=== PATIENT | male | born 1945 | race Caucasian/White ===

== ENCOUNTER → 2018-06-22 09:33 | Outpatient (CLI) | payer MEDICARE, SELFPAY ==
[2018-02-15 13:26] VITALS: BMI 30.1
[2018-06-22 10:54] LABS: AST(SGOT) 26 U/L (15-37); Alanine Aminotransfer ALT/SGPT 30 U/L (16-61); Albumin, Serum 3.8 g/dL (3.2-5.0); Alkaline Phosphatase 55 U/L (45-117); Cholesterol 184 mg/dL (200); High Density Lipoprotein 46 mg/dL; Protein, Total 7.8 g/dL (6.4-8.2); Triglycerides 106 mg/dL; Very Low Density Lipoprotein 21 mg/dL (5-40)
== END ==
PROVIDERS: Family Provider Internal Medicine; PCP Internal Medicine; Referring Provider Physician Assistant Medical; Visit Provider Physician Assistant Medical
DX: I25.10 Atherosclerotic heart disease of native coronary artery without angina pectoris (principal); E78.5 Hyperlipidemia, unspecified; Z79.899 Other long term (current) drug therapy
CPT/HCPCS: 36415; 80061; 80076

== ENCOUNTER → 2018-09-30 15:48 | Outpatient (CLI) | payer MEDICARE, SELFPAY ==
[2018-02-15 13:26] VITALS: BMI 30.1
== END ==
PROVIDERS: Family Provider Internal Medicine; PCP Internal Medicine; Referring Provider Dermatology; Visit Provider Dermatology
DX: L30.4 Erythema intertrigo (principal); R20.8 Other disturbances of skin sensation
CPT/HCPCS: 87070; 87077; 87186; 87205

== ENCOUNTER → 2018-12-29 08:19 | Outpatient (CLI) | payer MEDICARE, SELFPAY ==
[2018-11-25 13:54] VITALS: BMI 29.7
[2018-12-29 10:00] LABS: AST(SGOT) 26 U/L (15-37); Alanine Aminotransfer ALT/SGPT 28 U/L (16-61); Albumin, Serum 3.8 g/dL (3.2-5.0); Alkaline Phosphatase 56 U/L (45-117); Bilirubin, Direct 0.18 mg/dL (0.00-0.30); Cholesterol 144 mg/dL (200); Globulin 3.8 g/dL (2.2-4.2); High Density Lipoprotein 47 mg/dL; Protein, Total 7.6 g/dL (6.4-8.2); Triglycerides 66 mg/dL; Very Low Density Lipoprotein 13 mg/dL (5-40)
== END ==
PROVIDERS: Family Provider Internal Medicine; PCP Internal Medicine; Referring Provider Physician Assistant Medical; Visit Provider Physician Assistant Medical
DX: E78.5 Hyperlipidemia, unspecified (principal)
CPT/HCPCS: 36415; 80061; 80076

== ENCOUNTER → 2019-06-23 08:44 | Outpatient (CLI) | payer MEDICARE, SELFPAY ==
[2018-11-25 13:54] VITALS: BMI 29.7
[2019-06-23 10:54] LABS: AST(SGOT) 28 U/L (15-37); Alanine Aminotransfer ALT/SGPT 32 U/L (16-61); Albumin, Serum 3.5 g/dL (3.2-5.0); Alkaline Phosphatase 51 U/L (45-117); Cholesterol 150 mg/dL (200); Globulin 4.1 g/dL (2.2-4.2); High Density Lipoprotein 47 mg/dL; Protein, Total 7.6 g/dL (6.4-8.2); Triglycerides 77 mg/dL; Very Low Density Lipoprotein 15 mg/dL (5-40)
== END ==
PROVIDERS: PCP Internal Medicine; Referring Provider Physician Assistant Medical; Visit Provider Physician Assistant Medical
DX: E78.00 Pure hypercholesterolemia, unspecified (principal)
CPT/HCPCS: 36415; 80061; 80076

== ENCOUNTER 2020-02-05 21:18 | Inpatient (IN) | payer MEDICARE, SELFPAY ==
[2019-08-29 11:35] VITALS: BMI 29.8
[2020-02-05 21:19] VITALS: BP 151/78; PULSE 56; RESP 16; TEMP 36.6; O2SAT 98; BMI 29.2
--- NOTE | 2020-02-05 21:53 | CT_ITS ---
STUDY: CT ABDOMEN AND PELVIS WITHOUT CONTRAST REASON FOR EXAM: Male, 74 years old. BACK AND ABDOMEN PAIN. Hx of pacemaker, heart stent and prior appendectomy RADIATION DOSAGE (If Supplied By Facility): CTDIvol = ( 10.55 ) mGy, DLP = ( 553.50 ) mGycm TECHNIQUE: Transaxial images were obtained from the dome of the diaphragm to the symphysis pubis without oral contrast, and without intravenous contrast. Sagittal and coronal images were reconstructed. Individualized dose optimization techniques were used for this CT. COMPARISON: None. FINDINGS: The visualized lung bases are unremarkable. The visualized portions of the heart are within normal limits. Normal liver. There is a solitary gallstone. Normal spleen. Normal pancreas. Normal bilateral adrenal glands. Absent right kidney. Normal left kidney with compensatory hypertrophy. Probable 3 cm cyst of the left lower pole. Recommend confirmation with ultrasound. Evaluation of the GI tract is limited by absence of oral contrast. Cannot exclude stomach wall thickening. No dilated loops of bowel or evidence for obstruction. Cannot exclude segmental thickening of the holder of the small or large bowel. Cannot exclude enteritis or colitis. Moderate diffuse fecal retention. Status post appendectomy. There is diffuse atherosclerotic calcification of the abdominal aorta, without a demonstrated aneurysm. Normal inferior vena cava. Normal retroperitoneum. Normal urinary bladder. There is enlargement of the prostate gland. Bilateral small fat-containing inguinal hernias, larger on the left. There are diffuse degenerative changes of the visualized lumbar spine. CT/Abdomen/Pelvis without Cont IMPRESSION: Right kidney is absent. There is compensatory hypertrophy of the left kidney. Probable lower pole cyst, ultrasound recommended. Cholelithiasis. Electronically Signed: Faizan Palomo MD at 23:54 EDT , Service support ,
--- NOTE | 2020-02-05 21:55 | ED.DCSUM_ITS ---
History of Present Illness Chief Complaint: Back Informant: Patient Onset: Hours - several Context: Sudden Onset - when reaching across table while playing cards Timing: Continuous Quality: pain and spasm Location: lower thoracic spine Current Severity: Moderate Maximum Severity: Moderate Worsened by: Movement, bending Relieved by: Remaining still Associated Symptoms: Nausea/dry heaving, diffuse abdominal pain Narrative: Patient states he had sudden onset of discomfort in his back, followed by dry heaving. After vomiting, he started having diffuse abdominal pain. There is been no migration or radiation otherwise. He denies any radiation down his legs, no bowel or bladder dysfunction, no urinary problems that are new. No anticoagulants, takes baby aspirin daily, had a four-way bypass remotely. - Past Medical History (1) Atherosclerotic heart disease of [place] coronary artery without angina pectoris Status: Chronic Comment: CABG 2006: CARPIO to LAD, SVG to Diag of anterior descending, SVG to lateral Cx, SVG to RCA. Stent to Cx 2006 (2) Carotid arterial disease Status: Chronic Comment: RCEA (3) Pure hypercholesterolemia Status: Chronic Past Medical History - Allergies and Home Meds Allergies/Adverse Reactions: Allergies codeine Allergy (Verified 02/05/20 21:19) Unknown diphenhydramine HCl [From Benadryl] Allergy (Verified 02/05/20 21:19) Unknown lansoprazole [From Prevacid] Allergy (Verified 02/05/20 21:19) Unknown Penicillins Allergy (Verified 02/05/20 21:19) Unknown Sulfa (Sulfonamide Antibiotics) Allergy (Verified 02/05/20 21:19) Unknown ezetimibe [From Zetia] Adverse Reaction (Unknown, Verified 02/05/20 21:19) Unknown Primary Care Physician: Christina Sandy DO [Primary Care Provider] - Surgical History: appendectomy - at age 11, coronary bypass surgery Lives: Spouse/ Significant Other Smoking Status: Never smoker Alcohol: None Review of Systems General: Denies: Chills, Fever, Sweats Eyes: Denies: Visual changes - bilaterally, Diplopia ENT: Denies: Rhinorrhea, Sore throat Cardiovascular: Denies: Chest pain, Palpitations Respiratory: Denies: Dyspnea, Cough, Dyspnea on exertion Gastrointestinal: Reports: Abdominal pain, Nausea, Vomiting. Denies: Diarrhea, Melena, Hematochezia Genitourinary: Denies: Dysuria, Hematuria Musculoskeletal: Reports: Back pain. Denies: Myalgias, Neck pain, Swelling, Extremity Pain Skin: Denies: Rash, Wounds Neurological: Denies: Headache, Weakness, Numbness Physical Exam Vital Signs/Narrative: Vital Signs Temp Pulse Resp BP Pulse Ox 02/05/20 21:19 97.9 F 56 L 16 151/78 H 98 Inital Vital Signs reviewed: Yes General: Well nourished, Well developed, Obese, No Acute Distress Head: Normocephalic, Atraumatic Eyes: Perrl, EOMI ENT: Moist mucous membranes, No rhinorrhea Neck: Supple, Nontender Cardiovascular: Regular rate, Regular rhythm, No murmurs, - - Equal 2+/4 dorsalis pedis pulses bilaterally Respiratory: No distress, CTA bilaterally, Chest nontender Abdomen: Soft, Nondistended, Normal bowel sounds, Tender - Diffusely, nonfocal, Riley's sign - in medial RUQ/epigast, - - Abdominal obesity limits exam stefan ewhat. Negative for: Guarding, Rebound tenderness, Pulsatile mass Back: Normal Inspection, - - Bilateral paraspinal lower thoracic tenderness. No rash.. Negative for: CVA tenderness, Spinal tenderness Extremities: Nontender, No edema. Negative for: Calf Tenderness Skin: Normal color, No rash, No Trauma Neurological: Alert, Oriented x3, Cranial nerves II-XII grossly intact, Normal Strength, Normal Sensation Psychological: Normal affect, Normal Mood Diagnostic/Tx/Re-eval Clinical Impression(s) from Imaging Studies Abdomen/Pelvis CT 02/05/20 21:53 IMPRESSION: Right kidney is absent. There is compensatory hypertrophy of the left kidney. Probable lower pole cyst, ultrasound recommended. Cholelithiasis. Electronically Signed: Faizan Palomo MD at 23:54 EDT , Service support , Laboratory Tests 02/05/20 02/05/20 Range/Units 23:05 23:05 WBC 14.6 H (4.4-11.0) K/mm3 RBC 4.55 L (4.6-6.2) M/mm3 Hgb 14.1 (13.0-16.5) g/dL Hct 42.9 (40-54) % MCV 94.3 H (80-94) fL MCH 31.0 (27.0-32.0) pg MCHC 32.9 (32-36) g/dL RDW Std Deviation 42.8 (35.1-43.9) fl RDW Coeff of Abner 12.1 (11.6-14.6) % Plt Count 272 (150-450) K/mm3 MPV 9.4 (6.2-12.0) fl Immature Gran % (Auto) 1.300 H (0.0-0.9) % Neut % (Auto) 83.0 H (47-70) % Lymph % (Auto) 6.6 L (19-41) % [place] % (Auto) 8.4 (0-10) % Eos % (Auto) 0.3 (0-5) % Baso % (Auto) 0.4 (0-1) % Absolute Neuts (auto) 12.1 H (2.0-7.7) X10^3/uL Absolute Lymphs (auto) 0.96 (0.83-4.51) X10^3/uL Nucleated RBC % 0 (0-5) % Sodium 139 (136-145) mmol/L Potassium 3.7 (3.5-5.1) mmol/L Chloride 107 (98-107) mmol/L Carbon Dioxide 27.0 (21.0-32.0) mmol/L Anion Gap 5 (5-15) BUN 14 (7-18) mg/dL Creatinine 0.92 (0.70-1.30) mg/dL Estim Creat Clear Calc 68.31 ml/min Est GFR (MDRD) Af Amer 102 (>60) mL/min Est GFR (MDRD) Non-Af 85 (>60) mL/min BUN/Creatinine Ratio 15.2 (10-20) RATIO Glucose 150 H (74-106) mg/dL Calcium 8.8 (8.5-10.1) mg/dL Total Bilirubin 0.50 (0.20-1.00) mg/dL AST 22 (15-37) U/L ALT 32 (16-61) U/L Alkaline Phosphatase 53 (45-117) U/L Total Protein 7.4 (6.4-8.2) g/dL Albumin 3.6 (3.2-5.0) g/dL Globulin 3.8 (2.2-4.2) g/dL Albumin/Globulin Ratio 0.9 (0.9-2.4) RATIO Lipase 96 (73-393) U/L - Rhythm Strip Rhythm Strip: Sinus Rhythm Rate: 60 Ectopy: None - EKG Initial EKG Interpretation: Paced - atrial, RBBB, LAFB - Medical Decision Making Patient feels better after morphine but still having pain. I reexamined him. He is now focally tender in the right upper quadrant and epigastrium with a positive Riley's. My suspicion is that he has early acute cholecystitis, related to the solitary gallstone. I looked at the images, it is lodged in the neck of his gallbladder. He is stable, in mild pain and tolerating it. I discussed with the surgeon on for no doc Dr. Huizar, she will not be able to perform surgery for 2 days on this patient but would be willing to admit him. I discussed with Dr. Guadarrama who was gracious enough to admit this patient, order antibiotics, and will plan on taking him to the OR tomorrow afternoon. Screening EKG obtained. ED Disposition - Plan for ED Patient: Disposition: Acute Care Hospital [facility] Diagnosis: Acute calculous cholecystitis Referrals: Christina Sandy DO [Primary Care Provider] -
[2020-02-05] MEDS: Morphine 4 MG/ML Syringe IV (22:13)
[2020-02-05] MEDS: 0.9% Normal Saline 1,000 ML 1000 ML IV (22:13)
[2020-02-05] MEDS: Ondansetron 4 MG/2 ML Vial IV (22:14)
[2020-02-05 23:11] VITALS: BP 150/73; PULSE 60; RESP 16
[2020-02-05 23:30] LABS: Absolute Lymphocyte Count 0.96 X10^3/uL (0.83-4.51); Absolute Neutrophil Count 12.1 X10^3/uL (2.0-7.7); Basophil# 0.06 X10^3/uL; Basophil% 0.4 % (0-1); Eosinophil# 0.05 X10^3/uL; Eosinophils% 0.3 % (0-5); Hematocrit 42.9 % (40-54); Hemoglobin 14.1 g/dL (13.0-16.5); Lymphocyte # 0.96 X10^3/ul (4.0); Lymphocyte % 6.6 % (19-41); Mean Corp Hgb Conc 32.9 g/dL (32-36); Mean Corpuscular Volume 94.3 fL (80-94); Mean Platelet Vol. 9.4 fl (6.2-12.0); Monocyte# 1.23 X10^3/uL; Monocyte% 8.4 % (0-10); NRBC Flagged by Analyzer 0 % (0-5); Neutrophil # 12.12 X10^3/uL (2.7-7.7); Platelet Count 272 K/mm3 (150-450); RBC Distribution Width CV 12.1 % (11.6-14.6); RBC Distribution Width SD 42.8 fl (35.1-43.9); Red Blood Count 4.55 M/mm3 (4.6-6.2); White Blood Count 14.6 K/mm3 (4.4-11.0)
[2020-02-05 23:33] LABS: ALB/GLOB Ratio 0.9 RATIO (0.9-2.4); AST(SGOT) 22 U/L (15-37); Alanine Aminotransfer ALT/SGPT 32 U/L (16-61); Albumin, Serum 3.6 g/dL (3.2-5.0); Alkaline Phosphatase 53 U/L (45-117); Anion Gap 5 (5-15); BUN 14 mg/dL (7-18); BUN/Creat Ratio 15.2 RATIO (10-20); Calcium,Total 8.8 mg/dL (8.5-10.1); Chloride 107 mmol/L (98-107); Creatinine, Serum 0.92 mg/dL (0.70-1.30); EST Glomerular Filtration Rate 85 mL/min (>60); Est Glom Filt Rate - Afr Amer 102 mL/min (>60); Estimated Creatinine Clearance 68.31 ml/min; Globulin 3.8 g/dL (2.2-4.2); Glucose 150 mg/dL (74-106); Lipase 96 U/L (73-393); Potassium 3.7 mmol/L (3.5-5.1); Protein, Total 7.4 g/dL (6.4-8.2); Sodium Level 139 mmol/L (136-145)
[2020-02-05] MEDS: Ketorolac 15 MG/ML Vial IV (23:37)
[2020-02-05 23:54] LABS: Bacteria 0 SEEN /hpf (None Seen); Mucous, Urine 0 SEEN /hpf (<or=2+); Squamous Epithelial Cells - UA 0 SEEN /hpf (0-5); White Blood Cells 0 SEEN /hpf (0-5)
[2020-02-05 23:55] LABS: Color, Urine Yellow (Yellow); Glucose, Dipstick Normal (Normal); Ketone-Dipstick Negative (Negative); Leukocyte Esterase-Dipstick Negative /ul (Negative); Nitrite-Dipstick Negative (Negative); Occult Blood-Urine 10 /ul (Negative); Protein-Dipstick 15 mg/dl (Negative); Urine Bilirubin Dipstick Negative (Negative); Urine Clarity Clear (Clear); Urine Urobilinogen Normal (Normal)
[2020-02-06] VITALS (16 sets, daily range): BP systolic 107–142; BP diastolic 47–92; PULSE 58–65; RESP 16–20; TEMP 36.1–37.7; O2SAT 92–99; BMI 29.0
[2020-02-06 00:01] LABS: Red Blood Cells-Urine 0-5 SEEN /hpf (0-5)
--- NOTE | 2020-02-06 00:26 | EKG12_ITS ---
Test Reason : DYSRHYTHMIA Blood Pressure : / mmHG Vent. Rate : 060 BPM Atrial Rate : 060 BPM P-R Int : 240 ms QRS Dur : 138 ms QT Int : 474 ms P-R-T Axes : -11 -37 035 degrees QTc Int : 474 ms Atrial-paced rhythm with prolonged AV conduction Left axis deviation Right bundle branch block Minimal voltage criteria for LVH, may be normal variant Abnormal ECG Confirmed by RUBA KAUFMAN, JULISA ([id number]), scientific editor TERE RDZ ([id number]) on 02/07/2020 12:55:39 PM Referred By: Steve Abraham Confirmed By:JULISA YEH MD
--- NOTE | 2020-02-06 00:31 | US_ITS ---
STUDY: ABDOMINAL ULTRASOUND - RIGHT UPPER QUADRANT REASON FOR VISIT: Male, 74 [address] RU[address] PA[address] scan showed cholelithiasis. TECHNIQUE: Ultrasound evaluation of the right upper quadrant was performed with real-time and static roman-scale imaging. TECHNICAL QUALITY: Limited. Examination limited by bowel gas. COMPARISON: CT scan from yesterday. FINDINGS: Liver: The liver measures 18.1 cm. There is normal echogenicity of the liver. The bile ducts are within normal limits. There is hepatic color flow. The direction of portal flow is hepatopetal. There is no demonstrated mass lesion. Gallbladder: There is a markedly distended gallbladder. The gallbladder wall measures 2 mm. There is a negative sonographic Riley''s sign. There is no pericholecystic fluid. There is a solitary echogenic gallstone within the gallbladder neck. Common Bile Duct (C.B.D.): The common bile duct measures 6.2 mm. Pancreas: Normal size of the head, body and tail of the pancreas. There is normal echogenicity of the pancreas. There is no demonstrated pancreatic mass or cyst. Right Kidney: Absent US/Abdomen Limited IMPRESSION: Again seen is the cholelithiasis reported on yesterday''s CT scan. Solitary gallstone at the gallbladder neck. No tenderness. Electronically Signed: Faizan Palomo MD at 13:53 EDT , Service support ,
[2020-02-06] MEDS: 0.9% Saline Lock 10 ML Syringe IV ×2 (01:51→10:00)
[2020-02-06] MEDS: 0.9% Normal Saline 1,000 ML 100 ML IV ×2 (01:52→18:01)
[2020-02-06] MEDS: metroNIDAZOLE 500 MG/100 ML BAG 100 MG IV ×4 (01:53→21:51)
[2020-02-06] MEDS: Ciprofloxacin 400 MG/200 ML BAG 200 MG IV ×3 (03:25→23:00)
[2020-02-06 06:11] LABS: Absolute Lymphocyte Count 1.48 X10^3/uL (0.83-4.51); Absolute Neutrophil Count 9.7 X10^3/uL (2.0-7.7); Basophil# 0.04 X10^3/uL; Basophil% 0.3 % (0-1); Eosinophil# 0.06 X10^3/uL; Eosinophils% 0.5 % (0-5); Hematocrit 45.1 % (40-54); Hemoglobin 14.3 g/dL (13.0-16.5); Lymphocyte # 1.48 X10^3/ul (4.0); Lymphocyte % 11.3 % (19-41); Mean Corp Hgb Conc 31.7 g/dL (32-36); Mean Corpuscular Hgb 30.4 pg (27.0-32.0); Mean Platelet Vol. 9.8 fl (6.2-12.0); Monocyte# 1.77 X10^3/uL; Monocyte% 13.5 % (0-10); NRBC Flagged by Analyzer 0 % (0-5); Neutrophil % 74.1 % (47-70); POSITIVE DIFFERENTIAL YES; Platelet Count 239 K/mm3 (150-450); RBC Distribution Width CV 12.3 % (11.6-14.6); RBC Distribution Width SD 44.1 fl (35.1-43.9); White Blood Count 13.1 K/mm3 (4.4-11.0)
[2020-02-06 06:15] LABS: Differential Indicated SCAN CRITERIA MET
--- NOTE | 2020-02-06 06:30 | RAD_ITS ---
STUDY: INTRAOPERATIVE CHOLANGIOGRAM. REASON FOR EXAM: Male, 74 years old. Abd pain FLUOROSCOPY TIME (if supplied): ( 30.6 seconds ) minutes/seconds. A cine loop consisting of 212 images was made available for interpretation. TECHNIQUE: An intraoperative cholangiogram was performed by the surgeon. Imaging was submitted. COMPARISON: None. FINDINGS: The common bile duct is not dilated. No intraluminal filling defect is seen. There is free flow of contrast into the duodenum. RAD/Cholangiogram/ O R,Initial IMPRESSION: Unremarkable intraoperative cholangiogram. Electronically Signed: Dar Negrete, at 8:15 EDT , Service support ,
[2020-02-06 06:33] LABS: Differential Comment SCANNED
[2020-02-06 06:44] LABS: ALB/GLOB Ratio 0.9 RATIO (0.9-2.4); AST(SGOT) 22 U/L (15-37); Alanine Aminotransfer ALT/SGPT 30 U/L (16-61); Albumin, Serum 3.3 g/dL (3.2-5.0); Alkaline Phosphatase 47 U/L (45-117); Anion Gap 7 (5-15); BUN 11 mg/dL (7-18); BUN/Creat Ratio 11.7 RATIO (10-20); Calcium,Total 8.4 mg/dL (8.5-10.1); Chloride 103 mmol/L (98-107); Creatinine, Serum 0.94 mg/dL (0.70-1.30); EST Glomerular Filtration Rate 83 mL/min (>60); Est Glom Filt Rate - Afr Amer 100 mL/min (>60); Estimated Creatinine Clearance 66.86 ml/min; Globulin 3.5 g/dL (2.2-4.2); Glucose 127 mg/dL (74-106); Protein, Total 6.8 g/dL (6.4-8.2); Sodium Level 135 mmol/L (136-145); Thyroid Stim Hormone (TSH) 2.41 uIU/mL (0.358-3.74)
--- NOTE | 2020-02-06 08:22 | HP.PCM_ITS ---
Problem List (1) Acute calculous cholecystitis Status: Acute History of Present Illness Date of Admission: 02/06/20 The patient is a 74 year old M presented to the emergency room yesterday with pain that radiated to his back. The patient notes that he was also feeling bloating and indigestion. He is not having any fevers or chills. He has not had any vomiting. Past Medical History Past Medical History (Chronic Problems): Chronic Problems (Last Reviewed 08/29/19 @ 11:37 by Ayde Lagos) Presence of permanent cardiac pacemaker (Chronic ~2005) Pure hypercholesterolemia (Chronic) Presence of stent in coronary artery (Chronic ~01/2007) PTCA/TAXUS stent to mid and prox portion of the CX 01/31 Presence of coronary angioplasty implant and graft (Chronic ~01/2007) PTCA/TAXUS stent to mid and prox portion of the CX 01/31 History of coronary artery bypass surgery (Chronic ~2005) CABG 2006: CARPIO to LAD, SVG to Diag of anterior descending, SVG to lateral Cx, SVG to RCA. Carotid arterial disease (Chronic) RCEA Sick sinus syndrome (Chronic) Atherosclerotic heart disease of [place] coronary artery without angina pectoris (Chronic) CABG 2006: CARPIO to LAD, SVG to Diag of anterior descending, SVG to lateral Cx, SVG to RCA. Stent to Cx 2006 Medical History: Medical History (Last Reviewed 08/29/19 @ 11:37 by Ayde Lagos) Presence of permanent cardiac pacemaker (Chronic) Onset Date: ~2005 Z95.0 Pure hypercholesterolemia (Chronic) E78.00 Presence of stent in coronary artery (Chronic) Onset Date: ~01/2007 Z95.5 PTCA/TAXUS stent to mid and prox portion of the CX 01/31 Carotid arterial disease (Chronic) I77.9 RCEA Sick sinus syndrome (Chronic) I49.5 Atherosclerotic heart disease of [place] coronary artery without angina pectoris (Chronic) I25.10 CABG 2006: CARPIO to LAD, SVG to Diag of anterior descending, SVG to lateral Cx, SVG to RCA. Stent to Cx 2006 Asthma J45.909 GERD (gastroesophageal reflux disease) K21.9 Allergies codeine Allergy (Verified 02/05/20 21:19) Unknown diphenhydramine HCl [From Benadryl] Allergy (Verified 02/06/20 01:20) headache, eye irritation lansoprazole [From Prevacid] Allergy (Verified 02/05/20 21:19) Unknown Penicillins Allergy (Verified 02/06/20 01:20) Rash Sulfa (Sulfonamide Antibiotics) Allergy (Verified 02/06/20 01:20) Rash ezetimibe [From Zetia] Adverse Reaction (Unknown, Verified 02/05/20 21:19) Unknown Home Medications: Ambulatory Orders Medication Instructions Recorded aspirin 81 mg tablet,delayed 81 mg PO QDAY 05/13/17 release levothyroxine 25 mcg tablet 25 mcg PO DAILY 02/15/18 nitroglycerin 0.4 mg sublingual 0.4 mg SUBLINGUAL Q5M PRN #25 tab 11/25/18 tablet Metoprolol Tartrate [Lopressor 50 mg PO BID 02/06/20 (beta raj)] Surgical History: Surgical History (Last Reviewed 08/29/19 @ 11:37 by Ayde Lagos) Presence of coronary angioplasty implant and graft (Chronic) Onset Date: ~01/2007 Z95.5 PTCA/TAXUS stent to mid and prox portion of the CX 01/31 History of coronary artery bypass surgery (Chronic) Onset Date: ~2005 Z95.1 CABG 2006: CARPIO to LAD, SVG to Diag of anterior descending, SVG to lateral Cx, SVG to RCA. Hx of CABG Z95.1 S/P carotid endarterectomy Z98.890 Surgical History: appendectomy - at age 11, coronary bypass surgery Lives: Spouse/ Significant Other Smoking Status: Never smoker Alcohol: None - *Family History Maternal Family History: Family History (Last Reviewed 08/29/19 @ 11:37 by Ayde Lagos) Father CAD (coronary artery disease) Sister Arrhythmia Heart disease Review of Systems Constitutional: Denies: Anorexia, Fever HEENT: Denies: Difficulty Swallowing Respiratory: Denies: Cough, Shortness of Breath Gastrointestinal: Reports: Abdominal Pain. Denies: Constipation, Diarrhea, Nausea, Vomiting Genitourinary: Denies: Frequency Musculoskeletal: Denies: Joint Tenderness Skin: Denies: Jaundice Psychiatric: Denies: Anxiety Hematologic/ Lymphatic: Denies: Anemia VTE Information - Inpt Only VTE Present on Admission: No VTE Mechan Device Prophylaxis: SCD's Patient Problems: Active and Suspected Problems (Last Reviewed 08/29/19 @ 11:37 by Ayde Lagos) Acute calculous cholecystitis (Acute) - Physical Exam Vitals/I&O's: Vital Signs Temp Pulse Resp BP Pulse Ox 97.9 F 60 16 134/64 H 97 02/06/20 01:44 02/06/20 01:44 02/06/20 01:44 02/06/20 01:44 02/06/20 01:44 Oxygen Flow Rate (L/min) 98 Oxygen Delivery Method Room Air Weight: 196 lb 10.437 oz Body Mass Index (BMI) 29.0 Intake and Output for Last 24 Hours 02/04/20 02/05/20 02/06/20 23:59 23:59 23:59 Intake Total 1000 / 1000 498.34 / 498.34 Balance 1000 / 1000 498.34 / 498.34 General: Alert, Oriented x3 Neck: Supple Lungs: Normal air movement Cardiovascular: Regular rate, Regular Rhythm Abdomen: Soft, Non-Distended, Tender - Tender in the upper abdomen Musculoskeletal: No Muscle Wasting Neurological: Cranial nerves II-XII grossly intact Psych/Mental Status: Normal Affect Laboratory Results 02/05/20 23:05: WBC 14.6 H, RBC 4.55 L, Hgb 14.1, Hct 42.9, MCV 94.3 H, MCH 31.0, MCHC 32.9, RDW Std Deviation 42.8, RDW Coeff of Abner 12.1, Plt Count 272, MPV 9.4, Immature Gran % (Auto) 1.300 H, Neut % (Auto) 83.0 H, Lymph % (Auto) 6.6 L, [place] % (Auto) 8.4, Eos % (Auto) 0.3, Baso % (Auto) 0.4, Absolute Neuts (auto) 12.1 H, Absolute Lymphs (auto) 0.96, Nucleated RBC % 0 02/05/20 23:05: Sodium 139, Potassium 3.7, Chloride 107, Carbon Dioxide 27.0, Anion Gap 5, BUN 14, Creatinine 0.92, Estim Creat Clear Calc 68.31, Est GFR (MDRD) Af Amer 102, Est GFR (MDRD) Non-Af 85, BUN/Creatinine Ratio 15.2, Glucose 150 H, Calcium 8.8, Total Bilirubin 0.50, AST 22, ALT 32, Alkaline Phosphatase 53, Total Protein 7.4, Albumin 3.6, Globulin 3.8, Albumin/Globulin Ratio 0.9, Lipase 96 02/05/20 23:50: Urine Color Yellow, Urine Clarity Clear, Urine pH 6.0, Ur Specific [place] 1.020, Urine Protein 15 H, Urine Glucose (UA) Normal, Urine Ketones Negative, Urine Occult Blood 10 H, Urine Nitrite Negative, Urine Bilirubin Negative, Urine Urobilinogen Normal, Ur Leukocyte Esterase Negative, Urine RBC 0-5 SEEN, Urine WBC 0 SEEN, Ur Squamous Epith Cells 0 SEEN, Urine Bacteria 0 SEEN, Urine Mucus 0 SEEN 02/06/20 05:25: WBC 13.1 H, RBC 4.70, Hgb 14.3, Hct 45.1, MCV 96.0 H, MCH 30.4, MCHC 31.7 L, RDW Std Deviation 44.1 H, RDW Coeff of Abner 12.3, Plt Count 239, MPV 9.8, Immature Gran % (Auto) 0.300, Neut % (Auto) 74.1 H, Lymph % (Auto) 11.3 L, [place] % (Auto) 13.5 H, Eos % (Auto) 0.5, Baso % (Auto) 0.3, Absolute Neuts (auto) 9.7 H, Absolute Lymphs (auto) 1.48, Nucleated RBC % 0, Differential Comment SCANNED, Diff Path Review August02/06/20 05:25: Sodium 135 L, Potassium 4.0, Chloride 103, Carbon Dioxide 25.0, Anion Gap 7, BUN 11, Creatinine 0.94, Estim Creat Clear Calc 66.86, Est GFR (MDRD) Af Amer 100, Est GFR (MDRD) Non-Af 83, BUN/Creatinine Ratio 11.7, Glucose 127 H, Calcium 8.4 L, Total Bilirubin 0.80, AST 22, ALT 30, Alkaline Phosphatase 47, Total Protein 6.8, Albumin 3.3, Globulin 3.5, Albumin/Globulin Ratio 0.9, TSH 2.41 Clinical Impression(s) from Imaging Studies Abdomen/Pelvis CT 02/05/20 21:53 IMPRESSION: Right kidney is absent. There is compensatory hypertrophy of the left kidney. Probable lower pole cyst, ultrasound recommended. Cholelithiasis. Electronically Signed: Faizan Palomo MD at 23:54 EDT , Service support , Current Medications Acetaminophen (Tylenol) 650 mg PO Q4H PRN PRN PRN Reason: Pain 1-10 or Fever Calcium Carbonate (Tums) 1,000 mg PO Q4H PRN PRN PRN Reason: INDIGESTION Sodium Chloride () 1,000 mls @ 100 mls/hr IV .Q10H [facility] Last Infusion: 02/06/20 06:41 Dose: 0 mls/hr Documented by: Ciprofloxacin (Cipro) 400 mg in 200 mls @ 200 mls/hr IV Q12 [facility] Last Infusion: 02/06/20 04:45 Dose: Infused Documented by: Metronidazole (Flagyl) 500 mg in 100 mls @ 100 mls/hr IV Q8 [facility] Last Admin: 02/06/20 06:39 Dose: 100 mls/hr Documented by: Sodium Chloride () 250 mls @ 15 mls/hr IV .[id number] PRN PRN Reason: Saline Flush Pantoprazole Sodium 40 mg/ (Sodium Chloride) 110 mls @ 330 mls/hr IV Q24 [facility] Levothyroxine Sodium (Synthroid) 25 mcg PO DAILY@0600 [facility] Metoprolol Tartrate (Lopressor (Beta Raj)) 50 mg PO BID [facility] Morphine Sulfate () 2 - 4 mg IV Q2H PRN PRN PRN Reason: Pain Score 4-10 Ondansetron HCl (Zofran) 4 mg IV Q6H PRN PRN PRN Reason: NAUSEA Sodium Chloride () 10 - 40 ml IV UD PRN PRN Reason: SALINE FLUSH Last Admin: 02/06/20 01:51 Dose: 10 ml Documented by: Assessment/Plan All Active Problems (Last Reviewed 08/29/19 @ 11:37 by Ayde Lagos) Acute calculous cholecystitis (Acute) 74-year-old male with possible acute cholecystitis 1. Patient has elevated white count a CT scan reveals a stone in the gallbladder. I am obtaining an ultrasound this morning to see if the gallbladder wall appears thickened. His white count did slightly improved since yesterday and the patient reports only indigestion this morning. I will start him on a PPI. If the gallbladder appears distended or having a thick wall on the ultrasound I will proceed with laparoscopic cholecystectomy later this morning. 2. I discussed the procedure in detail with the patient. I discussed the risks, benefits, and alternatives of the procedure. I discussed the risks including but not limited to bleeding, infection, injury to surrounding organs such as the liver, bile duct, bowels. I did discuss the possibility of having to convert to an open procedure as well as the possibility that if any injuries occurred this may necessitate further surgery at a tertiary care center. Steve Abraham MD Pager: [facility] [address] [place] [address] Office:
[2020-02-06] MEDS: Calcium Carbonate 500 MG Tablet 1000 MG PO (08:34)
[2020-02-06] MEDS: Metoprolol Tartrate 50 MG Tablet PO ×2 (08:34→21:51)
--- NOTE | 2020-02-06 11:35 | GALL_PTH ---
PATIENT: ISIDRO ROSE LOC: MS3 U#:[id number] AGE/SX: 74/M ROOM: MS308 RE02/06/[address]: Dr. Steve Abraham MD : 1945 BED: 1 DIS: 02/08/2020 SPEC #: [id number] RECD: 02/06/20 13:51 STATUS: DARLEEN SANABRIA #: [id number] JAMES: 02/06/20 11:[address]: Steve Abraham DEPT: SURGICAL PATHOLOGY RECD BY: Ryder Martinez ENTERED: 02/07/20 08:19 SP TYPE: PATIENCE PIZARRO DR: Dr. Christina Sandy DO Tissues: Gallbladder, NOS Procedures: Surgery Specimen Level III HEADER OPERATION: Laparoscopic cholecystectomy with IOC PRE-OP DIAGNOSIS: Acute calculus cholecystitis TISSUE SUBMITTED: Gallbladder MICROSCOPIC DIAGNOSIS Gallbladder, cholecystectomy: Acute and chronic hemorrhagic and ulcerated cholecystitis and cholelithiasis. SJ:jeremy 02/08/20 MICROSCOPIC DESCRIPTION Slides are reviewed. GROSS DESCRIPTION Received is one container labeled with the patient's name and designated gallbladder. The specimen consists of a gallbladder measuring 8 x 3 x 2.5 cm. The external surface is smooth and glistening. Focally, it is granular, hemorrhagic and contains cautery artifact. The lumen of the gallbladder contains yellow-green mucoid bile and one black-dark green ovoid calculus measuring 1.6 cm. The mucosa is bile-stained and without any mass lesions. The gallbladder wall averages 0.2 cm in thickness and is free of mass lesions. Sales Specialist sections of the gallbladder and the cystic duct at margin of resection are submitted in one cassette. / AM:jeremy 02/07/20 TC:2 CPT: 36878
[2020-02-06 12:06] LABS: Pathologist Review Reviewed
[2020-02-06] MEDS: Bupiv/Epi 0.25% 30 ML Vial (12:15)
--- NOTE | 2020-02-06 13:14 | OP.PCM_ITS ---
Problem List (1) Acute calculous cholecystitis Status: Acute Report of Operation Date of Procedure: 02/06/20 Pre-Operative Diagnosis: Acute cholecystitis Post-Operative Diagnosis: Same Surgery/Procedure Performed:: Laparoscopic cholecystectomy with cholangiogram Description of Surgical Findings:: Inflamed gallbladder, normal IOC Specimen's removed: Gallbladder and contents Description of Procedure: After obtaining informed consent patient was brought back to the operating room. General anesthesia was induced. The abdomen was prepped and draped in usual sterile fashion. A small midline incision was made inferior to the umbilicus and deepened to the level of fascia. The fascia was elevated and incised. Next the peritoneum was elevated and incised in the same fashion. Finger sweep was performed and the Hamilton trocar was placed into the abdomen. The balloon was inflated. The abdomen was inflated to 15 mmHg. Next a camera was introduced into the abdomen and the abdomen was inspected. Next under direct visualization three 5-mm ports were placed one subxiphoid and 2 subcostal. Next the gallbladder was elevated and retracted toward the right shoulder. The peritoneum was stripped from the gallbladder. The gallbladder was very inflamed and very high up in the right upper quadrant. The infundibulum was located and retracted laterally. Next the triangle of Calot was dissected and the cystic duct and cystic artery were identified. Cholangiograms were performed. The Tobias clamp was used to clamp across the infundibulum and the catheter needle was inserted into the gallbladder. Under fluoroscopy contrast was instilled into the gallbladder and the common duct, cystic duct as well as proximal hepatic ducts were identified. There was good filling of the duodenum. There were no filling defects noted in the common bile duct. The clamp was removed as well as the needle and the infundibulum was grasped once more. Three hemolock clips were placed across the cystic duct. The cystic duct was then divided leaving 2 clips on the stump. The cystic artery was clipped and divided in the same fashion. The hook cautery was then used to take the gallbladder off of the gallbladder bed. Hemostasis was obtained. Gallbladder fossa was irrigated and no active bleeding or bile leakage was noted. Next the camera was introduced in the subxiphoid port. An Endopouch bag was placed through the umbilical port and the gallbladder was placed into it. The gallbladder was then removed through the umbilical incision. The camera was then reinserted through the umbilical port. The gallbladder fossa was inspected once more and noted to be hemostatic with no leaking bile. The abdomen was suctioned dry. The 5 mm ports were removed under direct visualization. The umbilical port was then removed and the air was removed from the abdomen. Next using an 0 Vicryl suture the umbilical fascia was closed in a [id number] fashion. The umbilical port site was irrigated local anesthetic was administered to all the incisions. All the incisions were closed with interrupted subcuticular 4-0 Monocryl sutures fol lowed by Steri-Strips and dressings. The patient was awoken and taken to PACU in stable condition. - Admit VTE Documentation VTE Mechan Device Prophylaxis: SCD's
[2020-02-06] MEDS: Bisacodyl 10 MG Suppository RECTAL (14:51)
[2020-02-06] MEDS: Morphine 2 MG/ML Syringe IV (21:51)
[2020-02-06] MEDS: Docusate Sodium 100 MG Capsule PO (21:51)
[2020-02-07 01:48] VITALS: BMI 29.0
[2020-02-07 03:30] VITALS: BP 99/54; PULSE 60; RESP 18; TEMP 37.1; O2SAT 92
[2020-02-07] MEDS: Morphine 2 MG/ML Syringe IV (04:17)
[2020-02-07 06:04] VITALS: BMI 29.0
[2020-02-07] MEDS: metroNIDAZOLE 500 MG/100 ML BAG 100 MG IV ×3 (06:09→22:08)
[2020-02-07] MEDS: 0.9% Normal Saline 1,000 ML 100 ML IV (06:09)
[2020-02-07] MEDS: Levothyroxine 25 MCG TABLET PO (06:09)
[2020-02-07 06:19] LABS: Absolute Lymphocyte Count 1.67 X10^3/uL (0.83-4.51); Absolute Neutrophil Count 9.3 X10^3/uL (2.0-7.7); Basophil# 0.04 X10^3/uL; Basophil% 0.3 % (0-1); Eosinophil# 0.05 X10^3/uL; Eosinophils% 0.4 % (0-5); Hematocrit 41.4 % (40-54); Hemoglobin 13.4 g/dL (13.0-16.5); Lymphocyte # 1.67 X10^3/ul (4.0); Lymphocyte % 12.7 % (19-41); Mean Corp Hgb Conc 32.4 g/dL (32-36); Mean Corpuscular Hgb 30.9 pg (27.0-32.0); Mean Corpuscular Volume 95.6 fL (80-94); Mean Platelet Vol. 9.4 fl (6.2-12.0); Monocyte# 2.02 X10^3/uL; Monocyte% 15.4 % (0-10); NRBC Flagged by Analyzer 0 % (0-5); Neutrophil # 9.28 X10^3/uL (2.7-7.7); Neutrophil % 70.8 % (47-70); POSITIVE DIFFERENTIAL YES; Platelet Count 237 K/mm3 (150-450); RBC Distribution Width CV 12.6 % (11.6-14.6); RBC Distribution Width SD 44.9 fl (35.1-43.9); Red Blood Count 4.33 M/mm3 (4.6-6.2); White Blood Count 13.1 K/mm3 (4.4-11.0)
[2020-02-07 06:28] LABS: Differential Indicated SCAN CRITERIA MET
[2020-02-07 06:48] LABS: Anion Gap 5 (5-15); BUN 13 mg/dL (7-18); BUN/Creat Ratio 11.6 RATIO (10-20); Calcium,Total 8.2 mg/dL (8.5-10.1); Chloride 107 mmol/L (98-107); Creatinine, Serum 1.12 mg/dL (0.70-1.30); EST Glomerular Filtration Rate 68 mL/min (>60); Est Glom Filt Rate - Afr Amer 82 mL/min (>60); Estimated Creatinine Clearance 56.11 ml/min; Glucose 132 mg/dL (74-106); Potassium 3.9 mmol/L (3.5-5.1); Sodium Level 136 mmol/L (136-145)
--- NOTE | 2020-02-07 07:24 | PN.SURG_ITS ---
Patient Problems: Active and Suspected Problems (Last Reviewed 08/29/19 @ 11:37 by Ayde Lagos) Acute calculous cholecystitis (Acute) Subjective: No nausea vomiting overnight. No flatus. - Physical Exam Vitals/I&O's: Vital Signs Temp Pulse Resp BP Pulse Ox 98.8 F 60 18 99/54 L 92 02/07/20 03:30 02/07/20 03:30 02/07/20 03:30 02/07/20 03:30 02/07/20 03:30 Oxygen Flow Rate (L/min) 2 Oxygen Delivery Method Room Air Weight: 196 lb 10.437 oz Body Mass Index (BMI) 29.0 Intake and Output for Last 24 Hours 02/05/20 02/06/20 02/07/20 23:59 23:59 23:59 Intake Total 1000 / 1000 2801.67 / 2801.67 601.67 / 601.67 Output Total 800 / 800 600 / 600 Balance 1000 / 1000 67 / 1.67 / 1.67 General: Alert, Oriented x3 Lungs: Clear to auscultation Abdomen: Soft, Non-Distended, Tender - Tender in the right upper quadrant Laboratory Results 02/06/20 05:25: Diff Path Review Reviewed 02/07/20 06:12: WBC 13.1 H, RBC 4.33 L, Hgb 13.4, Hct 41.4, MCV 95.6 H, MCH 30.9, MCHC 32.4, RDW Std Deviation 44.9 H, RDW Coeff of Abner 12.6, Plt Count 237, MPV 9.4, Immature Gran % (Auto) 0.400, Neut % (Auto) 70.8 H, Lymph % (Auto) 12.7 L, [place] % (Auto) 15.4 H, Eos % (Auto) 0.4, Baso % (Auto) 0.3, Absolute Neuts (auto) 9.3 H, Absolute Lymphs (auto) 1.67, Nucleated RBC % 0, Diff Path Review August02/07/20 06:12: Sodium 136, Potassium 3.9, Chloride 107, Carbon Dioxide 24.0, Anion Gap 5, BUN 13, Creatinine 1.12, Estim Creat Clear Calc 56.11, Est GFR (MDRD) Af Amer 82, Est GFR (MDRD) Non-Af 68, BUN/Creatinine Ratio 11.6, Glucose 132 H, Calcium 8.2 L Current Medications Acetaminophen (Tylenol) 650 mg PO Q4H PRN PRN PRN Reason: Pain 1-10 or Fever Calcium Carbonate (Tums) 1,000 mg PO Q4H PRN PRN PRN Reason: INDIGESTION Last Admin: 02/06/20 08:34 Dose: 1,000 mg Documented by: Docusate Sodium (Colace) 100 mg PO BID [facility] Last Admin: 02/06/20 21:51 Dose: 100 mg Documented by: Sodium Chloride () 1,000 mls @ 100 mls/hr IV .Q10H [facility] Last Infusion: 02/07/20 06:10 Dose: 0 mls/hr Documented by: Ciprofloxacin (Cipro) 400 mg in 200 mls @ 200 mls/hr IV Q12 [facility] Last Infusion: 02/07/20 00:03 Dose: Infused Documented by: Metronidazole (Flagyl) 500 mg in 100 mls @ 100 mls/hr IV Q8 [facility] Last Admin: 02/07/20 06:09 Dose: 100 mls/hr Documented by: Sodium Chloride () 250 mls @ 15 mls/hr IV .[id number] PRN PRN Reason: Saline Flush Pantoprazole Sodium 40 mg/ (Sodium Chloride) 110 mls @ 330 mls/hr IV Q24 [facility] Last Infusion: 02/06/20 10:19 Dose: Infused Documented by: Ketorolac Tromethamine (Toradol (Bkc)) 15 mg IV Q8H PRN PRN PRN Reason: Pain Score 4-10 Stop: 02/11/20 13:14 Levothyroxine Sodium (Synthroid) 25 mcg PO DAILY@0600 [facility] Last Admin: 02/07/20 06:09 Dose: 25 mcg Documented by: Metoprolol Tartrate (Lopressor (Beta Raj)) 50 mg PO BID [facility] Last Admin: 02/06/20 21:51 Dose: 50 mg Documented by: Morphine Sulfate () 2 - 4 mg IV Q2H PRN PRN PRN Reason: Pain Score 4-10 Last Admin: 02/07/20 04:17 Dose: 4 mg Documented by: Ondansetron HCl (Zofran) 4 mg IV Q6H PRN PRN PRN Reason: NAUSEA Sodium Chloride () 10 - 40 ml IV UD PRN PRN Reason: SALINE FLUSH Last Admin: 02/06/20 10:00 Dose: 10 ml Documented by: Medical Necessity - Tobacco Use Smoking Status: Never smoker Assessment/Plan All Active Problems (Last Reviewed 08/29/19 @ 11:37 by Ayde Lagos) Acute calculous cholecystitis (Acute) 74-year-old male with acute cholecystitis 1. Patient is still not passing flatus yet. Continue clears until he starts to have bowel function. I will give him some magnesium citrate as well as he was very constipated during surgery. Monitor blood pressure and urine output. Steve Abraham MD Pager: [facility] [address] [place] [address], [address] [place] [address] Office:
[2020-02-07 08:13] VITALS: BP 98/49; PULSE 63; RESP 16; TEMP 37.2; O2SAT 92
[2020-02-07] MEDS: Magnesium Citrate 300 ML 150 ML PO (09:08)
[2020-02-07 09:09] VITALS: PULSE 63
[2020-02-07] MEDS: Metoprolol Tartrate 50 MG Tablet PO ×2 (09:09→21:00)
[2020-02-07] MEDS: Docusate Sodium 100 MG Capsule PO ×2 (09:09→20:59)
[2020-02-07] MEDS: Ciprofloxacin 400 MG/200 ML BAG 200 MG IV ×2 (09:57→20:59)
--- NOTE | 2020-02-07 13:25 | NURSING ---
RN CM Assessment Introduced role of RN CM to patient and patient Madhuri at bedside. Patient is alert, oriented and able to participate in RN CM Assessment. Care providers, pharmacy, and demographics verified. Admit Dx: Acute cholecystitis Re-Admit: No Barriers/Issues: None PCP: Christina Sandy Specialists: Cardio- Dr Robin [facility] Insurance: [facility] PP Rx Benefit: Yes LNOK: Madhuri Bertrand LW/HPOA: None, information provided and made aware if changes his mind and would like to complete on this admission to notify staff. Made aware that he can return as an outpatient and complete with social service dept if chooses, SW rack card provided. Living Arrangements: Lives with in a [place] home, 3 steps to enter through the garage ADL?s: Independent with ambulation and ADLs Transportation: Both patient and drive, will transport upon DC DME: None HHC: None SNF: None Goal: Home and does not think he will have any needs. Denies any issues or concerns with DC planning at this time. Aware RNCM remains available should any emerging needs arise. DC PLAN: Home and no anticipated needs identified at this time. BEKA Sullivan
[2020-02-07 14:03] LABS: Pathologist Review Reviewed
--- NOTE | 2020-02-07 14:23 | CHAPLAIN ---
Type of Pastoral Visit _x__ Initial Visit ___ Follow-up Visit ___ On-call Visit ___ General Patient Visit ___ Spiritual Assessment ___ Family Conference ___ Bereavement ___ Rapid Response ___ Code Blue ___ Other (describe below) Pastoral Care Referral From _x__ Patient ___ Family ___ Nurse ___ Physician ___ Car Repairer Helper ___ Roof Foreman ___ Other (describe below) Sacrament/Intervention _x__ Active listening ___ Anointing ___ Baptist ___ Bereavement ___ Communion ___ Ashley exploration ___ _x__ Life review _x__ Prayer ___ Reconciliation ___ Sacrament of Sick ___ Supportive presence ___ Wedding ___ Other (describe below) Pastoral Comments spouse is also with patient at this time; support offered for both
[2020-02-07 14:51] VITALS: BP 125/61; PULSE 59; RESP 16; TEMP 36.3; O2SAT 94
[2020-02-07 20:50] VITALS: BP 142/69; PULSE 60; RESP 18; TEMP 37.1; O2SAT 94
[2020-02-07] MEDS: Acetaminophen 325 MG Tablet 650 MG PO (20:59)
[2020-02-07] MEDS: 0.9% Saline Lock 10 ML Syringe IV (20:59)
[2020-02-07 21:00] VITALS: BP 142/69; PULSE 60
[2020-02-08 02:50] VITALS: BP 143/79; PULSE 63; RESP 18; TEMP 37; O2SAT 95
[2020-02-08] MEDS: 0.9% Saline Lock 10 ML Syringe IV (05:22)
[2020-02-08] MEDS: Levothyroxine 25 MCG TABLET PO (05:22)
[2020-02-08] MEDS: metroNIDAZOLE 500 MG/100 ML BAG 100 MG IV (05:22)
--- NOTE | 2020-02-08 07:43 | DCINST_ITS ---
Discharge Diet: Light diet - advance as tolerated Discharge Activity: Return to Normal Activity, May Not Drive - for 2-3 days or while taking narcotic pain medicataions., - - Do not drive, work heavy equipment or sign legal documents for 24 hours. May shower in (days): 1 - with the bandage in place. Additional Activity Instructions:: Pain medication may cause nausea. You should typically eat light foods as you take your pain medications. Pain medication may also cause constipation. If this is a problem for you, please discuss with your doctor. Call your doctor if your incision/area has: Continuous Slow Oozing, Sudden Increased Bleeding, Increased Pain/ Swelling, Increased Redness, Foul Smelling Discharge, Fever of 101 or Higher Call your doctor if you observe: Fever of 101 or Higher Suture Line Care: Avoid Pulling/Pushing, Avoid Pinching/Bending Additional Dressing/Incision Instructions:: Leave operative bandaids on for 2 days. When you remove dressing, leave Steri-Strips on until your follow-up appointment, or until the Steri-Strips fall off on their own. Allergies/Adverse Reactions: Allergies codeine Allergy (Verified 02/05/20 21:19) Unknown diphenhydramine HCl [From Benadryl] Allergy (Verified 02/06/20 01:20) headache, eye irritation lansoprazole [From Prevacid] Allergy (Verified 02/05/20 21:19) Unknown Penicillins Allergy (Verified 02/06/20 01:20) Rash Sulfa (Sulfonamide Antibiotics) Allergy (Verified 02/06/20 01:20) Rash ezetimibe [From Zetia] Adverse Reaction (Unknown, Verified 02/05/20 21:19) Unknown Medications to take at Discharge aspirin 81 mg tablet,delayed release 81 mg PO QDAY 05/13/17 levothyroxine 25 mcg tablet 25 mcg PO DAILY 02/15/18 nitroglycerin 0.4 mg sublingual tablet 0.4 mg SUBLINGUAL Q5M PRN #25 tab 11/25/18 Metoprolol Tartrate [Lopressor (beta jose)] 50 mg PO BID 02/06/20 Acetaminophen [Tylenol Tablet] 650 mg PO Q4H PRN PRN tablet 02/08/20 Docusate Sodium [Colace] 100 mg PO BID capsule 02/08/20 Test Results: Test results from this visit will be discussed in further detail at your follow- up appointment, if applicable. Please Follow Up With: Steve Abraham MD When: Please call to schedule 2 week follow up appointment. [phone]
--- NOTE | 2020-02-08 07:45 | PCM.DC.SUM ---
Discharge Date and Diagnosis - Problem List Patient Problems: Active and Suspected Problems (Last Reviewed 08/29/19 @ 11:37 by Ayde Lagos) Acute calculous cholecystitis (Acute) Date of Admission: 02/06/20 Date of Discharge: 02/08/20 - Primary Discharge Diagnosis Acute Problems: Active Problems (Last Reviewed 08/29/19 @ 11:37 by Ayde Lagos) Acute calculous cholecystitis (Acute) - Secondary Discharge Diagnosis Chronic Problems: Chronic Problems (Last Reviewed 08/29/19 @ 11:37 by Ayde Lagos) Presence of permanent cardiac pacemaker (Chronic ~2005) Pure hypercholesterolemia (Chronic) Presence of stent in coronary artery (Chronic ~01/2007) PTCA/TAXUS stent to mid and prox portion of the CX 01/31 Presence of coronary angioplasty implant and graft (Chronic ~01/2007) PTCA/TAXUS stent to mid and prox portion of the CX 01/31 History of coronary artery bypass surgery (Chronic ~2005) CABG 2006: CARPIO to LAD, SVG to Diag of anterior descending, SVG to lateral Cx, SVG to RCA. Carotid arterial disease (Chronic) RCEA Sick sinus syndrome (Chronic) Atherosclerotic heart disease of [place] coronary artery without angina pectoris (Chronic) CABG 2006: CARPIO to LAD, SVG to Diag of anterior descending, SVG to lateral Cx, SVG to RCA. Stent to Cx 2006 Hospital Course and Treatment Imaging Results: Clinical Impression(s) from Imaging Studies Abdomen/Pelvis CT 02/05/20 21:53 IMPRESSION: Right kidney is absent. There is compensatory hypertrophy of the left kidney. Probable lower pole cyst, ultrasound recommended. Cholelithiasis. Electronically Signed: Faizan Palomo MD at 23:54 EDT , Service support , Abdomen Ultrasound 02/06/20 00:31 IMPRESSION: Again seen is the cholelithiasis reported on yesterday''s CT scan. Solitary gallstone at the gallbladder neck. No tenderness. Electronically Signed: Faizan Palomo MD at 13:53 EDT , Service support , Cholangiogram 02/06/20 06:30 IMPRESSION: Unremarkable intraoperative cholangiogram. Electronically Signed: Dar Negrete, at 8:15 EDT , Service support , Operations: cholecystecomy Procedures: None Summary of Care Provided: The patient is a 74 year old M presented to the emergency room with abdominal pain and nausea. Patient was taken the following day for a laparoscopic cholecystectomy and was found to have acute cholecystitis. The following day he was having some belching and not passing any gas and was kept n.p.o. The day after that he was started on a diet and tolerated his diet was discharged home. Patient Problems: Active and Suspected Problems (Last Reviewed 08/29/19 @ 11:37 by Ayde Lagos) Acute calculous cholecystitis (Acute) - Physical Exam Vitals/I&O's: Vital Signs Temp Pulse Resp BP Pulse Ox 98.6 F 63 18 143/79 H 95 02/08/20 02:50 02/08/20 02:50 02/08/20 02:50 02/08/20 02:50 02/08/20 02:50 Oxygen Flow Rate (L/min) 2 Oxygen Delivery Method Room Air Weight: 196 lb 10.437 oz Body Mass Index (BMI) 29.0 Intake and Output for Last 24 Hours 02/06/20 02/07/20 02/08/20 23:59 23:59 23:59 Intake Total 2801.67 / 2801.67 2940.00 / 2940.00 100 / 100 Output Total 800 / 800 1250 / 1800 1600 / 1600 Balance 2000.67 / 2000.67 1690.00 / 1140.00 -1500 / -1500 Laboratory Results 02/07/20 06:12: Diff Path Review Reviewed Current Medications Acetaminophen (Tylenol) 650 mg PO Q4H PRN PRN PRN Reason: Pain 1-10 or Fever Last Admin: 02/07/20 20:59 Dose: 650 mg Documented by: Calcium Carbonate (Tums) 1,000 mg PO Q4H PRN PRN PRN Reason: INDIGESTION Last Admin: 02/06/20 08:34 Dose: 1,000 mg Documented by: Docusate Sodium (Colace) 100 mg PO BID [facility] Last Admin: 02/07/20 20:59 Dose: 100 mg Documented by: Sodium Chloride () 250 mls @ 15 mls/hr IV .[id number] PRN PRN Reason: Saline Flush Ketorolac Tromethamine (Toradol (Bkc)) 15 mg IV Q8H PRN PRN PRN Reason: Pain Score 4-10 Stop: 02/11/20 13:14 Levothyroxine Sodium (Synthroid) 25 mcg PO DAILY@0600 [facility] Last Admin: 02/08/20 05:22 Dose: 25 mcg Documented by: Metoprolol Tartrate (Lopressor (Beta Raj)) 50 mg PO BID [facility] Last Admin: 02/07/20 21:00 Dose: 50 mg Documented by: Ondansetron HCl (Zofran) 4 mg IV Q6H PRN PRN PRN Reason: NAUSEA Sodium Chloride () 10 - 40 ml IV UD PRN PRN Reason: SALINE FLUSH Last Admin: 02/08/20 05:22 Dose: 10 ml Documented by: Discharge Diet: Light diet - advance as tolerated Discharge Activity: Return to Normal Activity, May Not Drive - for 2-3 days or while taking narcotic pain medicataions., - - Do not drive, work heavy equipment or sign legal documents for 24 hours. May shower in (days): 1 - with the bandage in place. Additional Activity Instructions:: Pain medication may cause nausea. You should typically eat light foods as you take your pain medications. Pain medication may also cause constipation. If this is a problem for you, please discuss with your doctor. Call your doctor if your incision/area has: Continuous Slow Oozing, Sudden Increased Bleeding, Increased Pain/ Swelling, Increased Redness, Foul Smelling Discharge, Fever of 101 or Higher Call your doctor if you observe: Fever of 101 or Higher Suture Line Care: Avoid Pulling/Pushing, Avoid Pinching/Bending Additional Dressing/Incision Instructions:: Leave operative bandaids on for 2 days. When you remove dressing, leave Steri-Strips on until your follow-up appointment, or until the Steri-Strips fall off on their own. Home Medications: Medications to take at Discharge aspirin 81 mg tablet,delayed release 81 mg PO QDAY 05/13/17 levothyroxine 25 mcg tablet 25 mcg PO DAILY 02/15/18 nitroglycerin 0.4 mg sublingual tablet 0.4 mg SUBLINGUAL Q5M PRN #25 tab 11/25/18 Metoprolol Tartrate [Lopressor (beta raj)] 50 mg PO BID 02/06/20 Acetaminophen [Tylenol Tablet] 650 mg PO Q4H PRN PRN tab 02/08/20 Docusate Sodium [Colace] 100 mg PO BID cap 02/08/20 Primary Care Physician: Christina Sandy DO [Primary Care Provider] - Please Follow Up With: Steve Abraham MD When: Please call to schedule 2 week follow up appointment. [phone] Medical Necessity - Tobacco Use Smoking Status: Never smoker Meaningful Use Info Meaningful Use Diagnoses (Choose all that apply): None applicable
[2020-02-08 07:59] VITALS: BP 140/60; PULSE 60; RESP 18; TEMP 36.6; O2SAT 98
[2020-02-08 08:03] VITALS: PULSE 60
[2020-02-08] MEDS: Metoprolol Tartrate 50 MG Tablet PO (08:03)
[2020-02-08] MEDS: Docusate Sodium 100 MG Capsule PO (08:03)
== END 2020-02-08 11:31 | disposition home or self-care (01) | DRG 419 ==
LOC: ED 23:36 → MS3 02-06 00:36
PROVIDERS: Admitting Provider Surgery; Emergency Provider Emergency Medicine; PCP Internal Medicine; Referring Provider Surgery; Visit Provider Surgery
PROC: 0FT44ZZ Resection of Gallbladder, Percutaneous Endoscopic Approach (ICD-10-PCS; CPT 47610; principal; 2020-02-06 11:15)
DX: K80.00 Calculus of gallbladder with acute cholecystitis without obstruction (principal); K59.00 Constipation, unspecified; N28.81 Hypertrophy of kidney; I25.10 Atherosclerotic heart disease of native coronary artery without angina pectoris; I49.5 Sick sinus syndrome; I65.29 Occlusion and stenosis of unspecified carotid artery; E78.00 Pure hypercholesterolemia, unspecified; E03.9 Hypothyroidism, unspecified; Z95.5 Presence of coronary angioplasty implant and graft; Z95.1 Presence of aortocoronary bypass graft; Z95.0 Presence of cardiac pacemaker; Z90.5 Acquired absence of kidney; Z79.82 Long term (current) use of aspirin; Z79.890 Hormone replacement therapy; Z79.899 Other long term (current) drug therapy
CPT/HCPCS: 36415; 74176; 74300; 76000; 76705; 80048; 80053; 81001; 83690; 84443; 85025; 88304; 93005; 99251; 99281; J7030; A4216; G0463; J0744; J2405

== ENCOUNTER → 2021-09-09 | Outpatient (CLI) | payer MEDICARE, SELFPAY ==
[2021-09-09 09:31] LABS: AST(SGOT) 25 U/L (15-37); Alanine Aminotransfer ALT/SGPT 31 U/L (16-61); Albumin, Serum 3.8 g/dL (3.2-5.0); Alkaline Phosphatase 50 U/L (45-117); Bilirubin, Direct 0.19 mg/dL (0.00-0.30); Cholesterol 161 mg/dL (200); Globulin 3.9 g/dL (2.2-4.2); High Density Lipoprotein 53 mg/dL; Protein, Total 7.7 g/dL (6.4-8.2); Triglycerides 74 mg/dL; Very Low Density Lipoprotein 15 mg/dL (5-40)
== END | disposition home or self-care (01) ==
LOC: LAB 08:21
PROVIDERS: PCP Internal Medicine; Referring Provider Internal Medicine Cardiovascular Disease; Visit Provider Internal Medicine Cardiovascular Disease
DX: I25.10 Atherosclerotic heart disease of native coronary artery without angina pectoris (principal); E78.00 Pure hypercholesterolemia, unspecified; Z95.1 Presence of aortocoronary bypass graft
CPT/HCPCS: 36415; 80061; 80076

== ENCOUNTER → 2022-10-20 | Outpatient (CLI) | payer MEDICARE, SELFPAY ==
[2022-10-20 10:05] LABS: AST(SGOT) 27 U/L (15-37); Alanine Aminotransfer ALT/SGPT 26 U/L (16-61); Albumin, Serum 3.7 g/dL (3.2-5.0); Alkaline Phosphatase 48 U/L (45-117); Bilirubin, Direct 0.21 mg/dL (0.00-0.30); Cholesterol 144 mg/dL (200); Globulin 3.8 g/dL (2.2-4.2); High Density Lipoprotein 49 mg/dL; Protein, Total 7.5 g/dL (6.4-8.2); Triglycerides 74 mg/dL; Very Low Density Lipoprotein 15 mg/dL (5-40)
== END | disposition home or self-care (01) ==
PROVIDERS: PCP Internal Medicine; Referring Provider Nurse Practitioner Family; Visit Provider Nurse Practitioner Family
DX: E78.00 Pure hypercholesterolemia, unspecified (principal)
CPT/HCPCS: 36415; 80061; 80076

== ENCOUNTER → 2023-07-28 | Outpatient (CLI) | payer MEDICARE, SELFPAY ==
--- NOTE | 2023-07-28 15:47 | RAD_ITS ---
STUDY: X-RAY CHEST REASON FOR EXAM: Male, 78 years old. For PPM generator change TECHNIQUE: Frontal and lateral views of the chest. COMPARISON: None. FINDINGS: The lungs are clear and expanded. There is no demonstrated pleural abnormality. Sternal cerclage wires and vascular clips are present from a prior sternotomy and coronary artery bypass graft procedure (CABG). Pacemaker is seen with leads terminating in the right atrium and right ventricle. Normal mediastinum and zhang. Normal visualized pulmonary arteries. Normal visualized aortic arch and descending thoracic aorta. Normal visualized thoracic spine. Normal visualized ribs, clavicles, and shoulders. There is no demonstrated abnormality of the visualized soft tissue structures of the upper abdomen. RAD/Chest PA and Lateral IMPRESSION: No definite acute or significant abnormality seen. Electronically Signed: Faizan Palomo MD at 17:00 EDT ,
[2023-07-28 16:17] LABS: Bacteria 0 SEEN /hpf (None Seen); Mucous, Urine 0 SEEN /hpf (<or=2+); Squamous Epithelial Cells - UA 0 SEEN /hpf (0-5)
[2023-07-28 16:37] LABS: Hematocrit 44.3 % (40-54); Hemoglobin 14.6 g/dL (13.0-16.5); Mean Corpuscular Hgb 31.3 pg (27.0-32.0); Mean Corpuscular Volume 94.9 fL (80-94); Mean Platelet Vol. 9.4 fl (6.2-12.0); Platelet Count 261 K/mm3 (150-450); RBC Distribution Width CV 12.5 % (11.6-14.6); Red Blood Count 4.67 M/mm3 (4.6-6.2); White Blood Count 8.7 K/mm3 (4.4-11.0)
[2023-07-28 16:38] LABS: Color, Urine Yellow (Yellow); Glucose, Dipstick Normal (Normal); Ketone-Dipstick Negative (Negative); Leukocyte Esterase-Dipstick 25 /ul (Negative); Nitrite-Dipstick Negative (Negative); Occult Blood-Urine Negative /ul (Negative); Protein-Dipstick Negative (Negative); Specific Gravity, Urine 1.015 (1.002-1.030); Urine Bilirubin Dipstick Negative (Negative); Urine Clarity Clear (Clear); Urine Urobilinogen Normal (Normal); Urine pH 6.5 (5.0 - 8.0)
[2023-07-28 16:44] LABS: International Normalized Ratio 1.1; Prothrombin Time (Protime)PT. 14.3 SECONDS (11.7-14.9)
[2023-07-28 16:49] LABS: Red Blood Cells-Urine 0-5 SEEN /hpf (0-5); White Blood Cells 0-5 SEEN /hpf (0-5)
[2023-07-28 16:56] LABS: Anion Gap 6 (5-15); BUN 12 mg/dL (7-18); BUN/Creat Ratio 11.5 RATIO (10-20); Calcium,Total 9.3 mg/dL (8.5-10.1); Chloride 107 mmol/L (98-107); Creatinine, Serum 1.04 mg/dL (0.70-1.30); EST Glomerular Filtration Rate 73 mL/min (>60); Est Glom Filt Rate - Afr Amer 88 mL/min (>60); Glucose 158 mg/dL (74-106); Potassium 4.4 mmol/L (3.5-5.1); Sodium Level 139 mmol/L (136-145)
== END | disposition home or self-care (01) ==
LOC: RAD 15:46
PROVIDERS: PCP Internal Medicine; Referring Provider Internal Medicine Cardiovascular Disease; Visit Provider Internal Medicine Cardiovascular Disease
DX: I49.5 Sick sinus syndrome (principal); I25.10 Atherosclerotic heart disease of native coronary artery without angina pectoris; Z95.0 Presence of cardiac pacemaker
CPT/HCPCS: 36415; 71046; 80048; 81001; 85027; 85610

== ENCOUNTER 2023-08-10 10:55 | Day surgery (SDC) | payer MEDICARE, SELFPAY ==
--- NOTE | 2023-07-30 15:42 | PCM.HP.BLA ---
History and Physical Date of Admission: 08/10/23 This is a 78-year-old white male who presents today for a generator changes. He has a history of underlying CAD status post PCI and CABG superimposed upon underlying sick sinus syndrome and permanent pacemaker placement and hyperlipidemia. He denies chest, arm, jaw, or neck discomfort. He denies palpitations. He denies bilateral lower extremity edema. He denies claudication. He denies shortness of breath with activity, shortness of breath at rest, orthopnea, or PND. He denies chronic cough. He denies significant, sudden weight gain. He states dizziness after taking metoprolol. He denies lightheadedness, near-syncope, or syncope. He denies blood in urine, blood in stool, or epistaxis. He denies fever with chills. He denies myalgia. He states fatigue. His exercise level has remained stable. Intake Vital Signs: See EMR Intake Visit Reasons: Generator Change Precision Agronomist Required: No Accompanied by: None Is patient in pain?: No Allergies codeine Allergy (Verified 04/10/23 13:10) Unknown diphenhydramine HCl [From Benadryl] Allergy (Verified 04/10/23 13:10) headache, eye irritation lansoprazole [From Prevacid] Allergy (Verified 04/10/23 13:10) Unknown Penicillins Allergy (Verified 04/10/23 13:10) Rash Sulfa (Sulfonamide Antibiotics) Allergy (Verified 04/10/23 13:10) Rash ezetimibe [From Zetia] Adverse Reaction (Unknown, Verified 04/10/23 13:10) Unknown Medications See EMR [facility] Medical History (Updated 04/10/23 @ 13:36 by Srikanth Parkinson NP, [employer] SET UP OPERATOR [employer]) Acute calculous cholecystitis Asthma Atherosclerotic heart disease of [place] coronary artery without angina pectoris Carotid arterial disease GERD (gastroesophageal reflux disease) Presence of permanent cardiac pacemaker (~2005) Presence of stent in coronary artery (~01/2007) Pure hypercholesterolemia Sick sinus syndrome Surgical History History of coronary artery bypass surgery (~2005) History of laparoscopic cholecystectomy (~02/06/20) Hx of CABG Presence of coronary angioplasty implant and graft (~01/2007) S/P carotid endarterectomy Family History Father , age 96 CAD (coronary artery disease)Sister Arrhythmia Heart disease Social History Smoking Status: Never smoker alcohol intake: never substance use type: does not use caffeine: No what type of physical activity do you participate in: walking and bicycling frequency: 5-6 times per week duration: 15-30 minutes/day seatbelt use: always do you feel safe at home: Yes ROS Const Const: Positive for fatigue (Feels he tires more quickly due to PM battery being low); Negative for weakness, headache(s), frequent falls, difficulty sleeping or excessive sweating Eyes Eyes: Negative for loss of peripheral vision, transient loss of vision, blurry vision, double vision or tunnel vision ENT ENT: Negative for headache(s), dizziness, Nosebleed/epistaxis or balance problems Cardio Chest Pain: No Palpitations: No Edema: None Muscle aches with walking: None Resp Respiratory: Negative for SOB with activity, SOB at rest, SOB orthopnea\SOB lying down, Cough or paroxysmal nocturnal dyspnea GI GI: Negative nausea, vomiting, heartburn or black,tarry stools : Negative for hematuria Musc Musc: Negative for muscle aches/ myalgia, muscle weakness, joint pain or balance problems Skin Skin: Negative non-healing lesions, rash or unusual bruising Neuro Neuro: Negative for dizziness, lightheadedness, near syncope, syncope, frequent falls, headache(s), weakness, blurry vision, double vision or lack of coordination Mariusz Hematologic/Lymphatic: Negative for easy bleeding or easy bruising Endo Endo: Positive for fatigue (Feels he tires more quickly due to PM battery being low); Negative for excessive sweating or increased thirst/drinking Psych Psych: Negative for anxiety or depression Allergy Allergy/Immunology: Negative for hives and Negative for rash Cardiology Exam Const Appearance: cooperative, healthy appearing, comfortable and no acute distress Nutritional Appearance: well nourished and overweight Orientation: alert, awake and oriented x3 Head Head: normal to inspection Ears: hearing grossly normal bilaterally Nose: external nose normal Face and Sinus: face symmetric Mouth: moist mucous membranes Eyes General: appearance normal, both eyes and all related structures Eyelids: eyelids normal EOM: EOM intact bilaterally Neck Neck: normal visual inspection and no JVD Carotids: normal carotid upstroke Chest Chest inspection: normal inspection of the chest, symmetric chest movement and normal respiratory effort; Negative cough Auscultation: Bilateral: Clear to Auscultation Cardio Rate: regular rate Rhythm: regular rhythm Heart sounds: S1 normal and S2 normal; Negative rub, gallop or murmur GI GI: normal to inspection Neuro General: patient alert, patient awake, patient oriented x3 and CN's II-XI intact bilaterally Skin Skin: no rashes or lesions noted Extremities Pulses: Normal: Right Posterior Tibial Pulse, Left Posterior Tibial Pulse, Right Radial Pulse and Left Radial Pulse Lower Extremity Edema: None: Bilateral Psych Psychological: normal affect Supplemental Info Supplemental Information Echocardiogram in 2013 demonstrates an ejection fraction of 55%. Left atrium mildly enlarged. Trivial mitral, tricuspid and pulmonic insufficiency. RVSP 23 mmHg. Stress test at that time demonstrated an area of previous myocardial injury/infarct involving portions of the basal inferoseptal, basal inferior and basal inferolateral segments with an element of srinivasa-infarct related ischemia involving portions of the basal inferolateral segments extending towards the mid inferolateral segments although an element of soft tissue attenuation could not be excluded. He declined a heart cath at that time. Assessment and Plan Assessment and Plan (1) Atherosclerotic heart disease of [place] coronary artery without angina pectoris: Status: Chronic Qualifiers: [place] vs. transplanted heart: [place] heart Qualified Code(s): I25.10 - Atherosclerotic heart disease of [place] coronary artery without angina pectoris Comment: CABG 2006: CARPIO to LAD, SVG to Diag of anterior descending, SVG to lateral Cx, SVG to RCA; Stent to Cx 2006; Plan: On account of age of bypass, last evaluation in 2012, and MVT noted on device checks, it was recommended to undergo stress test at last office visit. He declined on the basis that he is active and feeling well. This was again reviewed with him in conjunction to ongoing fatigue. He again declines stress test. He will continue lifestyle modifications. He will continue current medical therapy with aspirin and metoprolol. We will continue to monitor. (2) Sick sinus syndrome: Status: Chronic Plan: He is status post permanent pacemaker. (3) Presence of permanent cardiac pacemaker: Status: Chronic Plan: Device report from 07/28/2023 showed no mode switch episodes and 1 NSVT episode on 06/19/2023. Stored electrogram shows M MVT (AVD) at 157 bpm for duration unknown. Ventricular paced 7%. Atrial paced 95.5%. Battery has reached THEE on 07/16/2023. He will proceed with generator change. (4) Pure hypercholesterolemia: Status: Chronic Plan: He was reminded of the importance of cholesterol control in relation to cardiovascular disease. He has been intolerant to pravastatin and Zetia therapy previously. He was encouraged continue with lifestyle modification.
--- NOTE | 2023-08-04 14:28 | PCM.HP.BLA ---
History and Physical Date of Admission: 08/10/23 ISIDRO ROSE, is an 78 year old male with a history of coronary artery disease with bypass surgery. He had a drug-eluting stent placed to his circumflex in 2006. In 2005 he had an CARPIO to his LAD, SVG to the diagonal of the anterior descending, SVG to the circumflex and RCA. He also has a history of sick sinus syndrome requiring a pacemaker placement in 2005. He also has a history of hyperlipidemia. His device has reached [facility] and he is here today to have his generator changed. PFSH Medical History Acute calculous cholecystitis Asthma Atherosclerotic heart disease of [place] coronary artery without angina pectoris Carotid arterial disease GERD (gastroesophageal reflux disease) Presence of permanent cardiac pacemaker (~2005) Presence of stent in coronary artery (~01/2007) Pure hypercholesterolemia Sick sinus syndrome Surgical History History of coronary artery bypass surgery (~2005) History of laparoscopic cholecystectomy (~02/06/20) Hx of CABG Presence of coronary angioplasty implant and graft (~01/2007) S/P carotid endarterectomy Family History Father , age 96 CAD (coronary artery disease) Sister Arrhythmia Heart disease Social History Smoking Status: Never smoker alcohol intake: never substance use type: does not use caffeine: No what type of physical activity do you participate in: walking and bicycling frequency: 5-6 times per week duration: 15-30 minutes/day seatbelt use: always do you feel safe at home: Yes ROS Const Const: Positive for fatigue (Feels he tires more quickly due to PM battery being low); Negative for weakness, headache(s), frequent falls, difficulty sleeping or excessive sweating Eyes Eyes: Negative for loss of peripheral vision, transient loss of vision, blurry vision, double vision or tunnel vision ENT ENT: Negative for headache(s), dizziness, Nosebleed/epistaxis or balance problems Cardio Chest Pain: No Palpitations: No Edema: None Muscle aches with walking: None Resp Respiratory: Negative for SOB with activity, SOB at rest, SOB orthopnea\SOB lying down, Cough or paroxysmal nocturnal dyspnea GI GI: Negative nausea, vomiting, heartburn or black,tarry stools : Negative for hematuria Musc Musc: Negative for muscle aches/ myalgia, muscle weakness, joint pain or balance problems Skin Skin: Negative non-healing lesions, rash or unusual bruising Neuro Neuro: Negative for dizziness, lightheadedness, near syncope, syncope, frequent falls, headache(s), weakness, blurry vision, double vision or lack of coordination Mariusz Hematologic/Lymphatic: Negative for easy bleeding or easy bruising Endo Endo: Positive for fatigue (Feels he tires more quickly due to PM battery being low); Negative for excessive sweating or increased thirst/drinking Psych Psych: Negative for anxiety or depression Allergy Allergy/Immunology: Negative for hives and Negative for rash Cardiology Exam Const Appearance: cooperative, healthy appearing, comfortable and no acute distress Nutritional Appearance: well nourished and overweight Orientation: alert, awake and oriented x3 Head Head: normal to inspection Ears: hearing grossly normal bilaterally Nose: external nose normal Face and Sinus: face symmetric Mouth: moist mucous membranes Eyes General: appearance normal, both eyes and all related structures Eyelids: eyelids normal EOM: EOM intact bilaterally Neck Neck: normal visual inspection and no JVD Carotids: normal carotid upstroke Chest Chest inspection: normal inspection of the chest, symmetric chest movement and normal respiratory effort; Negative cough Auscultation: Bilateral: Clear to Auscultation Cardio Rate: regular rate Rhythm: regular rhythm Heart sounds: S1 normal and S2 normal; Negative rub, gallop or murmur GI GI: normal to inspection Neuro General: patient alert, patient awake, patient oriented x3 and CN's II-XI intact bilaterally Skin Skin: no rashes or lesions noted Extremities Pulses: Normal: Right Posterior Tibial Pulse, Left Posterior Tibial Pulse, Right Radial Pulse and Left Radial Pulse Lower Extremity Edema: None: Bilateral Psych Psychological: normal affect Assessment & Plan Assessment/Plan (1) Presence of permanent cardiac pacemaker: (2) Presence of stent in coronary artery: (3) History of coronary artery bypass surgery: (4) Sick sinus syndrome: PLAN: Plan Patient is here today to have his generator changed. He will continue with her routine follow-ups in the office.
[2023-08-07 07:57] VITALS: BMI 28.8
--- NOTE | 2023-08-10 14:12 | CL.IE_ITS ---
Patient: ISIDRO ROSE Study Date: 08/10/2023 Performing: Eddie Babin MD : [id number] Age: 78 Gender: male PROCEDURES PERFORMED [id number])BATTERY REMOVAL+REPLACEMENT PACER-DUAL LEAD INDICATIONS Sinoatrial node dysfunction/Sick sinus syndrome PROCEDURE DETAILS The patient was brought to the Catheterization Lab in the postabsorptive nonsedated state. Informed consent was obtained prior to the procedure. Local anesthetic was given subcutaneously to the left upper chest area with Lidocaine 2%. Incision was made to the left upper chest. PPM generator was removed. PPM atrial lead (existing) was checked and tested. PPM ventricular lead (existing) was checked and tested. PPM generator was attached to the lead(s) and inserted into the pocket. Device pocket was irrigated with antibiotic. PPM generator was then interrogated by the systems programmer. Subcutaneous closure was completed with 3-0 Vicryl. Skin closure was completed with 4-0 Vicryl. The patient tolerated the procedure well. 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 Clindamycin 900 mg IV 08/10/2023 13:25:52 Signed By Eddie Babin MD On 08/10/2023 14:11:56 Eddie Babin MD
== END 2023-08-10 15:23 | disposition home or self-care (01) ==
PROVIDERS: PCP Internal Medicine; Referring Provider Internal Medicine Cardiovascular Disease; Visit Provider Internal Medicine Cardiovascular Disease
DX: Z95.0 Presence of cardiac pacemaker (principal); I49.5 Sick sinus syndrome; E78.00 Pure hypercholesterolemia, unspecified; I25.10 Atherosclerotic heart disease of native coronary artery without angina pectoris; E66.3 Overweight; Z79.899 Other long term (current) drug therapy; Z79.82 Long term (current) use of aspirin; Z95.1 Presence of aortocoronary bypass graft; Z95.5 Presence of coronary angioplasty implant and graft
CPT/HCPCS: 33228; 99152; 99153; J7040; J7050

== ENCOUNTER 2023-09-18 18:51 | Inpatient (IN) | payer MEDICARE, SELFPAY ==
[2023-09-18] VITALS (10 sets, daily range): BP systolic 118–138; BP diastolic 43–79; PULSE 60–64; RESP 18–24; TEMP 36.1–36.6; O2SAT 95–100; BMI 30.2; BMI 28.5
--- NOTE | 2023-09-18 20:06 | EKG12_ITS ---
Test Reason : GI Blood Pressure : / mmHG Vent. Rate : 060 BPM Atrial Rate : 060 BPM P-R Int : 200 ms QRS Dur : 120 ms QT Int : 462 ms P-R-T Axes : 010 -38 075 degrees QTc Int : 462 ms Atrial-paced rhythm Left axis deviation Right bundle branch block Left ventricular hypertrophy with repolarization abnormality ( R in aVL , Romhilt-Wren ) Abnormal ECG Confirmed by Garrett Pascal ([id number]), technical writer and editor TODD FERRARI ([id number]) on 09/21/2023 8:05:40 AM Referred By: Confirmed By:Garrett Pascal
--- NOTE | 2023-09-18 20:31 | CT_ITS ---
INDICATION: Lower GI bleed, drop in hemoglobin, shock EXAMINATION: CTA abdomen and pelvis - TECHNIQUE: Routine abdominal CT angiogram protocol was performed with IV contrast. MIP images provided. A radiation dose optimization technique was used for this scan. IV Contrast dosage and agent: Radiation dose DLP mGy / cm. COMPARISON: None. FINDINGS: Lung bases: Normal. Liver: Normal. No bile ductal dilatation. Gallbladder: Normal. Spleen: Normal. Adrenal gland: Normal. Kidneys: Absent right kidney. Compensatory hypertrophy of the left kidney. 3.8 cm lower pole cyst. No stones. No hydronephrosis. Pancreas:Normal. Bowel gas pattern: Evaluation of the GI tract is limited by absence of oral contrast. Cannot exclude stomach wall thickening. No dilated loops of bowel or evidence for obstruction. Cannot exclude segmental thickening of the holder of the small or large bowel. Cannot exclude enteritis or colitis. Moderate diffuse fecal retention. Thickening of the wall of the rectum needs further evaluation. Appendix: Not definitely seen, no inflammatory changes. Free air: None. Free fluid: None. Pelvis: Pelvic organs: Moderate prostate enlargement. Distention of the bladder. Bone survey: No aggressive bony lesions. No acute fractures. Degenerative changes Adenopathy: No significant pathologic adenopathy detected. Other: None. Vascular: Normal vascular anatomy, no evidence of extravasation of contrast to suggest active bleeding. No significant narrowing or plaque of the upper aortic branches and left renal artery. Prominent calcified plaque and narrowing of the iliac arteries. CT/CTA Abd/Pelvis W/WO Contrast IMPRESSION: No evidence for active GI bleed. Probable rectal wall thickening. This needs further evaluation including rectal exam and proctosigmoidoscopy. 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 Electronically Signed: Faizan Palomo MD at 21:48 EDT ,
--- NOTE | 2023-09-18 21:00 | ED.VIS.GI ---
HPI HPI - GI History of Present Illness Chief Complaint: GI Bleed Detail of Chief Complaint: Blood per rectum Informant: patient, spouse/S.O. and family Abdominal Pain/Flank Pain Onset: Days (Onset September 13) Context: Sudden Onset Timing: Intermittent Quality: Cramping Location: RLQ and LLQ Current Severity: Gone Maximum Severity: Moderate Worsened by: - (Is associated with diarrhea); Not Worsened By Food or Movement Relieved by: Nothing; Not Relieved By Antacids, Food or Remaining Still Nausea/Vomiting/Emesis GI Symptom: Positive for Nausea; Negative for Vomiting Diarrhea/Melena/Hematochezia GI Symptom: Positive for Diarrhea and Hematochezia Onset: Days (Thursday, September 13) Stool Quality: Positive for Loose, Watery, Mucous and BRB per rectum Severity: Moderate Associated Symptoms Associated Symptoms: Negative for Dysuria, Frequency, Hematuria or Urgency Narrative Narrative: Patient had recent surgery at the [facility] for scalp carcinoma. Because patient had symptoms of bloody diarrhea and blood per rectum with abdominal pain and orthostatic symptoms blood work was obtained prior to his arrival.There is greater than 3 g drop in hemoglobin from July 27. Lactate is elevated 2.2. Electrolyte panel was unremarkable with normal BUN and creatinine. Patient [place] chest pain, he does report fatigue, tiredness and dyspnea with activity. According to daughter he is not to sleep flat because of the extensive excision of his scalp. Prior similar symptoms: No Recent Illness/Hospitalization: Yes [facility] Medical History (Updated 09/19/23 @ 05:[address] Ifeanyi Rivera, DO) Acute calculous cholecystitis Presence of permanent cardiac pacemaker (~2005) Pure hypercholesterolemia GERD (gastroesophageal reflux disease) Asthma Presence of stent in coronary artery (~01/2007) Carotid arterial disease Sick sinus syndrome Atherosclerotic heart disease of [place] coronary artery without angina pectoris Home Medications ?Medication ?Instructions ?Recorded ?Last Taken ?Type aspirin 81 mg tablet,delayed 81 mg PO QDAY heart health 05/13/17 09/18/23 History release (Adult Low Dose Aspirin) levothyroxine 25 mcg tablet 25 mcg PO DAILY thyroid 02/15/18 02/05/20 07:00 History nitroglycerin 0.4 mg sublingual 0.4 mg sublingual Q5M PRN Chest 01/14/22 Unknown Rx tablet Pain #25 tabs metoprolol tartrate 50 mg tablet 50 mg PO BID bp #180 tabs 05/23/23 04/15/24 Rx Allergy/AdvReac Type Severity Reaction Status Date / Time codeine Allergy Unknown Verified 09/18/23 18:54 diphenhydramine HCl (From Allergy headache, Verified 09/18/23 18:54 Benadryl) eye irritation Penicillins Allergy Rash Verified 09/18/23 18:54 Sulfa (Sulfonamide Allergy Rash Verified 09/18/23 18:54 Antibiotics) ezetimibe (From Zetia) AdvReac Unknown Unknown Verified 09/18/23 18:54 Family History Father , age 96 CAD (coronary artery disease) Sister Arrhythmia Heart disease Surgical History History of laparoscopic cholecystectomy (~02/06/20) Presence of coronary angioplasty implant and graft (~01/2007) History of coronary artery bypass surgery (~2005) S/P carotid endarterectomy Hx of CABG Social History Smoking Status: Never smoker alcohol intake: never substance use type: does not use caffeine: No what type of physical activity do you participate in: walking and bicycling frequency: 5-6 times per week duration: 15-30 minutes/day seatbelt use: always do you feel safe at home: Yes ROS ROS ED Constitutional Constitutional ED: Denies chills, fever(s) or subjective ENT ENT ED: Denies ear pain, rhinorrhea or sore throat Cardiovascular Cardiovascular: Denies chest pain, orthopnea, palpitations or paroxysmal nocturnal dyspnea Respiratory/Chest Respiratory/Chest: Reports cough, dyspnea and dyspnea on exertion; Denies orthopnea or paroxysmal nocturnal dyspnea Gastrointestinal Gastrointestinal: Reports diarrhea, melena and nausea; Denies abdominal pain or vomiting Genitourinary Genitourinary ED: Denies dysuria, hematuria or urinary frequency Musculoskeletal Musculoskeletal: Denies arthralgias, back pain or neck pain Integumentary Reports other Details: Scalp excision of cancer. Neurologic Neurologic: Reports weakness; Denies headache(s) or paresthesias Hematologic/Lymphatic Hematologic/Lymphatic: Denies easy bleeding or easy bruising EXAM Physical Exam Const Vital Signs: 09/18/23 18:51 09/18/23 20:18 09/18/23 20:20 Temperature 98 F Temperature Source Temporal Pulse Rate 64 63 Respiratory Rate 18 19 H Blood Pressure 132/69 H 127/43 H Blood Pressure Mean 90 69 Pulse Ox 100 98 99 Oxygen Delivery Method Room Air 09/18/23 20:30 09/18/23 20:45 09/18/23 21:00 Temperature Temperature Source Pulse Rate 60 62 60 Respiratory Rate 22 H 21 H 21 H Blood Pressure Blood Pressure Mean Pulse Ox 97 99 Oxygen Delivery Method 09/18/23 21:15 09/18/23 21:31 09/18/23 22:35 Temperature 96.9 F L Temperature Source Pulse Rate 60 63 60 Respiratory Rate 24 H 18 19 H Blood Pressure 118/79 Blood Pressure Mean 92 Pulse Ox 99 95 Oxygen Delivery Method 09/18/23 23:00 Temperature Temperature Source Pulse Rate 60 Respiratory Rate 21 H Blood Pressure 138/57 H Blood Pressure Mean 84 Pulse Ox 97 Oxygen Delivery Method Room Air Positive well nourished and well developed General Appearance ED: well developed, NAD and pallor HEENT Reports TM's clear and moist mucous membranes HEENT Narrative: Dressing was not removed. Negative for normocephalic Tympanic Membrane ED: Yes TM's clear Eyes PERRL and EOMs intact bilaterally General Eye ED: Yes pale conjunctiva; Negative for scleral icterus Neck no lymphadenopathy, supple and no JVD Resp normal respiratory effort and clear to auscultation bilaterally Cardio regular rate, regular rhythm, S1 normal heart sound, S2 normal heart sound and no murmurs GI non-tender and no masses; Negative for non-distended GI Narrative: No fissures, fistulas or hemorrhoids noted on rectal exam. Patient has mucousy bloody material noted on rectal exam. He may have a thrombosed hemorrhoid at 7:00 that was palpable and tender. Inspection: abdominal distention Auscultation: hyperactive bowel sounds Palpation: Negative for soft, tender, hepatomegaly or splenomegaly Back/Spine no CVA tenderness Extremity full ROM General Extremety ED: Negative for tenderness Neuro CN's II-XII intact bilaterally and moves all extremities Sensorium / Orientation: alert Psych mental status grossly normal and thought process normal Skin Skin Narrative: Scalp wound due to excision of skin cancer. This was performed by Dr. Atul Valentine. General Skin Exam: pallor Rashes: no rashes MDM MDM MDM Narrative Medical decision making narrative: Patient with Blood per rectum and bloody diarrhea. Differential would include ischemic colitis, lower GI bleed due to diverticulosis, small bowel bleed due to AV malformation. Since he is not hemodynamic unstable doubt upper GI bleed. Plan CTA. Dr. Anthony was made aware and agrees with plan for CTA. Since he had blood work several hours prior to presentation and gives orthostatic symptoms repeat H&H was performed to see if there is additional drop. He was given a fluid bolus since his lactate was elevated. Lab Data Attestation: I reviewed the patient's lab results. Lab results narrative: H&H has improved from earlier today. Patient was typed and screened. Labs: Laboratory Results - last 24 hr 09/18/23 21:05 WBC 11.0 RBC 3.86 L Hgb 11.9 L Hct 36.6 L MCV 94.8 H MCH 30.8 MCHC 32.5 RDW Std Deviation 43.3 RDW Coeff of Abner 12.5 Plt Count 365 MPV 9.5 PT 15.3 H INR 1.2 APTT 30.3 Blood Type O POSITIVE Antibody Screen NEGATIVE Radiography Diagnostic Testing: Clinical Impression(s) from Imaging Studies Abdomen/Pelvis CTA 09/18/23 20:31 IMPRESSION: No evidence for active GI bleed. Probable rectal wall thickening. This needs further evaluation including rectal exam and proctosigmoidoscopy. 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 Electronically Signed: Faizan Palomo MD at 21:48 EDT , EKG Initial EKG: Interpretation: Paced (Rate is 60. This is an atrial paced rhythm. DC interval is 200 ms. Cures duration 120 ms. There is evidence of a right bundle branch block and LVH with repolarization changes. QT intervals 462 ms. [place] to left.) Management Discussion w/another healthcare provider: Hospitalist (Hospitalist Dr. Ifeanyi Low was paged for admission.) and Fire Control Technician (CTA was interpreted by radiologist and calls in place to Dr. Barker to make him aware of these results.) Treatment and Re-Evaluation :: In light of the abnormal wall thickening and now history of bloody diarrhea will discuss with Dr. Barker administration of antibiotics. Comments:: As of Dr. Parikh does not call back. Will start patient on ciprofloxacin and metronidazole. Critical Care Time Critical Care Time: Yes Critical care time (excluding procedures): 30-74 minutes (34), Including time spent: (History, physical, documentation, review of prior records interpretation of laboratory results), Discussing w/Patient &/or Family/Customer Support Engineer (Patient, family and .), Discussing w/Consultants (Hospitalist and GI) and Arranging Admission or Transfer Discharge Plan Dx/Rx/DC Orders Clinical Impression: Bloody diarrhea, Atherosclerotic heart disease of zuni coronary artery without angina pectoris, Pure hypercholesterolemia, Presence of permanent cardiac pacemaker, Anemia due to acute blood loss, Acute urinary retention, Acidosis, lactic Disposition Disposition: Acute Care Hospital [facility] Discharge Date/Time: 09/18/23 23:28
[2023-09-18 21:15] LABS: Hematocrit 36.6 % (40-54); Hemoglobin 11.9 g/dL (13.0-16.5); Mean Corp Hgb Conc 32.5 g/dL (32-36); Mean Corpuscular Hgb 30.8 pg (27.0-32.0); Mean Corpuscular Volume 94.8 fL (80-94); Mean Platelet Vol. 9.5 fl (6.2-12.0); Platelet Count 365 K/mm3 (150-450); RBC Distribution Width CV 12.5 % (11.6-14.6); RBC Distribution Width SD 43.3 fl (35.1-43.9); Red Blood Count 3.86 M/mm3 (4.6-6.2)
[2023-09-18 21:26] LABS: International Normalized Ratio 1.2; Prothrombin Time (Protime)PT. 15.3 SECONDS (11.7-14.9)
[2023-09-18 21:27] LABS: Partial Thromboplast Time 30.3 Seconds (24.1-36.2)
[2023-09-18] MEDS: 0.9% Normal Saline (500mL Bag) 500 ML 1000 ML IV (22:12)
[2023-09-18] MEDS: metroNIDAZOLE 500 MG/100 ML BAG 100 MG IV (22:37)
--- NOTE | 2023-09-18 22:42 | PCM.HP.STD ---
[facility] - General General Date of Admission: 09/18/23 Date of Service: 09/18/23 Chief Complaint: Lower GI bleed with Dark Stools. 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 Mr. Whiteside reports his symptoms began approximately 4 days prior to admission on September 14, 2023 with a sudden onset of bloody diarrhea. He also admits to abdominal pain that was intermittent, cramping, moderate, focused in the lower abdomen and nonradiating with diarrhea seeming to make the pain worse but nothing seeming to make it better. He also admits to associated nausea but he denies vomiting, fever, chills, constipation, chest pain or shortness of breath. In the ER he was diagnosed with a lower GI bleed with dark stools complicated by CT evidence of probable rectal wall thickening consistent with suspected proctitis and possible malignancy compounded by acute blood loss anemia with hemoglobin dropping to 11.3 g/dL today (with baseline hemoglobin of 14.6 g/dL last month) and mild lactic acidosis of 2.2 mmol/L present on admission compounded by adverse drug reaction to aspirin and he was then admitted to the PCU for ongoing care for stay that is expected to extend beyond 2 midnights. [facility] Medical History (Updated 09/19/23 @ 05:[address] Ifeanyi Rivera, ) Acute calculous cholecystitis Presence of permanent cardiac pacemaker (~2005) Pure hypercholesterolemia GERD (gastroesophageal reflux disease) Asthma Presence of stent in coronary artery (~01/2007) Carotid arterial disease Sick sinus syndrome Atherosclerotic heart disease of [place] coronary artery without angina pectoris Home Medications ?Medication ?Instructions ?Recorded ?Last Taken ?Type aspirin 81 mg tablet,delayed 81 mg PO QDAY [facility] 05/13/17 09/18/23 History release (Adult Low Dose Aspirin) levothyroxine 25 mcg tablet 25 mcg PO DAILY thyroid 02/15/18 02/05/20 07:00 History nitroglycerin 0.4 mg sublingual 0.4 mg sublingual Q5M PRN Chest 01/14/22 Unknown Rx tablet Pain #25 tabs metoprolol tartrate 50 mg tablet 50 mg PO BID bp #180 tabs 09/16/22 08/10/23 Rx Allergy/AdvReac Type Severity Reaction Status Date / Time codeine Allergy Unknown Verified 09/18/23 18:54 diphenhydramine HCl (From Allergy headache, Verified 09/18/23 18:54 Benadryl) eye irritation Penicillins Allergy Rash Verified 09/18/23 18:54 Sulfa (Sulfonamide Allergy Rash Verified 09/18/23 18:54 Antibiotics) ezetimibe (From Zetia) AdvReac Unknown Unknown Verified 09/18/23 18:54 Family History Father , age 96 CAD (coronary artery disease) Sister Arrhythmia Heart disease Surgical History History of laparoscopic cholecystectomy (~02/06/20) Presence of coronary angioplasty implant and graft (~01/2007) History of coronary artery bypass surgery (~2005) S/P carotid endarterectomy Hx of CABG Social History Smoking Status: Never smoker alcohol intake: never substance use type: does not use caffeine: No what type of physical activity do you participate in: walking and bicycling frequency: 5-6 times per week duration: 15-30 minutes/day seatbelt use: always do you feel safe at home: Yes ROS ROS Narrative Review of systems: General: Patient denies fever or chills. HENT: Denies headache, denies stuffy nose, denies sore throat EYES: Denies changes in vision or discharge from eyes. Resp: Patient admits to cough and dyspnea on exertion. Cardiac: Denies chest pain, palpitations or heart racing. GI: Patient admits to bloody diarrhea with melena and nausea. But he denies vomiting. : Denies changes in urination Extremity: Denies swelling Musculoskeletal: Feels somewhat generally weak and unwell but denies arthralgias or myalgias. Neuro: Patient denies headache, paresthesias or focal neurologic weakness. Heme: Patient admits to lower GI bleed as per HPI. Skin: Denies rashes Psychiatric: No complaints voiced related to uncontrolled depression or anxiety. Endocrine: No polyuria, polydipsia or polyphagia. The rest of the 14 point ROS was negative except for positives in HPI. Vital Signs Vital Signs Vital Signs: 09/18/23 18:51 09/18/23 20:18 09/18/23 20:20 Temperature 98 F Temperature Source Temporal Pulse Rate 64 63 Respiratory Rate 18 19 H Blood Pressure 132/69 H 127/43 H Blood Pressure Mean 90 69 Pulse Ox 100 98 99 Oxygen Delivery Method Room Air 09/18/23 20:30 09/18/23 20:45 09/18/23 21:00 Temperature Temperature Source Pulse Rate 60 62 60 Respiratory Rate 22 H 21 H 21 H Blood Pressure Blood Pressure Mean Pulse Ox 97 99 Oxygen Delivery Method 09/18/23 21:15 09/18/23 21:31 09/18/23 22:35 Temperature 96.9 F L Temperature Source Pulse Rate 60 63 60 Respiratory Rate 24 H 18 19 H Blood Pressure 118/79 Blood Pressure Mean 92 Pulse Ox 99 95 Oxygen Delivery Method Weight Weight: 198 lb 13.711 oz Body Mass Index (BMI) 30.2 Physical Exam Const alert, oriented x3, no apparent distress, average body habitus and healthy appearing General Appearance: cooperative HEENT normocephalic, head/scalp atraumatic, hearing grossly normal bilaterally and moist oral mucous membranes Eyes PERRL and EOMs intact bilaterally Neck no lymphadenopathy and supple Resp normal respiratory effort, no retractions, no use of accessory muscles and clear to auscultation bilaterally Cardio regular rate and regular rhythm GI normal to inspection, nondistended, normoactive bowel sounds, soft to palpation, non-tender and non-distended Extremity normal to inspection and full ROM Skin Skin Narrative: Patient has no evidence of jaundice or rash. Neuro oriented x3, CN's II-XII intact bilaterally, moves all extremities and no focal motor deficits Sensorium / Orientation: awake, alert, oriented to person, oriented to place and oriented to time Speech: speech normal Psych affect normal Results Medical Records Data Attestation: I reviewed the patient's medical records Lab / Micro Data Attestation: I reviewed the patient's lab results. 09/18/23 21:05 Labs: Laboratory Results - last 24 hr 09/18/23 21:05: WBC 11.0, RBC 3.86 L, Hgb 11.9 L, Hct 36.6 L, MCV 94.8 H, MCH 30.8, MCHC 32.5, RDW Std Deviation 43.3, RDW Coeff of Abner 12.5, Plt Count 365, MPV 9.5, PT 15.3 H, INR 1.2, APTT 30.3, Blood Type O POSITIVE, Antibody Screen NEGATIVE Imaging Radiology Impression Abdomen/Pelvis CTA 09/18/23 20:31 IMPRESSION: No evidence for active GI bleed. Probable rectal wall thickening. This needs further evaluation including rectal exam and proctosigmoidoscopy. 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 Electronically Signed: Faizan Palomo MD at 21:48 EDT , Assessment & Plan Assessment/Plan (1) Lower GI bleed: (2) Anemia due to acute blood loss: (3) Hemorrhagic proctitis: (4) Acidosis, lactic: (5) Adverse drug reaction: QUALIFIERS: Encounter type: initial encounter Qualified Code(s): T50.905A - Adverse effect of unspecified drugs, medicaments and biological substances, initial encounter (6) Fatigue: QUALIFIERS: Fatigue type: chronic, unspecified Qualified Code(s): R53.82 - Chronic fatigue, unspecified (7) Presence of stent in coronary artery: (8) Presence of coronary angioplasty implant and graft: (9) History of coronary artery bypass surgery: (10) Carotid arterial disease: QUALIFIERS: Laterality: right Qualified Code(s): I77.9 - Disorder of arteries and arterioles, unspecified (11) Sick sinus syndrome: PLAN: Plan 1. LGIB with BRBPR and ABLA; with hemoglobin dropping to 11.3 g/dL today (with baseline hemoglobin of 14.6 g/dL last month) complicated by suspected Proctitis on CT scan present on admission - Admit to PCU. Continue IV Cipro and IV Flagyl begun in the ER (with listed allergy to penicillin) and await culture and sensitivity data. Check stool studies and place on enteric precautions. Keep strict n.p.o. and start IV Protonix. Give morphine IV as needed for severe (level 6-10 out of 10) pain. Finally, we will consult gastroenterology to see this patient on rounds in the a.m. for recommendations regarding proctosigmoidoscopy this admission with help appreciated in advance. 2. Adverse drug reaction to ASA likely precipitating #1 - Hold aspirin or any other antiplatelet agents until bleeding is definitively stopped. 3. Mild Lactic Acidosis of 2.2 mmol/L present on admission complicating #1 & #2 - Serialize lactates and continue supportive care. 4. Recent history of skin malignancy removed from scalp; with subsequent skin grafting adding to the pathology of #1 - #3- Stable. Continue wound care as previously prescribed. 5. Essential hypertension - Hold scheduled antihypertensives until bleeding source has been identified and neutralized. Give IV hydralazine as needed for systolic blood pressure greater than 160 mmHg. 6. Hyperlipidemia - Resume statin when patient is able to tolerate oral intake. 7. Hypothyroidism - Continue Synthroid as previous. 8. CAD; status post CABG (~2005) with subsequent stent (~2006) - Noted. 9. History of SSS; s/p PPM (~2005) - Noted. 10. History of Right carotid arterial disease; s/p Right carotid endarterectomy - Noted. 11. Obesity; with BMI of 30.2 this admission - Weight loss recommended. Check TSH. 12. Congenitally absent Right kidney; with compensatory hypertrophy of the Left kidney - Stable on CT this admission. 13. History of asthma - Stable at this time with no evidence of acute flare. Continue as needed nebulizers. 14. History of acalculous cholecystitis; s/p laparoscopic cholecystectomy - Noted. 15. GERD - Resume PPI IV as noted above. 16. Osteoarthritis - Stable. 17. DVT prophylaxis - SCD's only with active bleeding from #1. Total time: Approximately 75 minutes. Charges/Coding Visit Charges Inpatient E&M: 99072 Init Hosp L3
[2023-09-19] VITALS (8 sets, daily range): BP systolic 104–132; BP diastolic 50–59; PULSE 60–64; RESP 16–20; TEMP 35.8–36.7; O2SAT 94–100
[2023-09-19] MEDS: 0.9% Normal Saline (1000mL) 1,000 ML 100 ML IV (00:31)
[2023-09-19] MEDS: Ciprofloxacin 400 MG/200 ML BAG 200 MG IV ×3 (00:40→22:28)
[2023-09-19] MEDS: metroNIDAZOLE 500 MG/100 ML BAG 100 MG IV ×3 (05:15→21:03)
[2023-09-19 05:52] LABS: Absolute Lymphocyte Count 1.64 X10^3/uL (0.83-4.51); Basophil# 0.06 X10^3/uL; Basophil% 0.6 % (0-1); Eosinophil# 0.47 X10^3/uL; Eosinophils% 4.5 % (0-5); Hematocrit 31.8 % (40-54); Hemoglobin 10.5 g/dL (13.0-16.5); Lymphocyte # 1.64 X10^3/ul (0.83-4.51); Lymphocyte % 15.7 % (19-41); Mean Corpuscular Hgb 31.2 pg (27.0-32.0); Mean Corpuscular Volume 94.4 fL (80-94); Mean Platelet Vol. 9.4 fl (6.2-12.0); Monocyte# 1.29 X10^3/uL; Monocyte% 12.3 % (0-10); NRBC Flagged by Analyzer 0 % (0-5); Neutrophil # 6.95 X10^3/uL (2.7-7.7); Neutrophil % 66.4 % (47-70); Platelet Count 317 K/mm3 (150-450); RBC Distribution Width CV 12.7 % (11.6-14.6); RBC Distribution Width SD 43.7 fl (35.1-43.9); Red Blood Count 3.37 M/mm3 (4.6-6.2); White Blood Count 10.5 K/mm3 (4.4-11.0)
[2023-09-19 06:17] LABS: Lactic Acid 1.2 mmol/L (0.4-1.9)
[2023-09-19 06:27] LABS: ALB/GLOB Ratio 0.8 RATIO (0.9-2.4); AST(SGOT) 15 U/L (15-37); Alanine Aminotransfer ALT/SGPT 20 U/L (16-61); Albumin, Serum 2.6 g/dL (3.2-5.0); Alkaline Phosphatase 39 U/L (45-117); Anion Gap 5 (5-15); BUN 9 mg/dL (7-18); BUN/Creat Ratio 12.8 RATIO (10-20); Calcium,Total 8.3 mg/dL (8.5-10.1); Chloride 110 mmol/L (98-107); EST Glomerular Filtration Rate 114 mL/min (>60); Est Glom Filt Rate - Afr Amer 138 mL/min (>60); Estimated Creatinine Clearance 80.65 ml/min; Globulin 3.3 g/dL (2.2-4.2); Glucose 127 mg/dL (74-106); Magnesium 1.8 mg/dL (1.6-2.6); Phosphorus 2.4 mg/dL (2.5-4.9); Potassium 3.7 mmol/L (3.5-5.1); Protein, Total 5.9 g/dL (6.4-8.2); Sodium Level 139 mmol/L (136-145); Thyroid Stim Hormone (TSH) 3.13 uIU/mL (0.358-3.74)
--- NOTE | 2023-09-19 09:21 | CASEMGMT ---
RN CM Assessment: Face to Face with pt for initial transition planning/care coordination assessment. RN CM introduced self and role at [facility], pt voices understanding and consents to assessment. Pt is A&O x4 and answers all questions appropriately at this time. Care providers, pharmacy, and demographics verified/updated. Admitting Dx: LGIB with BRBPR, ABLA and suspected proctitis PCP: Dr. Christina Sandy Specialists: [facility] Preferred Pharmacy: [facility] Insurance: [employer] [facility] Prescription Benefit: yes LNOK: Spouse Madhuri Living Arrangements: Pt lives at home with spouse. Home is [place] with a basement. There are 2 steps to enter the home with a bilateral rail. Pt reports he is independent with ADLs and IADLs. Spouse has been doing the dressing changed on his head. Transportation: Pt drives self and denies concerns with transportation. DME: Shower chair, grab bars in bathroom HHC/SNF: No history of HHC. Pt reports he did go to rehab after his heart surgery, unsure of where. Pt states no concerns with going home at time of dc. Pt states no further concerns/needs. CM to follow. Advised pt to ask CM if any further question/concerns/needs arise, voices understanding. Pt Goal: Home Plan: Awaiting PT evaluations. Likely home vs HHC depending on how pt does with therapy. Sully BARNETT, RN, CCM
[2023-09-19] MEDS: Pantoprazole Sodium 40 MG in 0.9% Normal Saline (100mL MB+) 100 ML 330 MG IV (09:43)
--- NOTE | 2023-09-19 10:35 | CON.PCM.GI_ITS ---
HPI Consult Data Date of Consult: 09/19/23 HPI Narrative Reason for Consultation: GI bleed HPI Narrative: ISIDRO ROSE, is a 78 M with a past medical history of essential hypertension, hyperlipidemia, hypothyroidism, obesity; with BMI of 30.2 this admission, CAD; status post CABG (~2005) with subsequent stent (~2006), history of SSS; s/p PPM (~2005), history of Right carotid arterial disease; s/p Right carotid endarterectomy, congenitally absent Right kidney; with compensatory hypertrophy of the Left kidney, history of asthma, history of acalculous cholecystitis; s/p laparoscopic cholecystectomy, GERD, osteoarthritis and recent excision of an aggressive, 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 Mr. Whiteside reports his symptoms began approximately 4 days prior to admission on September 14, 2023 with a sudden onset of bloody diarrhea. He also admits to abdominal pain that was intermittent, cramping, moderate, focused in the lower abdomen and nonradiating with diarrhea seeming to make the pain worse but nothing seeming to make it better. He also admits to associated nausea but he denies vomiting, fever, chills, constipation, chest pain or shortness of breath. In the ER he was diagnosed with a lower GI bleed with dark stools complicated by CT evidence of probable rectal wall thickening consistent with suspected proctitis and possible malignancy compounded by acute blood loss anemia with hemoglobin dropping to 11.3 g/dL today (with baseline hemoglobin of 14.6 g/dL last month) and mild lactic acidosis of 2.2 mmol/L [facility] Medical History (Updated 09/19/23 @ 05:[address] Ifeanyi Rivera, DO) Acute calculous cholecystitis Presence of permanent cardiac pacemaker (~2005) Pure hypercholesterolemia GERD (gastroesophageal reflux disease) Asthma Presence of stent in coronary artery (~01/2007) Carotid arterial disease Sick sinus syndrome Atherosclerotic heart disease of [place] coronary artery without angina pectoris Home Medications ?Medication ?Instructions ?Recorded ?Last Taken ?Type aspirin 81 mg tablet,delayed 81 mg PO QDAY [facility] 05/13/17 09/18/23 History release (Adult Low Dose Aspirin) levothyroxine 25 mcg tablet 25 mcg PO DAILY thyroid 02/15/18 02/05/20 07:00 History nitroglycerin 0.4 mg sublingual 0.4 mg sublingual Q5M PRN Chest 01/14/22 Unknown Rx tablet Pain #25 tabs metoprolol tartrate 50 mg tablet 50 mg PO BID bp #180 tabs 09/16/22 08/10/23 Rx Allergy/AdvReac Type Severity Reaction Status Date / Time codeine Allergy Unknown Verified 09/18/23 18:54 diphenhydramine HCl (From Allergy headache, Verified 09/18/23 18:54 Benadryl) eye irritation Penicillins Allergy Rash Verified 09/18/23 18:54 Sulfa (Sulfonamide Allergy Rash Verified 09/18/23 18:54 Antibiotics) ezetimibe (From Zetia) AdvReac Unknown Unknown Verified 09/18/23 18:54 Family History Father , age 96 CAD (coronary artery disease) Sister Arrhythmia Heart disease Surgical History History of laparoscopic cholecystectomy (~02/06/20) Presence of coronary angioplasty implant and graft (~01/2007) History of coronary artery bypass surgery (~2005) S/P carotid endarterectomy Hx of CABG Social History Smoking Status: Never smoker alcohol intake: never substance use type: does not use caffeine: No what type of physical activity do you participate in: walking and bicycling frequency: 5-6 times per week duration: 15-30 minutes/day seatbelt use: always do you feel safe at home: Yes ROS ROS Narrative Review of systems: General: Patient denies fever or chills. HENT: Denies headache, denies stuffy nose, denies sore throat EYES: Denies changes in vision or discharge from eyes. Resp: Patient admits to cough and dyspnea on exertion. Cardiac: Denies chest pain, palpitations or heart racing. GI: Patient admits to bloody diarrhea with melena and nausea. But he denies vomiting. : Denies changes in urination Extremity: Denies swelling Musculoskeletal: Feels somewhat generally weak and unwell but denies arthralgias or myalgias. Neuro: Patient denies headache, paresthesias or focal neurologic weakness. Heme: Patient admits to lower GI bleed as per HPI. Skin: Denies rashes Psychiatric: No complaints voiced related to uncontrolled depression or anxiety. Endocrine: No polyuria, polydipsia or polyphagia. The rest of the 14 point ROS was negative except for positives in HPI. Physical Exam Const alert, oriented x3, no apparent distress, average body habitus and healthy appearing General Appearance: cooperative HEENT normocephalic, head/scalp atraumatic, hearing grossly normal bilaterally and moist oral mucous membranes Eyes PERRL and EOMs intact bilaterally Neck no lymphadenopathy and supple Resp normal respiratory effort, no retractions, no use of accessory muscles and clear to auscultation bilaterally Cardio regular rate and regular rhythm GI normal to inspection, nondistended, normoactive bowel sounds, soft to palpation, non-tender and non-distended Extremity normal to inspection and full ROM Skin Skin Narrative: Patient has no evidence of jaundice or rash. Neuro oriented x3, CN's II-XII intact bilaterally, moves all extremities and no focal motor deficits Sensorium / Orientation: awake, alert, oriented to person, oriented to place and oriented to time Speech: speech normal Psych affect normal Lab / Micro Data 09/19/23 05:40 09/19/23 05:40 Labs: Laboratory Results - last 24 hr 09/18/23 21:05: WBC 11.0, RBC 3.86 L, Hgb 11.9 L, Hct 36.6 L, MCV 94.8 H, MCH 30.8, MCHC 32.5, RDW Std Deviation 43.3, RDW Coeff of Abner 12.5, Plt Count 365, MPV 9.5, PT 15.3 H, INR 1.2, APTT 30.3, Blood Type O POSITIVE, Antibody Screen NEGATIVE 09/19/23 05:40: WBC 10.5, RBC 3.37 L, Hgb 10.5 L, Hct 31.8 L, MCV 94.4 H, MCH 31.2, MCHC 33.0, RDW Std Deviation 43.7, RDW Coeff of Abner 12.7, Plt Count 317, MPV 9.4, Immature Gran % (Auto) 0.500, Neut % (Auto) 66.4, Lymph % (Auto) 15.7 L , [place] % (Auto) 12.3 H, Eos % (Auto) 4.5, Baso % (Auto) 0.6, Absolute Neuts (auto) 7.0, Absolute Lymphs (auto) 1.64, Nucleated RBC % 0, Sodium 139, Potassium 3.7, Chloride 110 H, Carbon Dioxide 24.0, Anion Gap 5, BUN 9, Creatinine 0.70, Estim Creat Clear Calc 80.65, Est GFR (MDRD) Af Amer 138, Est GFR (MDRD) Non-Af 114, BUN/Creatinine Ratio 12.8, Glucose 127 H, Lactic Acid 1.2, Calcium 8.3 L, Phosphorus 2.4 L, Magnesium 1.8, Total Bilirubin 0.50, AST 15, ALT 20, Alkaline Phosphatase 39 L, Total Protein 5.9 L, Albumin 2.6 L, Globulin 3.3, Albumin/Globulin Ratio 0.8 L, TSH 3.13 Imaging Radiology Impression Abdomen/Pelvis CTA 09/18/23 20:31 IMPRESSION: No evidence for active GI bleed. Probable rectal wall thickening. This needs further evaluation including rectal exam and proctosigmoidoscopy. 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 Electronically Signed: Faizan Palomo MD at 21:48 EDT , Assessment & Plan Assessment/Plan (1) Lower GI bleed: (2) Anemia due to acute blood loss: (3) Hemorrhagic proctitis: (4) Acidosis, lactic: (5) Adverse drug reaction: QUALIFIERS: Encounter type: initial encounter Qualified Code(s): T50.905A - Adverse effect of unspecified drugs, medicaments and biological substances, initial encounter (6) Fatigue: QUALIFIERS: Fatigue type: chronic, unspecified Qualified Code(s): R53.82 - Chronic fatigue, unspecified (7) Presence of stent in coronary artery: (8) Presence of coronary angioplasty implant and graft: (9) History of coronary artery bypass surgery: (10) Carotid arterial disease: QUALIFIERS: Laterality: right Qualified Code(s): I77.9 - Disorder of arteries and arterioles, unspecified (11) Sick sinus syndrome: PLAN: Plan 78-year-old gentleman with past medical history of coronary artery disease status post CABG on aspirin, tachybradycardia syndrome status post permanent pacemaker with recent diagnosis of malignancy of the skin status post Mohs procedure with antibiotics who presents with LGIB with BRBPR and ABLA; with hemoglobin dropping to 10.3 g/dL today (with baseline hemoglobin of 14.6 g/dL last month) complicated by suspected Proctitis on CT scan. The differential diagnosis does include ischemic colitis, infectious colitis, less likely malignancy. Would recommend stool WBCs, stool lactoferrin, stool culture, stool for C. difficile. Patient should get a colonoscopy. It is not an emergency at this time. I expressed this to the family that he can eat at this time. They okay with him staying through the weekend and undergoing colonoscopy at the beginning week. Charges/Coding Multi Select Codes Visit Charges Visit Charges: 08676 Subs Hosp L3
--- NOTE | 2023-09-19 11:42 | PN.HOSP_ITS ---
Reason for Visit Reason for Visit: Diagnoses Acute posthemorrhagic anemia (09/18/23) Acidosis, unspecified (09/18/23) Sick sinus syndrome (09/18/23) Disorder of arteries and arterioles, unspecified (09/18/23) Other specified diseases of anus and rectum (09/18/23) Gastrointestinal hemorrhage, unspecified (09/18/23) Chronic fatigue, unspecified (09/18/23) Adverse effect of unspecified drugs, medicaments and biological substances, initial encounter (09/18/23) Presence of aortocoronary bypass graft (09/18/23) Presence of coronary angioplasty implant and graft (09/18/23) Subjective Subjective Patient was seen and examined today, he was admitted yesterday for lower GI bleed, he stated this started approximately 4 days ago, he stated he had diarrhea for the last 6 days. Patient's hemoglobin on admission was 11.3, hemoglobin today is 10.5. I talked briefly with gastroenterology about his care. Objective Data Objective Data Vital Signs: Vital Signs Temp Pulse Resp BP Pulse Ox O2 Del Method 97.8 F 60 18 125/59 H 95 Room Air 09/19/23 10:37 09/19/23 10:37 09/19/23 10:37 09/19/23 10:37 09/19/23 10:37 09/19/23 10:37 Oxygen Delivery Method Room Air Weight: 87.5 kg Body Mass Index (BMI) 28.5 Intake & Output: Intake and Output for Last 24 Hours 09/17/23 09/18/23 09/19/23 23:59 23:59 23:59 Intake Total 2009 Output Total 1200 / 1200 Balance 810 / 810 Lab / Micro Data 09/19/23 05:40 09/19/23 05:40 Labs: Laboratory Results - last 24 hr 09/18/23 21:05: WBC 11.0, RBC 3.86 L, Hgb 11.9 L, Hct 36.6 L, MCV 94.8 H, MCH 30.8, MCHC 32.5, RDW Std Deviation 43.3, RDW Coeff of Abner 12.5, Plt Count 365, MPV 9.5, PT 15.3 H, INR 1.2, APTT 30.3, Blood Type O POSITIVE, Antibody Screen NEGATIVE 09/19/23 05:40: WBC 10.5, RBC 3.37 L, Hgb 10.5 L, Hct 31.8 L, MCV 94.4 H, MCH 31.2, MCHC 33.0, RDW Std Deviation 43.7, RDW Coeff of Abner 12.7, Plt Count 317, MPV 9.4, Immature Gran % (Auto) 0.500, Neut % (Auto) 66.4, Lymph % (Auto) 15.7 L , [place] % (Auto) 12.3 H, Eos % (Auto) 4.5, Baso % (Auto) 0.6, Absolute Neuts (auto) 7.0, Absolute Lymphs (auto) 1.64, Nucleated RBC % 0, Sodium 139, Potassium 3.7, Chloride 110 H, Carbon Dioxide 24.0, Anion Gap 5, BUN 9, Creatinine 0.70, Estim Creat Clear Calc 80.65, Est GFR (MDRD) Af Amer 138, Est GFR (MDRD) Non-Af 114, BUN/Creatinine Ratio 12.8, Glucose 127 H, Lactic Acid 1.2, Calcium 8.3 L, Phosphorus 2.4 L, Magnesium 1.8, Total Bilirubin 0.50, AST 15, ALT 20, Alkaline Phosphatase 39 L, Total Protein 5.9 L, Albumin 2.6 L, Globulin 3.3, Albumin/Globulin Ratio 0.8 L, TSH 3.13 Radiography Diagnostic Testing: Radiology Impression Abdomen/Pelvis CTA 09/18/23 20:31 IMPRESSION: No evidence for active GI bleed. Probable rectal wall thickening. This needs further evaluation including rectal exam and proctosigmoidoscopy. 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 Electronically Signed: Faizan Palomo MD at 21:48 EDT , Physical Exam Const alert, oriented x3 and no apparent distress General Appearance: cooperative, well kempt and well developed Orientation / Consciousness: awake, oriented to person, oriented to place and oriented to time HEENT normocephalic and moist oral mucous membranes Eyes PERRL, EOMs intact bilaterally and conjunctivae normal Neck supple, no JVD, thyroid normal and no carotid bruits General: trachea midline Resp normal respiratory effort, no retractions, no use of accessory muscles and clear to auscultation bilaterally Auscultation: Negative for rales, rhonchi or wheezes Cardio regular rate, regular rhythm, S1 normal heart sound, S2 normal heart sound, no murmurs, no rub and no gallops GI normal to inspection, nondistended, normoactive bowel sounds, soft to palpation, non-tender and non-distended Extremity no clubbing, cyanosis or edema Skin no rashes or lesions noted General Skin Exam: no breakdown Neuro oriented x3, CN's II-XII intact bilaterally, no focal motor deficits and no sensory deficits noted Sensorium / Orientation: awake and alert Speech: speech normal Psych affect normal Assessment & Plan Assessment/Plan (1) Bright red blood per rectum: PLAN: Plan 1. Bright red rectal bleeding-etiology unclear, patient's stool studies are pending at this time, gastroenterology saw the patient and the plan is for the patient undergo endoscopy on Thursday. #2 acute mild blood loss anemia secondary to acute lower GI bleed-CBC will be rechecked tomorrow #3 coronary artery disease-stable at this time, complicates care, management, recovery, and prognosis #4 hypothyroidism-patient is on Synthroid Total clinical time spent by myself addressing the patient's medical issues, reviewing all of his data, and collaborating with patient's care team: 35 minutes Charges/Coding Visit Charges Inpatient E&M: 88102 Subs Hosp L2
[2023-09-19] MEDS: Tamsulosin HCl 0.4 MG Capsule 0.8 MG PO (11:45)
[2023-09-19] MEDS: 0.9% Saline Lock 10 ML Syringe IV (14:16)
[2023-09-19] MEDS: Metoprolol Tartrate 50 MG Tablet PO (21:06)
[2023-09-20] VITALS (7 sets, daily range): BP systolic 112–139; BP diastolic 53–73; PULSE 59–63; RESP 16–18; TEMP 36.2–36.9; O2SAT 96–98; BMI 28.5
[2023-09-20] MEDS: Levothyroxine 25 MCG TABLET PO (05:19)
[2023-09-20] MEDS: metroNIDAZOLE 500 MG/100 ML BAG 100 MG IV ×3 (05:19→21:37)
[2023-09-20 08:09] LABS: Absolute Lymphocyte Count 1.64 X10^3/uL (0.83-4.51); Absolute Neutrophil Count 8.1 X10^3/uL (2.0-7.7); Basophil# 0.09 X10^3/uL; Basophil% 0.8 % (0-1); Eosinophil# 0.43 X10^3/uL; Eosinophils% 3.7 % (0-5); Hematocrit 35.8 % (40-54); Hemoglobin 11.4 g/dL (13.0-16.5); Lymphocyte # 1.64 X10^3/ul (0.83-4.51); Lymphocyte % 14.1 % (19-41); Mean Corp Hgb Conc 31.8 g/dL (32-36); Mean Corpuscular Hgb 30.2 pg (27.0-32.0); Mean Platelet Vol. 9.4 fl (6.2-12.0); Monocyte# 1.31 X10^3/uL; Monocyte% 11.3 % (0-10); NRBC Flagged by Analyzer 0 % (0-5); Neutrophil # 8.12 X10^3/uL (2.7-7.7); Neutrophil % 69.8 % (47-70); Platelet Count 335 K/mm3 (150-450); RBC Distribution Width CV 12.7 % (11.6-14.6); Red Blood Count 3.77 M/mm3 (4.6-6.2); White Blood Count 11.6 K/mm3 (4.4-11.0)
[2023-09-20] MEDS: Metoprolol Tartrate 50 MG Tablet PO ×2 (09:09→21:37)
[2023-09-20] MEDS: Pantoprazole Sodium 40 MG in 0.9% Normal Saline (100mL MB+) 100 ML 330 MG IV (09:10)
[2023-09-20] MEDS: 0.9% Saline Lock 10 ML Syringe IV ×2 (09:11→21:37)
[2023-09-20] MEDS: Ciprofloxacin 400 MG/200 ML BAG 200 MG IV ×2 (09:11→23:29)
--- NOTE | 2023-09-20 10:27 | PN.HOSP_ITS ---
Reason for Visit Reason for Visit: Diagnoses Acute posthemorrhagic anemia (09/18/23) Acidosis, unspecified (09/18/23) Sick sinus syndrome (09/18/23) Disorder of arteries and arterioles, unspecified (09/18/23) Hemorrhage of anus and rectum (09/18/23) Other specified diseases of anus and rectum (09/18/23) Gastrointestinal hemorrhage, unspecified (09/18/23) Chronic fatigue, unspecified (09/18/23) Adverse effect of unspecified drugs, medicaments and biological substances, initial encounter (09/18/23) Presence of aortocoronary bypass graft (09/18/23) Presence of coronary angioplasty implant and graft (09/18/23) Subjective Subjective Patient was seen and examined today, his hemoglobin has remained stable, he has not seen any blood in his stool. Patient's enteric stool panel was negative, his C. difficile test was negative, lactoferrin test was positive for white cells. Ova and parasites are pending at the time of this dictation. Objective Data Objective Data Vital Signs: Vital Signs Temp Pulse Resp BP Pulse Ox O2 Del Method 98 F 63 18 139/73 H 98 Room Air 09/20/23 09:08 09/20/23 09:09 09/20/23 09:08 09/20/23 09:08 09/20/23 09:08 09/20/23 09:08 Oxygen Delivery Method Room Air Weight: 87.7 kg Body Mass Index (BMI) 28.5 Intake & Output: Intake and Output for Last 24 Hours 09/18/23 09/19/23 09/20/23 23:59 23:59 23:59 Intake Total 3310 / 3310 427.5 / 427.5 Output Total 4250 / 4250 800 / 800 Balance -940 / -940 -372.5 / -372.5 Lab / Micro Data 09/20/23 08:00 09/19/23 05:40 Labs: Laboratory Results - last 24 hr 09/20/23 08:00: WBC 11.6 H, RBC 3.77 L, Hgb 11.4 L, Hct 35.8 L, MCV 95.0 H, MCH 30.2, MCHC 31.8 L, RDW Std Deviation 44.0 H, RDW Coeff of Abner 12.7, Plt Count 335, MPV 9.4, Immature Gran % (Auto) 0.300, Neut % (Auto) 69.8, Lymph % (Auto) 14.1 L, [place] % (Auto) 11.3 H, Eos % (Auto) 3.7, Baso % (Auto) 0.8, Absolute Neuts (auto) 8.1 H, Absolute Lymphs (auto) 1.64, Nucleated RBC % 0 Micro: Microbiology 09/19/23 14:30 Stool Enteric Bacteriology - Final 09/19/23 12:00 Stool Stool Lactoferrin - Final 09/19/23 12:00 Stool Clostridioides difficile (PCR) - Final Physical Exam Narrative alert, oriented x3 and no apparent distress General Appearance: cooperative, well kempt and well developed Orientation / Consciousness: awake, oriented to person, oriented to place and oriented to time HEENT normocephalic and moist oral mucous membranes Eyes PERRL, EOMs intact bilaterally and conjunctivae normal Neck supple, no JVD, thyroid normal and no carotid bruits General: trachea midline Resp normal respiratory effort, no retractions, no use of accessory muscles and clear to auscultation bilaterally Auscultation: Negative for rales, rhonchi or wheezes Cardio regular rate, regular rhythm, S1 normal heart sound, S2 normal heart sound, no murmurs, no rub and no gallops GI normal to inspection, nondistended, normoactive bowel sounds, soft to palpation, non-tender and non-distended Extremity no clubbing, cyanosis or edema Skin Patient is wearing a covering over his scalp where he had recent surgery for squamous cell cancer. Neuro oriented x3, CN's II-XII intact bilaterally, no focal motor deficits and no sensory deficits noted Sensorium / Orientation: awake and alert Speech: speech normal Psych affect normal Assessment & Plan Assessment/Plan (1) Bright red blood per rectum: PLAN: Plan 1. Bright red rectal bleeding-etiology unclear, patient's hemoglobin appears to be stable at this time, patient will undergo a colonoscopy this Thursday.. #2 acute mild blood loss anemia secondary to acute lower GI bleed-CBC will be rechecked as needed, hemoglobin at this time is stable #3 coronary artery disease-stable at this time, complicates care, management, recovery, and prognosis #4 hypothyroidism-patient is on Synthroid Total clinical time spent by myself addressing the patient's medical issues, reviewing all of his data, and collaborating with patient's care team: 35 minutes Charges/Coding Visit Charges Inpatient E&M: 25731 Subs Hosp L2
--- NOTE | 2023-09-20 13:01 | PN.GI_ITS ---
Subjective Subjective Patient has remained stable and is having improved abdominal pain. He is tolerating a diet. Objective Data Objective Data Vital Signs: Vital Signs Temp Pulse Resp BP Pulse Ox O2 Del Method 98 F 63 18 139/73 H 98 Room Air 09/20/23 09:08 09/20/23 09:09 09/20/23 09:08 09/20/23 09:08 09/20/23 09:08 09/20/23 09:08 Oxygen Delivery Method Room Air Weight: 193 lb 5.526 oz Body Mass Index (BMI) 28.5 Intake & Output: Intake and Output for Last 24 Hours 09/18/23 09/19/23 09/20/23 23:59 23:59 23:59 Intake Total 3310 / 3310 1270.0 / 1270.0 Output Total 4250 / 4250 1750 / 1750 Balance -940 / -940 -480.0 / -480.0 Lab / Micro Data 09/20/23 08:00 09/19/23 05:40 Labs: Laboratory Results - last 24 hr 09/20/23 08:00: WBC 11.6 H, RBC 3.77 L, Hgb 11.4 L, Hct 35.8 L, MCV 95.0 H, MCH 30.2, MCHC 31.8 L, RDW Std Deviation 44.0 H, RDW Coeff of Abner 12.7, Plt Count 335, MPV 9.4, Immature Gran % (Auto) 0.300, Neut % (Auto) 69.8, Lymph % (Auto) 14.1 L, [place] % (Auto) 11.3 H, Eos % (Auto) 3.7, Baso % (Auto) 0.8, Absolute Neuts (auto) 8.1 H, Absolute Lymphs (auto) 1.64, Nucleated RBC % 0 Micro: Microbiology 09/19/23 14:30 Stool Enteric Bacteriology - Final 09/19/23 12:00 Stool Stool Lactoferrin - Final 09/19/23 12:00 Stool Clostridioides difficile (PCR) - Final Physical Exam Narrative alert, oriented x3 and no apparent distress General Appearance: cooperative, well kempt and well developed Orientation / Consciousness: awake, oriented to person, oriented to place and oriented to time HEENT normocephalic and moist oral mucous membranes Eyes PERRL, EOMs intact bilaterally and conjunctivae normal Neck supple, no JVD, thyroid normal and no carotid bruits General: trachea midline Resp normal respiratory effort, no retractions, no use of accessory muscles and clear to auscultation bilaterally Auscultation: Negative for rales, rhonchi or wheezes Cardio regular rate, regular rhythm, S1 normal heart sound, S2 normal heart sound, no murmurs, no rub and no gallops GI normal to inspection, nondistended, normoactive bowel sounds, soft to palpation, non-tender and non-distended Extremity no clubbing, cyanosis or edema Skin Patient is wearing a covering over his scalp where he had recent surgery for squamous cell cancer. Neuro oriented x3, CN's II-XII intact bilaterally, no focal motor deficits and no sensory deficits noted Sensorium / Orientation: awake and alert Speech: speech normal Psych affect normal Assessment & Plan Assessment/Plan (1) Lower GI bleed: (2) Anemia due to acute blood loss: (3) Hemorrhagic proctitis: (4) Acidosis, lactic: (5) Adverse drug reaction: QUALIFIERS: Encounter type: initial encounter Qualified Code(s): T50.905A - Adverse effect of unspecified drugs, medicaments and biological substances, initial encounter (6) Fatigue: QUALIFIERS: Fatigue type: chronic, unspecified Qualified Code(s): R53.82 - Chronic fatigue, unspecified (7) Presence of stent in coronary artery: (8) Presence of coronary angioplasty implant and graft: (9) History of coronary artery bypass surgery: (10) Carotid arterial disease: QUALIFIERS: Laterality: right Qualified Code(s): I77.9 - Disorder of arteries and arterioles, unspecified (11) Sick sinus syndrome: PLAN: Plan 78-year-old gentleman with past medical history of coronary artery disease status post CABG on aspirin, tachybradycardia syndrome status post permanent pacemaker with recent diagnosis of malignancy of the skin status post Mohs procedure with antibiotics who presents with LGIB with BRBPR and ABLA; with hemoglobin dropping to 10.3 g/dL today (with baseline hemoglobin of 14.6 g/dL last month) complicated by suspected Proctitis on CT scan. The differential diagnosis does include ischemic colitis, infectious colitis, less likely malignancy. Would recommend stool WBCs, stool lactoferrin, stool culture, stool for C. difficile. Patient should get a colonoscopy. It is not an emergency at this time. I expressed this to the family that he can eat at this time. They okay with him staying through the weekend and undergoing colonoscopy at the beginning week. -09/20/2023 patient is doing well. Hemoglobin seems to be stable at 11.3. Plan is still to have colonoscopy on Thursday. Liquid diet tomorrow and prep to begin tomorrow afternoon. Charges/Coding Visit Charges Inpatient E&M: 68773 Subs Hosp L3
[2023-09-20] MEDS: Tamsulosin HCl 0.4 MG Capsule 0.8 MG PO (17:36)
[2023-09-21] VITALS (8 sets, daily range): BP systolic 98–117; BP diastolic 55–63; PULSE 60–63; RESP 16–20; TEMP 36–36.8; O2SAT 94–98; BMI 28.5
[2023-09-21] MEDS: metroNIDAZOLE 500 MG/100 ML BAG 100 MG IV ×3 (06:41→19:59)
[2023-09-21] MEDS: Levothyroxine 25 MCG TABLET PO (06:41)
[2023-09-21] MEDS: Pantoprazole Sodium 40 MG in 0.9% Normal Saline (100mL MB+) 100 ML 330 MG IV (09:51)
[2023-09-21] MEDS: Metoprolol Tartrate 50 MG Tablet PO ×2 (10:01→22:12)
[2023-09-21] MEDS: Ciprofloxacin 400 MG/200 ML BAG 200 MG IV ×2 (10:38→22:06)
--- NOTE | 2023-09-21 11:04 | PCM.PN.HOSP ---
Reason for Visit Reason for Visit: Diagnoses Acute posthemorrhagic anemia (09/18/23) Acidosis, unspecified (09/18/23) Sick sinus syndrome (09/18/23) Disorder of arteries and arterioles, unspecified (09/18/23) Hemorrhage of anus and rectum (09/18/23) Other specified diseases of anus and rectum (09/18/23) Gastrointestinal hemorrhage, unspecified (09/18/23) Chronic fatigue, unspecified (09/18/23) Adverse effect of unspecified drugs, medicaments and biological substances, initial encounter (09/18/23) Presence of aortocoronary bypass graft (09/18/23) Presence of coronary angioplasty implant and graft (09/18/23) Subjective Subjective Patient was seen and examined today, he will undergo a colonoscopy tomorrow Objective Data Objective Data Vital Signs: Vital Signs Temp Pulse Resp BP Pulse Ox O2 Del Method 96.8 F L 63 18 111/55 L 98 Room Air 09/21/23 10:00 09/21/23 10:01 09/21/23 10:00 09/21/23 10:00 09/21/23 10:00 09/21/23 10:00 Oxygen Delivery Method Room Air Weight: 87.7 kg Body Mass Index (BMI) 28.5 Intake & Output: Intake and Output for Last 24 Hours 09/19/23 09/20/23 09/21/23 23:59 23:59 23:59 Intake Total 3310 / 3310 2095.0 / 2095.0 920 / 920 Output Total 4250 / 4250 2975 / 2975 1025 / 1025 Balance -940 / -940 -880.0 / -880.0 -105 / -105 Lab / Micro Data 09/20/23 08:00 09/19/23 05:40 Micro: Microbiology 09/19/23 14:30 Stool Enteric Bacteriology - Final 09/19/23 12:00 Stool Stool Lactoferrin - Final 09/19/23 12:00 Stool Clostridioides difficile (PCR) - Final Physical Exam Narrative alert, oriented x3 and no apparent distress General Appearance: cooperative, well kempt and well developed Orientation / Consciousness: awake, oriented to person, oriented to place and oriented to time HEENT normocephalic and moist oral mucous membranes Eyes PERRL, EOMs intact bilaterally and conjunctivae normal Neck supple, no JVD, thyroid normal and no carotid bruits General: trachea midline Resp normal respiratory effort, no retractions, no use of accessory muscles and clear to auscultation bilaterally Auscultation: Negative for rales, rhonchi or wheezes Cardio regular rate, regular rhythm, S1 normal heart sound, S2 normal heart sound, no murmurs, no rub and no gallops GI normal to inspection, nondistended, normoactive bowel sounds, soft to palpation, non-tender and non-distended Extremity no clubbing, cyanosis or edema Skin Patient is wearing a covering over his scalp where he had recent surgery for squamous cell cancer. Neuro oriented x3, CN's II-XII intact bilaterally, no focal motor deficits and no sensory deficits noted Sensorium / Orientation: awake and alert Speech: speech normal Psych affect normal Assessment & Plan Assessment/Plan (1) Bright red blood per rectum: PLAN: Plan 1. Bright red rectal bleeding-etiology unclear, patient's hemoglobin appears to be stable at this time, patient will undergo a colonoscopy tomorrow. #2 acute mild blood loss anemia secondary to acute lower GI bleed-CBC will be rechecked as needed, hemoglobin at this time is stable #3 coronary artery disease-stable at this time, complicates care, management, recovery, and prognosis #4 hypothyroidism-patient is on Synthroid Total clinical time spent by myself addressing the patient's medical issues, reviewing all of his data, and collaborating with patient's care team: 35 minutes Charges/Coding Visit Charges Inpatient E&M: 88064 Subs Hosp L2
[2023-09-21] MEDS: Bisacodyl 5 MG Tablet 20 MG PO (14:54)
[2023-09-21] MEDS: Tamsulosin HCl 0.4 MG Capsule 0.8 MG PO (16:30)
[2023-09-21] MEDS: Polyethylene Glycol 3350 BOWEL PREP 1 BOTTLE PO (16:32)
[2023-09-22] VITALS (13 sets, daily range): BP systolic 106–131; BP diastolic 54–68; PULSE 59–65; RESP 16–18; TEMP 36.5–36.9; O2SAT 95–98; BMI 29.7
[2023-09-22 04:47] LABS: Absolute Lymphocyte Count 1.49 X10^3/uL (0.83-4.51); Absolute Neutrophil Count 9.6 X10^3/uL (2.0-7.7); Basophil# 0.05 X10^3/uL; Basophil% 0.4 % (0-1); Eosinophil# 0.22 X10^3/uL; Eosinophils% 1.7 % (0-5); Hematocrit 32.5 % (40-54); Hemoglobin 10.6 g/dL (13.0-16.5); Lymphocyte # 1.49 X10^3/ul (0.83-4.51); Lymphocyte % 11.3 % (19-41); Mean Corp Hgb Conc 32.6 g/dL (32-36); Mean Corpuscular Hgb 30.4 pg (27.0-32.0); Mean Corpuscular Volume 93.1 fL (80-94); Mean Platelet Vol. 9.6 fl (6.2-12.0); Monocyte# 1.82 X10^3/uL; Monocyte% 13.8 % (0-10); NRBC Flagged by Analyzer 0 % (0-5); Neutrophil # 9.55 X10^3/uL (2.7-7.7); POSITIVE DIFFERENTIAL YES; Platelet Count 342 K/mm3 (150-450); RBC Distribution Width CV 12.7 % (11.6-14.6); RBC Distribution Width SD 43.2 fl (35.1-43.9); Red Blood Count 3.49 M/mm3 (4.6-6.2); White Blood Count 13.2 K/mm3 (4.4-11.0)
[2023-09-22 05:10] LABS: Anion Gap 8 (5-15); BUN 7 mg/dL (7-18); BUN/Creat Ratio 8.8 RATIO (10-20); Calcium,Total 8.4 mg/dL (8.5-10.1); Chloride 109 mmol/L (98-107); EST Glomerular Filtration Rate 100 mL/min (>60); Est Glom Filt Rate - Afr Amer 120 mL/min (>60); Estimated Creatinine Clearance 82.19 ml/min; Glucose 141 mg/dL (74-106); Potassium 3.4 mmol/L (3.5-5.1); Sodium Level 141 mmol/L (136-145)
[2023-09-22 05:34] LABS: Differential Indicated SCAN CRITERIA MET
--- NOTE | 2023-09-22 05:55 | EKG12_ITS ---
Test Reason : AM EKG Blood Pressure : / mmHG Vent. Rate : 060 BPM Atrial Rate : 060 BPM P-R Int : 206 ms QRS Dur : 124 ms QT Int : 508 ms P-R-T Axes : 000 -36 057 degrees QTc Int : 508 ms Atrial-paced rhythm Left axis deviation Non-specific intra-ventricular conduction delay Minimal voltage criteria for LVH, may be normal variant ( R in aVL ) Abnormal ECG When compared with ECG of 18-SEP-2023 20:30, Non-specific intra-ventricular conduction delay has replaced Right bundle branch block Confirmed by MANUEL KAUFMAN, PRICILLA ([id number]), scientific editor RADHA COOPER ([id number]) on 09/24/2023 6:59:05 AM Referred By: TIM Confirmed By:RADHA JACKSON MD
[2023-09-22] MEDS: metroNIDAZOLE 500 MG/100 ML BAG 100 MG IV ×2 (06:11→13:37)
[2023-09-22] MEDS: Pantoprazole Sodium 40 MG in 0.9% Normal Saline (100mL MB+) 100 ML 330 MG IV (10:30)
[2023-09-22] MEDS: 0.9% Saline Lock 10 ML Syringe IV (10:46)
[2023-09-22] MEDS: Metoprolol Tartrate 50 MG Tablet PO ×2 (10:48→21:47)
[2023-09-22] MEDS: Ciprofloxacin 400 MG/200 ML BAG 200 MG IV (10:50)
[2023-09-22] MEDS: 0.9% Normal Saline (1000mL) 1,000 ML 15 ML IV (15:27)
--- NOTE | 2023-09-22 15:43 | PN.HOSP_ITS ---
Reason for Visit Reason for Visit: Diagnoses Acute posthemorrhagic anemia (09/18/23) Acidosis, unspecified (09/18/23) Sick sinus syndrome (09/18/23) Disorder of arteries and arterioles, unspecified (09/18/23) Hemorrhage of anus and rectum (09/18/23) Other specified diseases of anus and rectum (09/18/23) Gastrointestinal hemorrhage, unspecified (09/18/23) Chronic fatigue, unspecified (09/18/23) Adverse effect of unspecified drugs, medicaments and biological substances, initial encounter (09/18/23) Presence of aortocoronary bypass graft (09/18/23) Presence of coronary angioplasty implant and graft (09/18/23) Subjective Subjective Patient was seen and examined today, his hemoglobin this morning was 10.6, at the time of this dictation, patient is undergoing a colonoscopy by gastroenterology. Objective Data Objective Data Vital Signs: Vital Signs Temp Pulse Resp BP Pulse Ox O2 Del Method 97.8 F 61 16 120/62 98 Room Air 09/22/23 12:30 09/22/23 12:30 09/22/23 12:30 09/22/23 12:30 09/22/23 13:20 09/22/23 12:30 Oxygen Delivery Method Room Air Weight: 91.2 kg Body Mass Index (BMI) 29.7 Intake & Output: Intake and Output for Last 24 Hours 09/20/23 09/21/23 09/22/23 23:59 23:59 23:59 Intake Total 2095.0 / 2095.0 1880 / 1880 510 / 510 Output Total 2975 / 2975 1825 / 1825 650 / 650 Balance -880.0 / -880.0 55 / 55 -140 / -140 Lab / Micro Data 09/22/23 04:23 09/22/23 04:23 Labs: Laboratory Results - last 24 hr 09/22/23 04:23: WBC 13.2 H, RBC 3.49 L, Hgb 10.6 L, Hct 32.5 L, MCV 93.1, MCH 30.4, MCHC 32.6, RDW Std Deviation 43.2, RDW Coeff of Abner 12.7, Plt Count 342, MPV 9.6, Immature Gran % (Auto) 0.800, Neut % (Auto) 72.0 H, Lymph % (Auto) 11.3 L, Edgar % (Auto) 13.8 H, Eos % (Auto) 1.7, Baso % (Auto) 0.4, Absolute Neuts (auto) 9.6 H, Absolute Lymphs (auto) 1.49, Nucleated RBC % 0, Diff Path Review August foll, Sodium 141, Potassium 3.4 L, Chloride 109 H, Carbon Dioxide 24.0, Anion Gap 8, BUN 7, Creatinine 0.80, Estim Creat Clear Calc 82.19, Est GFR (MDRD) Af Amer 120, Est GFR (MDRD) Non-Af 100, BUN/Creatinine Ratio 8.8 L, G lucose 141 H, Calcium 8.4 L Micro: Microbiology 09/19/23 14:30 Stool Enteric Bacteriology - Final 09/19/23 12:00 Stool Stool Lactoferrin - Final 09/19/23 12:00 Stool Clostridioides difficile (PCR) - Final Physical Exam Narrative alert, oriented x3 and no apparent distress General Appearance: cooperative, well kempt and well developed Orientation / Consciousness: awake, oriented to person, oriented to place and oriented to time HEENT normocephalic and moist oral mucous membranes Eyes PERRL, EOMs intact bilaterally and conjunctivae normal Neck supple, no JVD, thyroid normal and no carotid bruits General: trachea midline Resp normal respiratory effort, no retractions, no use of accessory muscles and clear to auscultation bilaterally Auscultation: Negative for rales, rhonchi or wheezes Cardio regular rate, regular rhythm, S1 normal heart sound, S2 normal heart sound, no murmurs, no rub and no gallops GI normal to inspection, nondistended, normoactive bowel sounds, soft to palpation, non-tender and non-distended Extremity no clubbing, cyanosis or edema Skin Patient is wearing a covering over his scalp where he had recent surgery for squamous cell cancer. Neuro oriented x3, CN's II-XII intact bilaterally, no focal motor deficits and no sensory deficits noted Sensorium / Orientation: awake and alert Speech: speech normal Psych affect normal Assessment & Plan Assessment/Plan (1) Bright red blood per rectum: PLAN: Plan 1. Bright red rectal bleeding-etiology unclear, patient's hemoglobin appears to be stable at this time, patient is undergoing a colonoscopy at this time #2 acute mild blood loss anemia secondary to acute lower GI bleed-CBC appears to be stable #3 coronary artery disease-stable at this time, complicates care, management, recovery, and prognosis #4 hypothyroidism-patient is on Synthroid Total clinical time spent by myself addressing the patient's medical issues, reviewing all of his data, and collaborating with patient's care team: 25 minutes Charges/Coding Visit Charges Inpatient E&M: 61003 Subs Hosp L1
--- NOTE | 2023-09-22 16:00 | COLBX_PTH ---
PATIENT: ISIDRO ROSE LOC: [facility] U#:[id number] AGE/SX: 78/M ROOM: [facility] RE09/18/[address]: Dr. Quincy Warner DO : 1945 BED: 1 DIS: 09/23/2023 SPEC #: [id number] RECD: 09/22/23 18:35 STATUS: DARLEEN REDomenica #: [id number] JAMES: 09/22/23 16:[address]: Alexandru Barker DEPT: SURGICAL PATHOLOGY RECD BY: Ama Gonzalez ENTERED: 09/23/23 09:25 SP TYPE: COLON BX OTHR DR: DO Dr. Christina Quinn, DO Dr. Quincy Warner DO Tissues: Rectum, NOS Procedures: Surgery Specimen Level IV Comments: @ Ordering doctor for SUIV edited from to @ by MINDI at 09/23/23 1314 @ Submitting doctor edited from to @ by MINDI at 09/23/23 1314 HEADER OPERATION: Colonoscopy, biopsy PRE-OP DIAGNOSIS: Lower GI bleed, anemia due to acute blood loss TISSUE SUBMITTED: Rectal ulcer MICROSCOPIC DIAGNOSIS Rectal ulcer, biopsy: Mild architecture change. No evidence of inflammation. / 09/24/2023 MICROSCOPIC DESCRIPTION Slides are reviewed. GROSS DESCRIPTION Received in fixative is one container labeled with the patient's name and designated rectal ulcer. The specimen consists of one irregular fragment of light chaney soft tissue that measures 0.3 x 0.3 x 0.1 cm. The specimen is totally submitted in one cassette. AM/ 09/23/2023 TC:5 [facility]:[id number]
--- NOTE | 2023-09-22 16:20 | CHAPLAIN ---
Type of Pastoral Visit _x__ Initial Visit ___ Follow-up Visit ___ On-call Visit ___ General Patient Visit ___ Spiritual Assessment ___ Family Conference ___ Bereavement ___ Rapid Response ___ Code Blue ___ Other (describe below) Pastoral Care Referral From _x__ Patient ___ Family ___ Nurse ___ Physician ___ Centrifugal Spinner ___ Route Returner ___ Other (describe below) Sacrament/Intervention _x__ Active listening ___ Anointing ___ Druze ___ Bereavement ___ Communion ___ Ashley exploration ___ ___ Life review _x__ Prayer ___ Reconciliation ___ Sacrament of Sick _x__ Supportive presence ___ Wedding ___ Other (describe below) Pastoral Comments patient and daughter are in the room; pt states that he is waiting and has been for awhile for a scope and test; pt understands that others have to be treated as well and that he is fine; however, pt does hope for answers and some ability to eat soon; pt is offered support and listening ear; pt welcomes prayer
--- NOTE | 2023-09-22 16:44 | OP.COLON_ITS ---
Patient Name: García Bertrand Procedure Date: 09/22/2023 4:19 PM Date of : 1945 Age: 78 Procedure: Colonoscopy Indications: Hematochezia Providers: Alexandru Barker DO Medicines: Monitored Anesthesia Care Patient Profile: This is an 78 year old male. Refer to note in patient chart for documentation of history and physical. Last Colonoscopy: date unknown. Unable to locate last colonoscopy report. Complications: No immediate complications. Procedure: Pre-Anesthesia Assessment: - Prior to the procedure, a History and Physical was performed, and patient medications and allergies were reviewed. The risks and benefits of the procedure and the sedation options and risks were discussed with the patient. All questions were answered and informed consent was obtained. Patient identification and proposed procedure were verified by the physician. Mental Status Examination: normal. Prophylactic Antibiotics: The patient does not require prophylactic antibiotics. Prior Anticoagulants: The patient has taken no anticoagulant or antiplatelet agents. ASA Grade Assessment: III - A patient with severe systemic disease. After reviewing the risks and benefits, the patient was deemed in satisfactory condition to undergo the procedure. The anesthesia plan was to use monitored anesthesia care (MAC). Immediately prior to administration of medications, the patient was re-assessed for adequacy to receive sedatives. The heart rate, respiratory rate, oxygen saturations, blood pressure, adequacy of pulmonary ventilation, and response to care were monitored throughout the procedure. The physical status of the patient was re-assessed after the procedure. After I obtained informed consent, the scope was passed under direct vision. Throughout the procedure, the patient's blood pressure, pulse, and oxygen saturations were monitored continuously. The Colonoscope was introduced through the anus and advanced to the cecum, identified by appendiceal orifice and ileocecal valve. The colonoscopy was performed without difficulty. The patient tolerated the procedure well. The quality of the bowel preparation was adequate. The ileocecal valve, appendiceal orifice, and rectum were photographed. Scope In: 4:29:15 PM Scope Withdrawal Time 0 hours 9 minutes 0 seconds Scope Out: 4:40:45 PM Total Procedure Duration Time 0 hours 11 minutes 30 seconds Findings: The perianal and digital rectal examinations were normal. Discontinuous areas of nonbleeding ulcerated mucosa with no stigmata of recent bleeding were present in the rectum. Biopsies were taken with a cold forceps for histology. Verification of patient identification for the specimen was done. Estimated blood loss was minimal. A few small-mouthed diverticula were found in the recto-sigmoid colon and sigmoid colon. The exam was otherwise without abnormality on direct and retroflexion views. Impression: - Mucosal ulceration. Biopsied. - Diverticulosis in the recto-sigmoid colon and in the sigmoid colon. - The examination was otherwise normal on direct and retroflexion views. Recommendation: - Discharge patient to home. - Resume previous diet. - Continue present medications. - Await pathology results. -Mesalamine 2.4 daily x 8 weeks - No repeat colonoscopy due to age. Procedure Code(s): --- Professional --- 94273, Colonoscopy, flexible; with biopsy, single or multiple CPT copyright 2021 [employer]. All rights reserved. The codes documented in this report are preliminary and upon marketing communications leader review may be revised to meet current compliance requirements. Alexandru Barker DO 09/22/2023 4:44:14 PM This report has been signed electronically. Number of Addenda: 0 Note Initiated On: 09/22/2023 4:19 PM
--- NOTE | 2023-09-22 16:44 | OP.CCLET_ITS ---
09/22/2023 Christina Sandy [address] [place] [address] Re : Colonoscopy procedure for García Bertrand Dear Dr. Sandy This procedure was performed on Friday, September 22, 2023. My impressions and recommendations are as follows: Impressions : - Mucosal ulceration. Biopsied. - Diverticulosis in the recto-sigmoid colon and in the sigmoid colon. - The examination was otherwise normal on direct and retroflexion views. Recommendations : - Discharge patient to home. - Resume previous diet. - Continue present medications. - Await pathology results. -Mesalamine 2.4 daily x 8 weeks - No repeat colonoscopy due to age. My findings are described in the full procedure note, which is enclosed. If I can be of further assistance, please feel free to contact me at . Sincerely, Alexandru Barker, 09/22/2023 4:44:14 PM This report has been signed electronically.
[2023-09-22] MEDS: Tamsulosin HCl 0.4 MG Capsule 0.8 MG PO (17:48)
[2023-09-22] MEDS: MESALAMINE 400 MG CAPSULE.DR 800 MG PO (21:47)
[2023-09-23 03:24] VITALS: BP 118/54; PULSE 60; RESP 18; TEMP 36.4; TEMP 36.5; O2SAT 97
[2023-09-23 05:59] VITALS: BMI 29.6
[2023-09-23 06:50] LABS: Absolute Lymphocyte Count 0.64 X10^3/uL (0.83-4.51); Absolute Neutrophil Count 8.4 X10^3/uL (2.0-7.7); Basophil# 0.02 X10^3/uL; Basophil% 0.2 % (0-1); Hematocrit 32.1 % (40-54); Hemoglobin 10.3 g/dL (13.0-16.5); Lymphocyte # 0.64 X10^3/ul (0.83-4.51); Lymphocyte % 6.4 % (19-41); Mean Corp Hgb Conc 32.1 g/dL (32-36); Mean Corpuscular Hgb 30.2 pg (27.0-32.0); Mean Corpuscular Volume 94.1 fL (80-94); Mean Platelet Vol. 9.8 fl (6.2-12.0); Monocyte# 0.84 X10^3/uL; Monocyte% 8.5 % (0-10); NRBC Flagged by Analyzer 0 % (0-5); Neutrophil # 8.36 X10^3/uL (2.7-7.7); Neutrophil % 84.2 % (47-70); Platelet Count 348 K/mm3 (150-450); RBC Distribution Width CV 12.6 % (11.6-14.6); RBC Distribution Width SD 43.2 fl (35.1-43.9); Red Blood Count 3.41 M/mm3 (4.6-6.2); White Blood Count 9.9 K/mm3 (4.4-11.0)
[2023-09-23 08:16] LABS: Anion Gap 7 (5-15); BUN 11 mg/dL (7-18); BUN/Creat Ratio 12.5 RATIO (10-20); Calcium,Total 8.6 mg/dL (8.5-10.1); Chloride 108 mmol/L (98-107); Creatinine, Serum 0.88 mg/dL (0.70-1.30); EST Glomerular Filtration Rate 89 mL/min (>60); Est Glom Filt Rate - Afr Amer 107 mL/min (>60); Estimated Creatinine Clearance 74.64 ml/min; Glucose 178 mg/dL (74-106); Potassium 3.9 mmol/L (3.5-5.1); Sodium Level 137 mmol/L (136-145)
[2023-09-23 08:47] VITALS: BP 131/65; PULSE 74; RESP 16; TEMP 36.5; O2SAT 97
--- NOTE | 2023-09-23 09:13 | DCINST_ITS ---
Discharge Instructions Diet Discharge Diet: No restrictions Activity Discharge Activity: Return to Normal Activity Weight Bearing Status: Full weight bearing Follow Up Care Test Results: Test results from this visit will be discussed in further detail at your follow- up appointment, if applicable. Discharge Plan Admission Admit Date/Time: 09/18/23 23:03 Primary Reason for Your Visit: bight red rectal bleeding Attending Provider: Quincy Warner Primary Care Provider: Christina Sandy Consulting Providers: Ifeanyi Rivera Discharge Orders/Prescriptions Prescriptions: New mesalamine 400 mg Capsule (With Del Rel Tablets) 800 mg PO TID Qty: 180 0RF tamsulosin 0.4 mg Capsule 0.8 mg PO DAILY@1730 Qty: 60 0RF Continued aspirin [Adult Low Dose Aspirin] 81 mg tablet,delayed release (DR/EC) 81 mg PO QDAY levothyroxine 25 mcg tablet 25 mcg PO DAILY nitroglycerin 0.4 mg tablet, sublingual 0.4 mg SUBLINGUAL Q5M PRN (Reason: Chest Pain) Qty: 25 3RF metoprolol tartrate 50 mg tablet 50 mg PO BID Qty: 180 4RF Referrals / Follow Up: Christina Sandy DO [Primary Care Provider] - Within 1 Month FriendAlexandru DO [Med Staff - Active Staff] - See Referral Note (in 2-3 weeks, call for appointment, let them know you were seen in the hospital) Disposition Disposition (needs filled in before D/C Order can be placed): Home, Self Care
--- NOTE | 2023-09-23 09:19 | DS.PCM_ITS ---
Providers Date of Admission: 09/18/23 Date of Discharge: 09/23/23 Primary Care Physician: Dr. Christina Sandy, DO Consultations 09/18/23 23:34 Consult: Gastroenterology Routine Consulting Provider: Jason Gastroenterology Reason for Consult: LGIB with BRBPR, ABLA and suspected Proctitis on CT. EMERGENT Consult: No MD Notified: Yes Date Notified: 09/19/23 Time Notified: 05:54 Method of Notification: Text Reason For Visit: LGIB WITH BRBPR,ABLA AND SUSPECTED PROCTITIS ON CT Diagnosis Discharge Diagnosis (1) Bright red blood per rectum: Status: Acute Code(s): K62.5 - Hemorrhage of anus and rectum Plan 1. Bright red rectal bleeding-etiology unclear, patient's hemoglobin appears to be stable at this time, patient is undergoing a colonoscopy at this time #2 acute mild blood loss anemia secondary to acute lower GI bleed-CBC appears to be stable #3 coronary artery disease-stable at this time, complicates care, management, recovery, and prognosis #4 hypothyroidism-patient is on Synthroid #5 bladder outlet obstruction-probably from BPH Total clinical time spent by myself addressing the patient's medical issues, reviewing all of his data, and collaborating with patient's care team: 25 minutes Medications at Discharge Home Medications aspirin 81 mg tablet,delayed release (Adult Low Dose Aspirin) [facility]17 levothyroxine 25 mcg tablet 25 mcg PO DAILY thyroid 02/15/18 nitroglycerin 0.4 mg sublingual tablet 0.4 mg sublingual Q5M PRN Chest Pain #25 tabs 01/14/22 metoprolol tartrate 50 mg tablet 50 mg PO BID bp #180 tabs 09/16/22 mesalamine 400 mg capsule (with delayed release tablets inside) 800 mg (2 x 400 mg) PO TID #180 ea 09/23/23 tamsulosin 0.4 mg capsule 0.8 mg (2 x 0.4 mg) PO DAILY@1730 #60 caps 09/23/23 Hospital Course Operations None Procedures Colonoscopy Summary of Care Provided Minutes Spent on Discharge: 31 Hospital Course: This 78-year-old white male was seen in the emergency room at [facility] with complaints of red rectal bleeding, patient's hemoglobin was noted to be 11.3, CTA of the abdomen and pelvis was obtained which showed no evidence for active GI bleed, there was probable rectal wall thickening noted. Patient was admitted to PCU for red rectal bleeding and possible colitis, he was started on IV antibiotics and seen in consultation by gastroenterology. Serial labs were obtained and the patient's hemoglobin did not drop appreciably and so no blood transfusion was needed. Patient spent several days in the hospital due to the holiday weekend and inability to obtain a colonoscopy on a weekend or holiday. On 09/22/2023, patient underwent colonoscopy which showed an ulceration in the rectal area, this was biopsied. Patient was placed on mesalamine, hemoglobin the following morning did not show an appreciable drop in the patient's blood count. On 09/23/2023, patient was seen and examined: On examination he appeared in good health and spirits. Vital signs as documented. Skin warm and dry and without overt rashes. Neck without JVD, neck was supple, trachea midline, thyroid was normal. Lungs clear bilaterally, normal air movement was noted. Heart exam notable for regular rhythm, normal sounds and absence of murmurs, rubs or gallops. Abdomen unremarkable and without evidence of organomegaly, masses, or abdominal aortic enlargement. Bowel sounds are present, abdomen is not distended. Extremities nonedematous, no cyanosis was noted, no clubbing was noted. Neuro: Cranial nerves II through XII are grossly intact, no focal motor deficits were noted, sensation to light touch and pinprick intact, motor exam 5/5 throughout. Psych: Patient is alert and oriented x3, he does not appear anxious or depressed, he does not appear agitated. Patient was felt to be stable for discharge on 09/23/2023 in stable condition. Weight / BMI Weight Weight: 91 kg Body Mass Index (BMI) 29.6 ABG / Lab / Microbiology Data 09/23/23 05:50 09/23/23 05:50 Laboratory: Laboratory Results - last 24 hr 09/23/23 05:50: WBC 9.9, RBC 3.41 L, Hgb 10.3 L, Hct 32.1 L, MCV 94.1 H, MCH 30.2, MCHC 32.1, RDW Std Deviation 43.2, RDW Coeff of Abner 12.6, Plt Count 348, MPV 9.8, Immature Gran % (Auto) 0.700, Neut % (Auto) 84.2 H, Lymph % (Auto) 6.4 L, [place] % (Auto) 8.5, Eos % (Auto) 0.0, Baso % (Auto) 0.2, Absolute Neuts (auto) 8.4 H, Absolute Lymphs (auto) 0.64 L, Nucleated RBC % 0, Sodium 137, Potassium 3.9, Chloride 108 H, Carbon Dioxide 22.0, Anion Gap 7, BUN 11, Creatinine 0.88, Estim Creat Clear Calc 74.64, Est GFR (MDRD) Af Amer 107, Est GFR (MDRD) Non-Af 89, BUN/Creatinine Ratio 12.5, Glucose 178 H, Calcium 8.6 Microbiology: Microbiology 09/19/23 14:30 Stool Enteric Bacteriology - Final 09/19/23 12:00 Stool Stool Lactoferrin - Final 09/19/23 12:00 Stool Clostridioides difficile (PCR) - Final D/C Instructions Discharge Diet: No restrictions Weight Bearing Status: Full weight bearing Meaningful Use Info Meaningful Use Meaningful Use Diagnoses (Choose all that apply): None applicable Ischemic Stroke Statin Dosing Therapy Reference: STATIN DOSE THERAPY REFERENCE: * Patients > 75 years receive moderate or high dose statin therapy. * Patients 75 years or YOUNGER should receive HIGH intensity statin dose unless contraindicated. You will be required to document reason for non-treatment if statin daily dose does not meet guidelines. HIGH DOSE STATIN THERAPY DAILY Atorvastatin > than or = to 40 mg Rosuvastatin > than or = to 20 mg Amlodipine + Atorvastatin > than or = to 2.5/40 mg Ezetimibe + Simvastatin 10/80 mg Simvastatin 80mg Discharge Plan Admission Admit Date/Time: 09/18/23 23:03 Primary Reason for Your Visit: bight red rectal bleeding Attending Provider: Quincy Warner Primary Care Provider: Christina Sandy Consulting Providers: Ifeanyi Rivera Discharge Orders/Prescriptions Prescriptions: New mesalamine 400 mg Capsule (With Del Rel Tablets) 800 mg PO TID Qty: 180 0RF tamsulosin 0.4 mg Capsule 0.8 mg PO DAILY@1730 Qty: 60 0RF Continued aspirin [Adult Low Dose Aspirin] 81 mg tablet,delayed release (DR/EC) 81 mg PO QDAY levothyroxine 25 mcg tablet 25 mcg PO DAILY nitroglycerin 0.4 mg tablet, sublingual 0.4 mg SUBLINGUAL Q5M PRN (Reason: Chest Pain) Qty: 25 3RF metoprolol tartrate 50 mg tablet 50 mg PO BID Qty: 180 4RF Referrals / Follow Up: Christina Sandy DO [Primary Care Provider] - Within 1 Month Friend,DO Alexandru [Med Staff - Active Staff] - See Referral Note (in 2-3 weeks, call for appointment, let them know you were seen in the hospital) Disposition Disposition (needs filled in before D/C Order can be placed): Home, Self Care Charges/Coding Visit Charges Inpatient E&M: 47488 Disch Hosp >30min
[2023-09-23 09:29] VITALS: BP 131/65; PULSE 74
[2023-09-23] MEDS: Metoprolol Tartrate 50 MG Tablet PO (09:29)
[2023-09-23] MEDS: Pantoprazole Sodium 40 MG in 0.9% Normal Saline (100mL MB+) 100 ML 330 MG IV (09:29)
[2023-09-23] MEDS: 0.9% Saline Lock 10 ML Syringe IV (09:35)
--- NOTE | 2023-09-23 10:08 | PHA.DC_ITS ---
Pharmacy [facility] has performed discharge medication reconciliation and counseling for this patient. 1. MESALAMINE 800MG PO TID 2. TAMSULOSIN 0.8MG PO DAILY The patient's discharge medication list was reviewed for discrepancies and discrepancies were resolved. The patient was counseled on the following discharge medications and changes in medications for homegoing were reviewed. The Reason for Use, instructions for use, and potential side effects were reviewed for all new medications. The patient's questions regarding all of their medications were answered. The patient was able to verbally demonstrate an understanding of their discharge medications. Medications at Discharge Home Medications aspirin 81 mg tablet,delayed release [facility]ult [facility] levothyroxine 25 mcg tablet 25 mcg PO DAILY thyroid 02/15/18 nitroglycerin 0.4 mg sublingual tablet 0.4 mg sublingual Q5M PRN Chest Pain #25 tabs 01/14/22 metoprolol tartrate 50 mg tablet 50 mg PO BID bp #180 tabs 09/16/22 mesalamine 400 mg capsule (with delayed release tablets inside) 800 mg (2 x 400 mg) PO TID #180 ea 09/23/23 tamsulosin 0.4 mg capsule 0.8 mg (2 x 0.4 mg) PO DAILY@1730 #60 caps 09/23/23
--- NOTE | 2023-09-23 10:35 | CASEMGMT ---
Discharge Planning A list of HH providers including quality and resource use data and consistent with the patient's preferred geographic region, medical needs, and insurance network was created in [employer].? This list was provided to the RN TITA. Nisa Strong, Discharge Planning Asst.
[2023-09-23] MEDS: Tamsulosin HCl 0.4 MG Capsule 0.8 MG PO (12:19)
--- NOTE | 2023-09-23 12:25 | CASEMGMT ---
Patient has order for discharge. HANNAH RIVERS reviewed progress with therapy, contact guard 125ft, recommending HHC vs Outpatient. HANNAH RIVERS in to discuss discharge needs with patient. Patient and declining HHC or Outpatient therapy, patient feels he doesn't need additional therapy. asked about exercises at home, therapy notified to provide handouts. HANNAH RIVERS did provide patient with HHC list and advised patient and to follow up with PCP should they reconsider. Patient and had no further questions or concerns.
[2023-09-23 14:03] LABS: Pathologist Review Reviewed
[2023-09-23 14:37] VITALS: BP 111/51; PULSE 60; RESP 16; TEMP 36.4; O2SAT 99
[2023-09-23] MEDS: MESALAMINE 400 MG CAPSULE.DR 800 MG PO (14:42)
--- NOTE | 2023-09-28 09:49 | CASEMGMT ---
HANNAH RIVERS: Notification received on this date from [employer] stating pt's prescription for Mesalamine DR 400mg capsules requires a prior authorization. This HANNAH RIVERS called [employer] and provided Jacky with additional clinical information to support the authorization of this prescription. Results of this request will be faxed within 24 hours. Will monitor for results of review. Elzbieta Wong RN ACM
--- NOTE | 2023-09-28 11:45 | CASEMGMT ---
HANNAH CM Follow-up: Fax requesting additional information received from [facility]. Provider documentation including GI c/s, colonoscopy report and DC summary faxed to [facility] in support of mesalamine authorization. Elzbieta Wong RN ACM
--- NOTE | 2023-09-28 16:32 | CASEMGMT ---
HANNAH RIVERS Follow-up: Notification received from [facility] that mesalamine was not approved d/t this being considered an off label use. Noted the prescribing provider Dr. Warner is off service this week. Call placed to Dr. Barker's office who saw pt on c/s during pt's stay and VM left on confidential line requesting additional information to support an appeal of this decision or additional direction for pt. This RN CM also phoned pt, confirmed he had not picked up this medication from the pharmacy, and updated pt on the status of the authorization. Pt states he has been feeling well since discharge although noted that with the heat today, he was feeling a little weaker. Pt denies any bleeding, states he is eating without difficulty, and states his daughter takes care of all of his appointments so he is unsure if he has them scheduled or not. Pt denied any additional questions or concerns. Will follow-up healthcare receptionist to Dr. Barker's office. Elzbieta Wong RN [facility]
--- NOTE | 2023-09-29 09:10 | CASEMGMT ---
HANNAH CM: Return call received from Dr. Barker's office with additional dx code. Noted a similar code (Ulcer of anus and rectum) was provided to [facility]. Dr. Barker to be contacted by office staff to determine any additional code that may be appropriate to substantiate this medication or alternative tx options. Elzbieta Wong RN ACM
--- NOTE | 2023-09-29 11:51 | CASEMGMT ---
Addendum entered and electronically signed by Kayce Darden RN 09/30/23 09:01: Return call received from Dr. Barker's office confirming the prescription dosage and quantity. They will contact [facility] with provide the clarification. HANNAH Fan Addendum entered and electronically signed by Kayce Darden RN 09/29/23 18:15: [id number] Call placed to [facility] for determination of co-pay amount. Pharmacy staff states clarification is needed on number of tablets and frequency. Call placed to Dr. Barker's office and VM received. Message left requesting they contact [facility] pharmacy to clarify prescription . 1809 Call placed to [facility] and per pharmacy staff, a call with clarifying information has not been provided by Dr. Barker's office. Will follow--up with Dr. Barker's office in AM during their business hours. Call placed to pt and VM received. Message left stating we are continuing to work on his request and will follow up in the AM. HANNAH Fan Original Note: HANNAH RIVERS: Message received from Dr. Barker's office stating that pt does not have a confirmed dx of ulcerative colitis and so Dr. Barker will prescribe an alternative medication for pt to take. This HANNAH RIVERS returned the call and received VM and left message that pt has [facility] listed as his preferred pharmacy. Call placed to the pt and updated him on the plan for a new medication. Pt asks about the cost of this medication. Will contact [facility] to determine pt's co-pay and will inform pt when known. HANNAH Fan
--- NOTE | 2023-09-30 17:51 | CASEMGMT ---
RN TITA Follow-up: This RN CM contacted [facility] and obtained pt's co-pay for the sulfasalazine is $29.27 and folic acid $5.36. Call placed to pt and voicemail received. Monzon of medications left on the VM and return number to call if any additional questions. Elzbieta Wong RN ACM
== END 2023-09-23 16:14 | disposition home or self-care (01) | DRG 393 ==
LOC: ED 22:40 → PCU 22:54
PROVIDERS: Anesthesiology; Internal Medicine Gastroenterology; Admitting Provider Internal Medicine; Emergency Provider Emergency Medicine; PCP Internal Medicine; Visit Provider Internal Medicine
PROC: 0DJD8ZZ Inspection of Lower Intestinal Tract, Via Natural or Artificial Opening Endoscopic (ICD-10-PCS; CPT 45378; principal; 2023-09-22 15:55)
DX: K62.6 Ulcer of anus and rectum (principal); K57.31 Diverticulosis of large intestine without perforation or abscess with bleeding; Q60.0 Renal agenesis, unilateral; D62 Acute posthemorrhagic anemia; I49.5 Sick sinus syndrome; E03.9 Hypothyroidism, unspecified; I10 Essential (primary) hypertension; K21.9 Gastro-esophageal reflux disease without esophagitis; I25.10 Atherosclerotic heart disease of native coronary artery without angina pectoris; E78.00 Pure hypercholesterolemia, unspecified; E66.9 Obesity, unspecified; Z68.30 Body mass index [BMI] 30.0-30.9, adult; Z79.2 Long term (current) use of antibiotics; Z90.49 Acquired absence of other specified parts of digestive tract; Z95.0 Presence of cardiac pacemaker; Z95.1 Presence of aortocoronary bypass graft; Z95.5 Presence of coronary angioplasty implant and graft; N32.0 Bladder-neck obstruction; Z79.82 Long term (current) use of aspirin; Z79.899 Other long term (current) drug therapy
CPT/HCPCS: 36415; 51702; 74174; 80048; 80053; 83605; 83630; 83735; 84100; 84443; 85025; 85027; 85610; 85730; 86850; 86900; 86901; 87177; 87209; 87493; 87506; 88305; 93005; 94668; 97110; 97116; 97162; 97166; 97530; 97535; 97803; 99252; 99285; J7030; J7040; J7050; Q9967; A4216; G0463; J0744; J2405

== ENCOUNTER → 2023-09-18 | Outpatient (CLI) | payer MEDICARE, SELFPAY ==
[2023-09-18 13:56] LABS: Lactic Acid 2.2 mmol/L (0.4-1.9)
[2023-09-18 16:31] LABS: Reflex Lactate? Y
[2023-09-18 16:55] LABS: Absolute Lymphocyte Count 2.17 X10^3/uL (0.83-4.51); Absolute Neutrophil Count 6.4 X10^3/uL (2.0-7.7); Basophil% 0.9 % (0-1); Eosinophils% 6.3 % (0-5); Hemoglobin 11.3 g/dL (13.0-16.5); Lymphocyte # 2.17 X10^3/ul (0.83-4.51); Lymphocyte % 19.5 % (19-41); Mean Corp Hgb Conc 32.3 g/dL (32-36); Mean Corpuscular Hgb 30.4 pg (27.0-32.0); Mean Corpuscular Volume 94.1 fL (80-94); Mean Platelet Vol. 9.4 fl (6.2-12.0); Monocyte# 1.69 X10^3/uL; Monocyte% 15.2 % (0-10); NRBC Flagged by Analyzer 0 % (0-5); Neutrophil # 6.43 X10^3/uL (2.7-7.7); Neutrophil % 57.7 % (47-70); POSITIVE DIFFERENTIAL YES; Platelet Count 361 K/mm3 (150-450); RBC Distribution Width CV 12.6 % (11.6-14.6); RBC Distribution Width SD 43.8 fl (35.1-43.9); Red Blood Count 3.72 M/mm3 (4.6-6.2); White Blood Count 11.1 K/mm3 (4.4-11.0)
[2023-09-18 17:07] LABS: Differential Indicated SCAN CRITERIA MET
[2023-09-18 17:25] LABS: ALB/GLOB Ratio 0.8 RATIO (0.9-2.4); AST(SGOT) 19 U/L (15-37); Alanine Aminotransfer ALT/SGPT 25 U/L (16-61); Alkaline Phosphatase 47 U/L (45-117); Anion Gap 6 (5-15); BUN 15 mg/dL (7-18); BUN/Creat Ratio 17.8 RATIO (10-20); Calcium,Total 9.1 mg/dL (8.5-10.1); Chloride 105 mmol/L (98-107); Creatinine, Serum 0.84 mg/dL (0.70-1.30); EST Glomerular Filtration Rate 93 mL/min (>60); Est Glom Filt Rate - Afr Amer 113 mL/min (>60); Globulin 3.8 g/dL (2.2-4.2); Glucose 100 mg/dL (74-106); Potassium 3.8 mmol/L (3.5-5.1); Protein, Total 6.8 g/dL (6.4-8.2); Sodium Level 138 mmol/L (136-145)
[2023-09-18 18:16] LABS: Differential Comment SCANNED
[2023-09-22 14:38] LABS: Pathologist Review Reviewed
== END | disposition home or self-care (01) ==
PROVIDERS: PCP Internal Medicine; Referring Provider Nurse Practitioner Family; Visit Provider Nurse Practitioner Family
DX: K62.5 Hemorrhage of anus and rectum (principal)
CPT/HCPCS: 36415; 80053; 83605; 85025

== ENCOUNTER 2023-10-20 23:36 | Inpatient (IN) | payer MEDICARE, SELFPAY ==
[2023-10-20 23:36] VITALS: BP 99/51; PULSE 54; RESP 18; TEMP 37.3; O2SAT 94
[2023-10-20 23:39] VITALS: BMI 29.4
[2023-10-21] VITALS (18 sets, daily range): BP systolic 89–128; BP diastolic 45–74; PULSE 60–95; RESP 12–24; TEMP 36.4–38.9; O2SAT 92–99; BMI 28.6
--- NOTE | 2023-10-21 00:05 | EKG12_ITS ---
Test Reason : DYSRHYTHMIA Blood Pressure : / mmHG Vent. Rate : 064 BPM Atrial Rate : 064 BPM P-R Int : 200 ms QRS Dur : 114 ms QT Int : 418 ms P-R-T Axes : 000 -42 092 degrees QTc Int : 431 ms Normal sinus rhythm with PAC's Left axis deviation Incomplete right bundle branch block Minimal voltage criteria for LVH, may be normal variant ( R in aVL ) ST & T wave abnormality, consider lateral ischemia Abnormal ECG Confirmed by Garrett Pascal ([id number]), editor newspaper RADHA COOPER ([id number]) on 10/22/2023 11:15:42 AM Referred By: Confirmed By:Garrett Pascal
--- NOTE | 2023-10-21 00:05 | RAD_ITS ---
INDICATION: fever EXAMINATION/TECHNIQUE: X-RAY - XR Chest 1 View COMPARISON: July 28, 2023. FINDINGS: LINES/DEVICES: 2-lead left chest cardiac pacer. LUNGS: No consolidation, edema or effusion. No pneumothorax. MEDIASTINUM AND CARDIOVASCULAR STRUCTURES: Borderline cardiomegaly. BONES AND SOFT TISSUES: Sternotomy wires are midline and intact.. RAD/Chest 1 View (Portable) IMPRESSION: No radiographic evidence of acute cardiopulmonary disease. Electronically Signed: Philipp Wade MD at 2:12 EDT ,
--- NOTE | 2023-10-21 00:06 | EDS_ITS ---
HPI History of Present Illness Chief Complaint: Weakness Informant: patient and family Onset/Context/Timing Onset: Days Context: Gradual Onset Narrative Narrative: Patient presents with a 2-day history of increasing weakness. He has had some dizziness and nausea as well. Family states he has been coughing and used his rescue inhaler couple times. They did not note a fever at home. 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 He is scheduled to start radiation next week. [facility] Medical History (Updated 10/21/23 @ 02:[address] Amanda Prajapati MD) Adverse drug reaction Hemorrhagic proctitis Bright red blood per rectum Lower GI bleed Acidosis, lactic Acute urinary retention Acute calculous cholecystitis Presence of permanent cardiac pacemaker (~2005) Pure hypercholesterolemia GERD (gastroesophageal reflux disease) Asthma Presence of stent in coronary artery (~01/2007) Carotid arterial disease Sick sinus syndrome Atherosclerotic heart disease of [place] coronary artery without angina pectoris Home Medications ?Medication ?Instructions ?Recorded ?Last Taken ?Type aspirin 81 mg tablet,delayed 81 mg PO QDAY [facility] 05/13/17 09/18/23 History release (Adult Low Dose Aspirin) levothyroxine 25 mcg tablet 25 mcg PO DAILY thyroid 02/15/18 02/05/20 07:00 History nitroglycerin 0.4 mg sublingual 0.4 mg sublingual Q5M PRN Chest 01/14/22 Unknown Rx tablet Pain #25 tabs tamsulosin 0.4 mg capsule 0.8 mg (2 x 0.4 mg) PO DAILY@1730 09/23/23 Unknown Rx #60 caps folic acid 1 mg tablet 1 mg PO DAILY #56 tabs 09/29/23 Unknown Rx sulfasalazine 500 mg 0.5 g PO BID #112 tabs 09/29/23 Unknown Rx tablet,delayed release albuterol sulfate 90 mcg/actuation 1 - 2 puff inhalation wheezing 10/21/23 Unknown History aerosol inhaler metoprolol tartrate 50 mg tablet 25 mg PO BID for blood pressure 10/21/23 Unknown History ondansetron HCl 4 mg tablet 4 mg PO Q8H PRN PRN nausea and 10/21/23 Unknown History vomiting Allergy/AdvReac Type Severity Reaction Status Date / Time codeine Allergy Unknown Verified 10/20/23 23:36 diphenhydramine HCl (From Allergy headache, Verified 10/20/23 23:36 Benadryl) eye irritation Penicillins Allergy Rash Verified 10/20/23 23:36 Sulfa (Sulfonamide Allergy Rash Verified 10/20/23 23:36 Antibiotics) ezetimibe (From Zetia) AdvReac Unknown Unknown Verified 10/20/23 23:36 Family History Father , age 96 CAD (coronary artery disease) Sister Arrhythmia Heart disease Surgical History History of laparoscopic cholecystectomy (~02/06/20) Presence of coronary angioplasty implant and graft (~01/2007) History of coronary artery bypass surgery (~2005) S/P carotid endarterectomy Hx of CABG Social History Smoking Status: Never smoker alcohol intake: never substance use type: does not use caffeine: No what type of physical activity do you participate in: walking and bicycling frequency: 5-6 times per week duration: 15-30 minutes/day seatbelt use: always do you feel safe at home: Yes ROS ROS ED Constitutional Constitutional ED: Denies chills or fever(s) Eyes Eyes: Denies change in vision ENT ENT ED: Denies rhinorrhea or sore throat Cardiovascular Cardiovascular: Denies chest pain or palpitations Respiratory/Chest Respiratory/Chest: Reports cough; Denies dyspnea Gastrointestinal Gastrointestinal: Denies abdominal pain, diarrhea, nausea or vomiting Genitourinary Genitourinary ED: Denies dysuria Musculoskeletal Musculoskeletal: Denies back pain or extremity pain Integumentary Reports other Details: Surgical wound on scalp ; Denies Abrasions or rash Neurologic Neurologic: Reports weakness; Denies headache(s) Psychiatric Psychiatric: Denies anxiety or depression Allergic/Immunologic Allergic/Immunologic ED: Denies lip swelling or urticaria EXAM Physical Exam Const Vital Signs: 10/20/23 23:36 10/21/23 00:04 10/21/23 00:05 Temperature 99.1 F 102.1 F H Temperature Source Oral Oral Pulse Rate 54 L Respiratory Rate 18 Respiratory Effort Respiratory Pattern Blood Pressure 99/51 L Blood Pressure Mean 67 Pulse Ox 94 Oxygen Delivery Method Room Air 10/21/23 01:15 10/21/23 02:00 Temperature 99.4 F H Temperature Source Oral Pulse Rate 60 Respiratory Rate 14 Respiratory Effort Normal Respiratory Pattern Normal Blood Pressure 89/47 L Blood Pressure Mean 61 Pulse Ox 94 Oxygen Delivery Method Room Air Positive well nourished and well developed General Appearance ED: well developed HEENT Reports moist mucous membranes Eyes EOMs intact bilaterally Chest Wall inspection of chest normal and palpation of chest normal Resp normal respiratory effort and clear to auscultation bilaterally Resp Narrative: Diminished breath sounds bilateral bases. Cardio regular rate and regular rhythm GI non-tender Auscultation: hypoactive bowel sounds Palpation: soft Extremity normal to inspection Neuro Neuro Narrative: Patient alert with no focal deficit. Skin Skin Narrative: Patient has a recent surgical wound to his scalp. No evidence of cellulitis or infection. MDM MDM MDM Narrative Medical decision making narrative: Patient placed on quality assurance monitor chassis. IV line initiated. Patient given Tylenol for a fever of 102.1. IV fluids initiated. Labwork obtained to evaluate for leukocytosis, anemia, and electrolyte derangement. Chest x-ray obtained to evaluate for acute lung pathology, cardiac size, or mediastinal abnormality. EKG obtained to evaluate for cardiac arrhythmia/ischemia. Swab for COVID, influenza, and RSV will be obtained. Urinalysis obtained to evaluate for infection/hematuria. Cultures for blood and urine are sent. History & Record Review Discussion w/independent historian: Patient Additional record(s) reviewed:: Prior inpatient record, Prior ED visit and Prior labs Lab Data Attestation: I reviewed the patient's lab results. Labs: Laboratory Results - last 24 hr 10/21/23 10/21/23 00:30 02:21 WBC 8.1 RBC 3.83 L Hgb 11.6 L Hct 35.7 L MCV 93.2 MCH 30.3 MCHC 32.5 RDW Std Deviation 45.9 H RDW Coeff of Abner 13.4 Plt Count 277 MPV 9.9 Immature Gran % (Auto) 1.100 H Neut % (Auto) 73.2 H Lymph % (Auto) 8.4 L Meade % (Auto) 14.7 H Eos % (Auto) 0.6 Baso % (Auto) 2.0 H Absolute Neuts (auto) 5.9 Absolute Lymphs (auto) 0.68 L Nucleated RBC % 0 Differential Comment SCANNED PT 17.6 H INR 1.5 APTT 36.1 Sodium 133 L Potassium 4.3 Chloride 103 Carbon Dioxide 24.0 Anion Gap 6 BUN 17 Creatinine 1.57 H Est GFR (MDRD) Af Amer 55 L Est GFR (MDRD) Non-Af 45 L BUN/Creatinine Ratio 10.8 Glucose 137 H Lactic Acid 1.4 Calcium 8.8 Total Bilirubin 0.60 AST 21 ALT 18 Alkaline Phosphatase 43 L Total Protein 7.4 Albumin 3.2 Globulin 4.2 Albumin/Globulin Ratio 0.8 L Urine Color Yellow Urine Clarity Clear Urine pH 5.0 Ur Specific Ione 1.025 Urine Protein 15 H Urine Glucose (UA) Normal Urine Ketones Negative Urine Occult Blood 10 H Urine Nitrite Negative Urine Bilirubin Negative Urine Urobilinogen Normal Ur Leukocyte Esterase 25 H Urine RBC 5-10 SEEN Urine WBC 10-25 SEEN Ur Squamous Epith Cells 5-10 SEEN Urine Bacteria RARE Hyaline Casts 5-10 SEEN Urine Mucus 1+ Radiography Chest X-Ray - ED: 1 View, Read by ED Physician, Chronic Changes and No Infiltrates Diagnostic Testing: Clinical Impression(s) from Imaging Studies Chest X-Ray 10/21/23 00:05 IMPRESSION: No radiographic evidence of acute cardiopulmonary disease. Electronically Signed: Philipp Wade MD at 2:12 EDT Reading Location ID and State: [facility] / [place] Tel , Service support , EKG Initial EKG: Attestation: I personally reviewed and interpreted this EKG as follows: Interpretation: - (Atrial paced rhythm at 64 bpm. Incomplete right bundle branch block. No acute ischemia.) Treatment and Re-Evaluation :: CBC was normal white count 8.1 with 73% neutrophils. Hemoglobin is 11.6. INR is 1.5. Chemistry studies significant for a sodium of 133 with a BUN of 17 and a creatinine 1.57. Creatinine was 0.88 one month ago. LFTs are unremarkable. Lactic acid is normal at 1.4. Urinalysis was obtained from straight cath. Rare bacteria are noted with 5-10 epithelial cells, 10-25 white cells, and 5-10 RBCs. No nitrites noted. Swab for COVID, influenza, and RSV is negative. Blood and urine cultures were sent and are pending at this time. Patient will be covered with broad-spectrum antibiotics of cefepime and vancomycin. He does have an allergy noted to penicillins with reaction being a rash. Given his weakness and fever I will discuss case with hospitalist regarding admission. His blood pressure is currently 91/47 and he is receiving an IV fluid bolus. Discharge Plan Dx/Rx/DC Orders Clinical Impression: Fever, Generalized weakness Disposition Disposition: Acute Care Hospital [facility]
[2023-10-21 00:55] LABS: Absolute Lymphocyte Count 0.68 X10^3/uL (0.83-4.51); Absolute Neutrophil Count 5.9 X10^3/uL (2.0-7.7); Basophil# 0.16 X10^3/uL; Eosinophil# 0.05 X10^3/uL; Eosinophils% 0.6 % (0-5); Hematocrit 35.7 % (40-54); Hemoglobin 11.6 g/dL (13.0-16.5); Lymphocyte # 0.68 X10^3/ul (0.83-4.51); Lymphocyte % 8.4 % (19-41); Mean Corp Hgb Conc 32.5 g/dL (32-36); Mean Corpuscular Hgb 30.3 pg (27.0-32.0); Mean Corpuscular Volume 93.2 fL (80-94); Mean Platelet Vol. 9.9 fl (6.2-12.0); Monocyte# 1.19 X10^3/uL; Monocyte% 14.7 % (0-10); NRBC Flagged by Analyzer 0 % (0-5); Neutrophil % 73.2 % (47-70); POSITIVE MORPHOLOGY YES; Platelet Count 277 K/mm3 (150-450); RBC Distribution Width CV 13.4 % (11.6-14.6); RBC Distribution Width SD 45.9 fl (35.1-43.9); Red Blood Count 3.83 M/mm3 (4.6-6.2); White Blood Count 8.1 K/mm3 (4.4-11.0)
[2023-10-21] MEDS: Acetaminophen 500 MG Tablet 1000 MG PO (00:55)
[2023-10-21] MEDS: 0.9% Normal Saline (1000mL) 1,000 ML 150 ML IV (00:56)
[2023-10-21 01:00] LABS: Differential Indicated SCAN CRITERIA MET
[2023-10-21 01:03] LABS: International Normalized Ratio 1.5; Prothrombin Time (Protime)PT. 17.6 SECONDS (11.7-14.9)
[2023-10-21 01:04] LABS: Partial Thromboplast Time 36.1 Seconds (24.1-36.2)
[2023-10-21 01:11] LABS: ALB/GLOB Ratio 0.8 RATIO (0.9-2.4); AST(SGOT) 21 U/L (15-37); Alanine Aminotransfer ALT/SGPT 18 U/L (16-61); Albumin, Serum 3.2 g/dL (3.2-5.0); Alkaline Phosphatase 43 U/L (45-117); Anion Gap 6 (5-15); BUN 17 mg/dL (7-18); BUN/Creat Ratio 10.8 RATIO (10-20); Calcium,Total 8.8 mg/dL (8.5-10.1); Chloride 103 mmol/L (98-107); Creatinine, Serum 1.57 mg/dL (0.70-1.30); EST Glomerular Filtration Rate 45 mL/min (>60); Est Glom Filt Rate - Afr Amer 55 mL/min (>60); Globulin 4.2 g/dL (2.2-4.2); Glucose 137 mg/dL (74-106); Lactic Acid 1.4 mmol/L (0.4-1.9); Potassium 4.3 mmol/L (3.5-5.1); Protein, Total 7.4 g/dL (6.4-8.2); Sodium Level 133 mmol/L (136-145)
[2023-10-21 01:35] LABS: Differential Comment SCANNED
[2023-10-21 02:25] LABS: Color, Urine Yellow (Yellow); Glucose, Dipstick Normal (Normal); Ketone-Dipstick Negative (Negative); Leukocyte Esterase-Dipstick 25 /ul (Negative); Nitrite-Dipstick Negative (Negative); Occult Blood-Urine 10 /ul (Negative); Protein-Dipstick 15 mg/dl (Negative); Specific Gravity, Urine 1.025 (1.002-1.030); Urine Bilirubin Dipstick Negative (Negative); Urine Clarity Clear (Clear); Urine Urobilinogen Normal (Normal)
[2023-10-21] MEDS: 0.9% Normal Saline (500mL Bag) 500 ML 999 ML IV (02:27)
[2023-10-21 02:37] LABS: Bacteria RARE /hpf (None Seen); Hyaline Cast 5-10 SEEN /lpf (0-5); Mucous, Urine 1+ /hpf (<or=2+); Red Blood Cells-Urine 5-10 SEEN /hpf (0-5); Squamous Epithelial Cells - UA 5-10 SEEN /hpf (0-5); White Blood Cells 10-25 SEEN /hpf (0-5)
--- NOTE | 2023-10-21 02:54 | PCM.HP.STD ---
HPI - General General Date of Admission: 10/21/23 Date of Service: 10/21/23 Chief Complaint: Fatigue, malaise, nausea, cough, fever. HPI Narrative The patient is an 78 y/o M w/ PMHx: Skin cancer status post resection on his scalp with planned upcoming radiation therapy, HTN, HLD, CAD s/p PCI, Hx sick sinus syndrome s/p pacemaker status, Chronic anemia, Hx GI Bleed, Carotid disease, Hypothyroidism who presents to the [facility] ED on 10/21/23 with history of 2 days of increasing weakness with dizziness, nauseous, poor oral intake and poor hydration with intermittent coughing and potentially wheezing despite usage of his home rescue inhaler with no reported fever at home despite noted fever upon ED presentation. No one else in the home has been ill recently. He has not bee able to function safely at home secondary to weakness and debility. He has had decreased urine output. Workup in the ED included Tmax 102.1, heart rate 54, BP 99/51, respiratory rate 18, 94% on room air, CBC with WBC 8.1, hemoglobin 11.6, MCV 93.2, platelet 277 with increased immature granulocytes with lymphopenia, unremarkable coags aside PT 17.6, CMP with sodium 133, BUN/creatinine 17/1.57, GFR 45, glucose 137, alk phos 43 otherwise hepatic profile not marked appearing, lactic acid 1.4, blood culture x 2 pending per ED, rapid SARS COVID/influenza/RSV PCR negative, chest x-ray with no acute cardiopulmonary findings, UA with no obvious evidence of UTI, EKG paced with incomplete right bundle branch block with no acute evidence of ischemia. In the ED patient ministered maintenance IV fluids and Tylenol 1000 mg p.o. x 1. Given patient vital signs as discussed with ED per protocol patient was administered IV vancomycin and IV cefepime. [facility] Medical History Adverse drug reaction Hemorrhagic proctitis Bright red blood per rectum Lower GI bleed Acidosis, lactic Acute urinary retention Acute calculous cholecystitis Presence of permanent cardiac pacemaker (~2005) Pure hypercholesterolemia GERD (gastroesophageal reflux disease) Asthma Presence of stent in coronary artery (~01/2007) Carotid arterial disease Sick sinus syndrome Atherosclerotic heart disease of [place] coronary artery without angina pectoris Home Medications ?Medication ?Instructions ?Recorded ?Last Taken ?Type aspirin 81 mg tablet,delayed 81 mg PO QDAY [facility] 05/13/17 09/18/23 History release (Adult Low Dose Aspirin) levothyroxine 25 mcg tablet 25 mcg PO DAILY thyroid 02/15/18 02/05/20 07:00 History nitroglycerin 0.4 mg sublingual 0.4 mg sublingual Q5M PRN Chest 01/14/22 Unknown Rx tablet Pain #25 tabs tamsulosin 0.4 mg capsule 0.8 mg (2 x 0.4 mg) PO DAILY@1730 09/23/23 Unknown Rx #60 caps folic acid 1 mg tablet 1 mg PO DAILY #56 tabs 09/29/23 Unknown Rx sulfasalazine 500 mg 0.5 g PO BID #112 tabs 09/29/23 Unknown Rx tablet,delayed release albuterol sulfate 90 mcg/actuation 1 - 2 puff inhalation wheezing 10/21/23 Unknown History aerosol inhaler metoprolol tartrate 50 mg tablet 25 mg PO BID for blood pressure 10/21/23 Unknown History ondansetron HCl 4 mg tablet 4 mg PO Q8H PRN PRN nausea and 10/21/23 Unknown History vomiting Allergy/AdvReac Type Severity Reaction Status Date / Time codeine Allergy Unknown Verified 10/20/23 23:36 diphenhydramine HCl (From Allergy headache, Verified 10/20/23 23:36 Benadryl) eye irritation Penicillins Allergy Rash Verified 10/20/23 23:36 Sulfa (Sulfonamide Allergy Rash Verified 10/20/23 23:36 Antibiotics) ezetimibe (From Zetia) AdvReac Unknown Unknown Verified 10/20/23 23:36 Family History Father , age 96 CAD (coronary artery disease) Heart disease Hypertension Myocardial infarction Sister Arrhythmia Heart disease Mother No problems noted. Surgical History History of laparoscopic cholecystectomy (~02/06/20) Presence of coronary angioplasty implant and graft (~01/2007) History of coronary artery bypass surgery (~2005) S/P carotid endarterectomy Hx of CABG Social History household members: spouse Smoking Status: Never smoker alcohol intake: never substance use type: does not use caffeine: No what type of physical activity do you participate in: walking and bicycling frequency: 5-6 times per week duration: 15-30 minutes/day seatbelt use: always do you feel safe at home: Yes ROS ROS Narrative Admission Review of Systems: CONSTITUTIONAL: No weight loss, chills, + fever, weakness or fatigue. HEENT: + History of skin cancer status post previous resection. Eyes: No visual loss, blurred vision, double vision or yellow sclerae. Ears, Nose, Throat: No hearing loss, sneezing, congestion, runny nose or sore throat. SKIN: No rash or itching, lesions, wounds. + History of skin cancer status post previous resection. CARDIOVASCULAR: No chest pain, chest pressure or chest discomfort, palpitations, edema, orthopnea, syncopal events. RESPIRATORY: + Dyspnea, occasional wheezing, cough without productive sputum. No hemoptysis. GASTROINTESTINAL: + Anorexia, nausea without vomiting. No diarrhea, abdominal pain, melena, BRBPR. GENITOURINARY: No dysuria, frequency, urgency or retention. NEUROLOGICAL: No headache, dizziness, syncope, paralysis, ataxia, numbness or tingling in the extremities, focal weakness, change in bowel or bladder control, seizure. MUSCULOSKELETAL: + muscle, back pain, joint pain or stiffness. HEMATOLOGIC: + Chronic anemia, history of GI bleed. LYMPHATICS: No enlarged nodes. No history of splenectomy. PSYCHIATRIC: No history of depression or anxiety. ENDOCRINOLOGIC: + sweating, cold or heat intolerance. No polyuria or polydipsia. ALLERGIES: No history of asthma, hives, eczema or rhinitis. Vital Signs Vital Signs Vital Signs: 10/20/23 23:36 10/21/23 00:04 10/21/23 00:05 Temperature 99.1 F 102.1 F H Temperature Source Oral Oral Pulse Rate 54 L Respiratory Rate 18 Respiratory Effort Respiratory Pattern Blood Pressure 99/51 L Blood Pressure Mean 67 Pulse Ox 94 Oxygen Delivery Method Room Air 10/21/23 01:15 10/21/23 02:00 10/21/23 02:49 Temperature 99.4 F H Temperature Source Oral Pulse Rate 60 60 Respiratory Rate 14 12 Respiratory Effort Normal Respiratory Pattern Normal Blood Pressure 89/47 L 98/45 L Blood Pressure Mean 61 62 Pulse Ox 94 94 Oxygen Delivery Method Room Air Room Air Weight Weight: 199 lb 1.239 oz Body Mass Index (BMI) 29.4 Physical Exam Narrative Physical Examination: General: Awake, alert, oriented x 3 and cooperative, seated upright in the ED bed, fatigued otherwise no acute distress. Skin: Normal color, normal turgor, no icterus, no cyanosis. HEENT: AT/NC, EOMI, PERRLA, dry MM, no carotid bruits or JVD noted. Lungs: Diminished, greater bases, mildly increased respiratory rate but no evidence of any distress, no rales, ronchi or wheezing. Heart: Regular rate and rhythm/paced; no gallop, rub audible. Abdomen: Soft, overweight, NTTP, ND, mildly hyperactive BS, no appreciated HSM. Extremities: No cyanosis, no clubbing, ankle to distal rey 1+ pitting edema. Neurological: Patient awake, alert, oriented as noted, cognitive function intact; pupils equally reactive to light and accommodation, cranial nerves grossly normal, moving all 4 extremities, no focal deficits, strength moderately to severely global decreased secondary to acute presentation Psychiatric: Affect appears no flat, fatigued, acute evidence of depressive or anxiety feelings. Results Lab / Micro Data 10/21/23 00:30 10/21/23 00:30 Labs: Laboratory Results - last 24 hr 10/21/23 00:30: WBC 8.1, RBC 3.83 L, Hgb 11.6 L, Hct 35.7 L, MCV 93.2, MCH 30.3, MCHC 32.5, RDW Std Deviation 45.9 H, RDW Coeff of Abner 13.4, Plt Count 277, MPV 9.9, Immature Gran % (Auto) 1.100 H, Neut % (Auto) 73.2 H, Lymph % (Auto) 8.4 L, [place] % (Auto) 14.7 H, Eos % (Auto) 0.6, Baso % (Auto) 2.0 H, Absolute Neuts (auto) 5.9, Absolute Lymphs (auto) 0.68 L, Nucleated RBC % 0, Differential Comment SCANNED, PT 17.6 H, INR 1.5, APTT 36.1, Sodium 133 L, Potassium 4.3, Chloride 103, Carbon Dioxide 24.0, Anion Gap 6, BUN 17, Creatinine 1.57 H, Est GFR (MDRD) Af Amer 55 L, Est GFR (MDRD) Non-Af 45 L, BUN/Creatinine Ratio 10.8, Glucose 137 H, Lactic Acid 1.4, Calcium 8.8, Total Bilirubin 0.60, AST 21, ALT 18, Alkaline Phosphatase 43 L, Total Protein 7.4, Albumin 3.2, Globulin 4.2, Albumin/Globulin Ratio 0.8 L 10/21/23 02:21: Urine Color Yellow, Urine Clarity Clear, Urine pH 5.0, Ur Specific [place] 1.025, Urine Protein 15 H, Urine Glucose (UA) Normal, Urine Ketones Negative, Urine Occult Blood 10 H, Urine Nitrite Negative, Urine Bilirubin Negative, Urine Urobilinogen Normal, Ur Leukocyte Esterase 25 H, Urine RBC 5-10 SEEN, Urine WBC 10-25 SEEN, Ur Squamous Epith Cells 5-10 SEEN, Urine Bacteria RARE, Hyaline Casts 5-10 SEEN, Urine Mucus 1+ Micro: Microbiology 10/21/23 00:19 Mucosa - Nose SARS-CoV-2, Influenza & RSV (PCR) - Final Imaging Radiology Impression Chest X-Ray 10/21/23 00:05 IMPRESSION: No radiographic evidence of acute cardiopulmonary disease. Electronically Signed: Philipp Wade MD at 2:12 EDT , Assessment & Plan Assessment/Plan (1) Generalized weakness: PLAN: Plan The patient is an 78 y/o M w/ PMHx: Skin cancer status post resection on his scalp with planned upcoming radiation therapy, HTN, HLD, CAD s/p PCI, Hx sick sinus syndrome s/p pacemaker status, Chronic anemia, Hx GI Bleed, Carotid disease, Hypothyroidism who presents to the [facility] ED on 10/21/23 with history of 2 days of increasing weakness with dizziness, nauseous, poor oral intake and poor hydration with intermittent coughing and potentially wheezing despite usage of his home rescue inhaler with no reported fever at home despite noted fever upon ED presentation. #1. Debility, weakness, cough, nausea, dizziness, fever with mild hypotension with adult failure to thrive secondary to suspected acute viral syndrome: Will admit to MS, maintain on oxygen with wean as tolerated to room air, continue ATC budesonide, PRN albuterol, HOB, IS parameters, will obtain sputum Cx, respiratory viral panel, procalcitonin. PT/OT/case management consulted for discharge planning. Patient note was administered IV vancomycin and IV cefepime in the ED but given suspicion that this is a viral etiology we will hold off on further aggressive antibiotic therapy unless indicated. Following hydration will plan repeat CXR to assure no PNA. #2. Acute kidney injury: Secondary to acute presentation as noted above #1 with recent history of poor oral intake. Admission BUN/Cr 17/1.57, prior baseline creatinine noted to be primarily 0.7-0.8. Will hydrate, hold nephrotoxic medications and repeat chemistry in AM. If no improvement would plan FeNa and renal ultrasound assessment if appropriate. #3. Hyperglycemia: Likely stress response with #1, admission glucose 137, if repeat CMP with elevated BS would obtain hemoglobin A1c pending. #4. Recent history of GI bleed: Recent admission for lower GI bleed with bright red blood per rectum and acute blood loss anemia, 09/22/2023 colonoscopy with ulceration in the rectal area which was biopsied with initiation at that time on mesalamine x 8 weeks with follow-up with gastroenterology outpatient. Will maintain on PPI until assure able to take appropriate oral intake. #5. CAD: Status post CABG CARPIO to LAD, SVG to diagonal of the anterior descending, SVG to circumflex and RCA and PCI MARI circumflex 2006, continue aspirin, metoprolol, not on statin therapy per current list but verifying, not on ELIZABETH inhibitor/ARB per current list but verifying however regardless given CHAPIS if this was the case this would be temporarily held. #6. History sick sinus syndrome: Status post permanent pacemaker 2005, encourage continued outpatient cardiology follow-up as previously arranged. #7. Skin cancer, Unclear type patient status post resection on his scalp with planned upcoming radiation therapy, encourage continued outpatient workup and evaluation. #8. Carotid disease: Status post carotid enterectomy, will continue aspirin, not on statin therapy, continue hypertensive regimen. #9. Hypertension: As long as BP improves with hydration we will continue patient home metoprolol regimen otherwise we will hold, PRN hydralazine. #10. Hyperlipidemia: Per current list on a regimen, verifying. #11. Chronic normocytic anemia: Admission hemoglobin 11.6, MCV 93.2, baseline hemoglobin 10-11, stable, continue to trend. #12. Hypothyroidism: We will continue patient on levothyroxine regimen, #13. BPH: We will continue patient home Flomax regimen. #14. DVT prophylaxis: Given recent admission with GI bleed will maintain on SCDs only. #15. CODE status: Patient ARIAN is his who is present and living will is currently in place. Discussed CODE status at length including difference between FULL code, DNR-CCA and DNR-CC status. Following discussions about the differences in these status, requested Full Code status. Advanced Care Planning Face to Face Time: 16 minutes. Charges/Coding Visit Charges Inpatient E&M: 15276 Init Hosp L3 Procedures Hospitalists Procedures: 15259 Advncd Care Plan 30 Min
[2023-10-21] MEDS: Cefepime HCl 2 GM in 0.9% Normal Saline (100mL MB+) 100 ML IV (03:09)
[2023-10-21] MEDS: 0.9% Normal Saline (1000mL) 1,000 ML 999 ML IV (03:13)
[2023-10-21 03:39] LABS: Magnesium 2.1 mg/dL (1.6-2.6); Phosphorus 1.5 mg/dL (2.5-4.9)
[2023-10-21] MEDS: Vancomycin HCl 2,000 MG in 0.9% Normal Saline (500mL Bag) 500 ML 250 MG IV (03:42)
[2023-10-21] MEDS: 0.9% Normal Saline (1000mL) 1,000 ML 100 ML IV (04:52)
[2023-10-21 04:53] LABS: Absolute Lymphocyte Count 1.01 X10^3/uL (0.83-4.51); Absolute Neutrophil Count 4.6 X10^3/uL (2.0-7.7); Basophil# 0.14 X10^3/uL; Basophil% 2.1 % (0-1); Eosinophil# 0.04 X10^3/uL; Eosinophils% 0.6 % (0-5); Hematocrit 33.7 % (40-54); Hemoglobin 10.4 g/dL (13.0-16.5); Lymphocyte # 1.01 X10^3/ul (0.83-4.51); Lymphocyte % 14.9 % (19-41); Mean Corp Hgb Conc 30.9 g/dL (32-36); Mean Corpuscular Hgb 29.1 pg (27.0-32.0); Mean Corpuscular Volume 94.1 fL (80-94); Mean Platelet Vol. 9.7 fl (6.2-12.0); Monocyte# 0.96 X10^3/uL; Monocyte% 14.2 % (0-10); NRBC Flagged by Analyzer 0 % (0-5); Neutrophil # 4.59 X10^3/uL (2.7-7.7); Neutrophil % 67.8 % (47-70); POSITIVE MORPHOLOGY YES; Platelet Count 238 K/mm3 (150-450); RBC Distribution Width CV 13.5 % (11.6-14.6); RBC Distribution Width SD 46.4 fl (35.1-43.9); Red Blood Count 3.58 M/mm3 (4.6-6.2); White Blood Count 6.8 K/mm3 (4.4-11.0)
[2023-10-21 04:59] LABS: Differential Indicated SCAN CRITERIA MET
[2023-10-21 05:10] LABS: ALB/GLOB Ratio 0.8 RATIO (0.9-2.4); AST(SGOT) 19 U/L (15-37); Alanine Aminotransfer ALT/SGPT 16 U/L (16-61); Albumin, Serum 2.7 g/dL (3.2-5.0); Alkaline Phosphatase 35 U/L (45-117); Anion Gap 7 (5-15); BUN 16 mg/dL (7-18); BUN/Creat Ratio 13.1 RATIO (10-20); Calcium,Total 8.1 mg/dL (8.5-10.1); Chloride 108 mmol/L (98-107); Creatinine, Serum 1.22 mg/dL (0.70-1.30); EST Glomerular Filtration Rate 61 mL/min (>60); Est Glom Filt Rate - Afr Amer 73 mL/min (>60); Estimated Creatinine Clearance 53.05 ml/min; Globulin 3.5 g/dL (2.2-4.2); Glucose 125 mg/dL (74-106); Potassium 3.7 mmol/L (3.5-5.1); Protein, Total 6.2 g/dL (6.4-8.2); Sodium Level 136 mmol/L (136-145)
[2023-10-21] MEDS: Pantoprazole Sodium 20 MG Tablet PO ×2 (05:33→21:24)
[2023-10-21] MEDS: Levothyroxine 25 MCG TABLET PO (05:33)
[2023-10-21 05:51] LABS: Differential Comment SCANNED
[2023-10-21] MEDS: Budesonide Respules 0.5 MG/2 ML AMPUL.NEB. INHALATION ×2 (06:59→20:17)
--- NOTE | 2023-10-21 07:00 | RAD_ITS ---
STUDY: X-RAY CHEST REASON FOR EXAM: Male, 78 years old. Weakness. TECHNIQUE: PA and lateral views of the chest. COMPARISON: Comparison is made with prior study dated October 21, 2023. FINDINGS: The lungs are clear and expanded. There is no demonstrated pleural abnormality. Sternal cerclage wires and vascular clips are present from a prior sternotomy and coronary artery bypass graft procedure (CABG). A left-sided dual-chamber pacemaker is seen. Normal mediastinum and zhang. Normal visualized pulmonary arteries. Normal visualized aortic arch and descending thoracic aorta. There are diffuse degenerative changes of the visualized thoracic spine. Normal visualized ribs, clavicles, and shoulders. There is no demonstrated abnormality of the visualized soft tissue structures of the upper abdomen. RAD/Chest PA and Lateral IMPRESSION: No acute abnormality is seen. Electronically Signed: Dar Negrete MD at 14:39 EDT ,
[2023-10-21 08:35] LABS: Procalcitonin 0.26 ng/mL (0.00-0.09)
--- NOTE | 2023-10-21 09:34 | PCM.PN.HOSP ---
Reason for Visit Reason for Visit: Diagnoses Weakness (10/21/23) Subjective Subjective Patient had been doing well up until starting sulfasalazine. Since starting that he has been having a lot of his digestive issues with nausea vomiting and diarrhea but also just been notably weak. Objective Data Objective Data Vital Signs: Vital Signs Temp Pulse Resp BP Pulse Ox O2 Del Method 36.6 C 79 18 106/55 L 95 Room Air 10/21/23 05:55 10/21/23 06:59 10/21/23 06:59 10/21/23 05:55 10/21/23 06:59 10/21/23 08:03 Oxygen Delivery Method Room Air Weight: 88.1 kg Body Mass Index (BMI) 28.6 Intake & Output: Intake and Output for Last 24 Hours 10/19/23 10/20/23 10/21/23 23:59 23:59 23:59 Intake Total 3140.00 / 3140.00 Output Total 0 / 0 Balance 3140.00 / 3140.00 Lab / Micro Data 10/21/23 04:41 10/21/23 04:41 Labs: Laboratory Results - last 24 hr 10/21/23 00:30: WBC 8.1, RBC 3.83 L, Hgb 11.6 L, Hct 35.7 L, MCV 93.2, MCH 30.3, MCHC 32.5, RDW Std Deviation 45.9 H, RDW Coeff of Abner 13.4, Plt Count 277, MPV 9.9, Immature Gran % (Auto) 1.100 H, Neut % (Auto) 73.2 H, Lymph % (Auto) 8.4 L, [place] % (Auto) 14.7 H, Eos % (Auto) 0.6, Baso % (Auto) 2.0 H, Absolute Neuts (auto) 5.9, Absolute Lymphs (auto) 0.68 L, Nucleated RBC % 0, Differential Comment SCANNED, PT 17.6 H, INR 1.5, APTT 36.1, Sodium 133 L, Potassium 4.3, Chloride 103, Carbon Dioxide 24.0, Anion Gap 6, BUN 17, Creatinine 1.57 H, Est GFR (MDRD) Af Amer 55 L, Est GFR (MDRD) Non-Af 45 L, BUN/Creatinine Ratio 10.8, Glucose 137 H, Lactic Acid 1.4, Calcium 8.8, Phosphorus 1.5 L, Magnesium 2.1, Total Bilirubin 0.60, AST 21, ALT 18, Alkaline Phosphatase 43 L, Total Protein 7.4, Albumin 3.2, Globulin 4.2, Albumin/Globulin Ratio 0.8 L 10/21/23 02:21: Urine Color Yellow, Urine Clarity Clear, Urine pH 5.0, Ur Specific [place] 1.025, Urine Protein 15 H, Urine Glucose (UA) Normal, Urine Ketones Negative, Urine Occult Blood 10 H, Urine Nitrite Negative, Urine Bilirubin Negative, Urine Urobilinogen Normal, Ur Leukocyte Esterase 25 H, Urine RBC 5-10 SEEN, Urine WBC 10-25 SEEN, Ur Squamous Epith Cells 5-10 SEEN, Urine Bacteria RARE, Hyaline Casts 5-10 SEEN, Urine Mucus 1+ 10/21/23 04:41: WBC 6.8, RBC 3.58 L, Hgb 10.4 L, Hct 33.7 L, MCV 94.1 H, MCH 29.1, MCHC 30.9 L, RDW Std Deviation 46.4 H, RDW Coeff of Abner 13.5, Plt Count 238, MPV 9.7, Immature Gran % (Auto) 0.400, Neut % (Auto) 67.8, Lymph % (Auto) 14.9 L, [place] % (Auto) 14.2 H, Eos % (Auto) 0.6, Baso % (Auto) 2.1 H, Absolute Neuts (auto) 4.6, Absolute Lymphs (auto) 1.01, Nucleated RBC % 0, Differential Comment SCANNED, Sodium 136, Potassium 3.7, Chloride 108 H, Carbon Dioxide 21.0, Anion Gap 7, BUN 16, Creatinine 1.22, Estim Creat Clear Calc 53.05, Est GFR (MDRD) Af Amer 73, Est GFR (MDRD) Non-Af 61, BUN/Creatinine Ratio 13.1, Glucose 125 H, Calcium 8.1 L, Total Bilirubin 0.60, AST 19, ALT 16, Alkaline Phosphatase 35 L, Total Protein 6.2 L, Albumin 2.7 L, Globulin 3.5, Albumin/Globulin Ratio 0.8 L, Procalcitonin 0.26 H Micro: Microbiology 10/21/23 02:21 Urine, Clean Catch Legionella Antigen - Final 10/21/23 02:21 Urine, Clean Catch Streptococcus pneumoniae Antigen (M - Final 10/21/23 00:19 Mucosa - Nose SARS-CoV-2, Influenza & RSV (PCR) - Final Radiography Diagnostic Testing: Radiology Impression Chest X-Ray 10/21/23 00:05 IMPRESSION: No radiographic evidence of acute cardiopulmonary disease. Electronically Signed: Philipp Wade MD at 2:12 EDT , Physical Exam Const alert and no apparent distress Constitutional Narrative: Listless. Afebrile. HEENT HEENT Narrative: Has a wound on his left scalp that had adherent dressing. I did not remove that. Resp normal respiratory effort and no retractions Cardio regular rate, regular rhythm, S1 normal heart sound and S2 normal heart sound GI normal to inspection, nondistended, normoactive bowel sounds, soft to palpation, non-tender and non-distended Extremity Extremity Narrative: Bilateral lower extremity edema Psych Psych Narrative: Flat affect. Assessment & Plan Assessment/Plan (1) Generalized weakness: PLAN: Plan Nausea and vomiting Etiology unclear but according to the patient's daughter, whom I spoke with, symptoms seem to begin when he initiated sulfasalazine. I reviewed side effect profile with her and can cause nausea vomiting and diarrhea. In given that he had a biopsy that was concerning for ulcerative colitis, and there is no evidence of any inflammation on the biopsy. I feel it is reasonable to discontinue the sulfasalazine for now and monitor. Will give additional liter of IV fluids and see how he responds. debility: PT OT CHAPIS: resolved Recent squamous cell cancer. Patient recently underwent a Mohs procedure and had plastic surgery as he had very extensive cancer and apparently had resection down to the bone. Still does have a wound on his left scalp which we will have wound care see. Daughter is very concerned about him getting to his radiation appointments. That appointment will be this coming Thursday. Chronic conditions: Recent history of GI bleed: Recent admission for lower GI bleed with bright red blood per rectum and acute blood loss anemia, 09/22/2023 colonoscopy with ulceration in the rectal area which was biopsied with initiation at that time on mesalamine x 8 weeks with follow-up with gastroenterology outpatient. Will maintain on PPI until assure able to take appropriate oral intake. CAD: Status post CABG CARPIO to LAD, SVG to diagonal of the anterior descending, SVG to circumflex and RCA and PCI MARI circumflex 2006, continue aspirin, metoprolol, not on statin therapy per current list but verifying, not on ELIZABETH inhibitor/ARB per current list but verifying however regardless given CHAPIS if this was the case this would be temporarily held. History sick sinus syndrome: Status post permanent pacemaker 2005, encourage continued outpatient cardiology follow-up as previously arranged. Skin cancer, Unclear type patient status post resection on his scalp with planned upcoming radiation therapy, encourage continued outpatient workup and evaluation. Carotid disease: Status post carotid enterectomy, will continue aspirin, not on statin therapy, continue hypertensive regimen.Hypertension: As long as BP improves with hydration we will continue patient home metoprolol regimen otherwise we will hold, PRN hydralazine. Hyperlipidemia: Per current list on a regimen, verifying. Chronic normocytic anemia: Admission hemoglobin 11.6, MCV 93.2, baseline hemoglobin 10-11, stable, continue to trend. Hypothyroidism: We will continue patient on levothyroxine regimen BPH: We will continue patient home Flomax regimen. DVT prophylaxis: SCDs CODE status: full Greater than 55 minutes of which greater than for percent time was discussing with the patient's daughter, reviewing medications, with her. Explained to her that the sulfasalazine could be a culprit to some of the symptoms but unlikely the folic acid but I told her that we will discontinue both those medications for now. Also discussing with the patient's spouse at bedside. Charges/Coding Visit Charges Inpatient E&M: 32611 Subs Hosp L3
[2023-10-21] MEDS: Aspirin E.C. 81 MG Tablet PO (09:48)
[2023-10-21] MEDS: Folic Acid 1 MG Tablet PO (09:49)
[2023-10-21] MEDS: sulfaSALAzine 500 MG Tablet PO (09:49)
[2023-10-21] MEDS: Albuterol 2.5 MG/3 ML VIAL.NEB. INHALATION (10:12)
--- NOTE | 2023-10-21 13:48 | CASEMGMT ---
Social Work- SW met with pt and family due to PT evaluation performance. Pt and daughter are in the room; pt drifted in and out of sleep, having a difficult time staying awake. Pt daughter and report that , Madhuri, is HCPOA. ?Pt family notified that documents are not on file at [facility] and SW requested they be brought in for scanning into the EMR.? A list of SNF providers including quality and resource use data and consistent with the patient?s preferred geographic region, medical needs, and insurance network were provided from the [employer] Guide. Pt and daughter declined list, as pt will be receiving treatments in [place] starting next week through November 23 and pt will be residing at [facility]. Pt family report that there will be someone with pt at all times during his stay at [facility]; pt would like to speak with PT for any helpful information to know regarding assisting pt prior to discharge. Pt daughter reports that up until pt admittance to hospital, pt had been able to mow lawn, walk steadily and independently, and had no concerning issues. Pt daughter reports that this has been a drastic and sudden change in presentation/ability for pt. Pt daughter requesting to speak with physician today. Physician notified of request; uncertain of availability today to speak with family. Family advised. SW to remain available to follow for any new needs. DAVION Moser
--- NOTE | 2023-10-21 14:02 | CASEMGMT ---
Social Work SW met with pt/family to discuss advance directives.? Pt family confirms he has completed a living will and health care POA naming , Madhuri.? Pt family notified that documents are not on file at [facility] and SW requested they be brought in for scanning into the EMR.? DAVION Moser
--- NOTE | 2023-10-21 14:38 | CASEMGMT ---
SW notified physician that patient's family would like to talk with him. Physician has not been able to see patient yet. SW spoke with patient's daughter and and explained this to them. Patient's daughter and were concerned as patient has had a drastic change in activities of daily living and coughing. These changes did not start until he started 2 medications. Patient's daughter expressed concerns with two of patient's medications and if they has a reaction to a couple of the other medications he is on. Patient was started on Sulfasalazine and Folic Acid beginning of September. Daughter was concerned as patient has an allergy to Sulfa and she wanted to know if the Sulfasalazine is a Sulfa. Patient's daughter also stated she read that there could be reactions if Sulfasalazine was taken with Folic Acid and aspirin. ASYA did check with Mari one of the pharmacists and there should not be any drastic reactions. SW did let family know this. Patient's RN then walked into the room and family expressed their medication concerns to her. Patient's daughter requested that if Folic Acid and Sulfasalazine could be safely discontinued they would like those meds held. RN plans on talking with physician and/or pharmacy. Leslie Muniz MANUFACTURING QUALITY MANAGER JIMBO
[2023-10-21] MEDS: 0.9% Normal Saline (1000mL) 1,000 ML 125 ML IV (16:20)
[2023-10-21] MEDS: Tamsulosin HCl 0.4 MG Capsule 0.8 MG PO (16:20)
[2023-10-21] MEDS: Metoprolol Tartrate 25 MG Tablet PO (21:24)
[2023-10-21] MEDS: Acetaminophen 325 MG Tablet 650 MG PO (21:24)
[2023-10-22] VITALS (8 sets, daily range): BP systolic 113–120; BP diastolic 56–95; PULSE 60–90; RESP 18–22; TEMP 36.4–38; O2SAT 96–100; BMI 28.6
[2023-10-22] MEDS: Levothyroxine 25 MCG TABLET PO (05:54)
[2023-10-22] MEDS: Albuterol 2.5 MG/3 ML VIAL.NEB. INHALATION ×2 (06:59→22:35)
[2023-10-22] MEDS: Budesonide Respules 0.5 MG/2 ML AMPUL.NEB. INHALATION ×2 (06:59→22:35)
--- NOTE | 2023-10-22 08:10 | PN.HOSP_ITS ---
Reason for Visit Reason for Visit: Diagnoses Weakness (10/21/23) Subjective Subjective Had a fever overnight that broke. Was having some nausea. Patient states that he feels better now. Objective Data Objective Data Vital Signs: Vital Signs Temp Pulse Resp BP Pulse Ox O2 Del Method O2 Flow Rate 36.4 C L 90 22 H 117/58 L 96 Room Air 2 10/22/23 03:15 10/22/23 07:00 10/22/23 07:00 10/22/23 03:15 10/22/23 03:30 10/22/23 03:56 10/22/23 03:15 Oxygen Flow Rate (L/min) 2 Oxygen Delivery Method Room Air Weight: 88 kg Body Mass Index (BMI) 28.6 Intake & Output: Intake and Output for Last 24 Hours 10/20/23 10/21/23 10/22/23 23:59 23:59 23:59 Intake Total 4880.00 / 5080.00 1300 / 1300 Output Total 0 / 0 Balance 4880.00 / 5080.00 1300 / 1300 Lab / Micro Data 10/22/23 10:59 10/22/23 10:59 Labs: Laboratory Results - last 24 hr 10/21/23 04:41: Procalcitonin 0.26 H Micro: Microbiology 10/21/23 04:35 Mucosa - Nasopharyngeal Respiratory Panel (PCR) - Final 10/21/23 02:21 Urine, Clean Catch Legionella Antigen - Final 10/21/23 02:21 Urine, Clean Catch Streptococcus pneumoniae Antigen (M - Final 10/21/23 00:19 Mucosa - Nose SARS-CoV-2, Influenza & RSV (PCR) - Final Radiography Diagnostic Testing: Radiology Impression Chest X-Ray 10/21/23 07:00 IMPRESSION: No acute abnormality is seen. Electronically Signed: Dar Negrete MD at 14:39 EDT , Physical Exam Const alert and no apparent distress Constitutional Narrative: Appears much more alert today. HEENT HEENT Narrative: Patient's scalp has wound dressing adherence over that on the left scalp. No surrounding erythema to suggest any kind of cellulitis. Mucous membranes are moist. Eyes Eyes Narrative: Glasses. No icterus. Resp normal respiratory effort, no retractions, no use of accessory muscles and clear to auscultation bilaterally GI normal to inspection, nondistended, normoactive bowel sounds, soft to palpation, non-tender, non-distended and hepatosplenomegaly Extremity normal to inspection and full ROM Neuro Sensorium / Orientation: awake and alert Assessment & Plan Assessment/Plan (1) Generalized weakness: PLAN: Plan Nausea and vomiting * Etiology unclear but according to the patient's daughter, whom I spoke with, symptoms seem to begin when he initiated sulfasalazine. I reviewed side effect profile with her and can cause nausea vomiting and diarrhea. In given that he had a biopsy that was concerning for ulcerative colitis, and there is no evidence of any inflammation on the biopsy. I feel it is reasonable to discontinue the sulfasalazine for now and monitor. * Subjectively better today. Will observe. debility: * PT OT CHAPIS: * resolved Recent squamous cell cancer. * Patient recently underwent a Mohs procedure and had plastic surgery as he had very extensive cancer and apparently had resection down to the bone. Still does have a wound on his left scalp which we will have wound care see. * Daughter is very concerned about him getting to his radiation appointments. That appointment will be this coming Thursday. Chronic conditions: * Recent history of GI bleed: Recent admission for lower GI bleed with bright red blood per rectum and acute blood loss anemia, 09/22/2023 colonoscopy with ulceration in the rectal area which was biopsied with initiation at that time on mesalamine x 8 weeks with follow-up with gastroenterology outpatient. Will maintain on PPI until assure able to take appropriate oral intake. * CAD: Status post CABG CARPIO to LAD, SVG to diagonal of the anterior descending, SVG to circumflex and RCA and PCI MARI circumflex 2006, continue aspirin, metoprolol, not on statin therapy per current list but verifying, not on ELIZABETH inhibitor/ARB per current list but verifying however regardless given CHAPIS if this was the case this would be temporarily held. * History sick sinus syndrome: Status post permanent pacemaker 2005, encourage continued outpatient cardiology follow-up as previously arranged. * Skin cancer, Unclear type patient status post resection on his scalp with planned upcoming radiation therapy, encourage continued outpatient workup and evaluation. * Carotid disease: Status post carotid enterectomy, will continue aspirin, not on statin therapy, continue hypertensive regimen.Hypertension: As long as BP improves with hydration we will continue patient home metoprolol regimen otherwise we will hold, PRN hydralazine. * Hyperlipidemia: Per current list on a regimen, verifying. * Chronic normocytic anemia: Admission hemoglobin 11.6, MCV 93.2, baseline hemoglobin 10-11, stable, continue to trend. * Hypothyroidism: We will continue patient on levothyroxine regimen * BPH: We will continue patient home Flomax regimen. DVT prophylaxis: SCDs CODE status: full Greater than 40 minutes of which greater than 50% time was counseling at bedside with the patient, his and daughter. Charges/Coding Visit Charges Inpatient E&M: 17577 Subs Hosp L2
[2023-10-22] MEDS: Metoprolol Tartrate 25 MG Tablet PO ×2 (09:29→23:00)
[2023-10-22] MEDS: Pantoprazole Sodium 20 MG Tablet PO ×2 (09:29→22:57)
[2023-10-22] MEDS: Aspirin E.C. 81 MG Tablet PO (09:29)
[2023-10-22] MEDS: Acetaminophen 325 MG Tablet 650 MG PO ×3 (09:30→22:57)
[2023-10-22 11:08] LABS: Absolute Lymphocyte Count 0.37 X10^3/uL (0.83-4.51); Absolute Neutrophil Count 4.4 X10^3/uL (2.0-7.7); Basophil% 1.7 % (0-1); Eosinophil# 0.01 X10^3/uL; Eosinophils% 0.2 % (0-5); Hematocrit 33.8 % (40-54); Hemoglobin 10.8 g/dL (13.0-16.5); Lymphocyte # 0.37 X10^3/ul (0.83-4.51); Lymphocyte % 6.3 % (19-41); Mean Corpuscular Hgb 29.4 pg (27.0-32.0); Mean Corpuscular Volume 92.1 fL (80-94); Mean Platelet Vol. 9.6 fl (6.2-12.0); Monocyte# 0.94 X10^3/uL; Monocyte% 16.1 % (0-10); NRBC Flagged by Analyzer 0 % (0-5); Neutrophil % 75.4 % (47-70); POSITIVE DIFFERENTIAL YES; POSITIVE MORPHOLOGY YES; Platelet Count 216 K/mm3 (150-450); RBC Distribution Width CV 13.7 % (11.6-14.6); RBC Distribution Width SD 46.8 fl (35.1-43.9); Red Blood Count 3.67 M/mm3 (4.6-6.2); White Blood Count 5.8 K/mm3 (4.4-11.0)
[2023-10-22 11:17] LABS: Differential Indicated SCAN CRITERIA MET
[2023-10-22 11:22] LABS: Anion Gap 7 (5-15); BUN 12 mg/dL (7-18); BUN/Creat Ratio 9.7 RATIO (10-20); Calcium,Total 8.2 mg/dL (8.5-10.1); Chloride 109 mmol/L (98-107); Creatinine, Serum 1.24 mg/dL (0.70-1.30); EST Glomerular Filtration Rate 60 mL/min (>60); Est Glom Filt Rate - Afr Amer 72 mL/min (>60); Estimated Creatinine Clearance 52.16 ml/min; Glucose 145 mg/dL (74-106); Potassium 3.4 mmol/L (3.5-5.1); Sodium Level 136 mmol/L (136-145)
--- NOTE | 2023-10-22 11:45 | CASEMGMT ---
HANNAH RIVERS chart review: Patient was admitted 09/17-09/20/23 for LGIB. See assessment from 09/19/23. Patient was discharge to home with support of , declined HHC at discharge. Patient returned to [facility] ED for weakness and was admitted for adult FTT, suspected viral syndrome and hypotension. HANNAH RIVERS in to discuss readmission and needs at discharge, family at bedside. Patient states he was taking medications as prescribed and attended all follow-up appts. RN TITA discussed progress with therapy, patient requiring mod to max assist x2. RN CM discuss possible SNF at discharge. Patient and family agreeable and prefer TCU, declined SNF list at this time. Patient and family hopeful that patient will improve and not need to go to SNF but willing to have referral sent. Patient and family had no further questions or concerns. SW updated regarding request for TCU. CM will continue to follow this patient and plan for a safe discharge.
[2023-10-22 12:53] LABS: Atypical Lymphocyte 1+ %; Differential Comment SCANNED
--- NOTE | 2023-10-22 13:18 | WOUNDNOTE ---
wound photo: left scalp
--- NOTE | 2023-10-22 13:19 | WOUNDNOTE ---
wound photo: scalp
--- NOTE | 2023-10-22 13:55 | CASEMGMT ---
SW was informed by RN TITA that patient and family would be in agreement with patient going to [facility]CU. SW made a referral to [facility]. Leslie CHOI
--- NOTE | 2023-10-22 14:34 | CHAPLAIN ---
Type of Pastoral Visit _x__ Initial Visit ___ Follow-up Visit ___ On-call Visit ___ General Patient Visit ___ Spiritual Assessment ___ Family Conference ___ Bereavement ___ Rapid Response ___ Code Blue ___ Other (describe below) Pastoral Care Referral From __x_ Patient _x__ Family ___ Nurse ___ Physician ___ Application Defense Manager ___ Rail Signal Designer ___ Other (describe below) Sacrament/Intervention _x__ Active listening ___ Anointing ___ Hoahaoism ___ Bereavement ___ Communion _x__ Ashley exploration ___ _x__ Life review __x_ Prayer ___ Reconciliation ___ Sacrament of Sick _x__ Supportive presence ___ Wedding ___ Other (describe below) Pastoral Comments patient and spouse and daughter are in the room; call came from family to this strip roller for a visit; family asked for prayer support; as pt is being interviewed and assessed by this strip roller there were several interruptions; stayed with pt so time and attention could be given to his needs; family is also participating in the responses; pt asks that prayers be given for a quick recovery; asked pt about how he is dealing with his situation and how he feels about the next phase of medical care going to [facility]; pt is able to articulate his concerns; all welcome the spiritual care support and prayers
[2023-10-22] MEDS: Tamsulosin HCl 0.4 MG Capsule 0.8 MG PO (17:51)
[2023-10-22] MEDS: Juven (unflavored) Packet 1 PACKET PO (17:51)
[2023-10-23] VITALS (8 sets, daily range): BP systolic 131–157; BP diastolic 60–84; PULSE 60–63; RESP 16–20; TEMP 36–37.6; O2SAT 95–98; BMI 29.2
[2023-10-23] MEDS: Levothyroxine 25 MCG TABLET PO (05:51)
[2023-10-23] MEDS: Albuterol 2.5 MG/3 ML VIAL.NEB. INHALATION ×2 (07:15→20:06)
[2023-10-23] MEDS: Budesonide Respules 0.5 MG/2 ML AMPUL.NEB. INHALATION ×2 (07:15→20:06)
--- NOTE | 2023-10-23 08:09 | PCM.PN.HOSP ---
Reason for Visit Reason for Visit: Diagnoses Weakness (10/21/23) Subjective Subjective Feeling better. Eating well. Objective Data Objective Data Vital Signs: Vital Signs Temp Pulse Resp BP Pulse Ox O2 Del Method O2 Flow Rate 36.9 C 60 18 148/66 H 95 Room Air 2 10/23/23 06:00 10/23/23 06:00 10/23/23 06:00 10/23/23 06:00 10/23/23 06:00 10/23/23 08:03 10/22/23 03:15 Oxygen Flow Rate (L/min) 2 Oxygen Delivery Method Room Air Weight: 90 kg Body Mass Index (BMI) 29.2 Intake & Output: Intake and Output for Last 24 Hours 10/21/23 10/22/23 10/23/23 23:59 23:59 23:59 Intake Total 4880.00 / 5080.00 2150 / 2300 200 / 200 Output Total 0 / 0 300 / 300 Balance 4880.00 / 5080.00 2150 / 2300 -100 / -100 Lab / Micro Data 10/22/23 10:59 10/22/23 10:59 Labs: Laboratory Results - last 24 hr 10/22/23 10:59: WBC 5.8, RBC 3.67 L, Hgb 10.8 L, Hct 33.8 L, MCV 92.1, MCH 29.4, MCHC 32.0, RDW Std Deviation 46.8 H, RDW Coeff of Abner 13.7, Plt Count 216, MPV 9.6, Immature Gran % (Auto) 0.300, Neut % (Auto) 75.4 H, Lymph % (Auto) 6.3 L, [place] % (Auto) 16.1 H, Eos % (Auto) 0.2, Baso % (Auto) 1.7 H, Absolute Neuts (auto) 4.4, Absolute Lymphs (auto) 0.37 L, Nucleated RBC % 0, Differential Comment SCANNED, Atypical Lymphocytes 1+, Sodium 136, Potassium 3.4 L, Chloride 109 H, Carbon Dioxide 20.0 L, Anion Gap 7, BUN 12, Creatinine 1.24, Estim Creat Clear Calc 52.16, Est GFR (MDRD) Af Amer 72, Est GFR (MDRD) Non-Af 60, BUN/Creatinine Ratio 9.7 L, Glucose 145 H, Calcium 8.2 L Micro: Microbiology 10/21/23 00:54 Blood Culture (Wb) - Anticubital Left Blood Culture - Preliminary No growth in 48 hours. 10/21/23 00:30 Blood Culture (Wb) - Anticubital Left Blood Culture - Preliminary No growth in 48 hours. 10/21/23 02:21 Urine, Clean Catch Urine Culture - Preliminary Culture exhibits no growth. 10/21/23 04:35 Mucosa - Nasopharyngeal Respiratory Panel (PCR) - Final 10/21/23 02:21 Urine, Clean Catch Legionella Antigen - Final 10/21/23 02:21 Urine, Clean Catch Streptococcus pneumoniae Antigen (M - Final 10/21/23 00:19 Mucosa - Nose SARS-CoV-2, Influenza & RSV (PCR) - Final Physical Exam Const alert and no apparent distress HEENT head/scalp atraumatic and moist oral mucous membranes Resp normal respiratory effort, no retractions, no use of accessory muscles and clear to auscultation bilaterally Cardio regular rate, regular rhythm, S1 normal heart sound and S2 normal heart sound GI normal to inspection, nondistended, normoactive bowel sounds, soft to palpation, non-tender and non-distended Neuro Sensorium / Orientation: awake and alert Assessment & Plan Assessment/Plan (1) Generalized weakness: PLAN: Plan Nausea and vomiting Etiology unclear but according to the patient's daughter, whom I spoke with, symptoms seem to begin when he initiated sulfasalazine. I reviewed side effect profile with her and can cause nausea vomiting and diarrhea. In given that he had a biopsy that was concerning for ulcerative colitis, and there is no evidence of any inflammation on the biopsy. I feel it is reasonable to discontinue the sulfasalazine for now and monitor. Subjectively better today. Will observe. debility: PT OT Patient requiring 2-3 people to assist. Discussed with he and his family and are agreeable to going to a [facility] facility for further rehab. CHAPIS: resolved Recent squamous cell cancer. Patient recently underwent a Mohs procedure and had plastic surgery as he had very extensive cancer and apparently had resection down to the bone. Still does have a wound on his left scalp which we will have wound care see. Daughter is very concerned about him getting to his radiation appointments. That appointment will be this coming Thursday. They understand that if he is this debilitated that he would not be able to make that appointment and may need to be rescheduled. Chronic conditions: Recent history of GI bleed: Recent admission for lower GI bleed with bright red blood per rectum and acute blood loss anemia, 09/22/2023 colonoscopy with ulceration in the rectal area which was biopsied with initiation at that time on mesalamine x 8 weeks with follow-up with gastroenterology outpatient. Will maintain on PPI until assure able to take appropriate oral intake. CAD: Status post CABG CARPIO to LAD, SVG to diagonal of the anterior descending, SVG to circumflex and RCA and PCI MARI circumflex 2006, continue aspirin, metoprolol, not on statin therapy per current list but verifying, not on ELIZABETH inhibitor/ARB per current list but verifying however regardless given CHAPIS if this was the case this would be temporarily held. History sick sinus syndrome: Status post permanent pacemaker 2005, encourage continued outpatient cardiology follow-up as previously arranged. Skin cancer, Unclear type patient status post resection on his scalp with planned upcoming radiation therapy, encourage continued outpatient workup and evaluation. Carotid disease: Status post carotid enterectomy, will continue aspirin, not on statin therapy, continue hypertensive regimen.Hypertension: As long as BP improves with hydration we will continue patient home metoprolol regimen otherwise we will hold, PRN hydralazine. Hyperlipidemia: Per current list on a regimen, verifying. Chronic normocytic anemia: Admission hemoglobin 11.6, MCV 93.2, baseline hemoglobin 10-11, stable, continue to trend. Hypothyroidism: We will continue patient on levothyroxine regimen BPH: We will continue patient home Flomax regimen. DVT prophylaxis: SCDs CODE status: full Charges/Coding Visit Charges Inpatient E&M: 74655 Subs Hosp L2
[2023-10-23] MEDS: Pantoprazole Sodium 20 MG Tablet PO ×2 (09:18→20:06)
[2023-10-23] MEDS: Metoprolol Tartrate 25 MG Tablet PO ×2 (09:18→20:06)
[2023-10-23] MEDS: Juven (unflavored) Packet 1 PACKET PO ×2 (09:18→16:24)
[2023-10-23] MEDS: Aspirin E.C. 81 MG Tablet PO (09:19)
[2023-10-23] MEDS: Mineral Oil/Petrolatum Cr 1.75oz Bottle 1 APPLIC TOPICAL (09:22)
--- NOTE | 2023-10-23 11:47 | CASEMGMT ---
This ASYA and ASYA Dockery met with patient, his , an daughter. SW let them know [facility] does not have any beds available until maybe next Thursday. SW asked about patient's appointment next Thursday. Per patient's daughter the doctor in [place] does not want patient to start his treatment next Thursday. The Dr wants patient's head to heal more and for patient to get stronger. SW let family know SW can provide them with a list of other facilities that take patient's insurance. ASYA explained we would just need their preferences and SW will take care of making referrals. Leslie Muniz INSPECTOR PRECISION JIMBO
--- NOTE | 2023-10-23 11:47 | WOUNDNOTE ---
states nursing had changed the dressing and applied the Aquaphor to the donor site left scalp. dressing dry and intact.
--- NOTE | 2023-10-23 11:57 | CASEMGMT ---
Addendum entered by Nahed Leo 10/23/23 13:41: Social Work- Pt and family preference of facility is [facility]. 2nd choice is [facility]. SW notified [facility] to begin referral process. SW remains available to follow. DAVION Moser Original Note: Social Work- Due to TCU declination of referral, a list of SNF providers including quality and resource use data and consistent with the patient?s preferred geographic region, medical needs, and insurance network were provided from the [employer] Guide. ASYA will follow up with family this afternoon to begin referrals. DAVION Moser
--- NOTE | 2023-10-23 14:03 | CASEMGMT ---
Addendum entered by Nisa Strong 10/26/23 10:30: [facility] has accepted and will begin precert. Nisa Strong DC Planning Asst. Original Note: Discharge Planning Referral sent to [facility] via [employer]. Nisa Strong DC Planning Asst.
--- NOTE | 2023-10-23 14:40 | CPS ---
I was called by the nurse because patient was asking for a breathing treatment. I go up to the room and I said to the patient The nurse said you asked for a breathing treatment? patient stated no but I have been coughing up stuff. I told him I have the treatment with me if he wanted it and he told me not right now, I'm ok. treatment not given, told him if he changed his mind and he needed a treatment to have the nurse call me
[2023-10-23] MEDS: Benzonatate 100 MG Capsule PO ×2 (15:11→20:06)
[2023-10-23] MEDS: guaiFENesin 10 ML UDC (200MG/10ML) 20 ML PO ×2 (15:11→20:07)
[2023-10-23] MEDS: Acetaminophen 325 MG Tablet 650 MG PO ×2 (15:11→20:05)
--- NOTE | 2023-10-23 16:00 | RAD_ITS ---
STUDY: X-RAY CHEST REASON FOR EXAM: Male, 78 years old. fever TECHNIQUE: PA and lateral COMPARISON: October 21, 2023. FINDINGS: The lungs are clear and expanded. There is no demonstrated pleural abnormality. Heart is mildly enlarged and there is a configuration suggestive of right ventricular hypertrophy.. Normal mediastinum and zhang. Normal visualized pulmonary arteries. Normal visualized aortic arch and descending thoracic aorta. Postop change status post median sternotomy and CABG. Pacemaker noted on the left with electrodes in satisfactory position. Dorsal spine demonstrates minor spondylosis. Normal visualized ribs, clavicles, and shoulders. There is no demonstrated abnormality of the visualized soft tissue structures of the upper abdomen. RAD/Chest PA and Lateral IMPRESSION: No acute cardiopulmonary pathology with findings not changed appreciably since previous exam Electronically Signed: Nayan Richard MD at 16:21 EDT ,
[2023-10-23] MEDS: Tamsulosin HCl 0.4 MG Capsule 0.8 MG PO (16:24)
[2023-10-23] MEDS: 0.9% Saline Lock 10 ML Syringe IV (20:12)
[2023-10-24] VITALS (10 sets, daily range): BP systolic 116–147; BP diastolic 44–60; PULSE 61–64; RESP 15–19; TEMP 36.7–37.7; O2SAT 93–98; BMI 29.3
[2023-10-24] MEDS: guaiFENesin 10 ML UDC (200MG/10ML) 20 ML PO (02:50)
[2023-10-24] MEDS: Acetaminophen 325 MG Tablet 650 MG PO ×2 (02:51→20:23)
[2023-10-24] MEDS: Levothyroxine 25 MCG TABLET PO (05:33)
[2023-10-24] MEDS: Budesonide Respules 0.5 MG/2 ML AMPUL.NEB. INHALATION ×2 (07:21→22:01)
[2023-10-24] MEDS: Albuterol 2.5 MG/3 ML VIAL.NEB. INHALATION ×2 (07:21→22:01)
[2023-10-24] MEDS: Pantoprazole Sodium 20 MG Tablet PO ×2 (10:06→20:24)
[2023-10-24] MEDS: Aspirin E.C. 81 MG Tablet PO (10:06)
[2023-10-24] MEDS: Metoprolol Tartrate 25 MG Tablet PO ×2 (10:06→20:24)
[2023-10-24] MEDS: Juven (unflavored) Packet 1 PACKET PO ×2 (10:06→16:43)
[2023-10-24] MEDS: Mineral Oil/Petrolatum Cr 1.75oz Bottle 1 APPLIC TOPICAL (10:07)
[2023-10-24] MEDS: Benzonatate 100 MG Capsule PO ×2 (11:08→20:23)
[2023-10-24] MEDS: Ondansetron 4 MG/2 ML Vial IV ×2 (11:08→20:23)
[2023-10-24] MEDS: 0.9% Saline Lock 10 ML Syringe IV ×2 (11:08→20:23)
--- NOTE | 2023-10-24 12:28 | PN.HOSP_ITS ---
Reason for Visit Reason for Visit: Diagnoses Weakness (10/21/23) Subjective Subjective Coughing. Objective Data Objective Data Vital Signs: Vital Signs Temp Pulse Resp BP Pulse Ox O2 Del Method O2 Flow Rate 36.7 C 64 16 140/55 H 98 Room Air 2 10/24/23 10:00 10/24/23 10:06 10/24/23 10:00 10/24/23 10:06 10/24/23 10:00 10/24/23 10:00 10/22/23 03:15 Oxygen Flow Rate (L/min) 2 Oxygen Delivery Method Room Air Weight: 90.2 kg Body Mass Index (BMI) 29.3 Intake & Output: Intake and Output for Last 24 Hours 10/22/23 10/23/23 10/24/23 23:59 23:59 23:59 Intake Total 2150 / 2300 800 / 1000 200 / 200 Output Total 1200 / 1600 1150 / 1150 Balance 2150 / 2300 -400 / -600 -950 / -950 Lab / Micro Data 10/22/23 10:59 10/22/23 10:59 Micro: Microbiology 10/21/23 02:21 Urine, Clean Catch Urine Culture - Final Culture exhibits no growth. 10/21/23 00:54 Blood Culture (Wb) - Anticubital Left Blood Culture - Preliminary No growth in 48 hours. 10/21/23 00:30 Blood Culture (Wb) - Anticubital Left Blood Culture - Preliminary No growth in 48 hours. 10/21/23 04:35 Mucosa - Nasopharyngeal Respiratory Panel (PCR) - Final 10/21/23 02:21 Urine, Clean Catch Legionella Antigen - Final 10/21/23 02:21 Urine, Clean Catch Streptococcus pneumoniae Antigen (M - Final 10/21/23 00:19 Mucosa - Nose SARS-CoV-2, Influenza & RSV (PCR) - Final Radiography Diagnostic Testing: Radiology Impression Chest X-Ray 10/23/23 16:00 IMPRESSION: No acute cardiopulmonary pathology with findings not changed appreciably since previous exam Electronically Signed: Nayan Richard MD at 16:21 EDT , Physical Exam Const Constitutional Narrative: Weak. Coughing fits with spitting up saliva. Resp normal respiratory effort, no retractions and no use of accessory muscles Resp Narrative: bibasilar crackles. Cardio regular rate, regular rhythm, S1 normal heart sound and S2 normal heart sound GI normal to inspection, nondistended, normoactive bowel sounds, soft to palpation, non-tender and non-distended Neuro Sensorium / Orientation: awake and alert Assessment & Plan Assessment/Plan (1) Generalized weakness: PLAN: Plan Nausea and vomiting * Etiology unclear but according to the patient's daughter, whom I spoke with, symptoms seem to begin when he initiated sulfasalazine. I reviewed side effect profile with her and can cause nausea vomiting and diarrhea. In given that he had a biopsy that was concerning for ulcerative colitis, and there is no evidence of any inflammation on the biopsy. I feel it is reasonable to discontinue the sulfasalazine for now and monitor. * Now seems to be related with coughing fits. Will monitor. debility: * PT OT * Patient requiring 2-3 people to assist. Discussed with he and his family and are agreeable to going to a fdc facility for further rehab. CHAPIS: * resolved Recent squamous cell cancer. * Patient recently underwent a Mohs procedure and had plastic surgery as he had very extensive cancer and apparently had resection down to the bone. Still does have a wound on his left scalp which we will have wound care see. * Daughter is very concerned about him getting to his radiation appointments. That appointment will be this coming Thursday. They understand that if he is this debilitated that he would not be able to make that appointment and may need to be rescheduled. Chronic conditions: * Recent history of GI bleed: Recent admission for lower GI bleed with bright red blood per rectum and acute blood loss anemia, 09/22/2023 colonoscopy with ulceration in the rectal area which was biopsied with initiation at that time on mesalamine x 8 weeks with follow-up with gastroenterology outpatient. Will maintain on PPI until assure able to take appropriate oral intake. * CAD: Status post CABG CARPIO to LAD, SVG to diagonal of the anterior descending, SVG to circumflex and RCA and PCI MARI circumflex 2006, continue aspirin, metoprolol, not on statin therapy per current list but verifying, not on ELIZABETH inhibitor/ARB per current list but verifying however regardless given CHAPIS if this was the case this would be temporarily held. * History sick sinus syndrome: Status post permanent pacemaker 2005, encourage continued outpatient cardiology follow-up as previously arranged. * Skin cancer, Unclear type patient status post resection on his scalp with planned upcoming radiation therapy, encourage continued outpatient workup and evaluation. * Carotid disease: Status post carotid enterectomy, will continue aspirin, not on statin therapy, continue hypertensive regimen.Hypertension: As long as BP improves with hydration we will continue patient home metoprolol regimen otherwise we will hold, PRN hydralazine. * Hyperlipidemia: Per current list on a regimen, verifying. * Chronic normocytic anemia: Admission hemoglobin 11.6, MCV 93.2, baseline hemoglobin 10-11, stable, continue to trend. * Hypothyroidism: We will continue patient on levothyroxine regimen * BPH: We will continue patient home Flomax regimen. DVT prophylaxis: SCDs CODE status: full Charges/Coding Visit Charges Inpatient E&M: 99566 Subs Hosp L2
[2023-10-24] MEDS: Furosemide 40 MG/4 ML Vial IV (12:33)
[2023-10-24] MEDS: Tamsulosin HCl 0.4 MG Capsule 0.8 MG PO (16:43)
[2023-10-25] VITALS (10 sets, daily range): BP systolic 109–143; BP diastolic 58–94; PULSE 60–67; RESP 14–19; TEMP 36.2–38.8; O2SAT 93–96
[2023-10-25] MEDS: Acetaminophen 325 MG Tablet 650 MG PO ×3 (04:53→21:09)
[2023-10-25] MEDS: Levothyroxine 25 MCG TABLET PO (04:53)
[2023-10-25] MEDS: Albuterol 2.5 MG/3 ML VIAL.NEB. INHALATION ×2 (07:38→22:31)
[2023-10-25] MEDS: Budesonide Respules 0.5 MG/2 ML AMPUL.NEB. INHALATION ×2 (07:38→22:31)
[2023-10-25] MEDS: Juven (unflavored) Packet 1 PACKET PO (08:44)
[2023-10-25] MEDS: Pantoprazole Sodium 20 MG Tablet PO ×2 (08:44→21:09)
[2023-10-25] MEDS: Metoprolol Tartrate 25 MG Tablet PO (08:44)
[2023-10-25] MEDS: Aspirin E.C. 81 MG Tablet PO (08:44)
[2023-10-25] MEDS: Menthol/Lanolin/Calamine/Znox 113 GM Tube 1 APPLIC TOPICAL ×2 (11:37→21:09)
[2023-10-25] MEDS: Nystatin Powder 15gm Bottle 1 APPLIC TOPICAL ×2 (11:41→21:10)
[2023-10-25] MEDS: Ondansetron 4 MG/2 ML Vial IV (12:28)
--- NOTE | 2023-10-25 13:38 | PN.HOSP_ITS ---
Reason for Visit Reason for Visit: Diagnoses Weakness (10/21/23) Subjective Subjective Feeling better. No further vomtiting. Did have some right ear pain that is currently better at this time. Objective Data Objective Data Vital Signs: Vital Signs Temp Pulse Resp BP Pulse Ox O2 Del Method O2 Flow Rate 36.2 C L 60 14 139/59 H 94 Room Air 2 10/25/23 09:25 10/25/23 09:25 10/25/23 09:25 10/25/23 09:25 10/25/23 09:25 10/25/23 09:47 10/22/23 03:15 Oxygen Flow Rate (L/min) 2 Oxygen Delivery Method Room Air Weight: 90.2 kg Body Mass Index (BMI) 29.3 Intake & Output: Intake and Output for Last 24 Hours 10/23/23 10/24/23 10/25/23 23:59 23:59 23:59 Intake Total 800 / 1000 1100 / 1100 Output Total 1200 / 1600 3000 / 3000 1000 / 1000 Balance -400 / -600 -1900 / -1900 -1000 / -1000 Lab / Micro Data 10/22/23 10:59 10/22/23 10:59 Micro: Microbiology 10/21/23 02:21 Urine, Clean Catch Urine Culture - Final Culture exhibits no growth. 10/21/23 00:54 Blood Culture (Wb) - Anticubital Left Blood Culture - Preliminary No growth in 48 hours. 10/21/23 00:30 Blood Culture (Wb) - Anticubital Left Blood Culture - Preliminary No growth in 48 hours. 10/21/23 04:35 Mucosa - Nasopharyngeal Respiratory Panel (PCR) - Final 10/21/23 02:21 Urine, Clean Catch Legionella Antigen - Final 10/21/23 02:21 Urine, Clean Catch Streptococcus pneumoniae Antigen (M - Final 10/21/23 00:19 Mucosa - Nose SARS-CoV-2, Influenza & RSV (PCR) - Final Physical Exam Const alert and no apparent distress HEENT head/scalp atraumatic HEENT Narrative: Right tympanic membrane was visualized though is obscured by copious amount of wax in his ear canal. No evidence of any erythema. Left scalp wound healing nicely. No surrounding erythema. Does have scabs on his forehead but notes of any cellulitis. Resp normal respiratory effort, no retractions, no use of accessory muscles and clear to auscultation bilaterally Cardio regular rate, regular rhythm, S1 normal heart sound and S2 normal heart sound GI normal to inspection, nondistended, normoactive bowel sounds, soft to palpation, non-tender and non-distended Extremity normal to inspection and full ROM Neuro Sensorium / Orientation: awake and alert Psych affect normal Assessment & Plan Assessment/Plan (1) Generalized weakness: PLAN: Plan Nausea and vomiting * Daughter states that it was related with initiation of sulfasalazine was just discontinued during this hospitalization. Patient has had some improvements though has had some vomiting when he has had some mild proximal systems of cough. It is unclear if his symptoms were attributable to sulfasalazine but given his negative biopsies that was looking for ulcerative colitis, I feel it is reasonable to hold as the risks outweigh the benefits at this time. * Supportive management at this time. debility: * PT OT * Patient requiring 2-3 people to assist. Discussed with he and his family and are agreeable to going to a penit[facility]iary facility for further rehab. CHAPIS: * resolved Recent squamous cell cancer. * Per the daughter this was a rather aggressive type of squamous cell cancer. * Patient recently underwent a Mohs procedure and had plastic surgery as he had very extensive cancer and apparently had resection down to the bone. Patient had skin flaps to his scalp but still does have a donor site on his left scalp that is healing by secondary intention. That area overall appears to be healing. * Patient was to have a radiation treatment beginning October 26 but with his debility and I will have to be delayed until he is in better condition. Right ear pain * Tympanic membrane, from what I can see, did not appear to be inflamed. Did not appear to be any otitis externa as well. He did have a fair amount of wax in his ear canal. Will add Debrox drops. Though I do not feel that the wax was his extremity cause of his ear pain. Etiology of his ear pain is still unclear. Severe protein calorie malnutrition * On Ensure and Georges. * Continue to encourage patient to eat more. Patient previously has stopped eating just for lack of appetite. Patient encouraged to try to eat more to help build his nutritional reserves to help with healing and also improving his strength. Chronic conditions: * Recent history of GI bleed: Recent admission for lower GI bleed with bright red blood per rectum and acute blood loss anemia, 09/22/2023 colonoscopy with ulceration in the rectal area which was biopsied with initiation at that time on mesalamine x 8 weeks with follow-up with gastroenterology outpatient. Will maintain on PPI until assure able to take appropriate oral intake. * CAD: Status post CABG CARPIO to LAD, SVG to diagonal of the anterior descending, SVG to circumflex and RCA and PCI MARI circumflex 2006, continue aspirin, metoprolol, not on statin therapy per current list but verifying, not on ELIZABETH inhibitor/ARB per current list but verifying however regardless given CHAPIS if this was the case this would be temporarily held. * History sick sinus syndrome: Status post permanent pacemaker 2005, encourage continued outpatient cardiology follow-up as previously arranged. * Skin cancer, Unclear type patient status post resection on his scalp with planned upcoming radiation therapy, encourage continued outpatient workup and evaluation. * Carotid disease: Status post carotid enterectomy, will continue aspirin, not on statin therapy, continue hypertensive regimen.Hypertension: As long as BP improves with hydration we will continue patient home metoprolol regimen otherwise we will hold, PRN hydralazine. * Hyperlipidemia: Per current list on a regimen, verifying. * Chronic normocytic anemia: Admission hemoglobin 11.6, MCV 93.2, baseline hemoglobin 10-11, stable, continue to trend. * Hypothyroidism: Levothyroxine * BPH: Tamsulosin DVT prophylaxis: SCDs CODE status: full Disposition: To penitentiary facility pending insurance authorization. Case discussed with the patient's daughter and . Charges/Coding Visit Charges Inpatient E&M: 27395 Subs Hosp L2
[2023-10-25] MEDS: Carbamide Peroxide 15 ML Bottle 5 DRP OTIC (15:37)
[2023-10-25] MEDS: Tamsulosin HCl 0.4 MG Capsule 0.8 MG PO (17:30)
[2023-10-25] MEDS: Ensure Clear 120 ML Liquid PO (17:30)
[2023-10-25] MEDS: Mineral Oil/Petrolatum Cr 1.75oz Bottle 1 APPLIC TOPICAL (17:31)
[2023-10-25] MEDS: Benzonatate 100 MG Capsule PO (21:09)
[2023-10-26] VITALS (10 sets, daily range): BP systolic 133–149; BP diastolic 55–61; PULSE 61–72; RESP 14–20; TEMP 36.8–37.2; O2SAT 92–98; BMI 29.0
[2023-10-26] MEDS: Acetaminophen 325 MG Tablet 650 MG PO ×2 (05:25→20:23)
[2023-10-26] MEDS: Levothyroxine 25 MCG TABLET PO (05:25)
[2023-10-26] MEDS: Budesonide Respules 0.5 MG/2 ML AMPUL.NEB. INHALATION ×2 (06:40→22:13)
[2023-10-26] MEDS: Albuterol 2.5 MG/3 ML VIAL.NEB. INHALATION ×2 (06:40→22:13)
[2023-10-26] MEDS: Aspirin E.C. 81 MG Tablet PO (08:00)
[2023-10-26] MEDS: Juven (unflavored) Packet 1 PACKET PO (08:00)
[2023-10-26] MEDS: Metoprolol Tartrate 25 MG Tablet PO ×2 (08:01→20:23)
[2023-10-26] MEDS: Pantoprazole Sodium 20 MG Tablet PO ×2 (08:01→20:23)
--- NOTE | 2023-10-26 09:05 | PCM.PN.HOSP ---
Reason for Visit Reason for Visit: Diagnoses Weakness (10/21/23) Subjective Subjective Patient is an 78-year-old gentleman admitted with progressive generalized weakness in addition to nausea and vomiting. He had apparently been started on sulfasalazine for suspected ulcerative colitis from a recent hospitalization Objective Data Objective Data Vital Signs: Vital Signs Temp Pulse Resp BP Pulse Ox O2 Del Method O2 Flow Rate 98.7 F 63 14 133/55 H 95 Room Air 2 10/26/23 07:58 10/26/23 08:01 10/26/23 07:58 10/26/23 07:58 10/26/23 07:58 10/26/23 07:58 10/22/23 03:15 Oxygen Flow Rate (L/min) 2 Oxygen Delivery Method Room Air Weight: 89.358 kg Body Mass Index (BMI) 29.0 Intake & Output: Intake and Output for Last 24 Hours 10/24/23 10/25/23 10/26/23 23:59 23:59 23:59 Intake Total 1100 / 1100 480 / 480 Output Total 3000 / 3000 1650 / 1650 550 / 550 Balance -1900 / -1900 -1170 / -1170 -550 / -550 Lab / Micro Data 10/26/23 09:22 10/26/23 09:22 Micro: Microbiology 10/21/23 00:30 Blood Culture (Wb) - Anticubital Left Blood Culture - Final No growth in 5 days. 10/21/23 00:54 Blood Culture (Wb) - Anticubital Left Blood Culture - Final No growth in 5 days. 10/21/23 02:21 Urine, Clean Catch Urine Culture - Final Culture exhibits no growth. 10/21/23 04:35 Mucosa - Nasopharyngeal Respiratory Panel (PCR) - Final 10/21/23 02:21 Urine, Clean Catch Legionella Antigen - Final 10/21/23 02:21 Urine, Clean Catch Streptococcus pneumoniae Antigen (M - Final 10/21/23 00:19 Mucosa - Nose SARS-CoV-2, Influenza & RSV (PCR) - Final Physical Exam Narrative GENERAL: cooperative HEENT: Surgical bandage around the scalp at the site of his recent excision EYES; Anicteric, Normal Conjunctiva NECK; supple, normal thyroid, RESPIRATORY: Diminished to auscultation CARDIOVASCULAR: Regular S1 S2, GI: soft, normoactive bowel sounds, : No Renal angle tenderness; EXTREMITIES: No edema, no clubbing, MUSCULOSKELETAL: no muscle wasting NEURO: Awake; no lateralizing signs. SKIN: No Rash PSYCH; Flat affect Assessment & Plan Assessment/Plan (1) Generalized weakness: PLAN: Plan Patient is an 78-year-old gentleman admitted with progressive generalized weakness in addition to nausea and vomiting. He had apparently been started on sulfasalazine for suspected ulcerative colitis from a recent hospitalization 1. Intractable nausea vomiting ? Thought to be secondary to side effect of sulfasalazine which was recently initiated following suspicion for ulcerative colitis. Patient managed symptomatically with antiemetics in addition to IV fluids 2. Physical deconditioning - Requested for PT OT eval and social media job titles to assist with discharge planning 3. Recent admission for rectal bleed ? Patient underwent colonoscopy which demonstrated Mucosal ulceration. Subsequently started on sulfasalazine for suspected ulcerative colitis. Biopsies however 4. Anemia - Secondary to chronic disorder monitoring H&H and transfuse if patient becomes symptomatic or hemoglobin falls below 7 5. Acute kidney injury ? Creatinine on admission was 1.57 had dropped to 1.24 as of 10/22/2019 4 repeat labs ordered for follow-up 6. Recent squamous cell cancer. - Patient recently underwent a Mohs procedure and had plastic surgery as he had very extensive cancer and apparently had resection down to the bone. Patient had skin flaps to his scalp but still does have a donor site on his left scalp that is healing by secondary intention. That area overall appears to be healing. Patient is scheduled to undergo radiation treatment beginning October 26 but with his debility and I will have to be delayed until he is in better condition. 7. Coronary artery disease ? With previous CABG CARPIO to LAD, SVG to diagonal of the anterior descending, SVG to circumflex and RCA and PCI MARI circumflex 2006, continue aspirin, metoprolol, 8. History of sick sinus syndrome ? Status post permanent pacemaker placement in 2005 remained stable 9. Carotid artery disease ? Status post carotid endarterectomy 10. BPH with lower urinary obstructive symptoms - Patient treated with tamsulosin 11. Hypothyroidism - Patient is on levothyroxine home dose continued 12. Dyslipidemia ? By history currently not on any statin therapy 13. Skin cancer ? Type unclear at this point. Patient underwent recent resection 14. DVT prophylaxis ? Bilateral SCDs Time spent in the patient's overall evaluation,decision-making process, review of diagnostic data, adjustment of management, discussion with other providers, nursing nursing and ancillary staff involved in patient's care documentation,40 Minutes Charges/Coding Visit Charges Inpatient E&M: 06869 Subs Hosp L2
[2023-10-26 09:29] LABS: Absolute Lymphocyte Count 1.17 X10^3/uL (0.83-4.51); Absolute Neutrophil Count 6.1 X10^3/uL (2.0-7.7); Basophil# 0.06 X10^3/uL; Basophil% 0.7 % (0-1); Eosinophil# 0.12 X10^3/uL; Eosinophils% 1.4 % (0-5); Hematocrit 36.8 % (40-54); Lymphocyte # 1.17 X10^3/ul (0.83-4.51); Mean Corp Hgb Conc 32.6 g/dL (32-36); Mean Corpuscular Hgb 29.5 pg (27.0-32.0); Mean Corpuscular Volume 90.4 fL (80-94); Mean Platelet Vol. 9.9 fl (6.2-12.0); Monocyte# 0.84 X10^3/uL; Monocyte% 10.1 % (0-10); NRBC Flagged by Analyzer 0 % (0-5); Neutrophil # 6.13 X10^3/uL (2.7-7.7); Neutrophil % 73.4 % (47-70); Platelet Count 271 K/mm3 (150-450); RBC Distribution Width CV 13.4 % (11.6-14.6); RBC Distribution Width SD 44.4 fl (35.1-43.9); Red Blood Count 4.07 M/mm3 (4.6-6.2); White Blood Count 8.4 K/mm3 (4.4-11.0)
[2023-10-26 09:58] LABS: Anion Gap 9 (5-15); BUN 23 mg/dL (7-18); BUN/Creat Ratio 20.2 RATIO (10-20); Chloride 102 mmol/L (98-107); Creatinine, Serum 1.14 mg/dL (0.70-1.30); EST Glomerular Filtration Rate 66 mL/min (>60); Est Glom Filt Rate - Afr Amer 79 mL/min (>60); Estimated Creatinine Clearance 57.14 ml/min; Glucose 134 mg/dL (74-106); Magnesium 2.2 mg/dL (1.6-2.6); Potassium 3.7 mmol/L (3.5-5.1); Sodium Level 136 mmol/L (136-145)
--- NOTE | 2023-10-26 10:39 | CASEMGMT ---
Social Work- SW met with pt and to update of acceptance at [facility]. Pt and advised that precert has been started and further updates will be provided as new information is received. Pt reported that pt did very well with therapy and was very complimentary of the therapy staff and all staff during their time in PCU. DAVION Moser
--- NOTE | 2023-10-26 10:54 | WOUNDNOTE ---
Pt states nurse had already applied the Aquaphor to the left scalp wound. dressing is currently dry and intact with the spandage holding it in place.
[2023-10-26] MEDS: Mineral Oil/Petrolatum Cr 1.75oz Bottle 1 APPLIC TOPICAL (11:33)
--- NOTE | 2023-10-26 16:19 | CASEMGMT ---
Discharge Planning Updates sent to [facility] via [employer]. Nisa Strong DC Planning Asst.
[2023-10-26] MEDS: Tamsulosin HCl 0.4 MG Capsule 0.8 MG PO (17:27)
[2023-10-26] MEDS: guaiFENesin 10 ML UDC (200MG/10ML) 20 ML PO (20:23)
[2023-10-26] MEDS: Menthol/Lanolin/Calamine/Znox 113 GM Tube 1 APPLIC TOPICAL (20:23)
[2023-10-26] MEDS: Nystatin Powder 15gm Bottle 1 APPLIC TOPICAL (20:24)
[2023-10-27 03:20] VITALS: BP 148/65; PULSE 62; RESP 20; TEMP 36.5; O2SAT 98
[2023-10-27] MEDS: Levothyroxine 25 MCG TABLET PO (05:55)
[2023-10-27 06:00] VITALS: BMI 28.2
[2023-10-27 07:07] VITALS: PULSE 75; RESP 16; O2SAT 93
[2023-10-27 07:07] LABS: Absolute Lymphocyte Count 1.03 X10^3/uL (0.83-4.51); Basophil# 0.05 X10^3/uL; Basophil% 0.5 % (0-1); Eosinophil# 0.18 X10^3/uL; Eosinophils% 1.9 % (0-5); Hematocrit 35.5 % (40-54); Hemoglobin 11.6 g/dL (13.0-16.5); Lymphocyte # 1.03 X10^3/ul (0.83-4.51); Mean Corp Hgb Conc 32.7 g/dL (32-36); Mean Corpuscular Hgb 29.6 pg (27.0-32.0); Mean Corpuscular Volume 90.6 fL (80-94); Monocyte# 0.99 X10^3/uL; Monocyte% 10.6 % (0-10); NRBC Flagged by Analyzer 0 % (0-5); Neutrophil # 7.04 X10^3/uL (2.7-7.7); Neutrophil % 75.6 % (47-70); Platelet Count 256 K/mm3 (150-450); RBC Distribution Width CV 13.4 % (11.6-14.6); RBC Distribution Width SD 44.5 fl (35.1-43.9); Red Blood Count 3.92 M/mm3 (4.6-6.2); White Blood Count 9.3 K/mm3 (4.4-11.0)
[2023-10-27] MEDS: Albuterol 2.5 MG/3 ML VIAL.NEB. INHALATION (07:07)
[2023-10-27] MEDS: Budesonide Respules 0.5 MG/2 ML AMPUL.NEB. INHALATION (07:07)
[2023-10-27 07:45] LABS: Anion Gap 5 (5-15); BUN 20 mg/dL (7-18); BUN/Creat Ratio 22.5 RATIO (10-20); Calcium,Total 8.7 mg/dL (8.5-10.1); Chloride 102 mmol/L (98-107); Creatinine, Serum 0.89 mg/dL (0.70-1.30); EST Glomerular Filtration Rate 88 mL/min (>60); Est Glom Filt Rate - Afr Amer 106 mL/min (>60); Estimated Creatinine Clearance 72.23 ml/min; Glucose 125 mg/dL (74-106); Magnesium 2.1 mg/dL (1.6-2.6); Phosphorus 2.4 mg/dL (2.5-4.9); Potassium 3.5 mmol/L (3.5-5.1); Sodium Level 135 mmol/L (136-145)
[2023-10-27] MEDS: Ondansetron 4 MG/2 ML Vial IV (08:35)
[2023-10-27 09:20] VITALS: BP 146/58; PULSE 68; RESP 18; TEMP 36.6; O2SAT 93
[2023-10-27] MEDS: Juven (unflavored) Packet 1 PACKET PO (09:24)
[2023-10-27 09:25] VITALS: PULSE 68
[2023-10-27] MEDS: Metoprolol Tartrate 25 MG Tablet PO (09:25)
[2023-10-27] MEDS: Aspirin E.C. 81 MG Tablet PO (09:25)
[2023-10-27] MEDS: Nystatin Powder 15gm Bottle 1 APPLIC TOPICAL (09:26)
[2023-10-27] MEDS: Pantoprazole Sodium 20 MG Tablet PO (09:26)
[2023-10-27] MEDS: Menthol/Lanolin/Calamine/Znox 113 GM Tube 1 APPLIC TOPICAL (09:26)
[2023-10-27] MEDS: Mineral Oil/Petrolatum Cr 1.75oz Bottle 1 APPLIC TOPICAL (09:27)
--- NOTE | 2023-10-27 09:38 | PN.HOSP_ITS ---
Reason for Visit Reason for Visit: Diagnoses Weakness (10/21/23) Subjective Subjective Patient seen per family patient has been having episodes of nausea and vomiting after eating. Also has been complaining of abdominal discomfort Objective Data Objective Data Vital Signs: Vital Signs Temp Pulse Resp BP Pulse Ox O2 Del Method O2 Flow Rate 97.7 F L 68 20 H 148/65 H 98 Room Air 2 10/27/23 03:20 10/27/23 09:25 10/27/23 03:20 10/27/23 03:20 10/27/23 03:20 10/27/23 03:21 10/22/23 03:15 Oxygen Flow Rate (L/min) 2 Oxygen Delivery Method Room Air Weight: 86.8 kg Body Mass Index (BMI) 28.2 Intake & Output: Intake and Output for Last 24 Hours 10/25/23 10/26/23 10/27/23 23:59 23:59 23:59 Intake Total 480 / 480 240 / 240 Output Total 1650 / 1650 1050 / 1050 Balance -1170 / -1170 -810 / -810 Lab / Micro Data 10/27/23 06:55 10/27/23 06:55 Labs: Laboratory Results - last 24 hr 10/26/23 09:22: Sodium 136, Potassium 3.7, Chloride 102, Carbon Dioxide 25.0, Anion Gap 9, BUN 23 H, Creatinine 1.14, Estim Creat Clear Calc 57.14, Est GFR (MDRD) Af Amer 79, Est GFR (MDRD) Non-Af 66, BUN/Creatinine Ratio 20.2 H, G lucose 134 H, Calcium 9.0, Phosphorus 3.0, Magnesium 2.2 10/27/23 06:55: WBC 9.3, RBC 3.92 L, Hgb 11.6 L, Hct 35.5 L, MCV 90.6, MCH 29.6, MCHC 32.7, RDW Std Deviation 44.5 H, RDW Coeff of Abner 13.4, Plt Count 256, MPV 10.0, Immature Gran % (Auto) 0.400, Neut % (Auto) 75.6 H, Lymph % (Auto) 11.0 L, [place] % (Auto) 10.6 H, Eos % (Auto) 1.9, Baso % (Auto) 0.5, Absolute Neuts (auto) 7.0, Absolute Lymphs (auto) 1.03, Nucleated RBC % 0, Sodium 135 L, Potassium 3.5, Chloride 102, Carbon Dioxide 28.0, Anion Gap 5, BUN 20 H, Creatinine 0.89, Estim Creat Clear Calc 72.23, Est GFR (MDRD) Af Amer 106, Est GFR (MDRD) Non-Af 88, BUN/Creatinine Ratio 22.5 H, Glucose 125 H, Calcium 8.7, Phosphorus 2.4 L, Magnesium 2.1 Micro: Microbiology 10/21/23 00:30 Blood Culture (Wb) - Anticubital Left Blood Culture - Final No growth in 5 days. 10/21/23 00:54 Blood Culture (Wb) - Anticubital Left Blood Culture - Final No growth in 5 days. 10/21/23 02:21 Urine, Clean Catch Urine Culture - Final Culture exhibits no growth. 10/21/23 04:35 Mucosa - Nasopharyngeal Respiratory Panel (PCR) - Final 10/21/23 02:21 Urine, Clean Catch Legionella Antigen - Final 10/21/23 02:21 Urine, Clean Catch Streptococcus pneumoniae Antigen (M - Final 10/21/23 00:19 Mucosa - Nose SARS-CoV-2, Influenza & RSV (PCR) - Final Physical Exam Narrative GENERAL: cooperative HEENT: Surgical bandage around the scalp at the site of his recent excision EYES; Anicteric, Normal Conjunctiva NECK; supple, normal thyroid, RESPIRATORY: Diminished to auscultation CARDIOVASCULAR: Regular S1 S2, GI: soft, normoactive bowel sounds, : No Renal angle tenderness; EXTREMITIES: No edema, no clubbing, MUSCULOSKELETAL: no muscle wasting NEURO: Awake; no lateralizing signs. SKIN: No Rash PSYCH; Flat affect Assessment & Plan Assessment/Plan (1) Generalized weakness: PLAN: Plan Patient is an 78-year-old gentleman admitted with progressive generalized weakness in addition to nausea and vomiting. He had apparently been started on sulfasalazine for suspected ulcerative colitis from a recent hospitalization 1. Intractable nausea vomiting ? Thought to be secondary to side effect of sulfasalazine which was recently initiated following suspicion for ulcerative colitis. Patient managed symptomatically with antiemetics in addition to IV fluids ? 10/27/2023; added PPI to patient medication therapy 2. Physical deconditioning - Requested for PT OT eval and vp digital marketing social media and crm to assist with discharge planning ? 10/27/2023; awaiting insurance pre-CERT prior to transfer to detention facility 3. Recent admission for rectal bleed ? Patient underwent colonoscopy which demonstrated Mucosal ulceration. Subsequently started on sulfasalazine for suspected ulcerative colitis. Biopsies however 4. Anemia - Secondary to chronic disorder monitoring H&H and transfuse if patient becomes symptomatic or hemoglobin falls below 7 5. Acute kidney injury ? Creatinine on admission was 1.57 had dropped to 1.24 as of 10/22/2019 4 repeat labs ordered for follow-up 6. Recent squamous cell cancer. - Patient recently underwent a Mohs procedure and had plastic surgery as he had very extensive cancer and apparently had resection down to the bone. Patient had skin flaps to his scalp but still does have a donor site on his left scalp that is healing by secondary intention. That area overall appears to be healing. Patient is scheduled to undergo radiation treatment beginning October 26 but with his debility and I will have to be delayed until he is in better condition. 7. Coronary artery disease ? With previous CABG CARPIO to LAD, SVG to diagonal of the anterior descending, SVG to circumflex and RCA and PCI MARI circumflex 2006, continue aspirin, metoprolol, 8. History of sick sinus syndrome ? Status post permanent pacemaker placement in 2005 remained stable 9. Carotid artery disease ? Status post carotid endarterectomy 10. BPH with lower urinary obstructive symptoms - Patient treated with tamsulosin 11. Hypothyroidism - Patient is on levothyroxine home dose continued 12. Dyslipidemia ? By history currently not on any statin therapy 13. Skin cancer ? Type unclear at this point. Patient underwent recent resection 14. DVT prophylaxis ? Bilateral SCDs Time spent in the patient's overall evaluation,decision-making process, review of diagnostic data, adjustment of management, discussion with other providers, nursing nursing and ancillary staff involved in patient's care documentation, 36 minutes Charges/Coding Visit Charges Inpatient E&M: 83407 Subs Hosp L2
--- NOTE | 2023-10-27 11:31 | CASEMGMT ---
SW received a phone call from patient's insurance asking if patient is ready for discharge. SW let her know patient is ready. ASYA was informed she will approve patient so he can go today. Await [facility] to get the approval then patient should be able to be discharged. Plan: d/c to [facility] under skilled level of care. Leslie CHOI
--- NOTE | 2023-10-27 11:59 | CASEMGMT ---
Discharge Planning [facility] has obtained auth. SW updated. Nisa Strong DC Planning Asst.
--- NOTE | 2023-10-27 12:47 | CASEMGMT ---
SW notified physician that patient was approved for SNF. Leslie Muniz [employer] JIMBO
--- NOTE | 2023-10-27 12:54 | CASEMGMT ---
Social Work- SW received notification that [facility] had obtained precert. This information was passed to pt and daughter. Pt and daughter were advised that pt would be discharged today, as pt is medically ready. Pt and daughter are agreeable. DAVION Moser
--- NOTE | 2023-10-27 12:57 | TREXTCAR_ITS ---
Diet Diet Order/Speech Therapy: 10/21/23 04:01 Diet: Regular - General Food consistency:: Regular Liquid Consistency:: Regular/Thin Routine Orders/Code Status Code Status: Full Code Wound(s) left scalp: Wound Type: Open Surgical Wound Dressing Change: Adaptic left rey: Wound Type: small scab Therapies Physical Therapy: Eval and Treat Occupational Therapy: Eval and Treat Problem/Diagnosis (1) Generalized weakness: Status: Acute Code(s): R53.1 - Weakness Plan Patient is an 78-year-old gentleman admitted with progressive generalized weakness in addition to nausea and vomiting. He had apparently been started on sulfasalazine for suspected ulcerative colitis from a recent hospitalization 1. Intractable nausea vomiting ? Thought to be secondary to side effect of sulfasalazine which was recently initiated following suspicion for ulcerative colitis. Patient managed sympto matically with antiemetics in addition to IV fluids ? 10/27/2023; added PPI to patient medication therapy 2. Physical deconditioning - Requested for PT OT eval and geriatric social work professor to assist with discharge planning ? 10/27/2023; awaiting insurance pre-CERT prior to transfer to care home facility 3. Recent admission for rectal bleed ? Patient underwent colonoscopy which demonstrated Mucosal ulceration. Subsequently started on sulfasalazine for suspected ulcerative colitis. Biopsies however 4. Anemia - Secondary to chronic disorder monitoring H&H and transfuse if patient becomes symptomatic or hemoglobin falls below 7 5. Acute kidney injury ? Creatinine on admission was 1.57 had dropped to 1.24 as of 10/22/2019 4 repeat labs ordered for follow-up 6. Recent squamous cell cancer. - Patient recently underwent a Mohs procedure and had plastic surgery as he had very extensive cancer and apparently had resection down to the bone. Patient had skin flaps to his scalp but still does have a donor site on his left scalp that is healing by secondary intention. That area overall appears to be healing. Patient is scheduled to undergo radiation treatment beginning October 26 but with his debility and I will have to be delayed until he is in better condition. 7. Coronary artery disease ? With previous CABG CARPIO to LAD, SVG to diagonal of the anterior descending, SVG to circumflex and RCA and PCI MARI circumflex 2006, continue aspirin, metoprolol, 8. History of sick sinus syndrome ? Status post permanent pacemaker placement in 2005 remained stable 9. Carotid artery disease ? Status post carotid endarterectomy 10. BPH with lower urinary obstructive symptoms - Patient treated with tamsulosin 11. Hypothyroidism - Patient is on levothyroxine home dose continued 12. Dyslipidemia ? By history currently not on any statin therapy 13. Skin cancer ? Type unclear at this point. Patient underwent recent resection 14. DVT prophylaxis ? Bilateral SCDs Time spent in the patient's overall evaluation,decision-making process, review of diagnostic data, adjustment of management, discussion with other providers, nursing nursing and ancillary staff involved in patient's care documentation, 36 minutes Allergies/Procedures Done in Hospital Allergies codeine Allergy (Verified 10/20/23 23:36) Unknown diphenhydramine HCl (From Benadryl) Allergy (Verified 10/20/23 23:36) headache, eye irritation Penicillins Allergy (Verified 10/20/23 23:36) Rash Sulfa (Sulfonamide Antibiotics) Allergy (Verified 10/20/23 23:36) Rash ezetimibe (From Zetia) Adverse Reaction (Unknown, Verified 10/20/23 23:36) Unknown Type of Care/Length of Stay Estimated LOS: Convalescent Care Less Than 30 days Type of Care Needed: Skilled Rehab Potential: Good Prognosis: Good Additional Orders/Day of Discharge Day of Discharge: 10/27/23 Dietary and Speech Recommendations Dietitian Recommendations/Changes: Continue liberalized Regular diet to optimize oral intakes. Continue Georges BID to promote wound healing. Will d/c ensure clear w/ medpass---pt refusing. Discharge Plan Admission Admit Date/Time: 10/21/23 02:59 Attending Provider: Ifeanyi Eckert Primary Care Provider: Christina Sandy Consulting Providers: Christianne Pierson; Deny Villareal Discharge Orders/Prescriptions Prescriptions: New sennosides-docusate sodium [Stool Softener-Stimulant Laxat] 8.6-50 mg Tablet 2 tab PO BID PRN PRN (Reason: Constipation) Qty: 0 0RF pantoprazole 40 mg Tablet,Delayed Release (Dr/Ec) 40 mg PO BID Qty: 0 0RF melatonin 3 mg Tablet 3 mg PO QHS PRN PRN (Reason: Insomnia) Qty: 0 0RF benzonatate 100 mg Capsule 100 mg PO 4X/DAY PRN PRN (Reason: COUGH/CONGESTION) Qty: 0 0RF alum-mag hydroxide-simeth [Mag-Al Plus Extra Strength] 400-400-40 mg/5 mL Suspension 30 ml PO Q6H PRN PRN (Reason: Gastric Burning) Qty: 0 0RF Georges (with collagen) 7-7-1.5 gram Powder In Packet 1 packet PO BIDCM Qty: 0 0RF acetaminophen 325 mg Tablet 650 mg PO Q4H PRN PRN (Reason: Fever, pain 1-02/03) Qty: 0 0RF budesonide 0.5 mg/2 mL Suspension For Nebulization 0.5 mg inhalation BID.RT Qty: 0 0RF nystatin [Nyamyc] 100,000 unit/gram Powder 1 applic topical BID Qty: 0 0RF Protocol: *Topical Application Instructions APPLICATION INSTRUCTIONS: apply to groin area Aquaphor Healing 41 % Ointment 1 applic topical DAILY Qty: 0 0RF Protocol: *Topical Application Instructions APPLICATION INSTRUCTIONS: left scalp donor site ondansetron 4 mg tablet,disintegrating 4 mg PO Q6H PRN (Reason: nausea and vomiting) Qty: 30 0RF Continued aspirin [Adult Low Dose Aspirin] 81 mg tablet,delayed release (DR/EC) 81 mg PO QDAY levothyroxine 25 mcg tablet 25 mcg PO DAILY ondansetron HCl 4 mg tablet 4 mg PO Q8H PRN PRN (Reason: nausea and vomiting) albuterol sulfate 90 mcg/actuation HFA aerosol inhaler 1 - 2 puff INHALATION Q8H metoprolol tartrate 50 mg tablet 25 mg PO BID tamsulosin 0.4 mg Capsule 0.8 mg PO DAILY@1730 Qty: 60 0RF nitroglycerin 0.4 mg tablet, sublingual 0.4 mg SUBLINGUAL Q5M PRN (Reason: Chest Pain) Qty: 25 3RF folic acid 1 mg tablet 1 mg PO DAILY Qty: 56 0RF Discontinued sulfasalazine 500 mg tablet,delayed release (DR/EC) 0.5 g PO BID Qty: 112 0RF Referrals / Follow Up: Christina Sandy DO [Primary Care Provider] - Within 2 Weeks Disposition Disposition (needs filled in before D/C Order can be placed): [facility]
--- NOTE | 2023-10-27 13:04 | PCM.DC.SUM ---
Providers Date of Admission: 10/21/23 Date of Discharge: 10/27/23 Primary Care Physician: Dr. 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 He had apparently been started on sulfasalazine for suspected ulcerative colitis from a recent hospitalization 1. Intractable nausea vomiting ? Thought to be secondary to side effect of sulfasalazine which was recently initiated following suspicion for ulcerative colitis. Patient managed symptomatically with antiemetics in addition to IV fluids ? 10/27/2023; added PPI to patient medication therapy 2. Physical deconditioning - Requested for PT OT eval and social security specialist to assist with discharge planning ? 10/27/2023; awaiting insurance pre-CERT prior to transfer [facility] 3. Recent admission for rectal bleed ? Patient underwent colonoscopy which demonstrated Mucosal ulceration. Subsequently started on sulfasalazine for suspected ulcerative colitis. Biopsies however 4. Anemia - Secondary to chronic disorder monitoring H&H and transfuse if patient becomes symptomatic or hemoglobin falls below 7 5. Acute kidney injury ? Creatinine on admission was 1.57 had dropped to 1.24 as of 10/22/2019 4 repeat labs ordered for follow-up 6. Recent squamous cell cancer. - Patient recently underwent a Mohs procedure and had plastic surgery as he had very extensive cancer and apparently had resection down to the bone. Patient had skin flaps to his scalp but still does have a donor site on his left scalp that is healing by secondary intention. That area overall appears to be healing. Patient is scheduled to undergo radiation treatment beginning October 26 but with his debility and I will have to be delayed until he is in better condition. 7. Coronary artery disease ? With previous CABG CARPIO to LAD, SVG to diagonal of the anterior descending, SVG to circumflex and RCA and PCI MARI circumflex 2006, continue aspirin, metoprolol, 8. History of sick sinus syndrome ? Status post permanent pacemaker placement in 2005 remained stable 9. Carotid artery disease ? Status post carotid endarterectomy 10. BPH with lower urinary obstructive symptoms - Patient treated with tamsulosin 11. Hypothyroidism - Patient is on levothyroxine home dose continued 12. Dyslipidemia ? By history currently not on any statin therapy 13. Skin cancer ? Type unclear at this point. Patient underwent recent resection 14. DVT prophylaxis ? Bilateral SCDs Time spent in the patient's overall evaluation,decision-making process, review of diagnostic data, adjustment of management, discussion with other providers, nursing nursing and ancillary staff involved in patient's care documentation, 36 minutes Medications at Discharge Home Medications aspirin 81 mg tablet,delayed release (Adult Low Dose Aspirin) 81 mg PO QDAY heart health 05/13/17 levothyroxine 25 mcg tablet 25 mcg PO DAILY thyroid 02/15/18 nitroglycerin 0.4 mg sublingual tablet 0.4 mg sublingual Q5M PRN Chest Pain #25 tabs 01/14/22 tamsulosin 0.4 mg capsule 0.8 mg (2 x 0.4 mg) PO DAILY@1730 #60 caps 09/23/23 folic acid 1 mg tablet 1 mg PO DAILY #56 tabs 09/29/23 albuterol sulfate 90 mcg/actuation aerosol inhaler 1 - 2 puff inhalation Q8H wheezing 10/21/23 metoprolol tartrate 50 mg tablet 25 mg PO BID for blood pressure 10/21/23 ondansetron HCl 4 mg tablet 4 mg PO Q8H PRN PRN nausea and vomiting 10/21/23 acetaminophen 325 mg tablet 650 mg (2 x 325 mg) PO Q4H PRN PRN Fever, pain 1-02/03 #0 tabs 10/27/23 aluminum-mag hydroxide-simethicone 400 mg-400 mg-40 mg/5 mL oral susp (Mag-Al Plus Extra Strength) 30 ml PO Q6H PRN PRN Gastric Burning #0 mL 10/27/23 arginine 7 gram-glutam 7 gram-CaHMB 1.5 [id number]-min oral pwd pkt (Georges (with collagen)) 1 packet PO BIDCM #0 ea 10/27/23 benzonatate 100 mg capsule 100 mg PO 4X/DAY PRN PRN COUGH/CONGESTION #0 caps 10/27/23 budesonide 0.5 mg/2 mL suspension for nebulization 0.5 mg (2 mL) inhalation BID.RT #0 mL 10/27/23 melatonin 3 mg tablet 3 mg PO QHS PRN PRN Insomnia #0 tabs 10/27/23 nystatin 100,000 unit/gram topical powder (Nyamyc) 1 applic topical BID #0 grams 10/27/23 ondansetron 4 mg disintegrating tablet 4 mg PO Q6H PRN nausea and vomiting #30 tabs 10/27/23 pantoprazole 40 mg tablet,delayed release 40 mg PO BID #0 tabs 10/27/23 sennosides 8.6 mg-docusate sodium 50 mg tablet (Stool Softener-Stimulant Laxative) 2 tab PO BID PRN PRN Constipation #0 tabs 10/27/23 white petrolatum 41 % topical ointment (Aquaphor Healing) 1 applic topical DAILY #0 grams 10/27/23 Physical Exam Narrative GENERAL: cooperative HEENT: Surgical bandage around the scalp at the site of his recent excision EYES; Anicteric, Normal Conjunctiva NECK; supple, normal thyroid, RESPIRATORY: Diminished to auscultation CARDIOVASCULAR: Regular S1 S2, GI: soft, normoactive bowel sounds, : No Renal angle tenderness; EXTREMITIES: No edema, no clubbing, MUSCULOSKELETAL: no muscle wasting NEURO: Awake; no lateralizing signs. SKIN: No Rash PSYCH; Flat affect Weight / BMI Weight Weight: 86.8 kg Body Mass Index (BMI) 28.2 ABG / Lab / Microbiology Data 10/27/23 06:55 10/27/23 06:55 Laboratory: Laboratory Results - last 24 hr 10/27/23 06:55: WBC 9.3, RBC 3.92 L, Hgb 11.6 L, Hct 35.5 L, MCV 90.6, MCH 29.6, MCHC 32.7, RDW Std Deviation 44.5 H, RDW Coeff of Abner 13.4, Plt Count 256, MPV 10.0, Immature Gran % (Auto) 0.400, Neut % (Auto) 75.6 H, Lymph % (Auto) 11.0 L, [place] % (Auto) 10.6 H, Eos % (Auto) 1.9, Baso % (Auto) 0.5, Absolute Neuts (auto) 7.0, Absolute Lymphs (auto) 1.03, Nucleated RBC % 0, Sodium 135 L, Potassium 3.5, Chloride 102, Carbon Dioxide 28.0, Anion Gap 5, BUN 20 H, Creatinine 0.89, Estim Creat Clear Calc 72.23, Est GFR (MDRD) Af Amer 106, Est GFR (MDRD) Non-Af 88, BUN/Creatinine Ratio 22.5 H, Glucose 125 H, Calcium 8.7, Phosphorus 2.4 L, Magnesium 2.1 Microbiology: Microbiology 10/21/23 00:30 Blood Culture (Wb) - Anticubital Left Blood Culture - Final No growth in 5 days. 10/21/23 00:54 Blood Culture (Wb) - Anticubital Left Blood Culture - Final No growth in 5 days. 10/21/23 02:21 Urine, Clean Catch Urine Culture - Final Culture exhibits no growth. 10/21/23 04:35 Mucosa - Nasopharyngeal Respiratory Panel (PCR) - Final 10/21/23 02:21 Urine, Clean Catch Legionella Antigen - Final 10/21/23 02:21 Urine, Clean Catch Streptococcus pneumoniae Antigen (M - Final 10/21/23 00:19 Mucosa - Nose SARS-CoV-2, Influenza & RSV (PCR) - Final D/C Instructions Discharge Diet: No restrictions Discharge Activity: Return to Normal Activity Call your doctor if you observe: Fever of 101 or Higher, Shortness of breath, Fainting spells and Chest pain Meaningful Use Info Meaningful Use Meaningful Use Diagnoses (Choose all that apply): None applicable Ischemic Stroke Statin Dosing Therapy Reference: STATIN DOSE THERAPY REFERENCE: * Patients > 75 years receive moderate or high dose statin therapy. * Patients 75 years or YOUNGER should receive HIGH intensity statin dose unless contraindicated. You will be required to document reason for non-treatment if statin daily dose does not meet guidelines. HIGH DOSE STATIN THERAPY DAILY Atorvastatin > than or = to 40 mg Rosuvastatin > than or = to 20 mg Amlodipine + Atorvastatin > than or = to 2.5/40 mg Ezetimibe + Simvastatin 10/80 mg Simvastatin 80mg Discharge Plan Admission Admit Date/Time: 10/21/23 02:59 Attending Provider: Ifeanyi Eckert Primary Care Provider: Christina Sandy Consulting Providers: Christianne Pierson; Deny Villareal Discharge Orders/Prescriptions Prescriptions: New sennosides-docusate sodium [Stool Softener-Stimulant Laxat] 8.6-50 mg Tablet 2 tab PO BID PRN PRN (Reason: Constipation) Qty: 0 0RF pantoprazole 40 mg Tablet,Delayed Release (Dr/Ec) 40 mg PO BID Qty: 0 0RF melatonin 3 mg Tablet 3 mg PO QHS PRN PRN (Reason: Insomnia) Qty: 0 0RF benzonatate 100 mg Capsule 100 mg PO 4X/DAY PRN PRN (Reason: COUGH/CONGESTION) Qty: 0 0RF alum-mag hydroxide-simeth [Mag-Al Plus Extra Strength] 400-400-40 mg/5 mL Suspension 30 ml PO Q6H PRN PRN (Reason: Gastric Burning) Qty: 0 0RF Georges (with collagen) 7-7-1.5 gram Powder In Packet 1 packet PO BIDCM Qty: 0 0RF acetaminophen 325 mg Tablet 650 mg PO Q4H PRN PRN (Reason: Fever, pain 1-02/03) Qty: 0 0RF budesonide 0.5 mg/2 mL Suspension For Nebulization 0.5 mg inhalation BID.RT Qty: 0 0RF nystatin [Nyamyc] 100,000 unit/gram Powder 1 applic topical BID Qty: 0 0RF Protocol: *Topical Application Instructions APPLICATION INSTRUCTIONS: apply to groin area Aquaphor Healing 41 % Ointment 1 applic topical DAILY Qty: 0 0RF Protocol: *Topical Application Instructions APPLICATION INSTRUCTIONS: left scalp donor site ondansetron 4 mg tablet,disintegrating 4 mg PO Q6H PRN (Reason: nausea and vomiting) Qty: 30 0RF Continued aspirin [Adult Low Dose Aspirin] 81 mg tablet,delayed release (DR/EC) 81 mg PO QDAY levothyroxine 25 mcg tablet 25 mcg PO DAILY ondansetron HCl 4 mg tablet 4 mg PO Q8H PRN PRN (Reason: nausea and vomiting) albuterol sulfate 90 mcg/actuation HFA aerosol inhaler 1 - 2 puff INHALATION Q8H metoprolol tartrate 50 mg tablet 25 mg PO BID tamsulosin 0.4 mg Capsule 0.8 mg PO DAILY@1730 Qty: 60 0RF nitroglycerin 0.4 mg tablet, sublingual 0.4 mg SUBLINGUAL Q5M PRN (Reason: Chest Pain) Qty: 25 3RF folic acid 1 mg tablet 1 mg PO DAILY Qty: 56 0RF Discontinued sulfasalazine 500 mg tablet,delayed release (DR/EC) 0.5 g PO BID Qty: 112 0RF Referrals / Follow Up: Christina Sandy DO [Primary Care Provider] - Within 2 Weeks Disposition Disposition (needs filled in before D/C Order can be placed): Residential Facility Charges/Coding Visit Charges Inpatient E&M: 81048 Disch Hosp >30min
--- NOTE | 2023-10-27 14:09 | CASEMGMT ---
Discharge Planning Discharge orders, signed med list sent to [facility] via [facility]. Physicians will transport patient by wheelchair at 3p. Nursing, SW, patient, Avis @ [facility], pts & daughter updated. Nisa Strong DC Planning Asst.
--- NOTE | 2023-10-27 14:13 | NURSING ---
report called to [facility].
== END 2023-10-27 16:03 | disposition skilled nursing facility (03) | DRG 392 ==
LOC: ED 10-21 02:44 → PCU 10-21 03:21
PROVIDERS: Admitting Provider Family Medicine; Emergency Provider Emergency Medicine; PCP Internal Medicine; Visit Provider Internal Medicine
DX: R11.2 Nausea with vomiting, unspecified (principal); N17.9 Acute kidney failure, unspecified; N13.8 Other obstructive and reflux uropathy; K51.90 Ulcerative colitis, unspecified, without complications; D63.8 Anemia in other chronic diseases classified elsewhere; R62.7 Adult failure to thrive; J45.909 Unspecified asthma, uncomplicated; E03.9 Hypothyroidism, unspecified; I10 Essential (primary) hypertension; E78.00 Pure hypercholesterolemia, unspecified; I25.10 Atherosclerotic heart disease of native coronary artery without angina pectoris; I95.9 Hypotension, unspecified; H92.01 Otalgia, right ear; H61.21 Impacted cerumen, right ear; B34.9 Viral infection, unspecified; C44.42 Squamous cell carcinoma of skin of scalp and neck; T37.0X5A Adverse effect of sulfonamides, initial encounter; R73.9 Hyperglycemia, unspecified; N40.1 Benign prostatic hyperplasia with lower urinary tract symptoms; Z68.28 Body mass index [BMI] 28.0-28.9, adult; Z11.52 Encounter for screening for COVID-19; Z88.0 Allergy status to penicillin; Z79.82 Long term (current) use of aspirin; Z79.890 Hormone replacement therapy; Z79.899 Other long term (current) drug therapy; Z95.0 Presence of cardiac pacemaker; Z95.1 Presence of aortocoronary bypass graft; Z95.5 Presence of coronary angioplasty implant and graft; S01.00XD Unspecified open wound of scalp, subsequent encounter; Y83.8 Other surgical procedures as the cause of abnormal reaction of the patient, or of later complication, without mention of misadventure at the time of the procedure
CPT/HCPCS: 36415; 71045; 71046; 80048; 80053; 81001; 83605; 83735; 84100; 84145; 85025; 85610; 85730; 87040; 87086; 87449; 87631; 87633; 93005; 94640; 94668; 97110; 97116; 97162; 97166; 97530; 97535; 99285; J7030; J7040; J7050; P9612; A4216; J1940; J2405

== ENCOUNTER 2024-04-25 21:25 | Emergency (ER) | payer MEDICARE, SELFPAY ==
[2024-04-25 21:26] VITALS: BP 117/67; PULSE 60; RESP 16; TEMP 36.9; O2SAT 96
--- NOTE | 2024-04-25 22:59 | CT_ITS ---
EXAM: CT ABDOMEN AND PELVIS WITH INTRAVENOUS CONTRAST CLINICAL INDICATION: LLQ pain TECHNIQUE: Helically acquired images were obtained of the abdomen and pelvis with intravenous contrast. This CT exam was performed using one or more of the following dose reduction techniques: automated exposure control, adjustment of the mA and/or kV according to patient size, and/or use of iterative reconstruction technique. CONTRAST: IV 100mL [id number] COMPARISON: No relevant prior studies available. FINDINGS: LOWER THORAX: Unremarkable. Lung bases are clear. No cardiomegaly. No significant pericardial effusion. ABDOMEN: LIVER: Unremarkable. Homogeneous. No focal mass. GALLBLADDER AND BILE DUCTS: Unremarkable. No calcified gallstones. No gallbladder distention or wall edema. No intra- or extrahepatic biliary ductal dilation. PANCREAS: Unremarkable. No focal cystic or solid mass. SPLEEN: Unremarkable. Normal size without focal cystic or solid mass. ADRENALS: Unremarkable. No nodules. KIDNEYS AND URETERS: Right kidney is not visualized and may be surgically or congenitally absent. There is a simple cyst on the left kidney. No follow-up imaging is necessary. Normal renal size and position. STOMACH AND BOWEL: Unremarkable. No stomach or bowel distention. No focal inflammatory change. PELVIS: APPENDIX: No evidence of acute appendicitis. BLADDER: There is minimal thickening of the wall the urinary bladder which may be due to incomplete distention or cystitis. REPRODUCTIVE: Unremarkable as visualized. No mass. ABDOMEN and PELVIS: INTRAPERITONEAL SPACE: Unremarkable. No ascites or other fluid collection. No free air. BONES/JOINTS: Unremarkable. No suspicious lytic or blastic abnormality. SOFT TISSUES: Unremarkable. No discrete abdominal or pelvic wall hernia. VASCULATURE: Unremarkable. Abdominal aorta is non-dilated. LYMPH NODES: Unremarkable. No enlarged lymph nodes. CT/Abdomen/Pelvis W IV Cont ONLY IMPRESSION: 1. Nonvisualization of the right kidney which may be surgically or congenitally absent. 2. Mild thickening of the wall the urinary bladder which may be due to incomplete distention or cystitis. No other acute abnormalities are identified. Electronically Signed: Maico Mccarthy MD at 0:27 EST ,
--- NOTE | 2024-04-25 22:59 | RAD_ITS ---
EXAM: XR CHEST, 1 VIEW CLINICAL INDICATION: weakness TECHNIQUE: Frontal view of the chest. COMPARISON: 10/23/2023 FINDINGS: LUNGS AND PLEURAL SPACES: Unremarkable. No consolidation or edema. No pneumothorax. No effusion. HEART: Unremarkable. Cardiac silhouette not enlarged. MEDIASTINUM: Central airways and mediastinal contour are unremarkable. BONES/JOINTS: Unremarkable. No acute fracture. SOFT TISSUES: Unremarkable. TUBES, LINES AND DEVICES: Left-sided pacemaker is in good position. RAD/Chest 1 View (Portable) IMPRESSION: No acute findings in the chest. Electronically Signed: Maico Mccarthy MD at 0:25 EST ,
[2024-04-25 23:22] LABS: Absolute Lymphocyte Count 1.33 X10^3/uL (0.83-4.51); Absolute Neutrophil Count 16.6 X10^3/uL (2.0-7.7); Basophil# 0.05 X10^3/uL; Basophil% 0.2 % (0-1); Eosinophil# 0.03 X10^3/uL; Eosinophils% 0.1 % (0-5); Hematocrit 41.1 % (40-54); Hemoglobin 13.7 g/dL (13.0-16.5); Lymphocyte # 1.33 X10^3/ul (0.83-4.51); Lymphocyte % 6.4 % (19-41); Mean Corp Hgb Conc 33.3 g/dL (32-36); Mean Corpuscular Hgb 30.7 pg (27.0-32.0); Mean Corpuscular Volume 92.2 fL (80-94); Mean Platelet Vol. 8.9 fl (6.2-12.0); Monocyte# 2.63 X10^3/uL; Monocyte% 12.7 % (0-10); NRBC Flagged by Analyzer 0 % (0-5); Neutrophil # 16.59 X10^3/uL (2.7-7.7); Neutrophil % 80.2 % (47-70); POSITIVE DIFFERENTIAL YES; Platelet Count 237 K/mm3 (150-450); RBC Distribution Width CV 13.6 % (11.6-14.6); RBC Distribution Width SD 46.5 fl (35.1-43.9); Red Blood Count 4.46 M/mm3 (4.6-6.2); White Blood Count 20.7 K/mm3 (4.4-11.0)
[2024-04-25 23:25] VITALS: BP 122/52; PULSE 60; RESP 18; O2SAT 97
[2024-04-25 23:37] LABS: Differential Indicated SCAN CRITERIA MET
[2024-04-25 23:39] LABS: AST(SGOT) 22 U/L (15-37); Alanine Aminotransfer ALT/SGPT 23 U/L (16-61); Albumin, Serum 3.2 g/dL (3.2-5.0); Alkaline Phosphatase 57 U/L (45-117); Anion Gap 8 (5-15); BUN 15 mg/dL (7-18); BUN/Creat Ratio 14.7 RATIO (10-20); Bilirubin, Direct 0.38 mg/dL (0.00-0.30); Chloride 105 mmol/L (98-107); Creatinine, Serum 1.02 mg/dL (0.70-1.30); EST Glomerular Filtration Rate 75 mL/min (>60); Est Glom Filt Rate - Afr Amer 90 mL/min (>60); Globulin 3.7 g/dL (2.2-4.2); Glucose 163 mg/dL (74-106); Lipase 22 U/L (13-75); Potassium 4.2 mmol/L (3.5-5.1); Protein, Total 6.9 g/dL (6.4-8.2); Sodium Level 136 mmol/L (136-145)
[2024-04-25 23:43] VITALS: BMI 29.3
[2024-04-25 23:52] LABS: Mucous, Urine 0 SEEN /hpf (<or=2+); Red Blood Cells-Urine 0 SEEN /hpf (0-5); Squamous Epithelial Cells - UA 0 SEEN /hpf (0-5)
[2024-04-25 23:54] LABS: Color, Urine Yellow (Yellow); Glucose, Dipstick Normal (Normal); Ketone-Dipstick Negative (Negative); Leukocyte Esterase-Dipstick 500 /ul (Negative); Nitrite-Dipstick Positive (Negative); Occult Blood-Urine 50 /ul (Negative); Protein-Dipstick 30 mg/dl (Negative); Urine Bilirubin Dipstick Negative (Negative); Urine Clarity Cloudy (Clear); Urine Urobilinogen Normal (Normal)
[2024-04-26] LABS: Bacteria 2+ /hpf (None Seen); White Blood Cells 25-50 SEEN /hpf (0-5)
[2024-04-26 00:30] LABS: Differential Comment SCANNED
[2024-04-26] MEDS: Ceftriaxone 1 GM/50 ML BAG IV (00:49)
[2024-04-26 01:00] VITALS: BP 135/59; PULSE 60; RESP 15; O2SAT 97
--- NOTE | 2024-04-26 01:39 | EDS_ITS ---
HPI History of Present Illness Chief Complaint: Weakness Informant: patient, spouse/S.O. and family Narrative Narrative: Patient is a 78-year-old male with past medical history of hyperlipidemia CAD and sick sinus syndrome status post pacemaker placement. He recently had Mohs surgery secondary to squamous cell carcinoma. He was on prednisone for this at 20 mg a day for 6 days and then 10 mg a day for 3 days. He also states he had a urinary tract infection and had a short round of Cipro. He denies fevers or chills but states today he had increased weakness to the point where he was having difficulty walking and he also noticed some lower abdominal/pelvic pain. Therefore with concern for potential infection he was brought in for evaluation [facility] Medical History Prostate nodule Skin cancer Adverse drug reaction Hemorrhagic proctitis Bright red blood per rectum Lower GI bleed Acidosis, lactic Acute urinary retention Acute calculous cholecystitis Presence of permanent cardiac pacemaker (~2005) Pure hypercholesterolemia GERD (gastroesophageal reflux disease) Asthma Presence of stent in coronary artery (~01/2007) Carotid arterial disease Sick sinus syndrome Atherosclerotic heart disease of [place] coronary artery without angina pectoris Home Medications ?Medication ?Instructions ?Recorded ?Last Taken ?Type aspirin 81 mg tablet,delayed 81 mg PO QDAY [facility] 05/13/17 09/18/23 History release (Adult Low Dose Aspirin) levothyroxine 25 mcg tablet 25 mcg PO DAILY thyroid 02/15/18 02/05/20 07:00 History nitroglycerin 0.4 mg sublingual 0.4 mg sublingual Q5M PRN Chest 01/14/22 Unknown Rx tablet Pain #25 tabs tamsulosin 0.4 mg capsule 0.8 mg (2 x 0.4 mg) PO DAILY@1730 09/23/23 Unknown Rx #60 caps folic acid 1 mg tablet 1 mg PO DAILY #56 tabs 09/29/23 Unknown Rx albuterol sulfate 90 mcg/actuation 1 - 2 puff inhalation Q8H wheezing 10/21/23 Unknown History aerosol inhaler metoprolol tartrate 50 mg tablet 25 mg PO BID for blood pressure 10/21/23 Unknown History ondansetron HCl 4 mg tablet 4 mg PO Q8H PRN PRN nausea and 10/21/23 Unknown History vomiting acetaminophen 325 mg tablet 650 mg (2 x 325 mg) PO Q4H PRN PRN 10/27/23 Unknown Rx Fever, pain 1-1010 #0 tabs aluminum-mag hydroxide-simethicone 30 ml PO Q6H PRN PRN Gastric 10/27/23 Unknown Rx 400 mg-400 mg-40 mg/5 mL oral susp Burning #0 mL (Mag-Al Plus Extra Strength) arginine 7 gram-glutam 7 1 packet PO BIDCM #0 ea 10/27/23 Unknown Rx gram-CaHMB 1.5 [id number] oral pwd pkt (Georges (with collagen)) benzonatate 100 mg capsule 100 mg PO 4X/DAY PRN PRN 10/27/23 Unknown Rx COUGH/CONGESTION #0 caps budesonide 0.5 mg/2 mL suspension 0.5 mg (2 mL) inhalation BID.RT #0 10/27/23 Unknown Rx for nebulization mL melatonin 3 mg tablet 3 mg PO QHS PRN PRN Insomnia #0 10/27/23 Unknown Rx tabs nystatin 100,000 unit/gram topical 1 applic topical BID #0 grams 10/27/23 Unknown Rx powder (Nyamyc) ondansetron 4 mg disintegrating 4 mg PO Q6H PRN nausea and 10/27/23 Unknown Rx tablet vomiting #30 tabs pantoprazole 40 mg tablet,delayed 40 mg PO BID #0 tabs 10/27/23 Unknown Rx release sennosides 8.6 mg-docusate sodium 2 tab PO BID PRN PRN Constipation 10/27/23 Unknown Rx 50 mg tablet (Stool #0 tabs Softener-Stimulant Laxative) white petrolatum 41 % topical 1 applic topical DAILY #0 grams 10/27/23 Unknown Rx ointment (Aquaphor Healing) Allergy/AdvReac Type Severity Reaction Status Date / Time codeine Allergy Unknown Verified 04/25/24 21:28 diphenhydramine HCl (From Allergy headache, Verified 04/25/24 21:28 Benadryl) eye irritation Penicillins Allergy Rash Verified 04/25/24 21:28 Sulfa (Sulfonamide Allergy Rash Verified 04/25/24 21:28 Antibiotics) ezetimibe (From Zetia) AdvReac Unknown Unknown Verified 04/25/24 21:28 Family History Father , age 96 CAD (coronary artery disease) Heart disease Hypertension Myocardial infarction Sister Arrhythmia Heart disease Mother No problems noted. Surgical History (Updated 04/26/24 @ 01:[address] Lawrence Dowell DO) History of laparoscopic cholecystectomy (~02/06/20) Presence of coronary angioplasty implant and graft (~01/2007) History of coronary artery bypass surgery (~2005) S/P carotid endarterectomy Hx of CABG Social History household members: spouse Smoking Status: Never smoker alcohol intake: never substance use type: does not use caffeine: No what type of physical activity do you participate in: walking and bicycling frequency: 5-6 times per week duration: 15-30 minutes/day seatbelt use: always do you feel safe at home: Yes ROS ROS ED Constitutional Constitutional ED: Denies chills or fever(s) Eyes Eyes: Denies change in vision ENT ENT ED: Denies sore throat Cardiovascular Cardiovascular: Denies chest pain Respiratory/Chest Respiratory/Chest: Denies cough or dyspnea Gastrointestinal Gastrointestinal: Reports abdominal pain; Denies diarrhea, nausea or vomiting Genitourinary Genitourinary ED: Denies dysuria Musculoskeletal Musculoskeletal: Denies back pain Integumentary Reports other Details: Positive chronic scalp lesions ; Denies rash Neurologic Neurologic: Reports weakness; Denies headache(s) Hematologic/Lymphatic Hematologic/Lymphatic: Denies easy bleeding or easy bruising EXAM Physical Exam Const Vital Signs: 04/25/24 21:26 04/25/24 23:25 04/25/24 23:43 Temperature 98.4 F Temperature Source Oral Pulse Rate 60 60 Respiratory Rate 16 18 Respiratory Effort Normal Non-Labored Respiratory Pattern Normal Blood Pressure 117/67 122/52 H Blood Pressure Mean 83 75 Pulse Ox 96 97 Oxygen Delivery Method Room Air Room Air 04/26/24 01:00 Temperature Temperature Source Pulse Rate 60 Respiratory Rate 15 Respiratory Effort Respiratory Pattern Blood Pressure 135/59 H Blood Pressure Mean 81 Pulse Ox 97 Oxygen Delivery Method Positive well nourished and well developed General Appearance ED: well developed HEENT HEENT Narrative: Patient has multiple scalp lesions consistent with history of squamous cell carcinoma and recent Mohs procedure. The wounds are clean dry and intact without secondary findings to suggest infection Eyes PERRL and EOMs intact bilaterally General Eye ED: Negative for scleral icterus Neck supple Neck Narrative: No nuchal rigidity or meningeal signs Resp normal respiratory effort and clear to auscultation bilaterally Cardio regular rate and regular rhythm GI non-distended and no masses GI Narrative: There is pain with palpation in the left lower quadrant without voluntary guarding or rigidity or pulsatile mass Auscultation: normoactive bowel sounds Palpation: soft Narrative: No soft tissue changes to suggest Juju's gangrene No testicular swelling or masses noted No obvious hernia palpated Back/Spine no CVA tenderness Extremity Extremity Narrative: +1-2 pitting edema to the bilateral lower extremities as equal and symmetric and chronic per patient Neuro oriented x3, CN's II-XII intact bilaterally and no sensory deficits noted Sensorium / Orientation: alert Psych mental status grossly normal Skin Skin Narrative: Soft tissue changes of the scalp as documented above MDM MDM MDM Narrative Medical decision making narrative: Patient arrived to the ER with stable vitals. He reported generalized weakness and pain in the left lower quadrant. He does not have any focal deficits going against acute CVA. But pain in the left lower quadrant of the abdomen this could be referred pain from UTI versus kidney stone versus diverticulitis or colitis. Therefore basic workup was obtained. Patient's white count is elevated at 20.7 but he recently finished steroids and therefore this is most likely elevated from the steroid response. He does not have signs of acute kidney injury or severe electro abnormality. His urine sample appears infected. Therefore was sent for culture and he was started on Rocephin. We discussed potential admission based on his recent treatment with Cipro but still having recurrent infection. As the patient is hemodynamically stable and was able to ambulate in the ER he does not want to stay and will try outpatient therapy. He was recently given a prescription for doxycycline which he is scheduled to start tomorrow. As this should cover both any potential scalp infection as well as UTI I feel is appropriate to stay on this medication while the culture is pending. This plan of care was discussed with the patient and family and they are agreeable to it and as he does not have abnormality of his vital signs he reports improvement of his symptoms while in the ER and he is able to ambulate he is otherwise safe for discharge History & Record Review Discussion w/independent historian: Patient, Family and Significant other Lab Data Attestation: I reviewed the patient's lab results. Labs: Laboratory Results - last 24 hr 04/25/24 04/25/24 23:15 23:43 WBC 20.7 H RBC 4.46 L Hgb 13.7 Hct 41.1 MCV 92.2 MCH 30.7 MCHC 33.3 RDW Std Deviation 46.5 H RDW Coeff of Abner 13.6 Plt Count 237 MPV 8.9 Immature Gran % (Auto) 0.400 Neut % (Auto) 80.2 H Lymph % (Auto) 6.4 L Reynolds % (Auto) 12.7 H Eos % (Auto) 0.1 Baso % (Auto) 0.2 Absolute Neuts (auto) 16.6 H Absolute Lymphs (auto) 1.33 Nucleated RBC % 0 Differential Comment SCANNED Diff Path Review August foll Sodium 136 Potassium 4.2 Chloride 105 Carbon Dioxide 23.0 Anion Gap 8 BUN 15 Creatinine 1.02 Est GFR (MDRD) Af Amer 90 Est GFR (MDRD) Non-Af 75 BUN/Creatinine Ratio 14.7 Glucose 163 H Calcium 9.0 Total Bilirubin 1.50 H Direct Bilirubin 0.38 H AST 22 ALT 23 Alkaline Phosphatase 57 Total Protein 6.9 Albumin 3.2 Globulin 3.7 Lipase 22 Urine Color Yellow Urine Clarity Cloudy Urine pH 6.0 Ur Specific [place] 1.010 Urine Protein 30 H Urine Glucose (UA) Normal Urine Ketones Negative Urine Occult Blood 50 H Urine Nitrite Positive H Urine Bilirubin Negative Urine Urobilinogen Normal Ur Leukocyte Esterase 500 H Urine RBC 0 SEEN Urine WBC 25-50 SEEN Ur Squamous Epith Cells 0 SEEN Urine Bacteria 2+ Urine Mucus 0 SEEN Radiography Diagnostic Testing: Clinical Impression(s) from Imaging Studies Abdomen/Pelvis CT 04/25/24 22:59 IMPRESSION: 1. Nonvisualization of the right kidney which may be surgically or congenitally absent. 2. Mild thickening of the wall the urinary bladder which may be due to incomplete distention or cystitis. No other acute abnormalities are identified. Electronically Signed: Maico Mccarthy MD at 0:27 EST , Chest X-Ray 04/25/24 22:59 IMPRESSION: No acute findings in the chest. Electronically Signed: Maico Mccarthy MD at 0:25 EST , Chest x-ray as interpreted by the emergency medicine physician reveals no acute infiltrate pneumothorax or pleural effusion Discharge Plan Triage Chief Complaint: Weakness ED Provider: Lawrence Dowell Dx/Rx/DC Orders Clinical Impression: Urinary tract infection, Generalized weakness, Pure hypercholesterolemia, Sick sinus syndrome, History of coronary artery bypass surgery Instructions: Urinary Tract Infections in Men Prescriptions: No Action aspirin [Adult Low Dose Aspirin] 81 mg tablet,delayed release (DR/EC) 81 mg PO QDAY levothyroxine 25 mcg tablet 25 mcg PO DAILY ondansetron HCl 4 mg tablet 4 mg PO Q8H PRN PRN (Reason: nausea and vomiting) albuterol sulfate 90 mcg/actuation HFA aerosol inhaler 1 - 2 puff INHALATION Q8H metoprolol tartrate 50 mg tablet 25 mg PO BID sennosides-docusate sodium [Stool Softener-Stimulant Laxat] 8.6-50 mg Tablet 2 tab PO BID PRN PRN (Reason: Constipation) Qty: 0 0RF pantoprazole 40 mg Tablet,Delayed Release (Dr/Ec) 40 mg PO BID Qty: 0 0RF melatonin 3 mg Tablet 3 mg PO QHS PRN PRN (Reason: Insomnia) Qty: 0 0RF benzonatate 100 mg Capsule 100 mg PO 4X/DAY PRN PRN (Reason: COUGH/CONGESTION) Qty: 0 0RF alum-mag hydroxide-simeth [Mag-Al Plus Extra Strength] 400-400-40 mg/5 mL Suspension 30 ml PO Q6H PRN PRN (Reason: Gastric Burning) Qty: 0 0RF Georges (with collagen) 7-7-1.5 gram Powder In Packet 1 packet PO BIDCM Qty: 0 0RF acetaminophen 325 mg Tablet 650 mg PO Q4H PRN PRN (Reason: Fever, pain 1-10/10) Qty: 0 0RF budesonide 0.5 mg/2 mL Suspension For Nebulization 0.5 mg inhalation BID.RT Qty: 0 0RF nystatin [Nyamyc] 100,000 unit/gram Powder 1 applic topical BID Qty: 0 0RF Protocol: *Topical Application Instructions APPLICATION INSTRUCTIONS: apply to groin area Aquaphor Healing 41 % Ointment 1 applic topical DAILY Qty: 0 0RF Protocol: *Topical Application Instructions APPLICATION INSTRUCTIONS: left scalp donor site ondansetron 4 mg tablet,disintegrating 4 mg PO Q6H PRN (Reason: nausea and vomiting) Qty: 30 0RF tamsulosin 0.4 mg Capsule 0.8 mg PO DAILY@1730 Qty: 60 0RF nitroglycerin 0.4 mg tablet, sublingual 0.4 mg SUBLINGUAL Q5M PRN (Reason: Chest Pain) Qty: 25 3RF folic acid 1 mg tablet 1 mg PO DAILY Qty: 56 0RF Primary Care Provider: Christina Sandy Referrals: Christina Sandy DO [Primary Care Provider] - Activity Restrictions/Additional Instructions: Please continue the doxycycline as directed. If your urine sample is not sensitive to the doxycycline then you will receive a phone call changing your antibiotic. If you develop a fever have increasing weakness or any further concerns please return to the ER for repeat evaluation Print Language: Romansh Disposition Disposition: Home, Self Care
[2024-04-26 01:52] VITALS: BP 134/72; PULSE 74; RESP 16; TEMP 37.2; O2SAT 96
[2024-04-26 14:00] LABS: Pathologist Review Reviewed
== END 2024-04-26 02:09 | disposition home or self-care (01) ==
PROVIDERS: Emergency Provider Emergency Medicine; PCP Internal Medicine; Visit Provider Emergency Medicine
DX: N39.0 Urinary tract infection, site not specified (principal); I49.5 Sick sinus syndrome; R53.1 Weakness; E78.00 Pure hypercholesterolemia, unspecified; I25.10 Atherosclerotic heart disease of native coronary artery without angina pectoris; Z95.1 Presence of aortocoronary bypass graft; Z95.5 Presence of coronary angioplasty implant and graft
CPT/HCPCS: 71045; 74177; 80048; 80076; 81001; 83690; 85025; 87077; 87086; 87088; 87186; 87631; 96365; 99282; Q9967

== ENCOUNTER 2024-04-27 09:19 | Emergency (ER) | payer MEDICARE, SELFPAY ==
[2024-04-27 09:21] VITALS: BP 122/50; PULSE 60; RESP 18; TEMP 36.8; O2SAT 98
--- NOTE | 2024-04-27 10:13 | EX.ED.DYSGE1 ---
HPI History of Present Illness Chief Complaint: Fever Informant: patient, spouse/S.O. and family Onset/Context/Timing Onset: Days (5) Context: Gradual Onset Timing: Continuous Quality: Weakness Location: Generalized Worsened by: Nothing Relieved by: Tylenol Narrative Narrative: Patient presents with generalized weakness that has been getting worse over the last 5 days. Patient was seen here recently and diagnosed with a urinary tract infection. Patient also states he has a history of MRSA infection to his scalp. Patient is currently on doxycycline for that. Patient states he had a fever of 103 at home yesterday. Patient states that today he started having increasing weakness. Patient had difficulty getting out of bed and ambulating today. Patient denies any chest pain or shortness of breath. Patient did have a cough last evening. [facility] Medical History Prostate nodule Skin cancer Adverse drug reaction Hemorrhagic proctitis Bright red blood per rectum Lower GI bleed Acidosis, lactic Acute urinary retention Acute calculous cholecystitis Presence of permanent cardiac pacemaker (~2005) Pure hypercholesterolemia GERD (gastroesophageal reflux disease) Asthma Presence of stent in coronary artery (~01/2007) Carotid arterial disease Sick sinus syndrome Atherosclerotic heart disease of [place] coronary artery without angina pectoris Home Medications ?Medication ?Instructions ?Recorded ?Last Taken ?Type aspirin 81 mg tablet,delayed 81 mg PO QDAY [facility] 05/13/17 09/18/23 History release (Adult Low Dose Aspirin) levothyroxine 25 mcg tablet 25 mcg PO DAILY thyroid 02/15/18 02/05/20 07:00 History nitroglycerin 0.4 mg sublingual 0.4 mg sublingual Q5M PRN Chest 01/14/22 Unknown Rx tablet Pain #25 tabs tamsulosin 0.4 mg capsule 0.8 mg (2 x 0.4 mg) PO DAILY@1730 09/23/23 Unknown Rx #60 caps albuterol sulfate 90 mcg/actuation 1 - 2 puff inhalation Q8H wheezing 10/21/23 Unknown History aerosol inhaler metoprolol tartrate 50 mg tablet 25 mg PO BID for blood pressure 10/21/23 Unknown History acetaminophen 325 mg tablet 650 mg (2 x 325 mg) PO Q4H PRN PRN 10/27/23 Unknown Rx Fever, pain 1-02/03 #0 tabs aluminum-mag hydroxide-simethicone 30 ml PO Q6H PRN PRN Gastric 10/27/23 Unknown Rx 400 mg-400 mg-40 mg/5 mL oral susp Burning #0 mL (Mag-Al Plus Extra Strength) arginine 7 gram-glutam 7 1 packet PO BIDCM #0 ea 10/27/23 Unknown Rx gram-CaHMB 1.5 [id number]-min oral pwd pkt (Georges (with collagen)) budesonide 0.5 mg/2 mL suspension 0.5 mg (2 mL) inhalation BID.RT #0 10/27/23 Unknown Rx for nebulization mL white petrolatum 41 % topical 1 applic topical DAILY #0 grams 10/27/23 Unknown Rx ointment (Aquaphor Healing) clobetasol 0.05 % topical cream 1 applic topical DAILY 04/27/24 Unknown History doxycycline monohydrate 100 mg 100 mg PO BID 04/27/24 Unknown History tablet nitrofurantoin 100 mg PO Q12 #14 CAPSULES 04/27/24 Unknown Rx monohydrate/macrocrystals 100 mg capsule Allergy/AdvReac Type Severity Reaction Status Date / Time codeine Allergy Unknown Verified 04/27/24 09:20 diphenhydramine HCl (From Allergy headache, Verified 04/27/24 09:20 Benadryl) eye irritation Penicillins Allergy Rash Verified 04/27/24 09:20 Sulfa (Sulfonamide Allergy Rash Verified 04/27/24 09:20 Antibiotics) ezetimibe (From Zetia) AdvReac Unknown Unknown Verified 04/27/24 09:20 Family History Father , age 96 CAD (coronary artery disease) Heart disease Hypertension Myocardial infarction Sister Arrhythmia Heart disease Mother No problems noted. Surgical History History of laparoscopic cholecystectomy (~02/06/20) Presence of coronary angioplasty implant and graft (~01/2007) History of coronary artery bypass surgery (~2005) S/P carotid endarterectomy Hx of CABG Social History household members: spouse Smoking Status: Never smoker alcohol intake: never substance use type: does not use caffeine: No what type of physical activity do you participate in: walking and bicycling frequency: 5-6 times per week duration: 15-30 minutes/day seatbelt use: always do you feel safe at home: Yes ROS ROS ED Constitutional Constitutional ED: Reports fever(s); Denies chills Eyes Eyes: Reports blurry vision; Denies diplopia ENT ENT ED: Denies rhinorrhea or sore throat Cardiovascular Cardiovascular: Denies chest pain or palpitations Respiratory/Chest Respiratory/Chest: Reports cough; Denies dyspnea Gastrointestinal Gastrointestinal: Denies nausea or vomiting Genitourinary Genitourinary ED: Denies dysuria or hematuria Musculoskeletal Musculoskeletal: Denies back pain or neck pain Integumentary Reports rash; Denies abscess Neurologic Neurologic: Reports headache(s) and weakness Allergic/Immunologic Allergic/Immunologic ED: Denies mouth swelling or urticaria EXAM Physical Exam Const Vital Signs: 04/27/24 09:21 04/27/24 11:05 04/27/24 11:08 Temperature 98.2 F 97.9 F Temperature Source Oral Oral Pulse Rate 60 60 Pulse Rate [Lying] Pulse Rate [Sitting (for 1 minute prior to obtaining)] Pulse Rate [Standing (for 1 minute prior to obtaining)] Respiratory Rate 18 16 Respiratory Effort Normal Non-Labored Respiratory Pattern Normal Blood Pressure 122/50 H 117/61 Blood Pressure [Lying] Blood Pressure [Sitting (for 1 minute prior to obtaining)] Blood Pressure [Standing (for 1 minute prior to obtaining)] Blood Pressure Mean 74 79 Blood Pressure Mean [Lying] Blood Pressure Mean [Sitting (for 1 minute prior to obtaining)] Blood Pressure Mean [Standing (for 1 minute prior to obtaining)] Pulse Ox 98 98 Oxygen Delivery Method Room Air Room Air 04/27/24 11:23 04/27/24 12:14 04/27/24 12:42 Temperature 97.9 F 97.5 F L Temperature Source Oral Oral Pulse Rate 62 64 60 Pulse Rate [Lying] Pulse Rate [Sitting (for 1 minute prior to obtaining)] Pulse Rate [Standing (for 1 minute prior to obtaining)] Respiratory Rate 16 18 18 Respiratory Effort Respiratory Pattern Blood Pressure 124/55 H 133/58 H 123/54 H Blood Pressure [Lying] Blood Pressure [Sitting (for 1 minute prior to obtaining)] Blood Pressure [Standing (for 1 minute prior to obtaining)] Blood Pressure Mean 78 83 77 Blood Pressure Mean [Lying] Blood Pressure Mean [Sitting (for 1 minute prior to obtaining)] Blood Pressure Mean [Standing (for 1 minute prior to obtaining)] Pulse Ox 97 98 98 Oxygen Delivery Method Room Air Room Air Room Air 04/27/24 12:42 04/27/24 12:59 Temperature 97.5 F L Temperature Source Pulse Rate 63 Pulse Rate [Lying] 62 Pulse Rate [Sitting (for 1 minute prior to obtaining)] 60 Pulse Rate [Standing (for 1 minute prior to obtaining)] 64 Respiratory Rate 18 Respiratory Effort Respiratory Pattern Blood Pressure 131/64 H Blood Pressure [Lying] 107/83 H Blood Pressure [Sitting (for 1 minute prior to obtaining)] 112/62 Blood Pressure [Standing (for 1 minute prior to obtaining)] 123/62 H Blood Pressure Mean 86 Blood Pressure Mean [Lying] 91 Blood Pressure Mean [Sitting (for 1 minute prior to obtaining)] 78 Blood Pressure Mean [Standing (for 1 minute prior to obtaining)] 82 Pulse Ox 98 Oxygen Delivery Method Positive well nourished and well developed General Appearance ED: well developed and NAD HEENT Reports moist mucous membranes Neck supple and no JVD Resp normal respiratory effort and clear to auscultation bilaterally Cardio regular rate and regular rhythm GI non-tender and non-distended Palpation: soft Extremity normal to inspection Neuro oriented x3, CN's II-XII intact bilaterally and no sensory deficits noted Sensorium / Orientation: alert Motor Exam: strength 5/5 throughout Psych mental status grossly normal MDM MDM MDM Narrative Medical decision making narrative: Differential diagnosis includes sepsis, urinary tract infection, pneumonia, dehydration, electrolyte abnormality, cardiac dysrhythmia, cardiac ischemia, and debility. CBC will be obtained to assess for leukocytosis and anemia. Comprehensive metabolic profile will be obtained to assess for hepatic function, renal function, and electrolyte abnormality. PT with INR and PTT will be obtained to assess for coagulopathy. High-sensitivity troponin will be obtained to assess for cardiac ischemia. Serum lactate will be obtained to assess for sepsis. Urinalysis will be obtained to assess for urinary tract infection and hematuria. Blood cultures will be obtained to assess for sepsis. Chest x-ray will be obtained to assess for pneumonia and congestive heart failure. CT scan of the brain will be obtained to assess for stroke and intracranial bleeding. EKG will be obtained to assess for cardiac dysrhythmia and cardiac ischemia. Lab Data Attestation: I reviewed the patient's lab results. Lab results narrative: CBC was reviewed and was essentially within normal limits. Metabolic profile was reviewed and was essentially within normal limits. Lactate was reviewed and was 2.0. PT with INR and PTT were reviewed. Pro time was 17.4 and INR is 1.4. Urinalysis was reviewed. Leukocyte esterase was 500 with greater than 100 white blood cells. Labs: Laboratory Results - last 24 hr 04/27/24 04/27/24 04/27/24 10:23 10:25 11:00 WBC 10.4 RBC 4.24 L Hgb 12.8 L Hct 39.2 L MCV 92.5 MCH 30.2 MCHC 32.7 RDW Std Deviation 46.6 H RDW Coeff of Abner 13.7 Plt Count 198 MPV 9.6 Immature Gran % (Auto) 0.500 Neut % (Auto) 83.2 H Lymph % (Auto) 6.6 L [place] % (Auto) 9.0 Eos % (Auto) 0.3 Baso % (Auto) 0.4 Absolute Neuts (auto) 8.6 H Absolute Lymphs (auto) 0.68 L Nucleated RBC % 0 PT 17.4 H INR 1.4 APTT 35.9 Sodium 136 Potassium 4.0 Chloride 104 Carbon Dioxide 27.0 Anion Gap 5 BUN 16 Creatinine 1.15 Estim Creat Clear Calc 57.43 Est GFR (MDRD) Af Amer 79 Est GFR (MDRD) Non-Af 65 BUN/Creatinine Ratio 13.9 Glucose 130 H Lactic Acid 2.0 Calcium 9.1 Total Bilirubin 0.80 AST 30 ALT 36 Alkaline Phosphatase 54 Troponin I High Sens 65 Total Protein 7.0 Albumin 2.9 L Globulin 4.1 Albumin/Globulin Ratio 0.7 L Urine Color Yellow Urine Clarity Cloudy Urine pH 6.5 Ur Specific Cheney 1.010 Urine Protein 30 H Urine Glucose (UA) Normal Urine Ketones Negative Urine Occult Blood 250 H Urine Nitrite Negative Urine Bilirubin Negative Urine Urobilinogen Normal Ur Leukocyte Esterase 500 H Urine RBC 0 SEEN Urine WBC >100 SEEN Ur Squamous Epith Cells 0 SEEN Urine Bacteria 0 SEEN Urine Mucus 0 SEEN Radiography Chest X-Ray - ED: 1 View, Read by ED Physician, Read by Radiologist and No Acute Disease Diagnostic Testing: Clinical Impression(s) from Imaging Studies Brain CT 04/27/24 10:37 IMPRESSION: 1. No acute intracranial abnormality. 2. Senescent changes. Electronically Signed: Truman Suero MD at 13:03 EST , Chest X-Ray 04/27/24 10:37 IMPRESSION: No acute cardiopulmonary abnormality. No interval change. Electronically Signed: Truman Suero MD at 12:53 EST Reading Location ID and State: [id number] / [place] Tel , Service support , CT scan of the brain was obtained. There is no acute intracranial abnormality. This was interpreted by the radiologist and was also independently reviewed by myself. Portable 1 view chest x-ray was obtained. On my independent interpretation, lung ball are clear. There is normal cardiac silhouette. Bony thorax is normal. There is no acute process noted. Radiologist also interpreted the x-ray and agrees. EKG Initial EKG: Attestation: I personally reviewed and interpreted this EKG as follows: Interpretation: Paced (Atrial paced rhythm with first-degree AV block with a rate of 60) and Non-Specific ST Changes Comments: EKG was obtained. On my independent interpretation, shows atrial paced rhythm with a rate of 60. There is a first-degree AV block with a MI interval of 228 ms. QRS interval was borderline at 120 ms. QTc interval was normal at 470 ms. There is left axis deviation at -40. There is right bundle branch block pattern noted. There is criteria for LVH. There are nonspecific ST-T wave changes noted. Prior EKG tracings: available for review Prior: Unchanged (10/21/2023) Treatment and Re-Evaluation :: Patient was given IV fluids. Prior urine culture was reviewed which showed gram-negative rods that are lactose fermenting. Final culture and sensitivity are still pending. Patient was given a dose of Levaquin here. Patient developed some redness to his left arm after that. Patient did not have any urticaria, difficulty breathing, or difficulty swallowing. Patient and family were advised of his findings. Patient was able to ambulate here in the emergency department using his walker. Family states the patient has been on Cipro for UTIs in the past which has not been very effective. Patient was given a prescription for Macrobid. Patient was instructed to continue the doxycycline as prescribed. Patient was instructed to follow-up with his primary care physician in 3 to 5 days. Patient instructed to return if worse in any way. Patient understood and was agreeable with the plan and all questions were answered. Discharge Plan Triage Chief Complaint: Fever ED Provider: Deny Tavera Dx/Rx/DC Orders Clinical Impression: Urinary tract infection, MRSA infection Instructions: ED Bladder Infection, Male (Adult) Prescriptions: New nitrofurantoin monohyd/m-cryst 100 mg capsule 100 mg PO Q12 Qty: 14 0RF No Action aspirin [Adult Low Dose Aspirin] 81 mg tablet,delayed release (DR/EC) 81 mg PO QDAY levothyroxine 25 mcg tablet 25 mcg PO DAILY albuterol sulfate 90 mcg/actuation HFA aerosol inhaler 1 - 2 puff INHALATION Q8H metoprolol tartrate 50 mg tablet 25 mg PO BID alum-mag hydroxide-simeth [Mag-Al Plus Extra Strength] 400-400-40 mg/5 mL Suspension 30 ml PO Q6H PRN PRN (Reason: Gastric Burning) Qty: 0 0RF Georges (with collagen) 7-7-1.5 gram Powder In Packet 1 packet PO BIDCM Qty: 0 0RF acetaminophen 325 mg Tablet 650 mg PO Q4H PRN PRN (Reason: Fever, pain 1-10/10) Qty: 0 0RF budesonide 0.5 mg/2 mL Suspension For Nebulization 0.5 mg inhalation BID.RT Qty: 0 0RF Aquaphor Healing 41 % Ointment 1 applic topical DAILY Qty: 0 0RF Protocol: *Topical Application Instructions APPLICATION INSTRUCTIONS: left scalp donor site clobetasol 0.05 % cream 1 applic topical DAILY doxycycline monohydrate 100 mg tablet 100 mg PO BID tamsulosin 0.4 mg Capsule 0.8 mg PO DAILY@1730 Qty: 60 0RF nitroglycerin 0.4 mg tablet, sublingual 0.4 mg SUBLINGUAL Q5M PRN (Reason: Chest Pain) Qty: 25 3RF Primary Care Provider: Christina Sandy Referrals: Christina Sandy DO [Primary Care Provider] - 3-5 Days Print Language: Albanian Disposition Disposition: Home, Self Care
--- NOTE | 2024-04-27 10:37 | RAD_ITS ---
EXAM: XR CHEST, 1 VIEW CLINICAL INDICATION: Weakness TECHNIQUE: Frontal view of the chest. COMPARISON: XR Chest dated 04/26/2024 FINDINGS: LUNGS AND PLEURAL SPACES: Normal. No consolidation or edema. No pneumothorax. No effusion. HEART: Stable normal heart size. Surgical changes of coronary artery bypass graft (CABG). MEDIASTINUM: No mediastinal or hilar mass. BONES/JOINTS: No acute abnormality. TUBES, LINES AND DEVICES: Atrial and ventricular pacemaker wires remain in place. RAD/Chest 1 View (Portable) IMPRESSION: No acute cardiopulmonary abnormality. No interval change. Electronically Signed: Truman Suero MD at 12:53 EST ,
--- NOTE | 2024-04-27 10:37 | CT_ITS ---
EXAM: CT HEAD WITHOUT INTRAVENOUS CONTRAST CLINICAL INDICATION: Weakness, fever TECHNIQUE: Multiple axial images were obtained of the head without intravenous contrast. This CT exam was performed using one or more of the following dose reduction techniques: automated exposure control, adjustment of the mA and/or kV according to patient size, and/or use of iterative reconstruction technique. COMPARISON: No relevant prior studies available. FINDINGS: BRAIN AND EXTRA-AXIAL SPACES: No hemorrhage or mass effect. No acute ischemia. Areas of diminished white matter density noted within both cerebral hemispheres suggestive of chronic microvascular change. Prominence of the cortical sulci and ventricles related to volume loss change. Posterior fossa is normal. Basilar cisterns are patent. BONES/JOINTS: Normal calvarium. SINUSES: No acute sinusitis. MASTOID AIR CELLS: Normal. Clear. CT/Brain/Head without Contrast IMPRESSION: 1. No acute intracranial abnormality. 2. Senescent changes. Electronically Signed: Truman Suero MD at 13:03 EST ,
--- NOTE | 2024-04-27 10:38 | EKG12_ITS ---
Test Reason : Blood Pressure : */* mmHG Vent. Rate : 60 BPM Atrial Rate : 60 BPM P-R Int : 228 ms QRS Dur : 120 ms QT Int : 470 ms P-R-T Axes : * -40 27 degrees QTcB Int : 470 ms Atrial-paced rhythm with prolonged AV conduction Left axis deviation RSR' or QR pattern in V1 suggests right ventricular conduction delay Minimal voltage criteria for LVH, may be normal variant ( R in aVL ) Abnormal ECG Confirmed by AAYUSH KAUFMAN, AMILCAR ([id number]), technical editor TODD FERRARI ([id number]) on 04/29/2024 6:24:52 AM Referred By: Confirmed By: AMILCAR LOONEY MD
[2024-04-27] MEDS: 0.9% Normal Saline (1000mL) 1,000 ML 1000 ML IV (10:53)
[2024-04-27 10:54] LABS: Absolute Lymphocyte Count 0.68 X10^3/uL (0.83-4.51); Absolute Neutrophil Count 8.6 X10^3/uL (2.0-7.7); Basophil# 0.04 X10^3/uL; Basophil% 0.4 % (0-1); Eosinophil# 0.03 X10^3/uL; Eosinophils% 0.3 % (0-5); Hematocrit 39.2 % (40-54); Hemoglobin 12.8 g/dL (13.0-16.5); Lymphocyte # 0.68 X10^3/ul (0.83-4.51); Lymphocyte % 6.6 % (19-41); Mean Corp Hgb Conc 32.7 g/dL (32-36); Mean Corpuscular Hgb 30.2 pg (27.0-32.0); Mean Corpuscular Volume 92.5 fL (80-94); Mean Platelet Vol. 9.6 fl (6.2-12.0); Monocyte# 0.93 X10^3/uL; NRBC Flagged by Analyzer 0 % (0-5); Neutrophil # 8.63 X10^3/uL (2.7-7.7); Neutrophil % 83.2 % (47-70); Platelet Count 198 K/mm3 (150-450); RBC Distribution Width CV 13.7 % (11.6-14.6); RBC Distribution Width SD 46.6 fl (35.1-43.9); Red Blood Count 4.24 M/mm3 (4.6-6.2); White Blood Count 10.4 K/mm3 (4.4-11.0)
[2024-04-27 11:02] LABS: International Normalized Ratio 1.4; Prothrombin Time (Protime)PT. 17.4 SECONDS (11.7-14.9)
[2024-04-27 11:03] LABS: Partial Thromboplast Time 35.9 Seconds (24.1-36.2)
[2024-04-27 11:05] VITALS: BP 117/61; PULSE 60; RESP 16; TEMP 36.6; O2SAT 98
[2024-04-27 11:05] LABS: Bacteria 0 SEEN /hpf (None Seen); Mucous, Urine 0 SEEN /hpf (<or=2+); Red Blood Cells-Urine 0 SEEN /hpf (0-5); Squamous Epithelial Cells - UA 0 SEEN /hpf (0-5)
[2024-04-27 11:07] VITALS: BMI 29.9
[2024-04-27 11:16] LABS: ALB/GLOB Ratio 0.7 RATIO (0.9-2.4); AST(SGOT) 30 U/L (15-37); Alanine Aminotransfer ALT/SGPT 36 U/L (16-61); Albumin, Serum 2.9 g/dL (3.2-5.0); Alkaline Phosphatase 54 U/L (45-117); Anion Gap 5 (5-15); BUN 16 mg/dL (7-18); BUN/Creat Ratio 13.9 RATIO (10-20); Calcium,Total 9.1 mg/dL (8.5-10.1); Chloride 104 mmol/L (98-107); Creatinine, Serum 1.15 mg/dL (0.70-1.30); EST Glomerular Filtration Rate 65 mL/min (>60); Est Glom Filt Rate - Afr Amer 79 mL/min (>60); Estimated Creatinine Clearance 57.43 ml/min; Globulin 4.1 g/dL (2.2-4.2); Glucose 130 mg/dL (74-106); Sodium Level 136 mmol/L (136-145); Troponin-I HS 65 pg/mL (3.0-78.0)
[2024-04-27 11:22] LABS: Color, Urine Yellow (Yellow); Glucose, Dipstick Normal (Normal); Ketone-Dipstick Negative (Negative); Leukocyte Esterase-Dipstick 500 /ul (Negative); Nitrite-Dipstick Negative (Negative); Occult Blood-Urine 250 /ul (Negative); Protein-Dipstick 30 mg/dl (Negative); Urine Bilirubin Dipstick Negative (Negative); Urine Clarity Cloudy (Clear); Urine Urobilinogen Normal (Normal); Urine pH 6.5 (5.0 - 8.0)
[2024-04-27 11:23] VITALS: BP 124/55; PULSE 62; RESP 16; O2SAT 97
[2024-04-27 11:27] LABS: White Blood Cells >100 SEEN /hpf (0-5)
[2024-04-27] MEDS: levoFLOXacin IV 750 MG/150 ML BAG 100 MG IV (12:13)
[2024-04-27 12:14] VITALS: BP 133/58; PULSE 64; RESP 18; TEMP 36.6; O2SAT 98
[2024-04-27 12:42] VITALS: BP 107/83; BP 112/62; BP 123/54; BP 123/62; PULSE 60; PULSE 62; PULSE 64; RESP 18; TEMP 36.4; O2SAT 98
--- NOTE | 2024-04-27 12:58 | ED.RN ---
rash to back of forearm after antibiotic infused. aware. flushed line with saline and cold compress applied.
[2024-04-27 12:59] VITALS: BP 131/64; PULSE 63; RESP 18; TEMP 36.4; O2SAT 98
[2024-04-27 14:43] LABS: Reflex Lactate? Y
--- NOTE | 2024-04-27 14:55 | ED.RN ---
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
== END 2024-04-27 14:54 | disposition home or self-care (01) ==
PROVIDERS: Emergency Provider Emergency Medicine; PCP Internal Medicine; Visit Provider Emergency Medicine
DX: N39.0 Urinary tract infection, site not specified (principal); B95.62 Methicillin resistant Staphylococcus aureus infection as the cause of diseases classified elsewhere; E78.00 Pure hypercholesterolemia, unspecified; I25.10 Atherosclerotic heart disease of native coronary artery without angina pectoris; Z79.51 Long term (current) use of inhaled steroids; Z79.82 Long term (current) use of aspirin; Z79.899 Other long term (current) drug therapy; Z95.0 Presence of cardiac pacemaker; Z95.5 Presence of coronary angioplasty implant and graft; Z95.1 Presence of aortocoronary bypass graft
CPT/HCPCS: 36415; 70450; 71045; 80053; 81001; 83605; 84484; 85025; 85610; 85730; 87040; 93005; 96365; 96366; 99285; A4216

== ENCOUNTER → 2024-08-25 | Outpatient (CLI) | payer MEDICARE, SELFPAY ==
--- NOTE | 2024-08-25 15:00 | ECHOD_ITS ---
Reason For Study Reason For Study: CAD/ASHD Procedure This was a 2D Doppler, Color Flow transthoracic echocardiogram. Exam performed in department. Left Ventricle Normal LV size. Mild concentric left ventricular hypertrophy. The left ventricular ejection fraction is 55 %. Mild segmental systolic dysfunction (see wall motion). Infero-Basal: Akinetic. Mid- Inferior: Akinetic. Right Ventricle Normal RV size. ICD or pacer leads identified within the right ventricle. Normal systolic function. Atria Normal left atrium. Normal right atrium. Mitral Valve Normal mitral valve. Mild (1+) eccentric mitral valve insufficiency. Tricuspid Valve Normal tricuspid valve. Mild (1+) tricuspid valve insufficiency. Pulmonary artery systolic pressure is 26 mmHg. Aortic Valve Trisinus/trileaflet aortic valve. Pulmonic Valve Normal pulmonic valve. Great Vessels Normal aortic root. The pulmonary artery is normal size. Inferior vena cava collapse with respiration. Pericardium/Pleural No pericardial effusion. MMode/2D Measurements & Calculations LVIDd: 5.5 cm IVSd: 1.2 cm LVOT diam: 2.0 cm LVIDs: 4.0 cm LVPWd: 1.2 cm LVOT area: 3.1 cm2 FS: 27.6 % Ao root diam: 2.8 cm LAV(MOD-bp): 65.4 ml LVAd ap4: 31.3 cm2 LAV(MOD-bp) Indexed: 31.9 ml/m2 LVLd ap4: 7.6 cm LAV(MOD-sp2): 63.0 ml EDV(MOD-sp4): 103.9 ml LAV(MOD-sp4): 57.5 ml EDV(sp4-el): 108.8 ml LVAs ap4: 18.8 cm2 LVLs ap4: 6.0 cm ESV(MOD-sp4): 52.0 ml ESV(sp4-el): 50.3 ml EF(MOD-sp4): 49.9 % EF(sp4-el): 53.8 % SV(MOD-sp4): 51.9 ml SV(sp4-el): 58.5 ml LA A4 area: 21.1 cm2 SI(MOD-sp4): 25.3 ml/m2 LA dimension(2D): 4.2 cm RA A4 area: 21.2 cm2 Time Measurements MV dec time: 0.16 sec Doppler Measurements & Calculations MV E max ross: 57.3 cm/sec Lat Peak E' Ross: 14.5 cm/sec Med Peak E' Ross: 4.4 cm/sec MV A max ross: 67.2 cm/sec E/E' lat: 3.9 E/E' med: 13.0 MV E/A: 0.85 MV V2 max: 81.3 cm/sec Ao V2 max: 119.2 cm/sec MV max P.6 mmHg MV dec slope: 462.1 cm/sec2 Ao max P.7 mmHg MV V2 mean: 57.1 cm/sec Ao V2 mean: 83.7 cm/sec MV mean P.4 mmHg Ao mean P.2 mmHg MV V2 VTI: 30.9 cm Ao V2 VTI: 31.3 cm AV (velocity ratio): 0.75 MVA(VTI): 2.3 cm2 NADYA(I,D): 2.3 cm2 NADYA(V,D): 2.3 cm2 LV V1 max: 89.7 cm/sec SV(LVOT): 72.1 ml PA V2 max: 120.8 cm/sec LV V1 max P.2 mmHg PA V2 mean: 82.0 cm/sec LV V1 mean P.1 mmHg LV V1 mean: 70.3 cm/sec LV V1 VTI: 23.4 cm TR max ross: 240.8 cm/sec TR max P.2 mmHg ECHO/Echo Complete Interpretation Summary Normal LV size. Mild concentric left ventricular hypertrophy. The left ventricular ejection fraction is 55 %. Infero-Basal: Akinetic. Mid-Inferior: Akinetic. Mild segmental systolic dysfunction (see wall motion). Contrast injection was performed. Ordering Physician: Eddie Babin Referring Physician: Eddie Babin Performed By: Jennifer Rosales RCS
== END | disposition home or self-care (01) ==
LOC: CVS 15:00
PROVIDERS: PCP Internal Medicine; Referring Provider Internal Medicine Cardiovascular Disease; Visit Provider Internal Medicine Cardiovascular Disease
DX: I25.10 Atherosclerotic heart disease of native coronary artery without angina pectoris (principal)
CPT/HCPCS: 93306

== ENCOUNTER 2024-09-16 06:00 | Outpatient (CLI) | payer MEDICARE, SELFPAY ==
--- NOTE | 2024-09-16 11:30 | STRESSREP ---
Stress Test Report Pharmacologic myocardial perfusion stress test. 79-year-old with a history of abnormal echo Resting EKG demonstrates sinus rhythm with a right bundle branch block with a rate of 61 bpm. Resting blood pressure is 152/82 mmHg. 0.4 mg of regadenoson was infused per usual protocol followed by rapid intravenous saline flush injection. Continuous EKG monitoring was performed. The maximum heart rate was 68 bpm which was 48% of max impacted heart rate the maximum workload was 1 metabolic equivalent. At rest there were no ST or T wave changes noted to suggest ischemia and at peak infusion nonspecific ST changes were noted which did not meet the criteria for ischemia. No clinical angina is noted. The final blood pressure was 138/72 mmHg. Myocardial perfusion protocol. 14.8 mCi of technetium 99m sestamibi was injected at rest. 0.4 mg of regadenoson was infused per usual protocol. At peak infusion 43.7 mCi of technetium 99m sestamibi was injected stress images were obtained stress and rest images were reconstructed and compared in the short axis vertical long and horizontal long axis. Gated images were also obtained. Perfusion SPECT analysis: Review of the stress images demonstrate normal uptake of tracer noted in all areas of the myocardium. There is a small area in the basal septal wall with reduced perfusion. The resting images similar demonstrated normal uptake of tracer noted in all areas of the myocardium. A small area in the basal septal wall is noted with reduced perfusion on the resting images as well. Previous basal inferoseptal infarct cannot be completely excluded. Gated SPECT analysis: The gated ejection fraction is 66%. Conclusion: Normal pharmacologic myocardial perfusion stress test. Preserved ejection fraction.
== END 2024-09-16 23:59 | disposition home or self-care (01) ==
LOC: CVS 06:00
PROVIDERS: PCP Internal Medicine; Referring Provider Physician Assistant Medical; Visit Provider Physician Assistant Medical
DX: R93.1 Abnormal findings on diagnostic imaging of heart and coronary circulation (principal); Z95.5 Presence of coronary angioplasty implant and graft; Z95.1 Presence of aortocoronary bypass graft
CPT/HCPCS: 78452; 93017; A9500; J2785

== ENCOUNTER 2025-04-07 09:17 | Inpatient (IN) | payer MEDICARE, SELFPAY ==
[2025-04-07] VITALS (11 sets, daily range): BP systolic 97–125; BP diastolic 45–84; PULSE 62–100; RESP 16–30; TEMP 36.6–37.6; O2SAT 90–98; BMI 28.4; BMI 29.2
--- NOTE | 2025-04-07 09:37 | EKG12_ITS ---
Test Reason : GENERAL Blood Pressure : */* mmHG Vent. Rate : 63 BPM Atrial Rate : 63 BPM P-R Int : 190 ms QRS Dur : 126 ms QT Int : 440 ms P-R-T Axes : 47 -43 87 degrees QTcB Int : 450 ms Sinus rhythm with Premature atrial complexes in a pattern of bigeminy Left axis deviation Right bundle branch block Left ventricular hypertrophy with repolarization abnormality ( R in aVL ) Abnormal ECG Confirmed by MANUEL KAUFMAN, PRICILLA ([id number]), medical editor TODD FERRARI ([id number]) on 04/10/2025 6:47:00 AM Referred By: Confirmed By: PRICILLA JACKSON MD
--- NOTE | 2025-04-07 09:38 | EX.ED.DYSGE1 ---
HPI History of Present Illness Chief Complaint: General Illness Informant: patient and spouse/S.O. Narrative Narrative: Patient is an 79-year-old male with a history of scalp skin cancer, presenting with dizziness and generalized weakness. Patient is accompanied by his , who is supplementing history. - Reports onset of dizziness a few days ago, initially associated with a mild cough. - Describes dizziness as a sensation of spinning and moving, exacerbated by movement, particularly when getting up from bed or using the restroom. Dizziness is constant and does not completely resolve with rest, but improves; has had prior episode of similar dizziness, noting this is the second occurrence. - Associated symptoms include nausea this morning and generalized weakness, particularly when attempting to stand or walk. - Denies any changes in speech or understanding, numbness, or weakness localized to one arm, leg, or side of the body. - Notes new onset of left ear ringing since the dizziness began. No ear pain or hearing disturbance/loss. - Reports dyspnea yesterday, primarily when moving or coughing; denies chest pain, palpitations, or tachycardia. - Denies any significant headaches. - No changes in vision reported. - Currently taking aspirin 81 mg and metoprolol; no other antiplately or anticoagulant use. - History of melanoma ( thinks) on the head, previously treated with radiation; not currently undergoing chemotherapy or radiation. - reports similar symptoms during previous radiation treatment, including shaking and episodes of falling. - also mentions a history of a severe UTI last year with similar presentation. [facility] Medical History Abnormal echocardiogram History of ESBL E. coli infection Prostate nodule Skin cancer Adverse drug reaction Hemorrhagic proctitis Bright red blood per rectum Lower GI bleed Acidosis, lactic Acute urinary retention Acute calculous cholecystitis Presence of permanent cardiac pacemaker (~2005) Pure hypercholesterolemia GERD (gastroesophageal reflux disease) Asthma Presence of stent in coronary artery (~01/2007) Carotid arterial disease Sick sinus syndrome Atherosclerotic heart disease of [place] coronary artery without angina pectoris Home Medications ?Medication ?Instructions ?Recorded ?Last Taken ?Type aspirin 81 mg tablet,delayed 81 mg PO QDAY [facility] 05/13/17 09/18/23 History release (Adult Low Dose Aspirin) levothyroxine 25 mcg tablet 25 mcg PO DAILY thyroid 02/15/18 02/05/20 07:00 History acetaminophen 325 mg tablet 650 mg (2 x 325 mg) PO Q4H PRN PRN 10/27/23 Unknown Rx Fever, pain 1-02/03 #0 tabs clobetasol 0.05 % topical cream 1 applic topical DAILY 04/27/24 Unknown History albuterol sulfate 90 mcg/actuation 1 - 2 puff inhalation Q8H PRN 08/02/24 Unknown History aerosol inhaler wheezing nitroglycerin 0.4 mg sublingual 0.4 mg sublingual Q5M PRN Chest 08/02/24 Unknown Rx tablet Pain #25 tabs tamsulosin 0.4 mg capsule 0.8 mg PO DAILY@1730 08/02/24 Unknown History metoprolol tartrate 25 mg tablet 25 mg PO BID for blood pressure 10/04/24 Unknown Rx #180 TABLETS Allergy/AdvReac Type Severity Reaction Status Date / Time codeine Allergy Unknown Verified 04/07/25 09:23 diphenhydramine HCl (From Allergy headache, Verified 04/07/25 09:23 Benadryl) eye irritation Penicillins Allergy Rash Verified 04/07/25 09:23 Sulfa (Sulfonamide Allergy Rash Verified 04/07/25 09:23 Antibiotics) ezetimibe (From Zetia) AdvReac Unknown Unknown Verified 04/07/25 09:23 Family History Father , age 96 CAD (coronary artery disease) Heart disease Hypertension Myocardial infarction Sister Arrhythmia Heart disease Mother No problems noted. Surgical History History of surgery of head History of laparoscopic cholecystectomy (~02/06/20) Presence of coronary angioplasty implant and graft (~01/2007) History of coronary artery bypass surgery (~2005) S/P carotid endarterectomy Hx of CABG Social History household members: spouse Smoking Status: Never smoker alcohol intake: never substance use type: does not use caffeine: No what type of physical activity do you participate in: walking and bicycling frequency: 5-6 times per week duration: 15-30 minutes/day seatbelt use: always do you feel safe at home: Yes ROS ROS ED Constitutional Constitutional ED: Reports weakness; Denies chills or fever(s) Eyes Eyes: Denies change in vision or diplopia ENT ENT ED: Reports disequillibrium, dizziness and tinnitus; Denies ear pain, rhinorrhea, sinus pressure or sore throat Cardiovascular Cardiovascular: Denies chest pain or palpitations Respiratory/Chest Respiratory/Chest: Denies cough or dyspnea Gastrointestinal Gastrointestinal: Reports nausea; Denies abdominal pain, diarrhea or vomiting Genitourinary Genitourinary ED: Denies dysuria or hematuria Musculoskeletal Musculoskeletal: Denies back pain or neck pain Integumentary Denies abscess or rash Neurologic Neurologic: Reports abnormal gait, disequilibrium and dizziness; Denies abnormal speech, behavior changes, headache(s), paresthesias, syncope or weakness Psychiatric Psychiatric: Denies anxiety or suicidal thoughts EXAM Physical Exam Const Vital Signs: 04/07/25 09:19 04/07/25 09:37 04/07/25 10:12 Temperature 99.2 F H Temperature Source Oral Pulse Rate 64 Respiratory Rate 18 Respiratory Effort Normal Non-Labored Respiratory Pattern Normal Blood Pressure 116/52 L Blood Pressure Mean 73 Pulse Ox 90 Oxygen Delivery Method Room Air Room Air 04/07/25 11:18 Temperature Temperature Source Pulse Rate 81 Respiratory Rate 25 H Respiratory Effort Respiratory Pattern Blood Pressure 117/71 Blood Pressure Mean 86 Pulse Ox 97 Oxygen Delivery Method Room Air Positive well nourished and well developed General Appearance ED: well developed and NAD HEENT Reports TM's clear and moist mucous membranes normocephalic and atraumatic Tympanic Membrane ED: Yes TM's clear Eyes PERRL and EOMs intact bilaterally Eyes Narrative: No vertical or rotatory nystagmus and no direction-changing horizontal nystagmus. Negative skew test. Abnormal jolt test with follow-up saccades present while patient symptomatic. Neck full ROM and supple Resp normal respiratory effort and clear to auscultation bilaterally Cardio regular rate, regular rhythm and no murmurs GI non-tender and non-distended Auscultation: normoactive bowel sounds Palpation: soft Back/Spine no CVA tenderness General Back: other FROM Extremity normal to inspection General Extremety ED: Negative for edema, pulses abnormal or tenderness General Extremity: Negative for edema or pulses abnormal Neuro oriented x3, CN's II-XII intact bilaterally and no sensory deficits noted Neuro Narrative: Normal [id number] [id number] bilaterally. Normal speech no dysarthria or aphasia. No lateralizing neurologic deficits. Sensorium / Orientation: awake and alert Motor Exam: general weakness Skin no rashes or lesions noted and no wounds MDM MDM MDM Narrative Medical decision making narrative: Bedside HINTS evaluation shows no direction-changing nystagmus, a negative skew test, and an abnormal jolt test, which is highly sensitive for ruling out central etiologies of vertigo or disequilibrium. Although the patient is elderly, placing him at some risk for TIA, stroke, or coma, this is very unlikely given his URI symptoms, normal blood pressure (116/52), and the fact that symptoms are triggered by sudden position changes?consistent with a peripheral etiology of vertigo. Although a head CT was considered, he has no neurologic deficits, and at this time, I do not believe it is necessary or indicated. Given his generalized weakness, we performed a septic workup to evaluate for infections other than a viral URI. The workup is consistent with a UTI, mild leukocytosis, normal renal function, slightly elevated troponin, and normal liver enzymes. His EKG shows a bifascicular block with no acute injury pattern and sinus rhythm. His vital signs are normal and well controlled. A static chest X-ray is normal, showing no pneumonia. His COVID, influenza, and RSV swabs are negative. Lactic acid is 1.3, well within normal limits, which, along with his vital signs, argues against sepsis. The and patient state that he is too weak to safely return home, and they prefer admission to the hospital. He was started on IV antibiotics, and a urine culture was sent; a blood culture is not indicated. Will also trend his troponins, he is not having any EKG or symptoms to suggest acute coronary syndrome although these test were obtained because he was complaining of generalized weakness and some dyspnea; second troponin is decreased. This plan was discussed with the hospitalist. Portions of this note were generated using voice recognition software ([employer] Dictation). I have reviewed the contents and every effort has been made to ensure accuracy; however, inadvertent errors in grammar, spelling, punctuation, or word choice may occur, that were not noted before signing the document and should not alter the intended clinical meaning. Lab Data Attestation: I reviewed the patient's lab results. Labs: Laboratory Results - last 24 hr 04/07/25 04/07/25 04/07/25 09:45 11:50 12:00 WBC 13.2 H RBC 4.42 L Hgb 13.9 Hct 41.7 MCV 94.3 H MCH 31.4 MCHC 33.3 RDW Std Deviation 44.3 H RDW Coeff of Abner 12.8 Plt Count 209 MPV 9.4 Immature Gran % (Auto) 0.500 Neut % (Auto) 88.2 H Lymph % (Auto) 4.6 L [place] % (Auto) 6.3 Eos % (Auto) 0.0 Baso % (Auto) 0.4 Absolute Neuts (auto) 11.7 H Absolute Lymphs (auto) 0.61 L Nucleated RBC % 0 Sodium 134 Potassium 4.0 Chloride 102 Carbon Dioxide 22.2 Anion Gap 11 BUN 20 H Creatinine 1.19 Estim Creat Clear Calc 52.28 Est GFR (MDRD) Non-Af 61 BUN/Creatinine Ratio 16.6 Glucose 149 H Lactic Acid 1.3 Calcium 9.0 Total Bilirubin 1.10 AST 22 ALT 18 Alkaline Phosphatase 45 Troponin T High Sens 43 H Troponin T Hi Sens 2 Hr 41 H Total Protein 7.0 Albumin 3.7 Globulin 3.3 Albumin/Globulin Ratio 1.1 Urine Color Yellow Urine Clarity Sl. Cloudy Urine pH 6.0 Ur Specific [place] 1.015 Urine Protein 30 H Urine Glucose (UA) Normal Urine Ketones 5 H Urine Occult Blood 150 H Urine Nitrite Positive H Urine Bilirubin Negative Urine Urobilinogen Normal Ur Leukocyte Esterase 500 H Urine RBC 0 SEEN Urine WBC 10-25 SEEN Ur Squamous Epith Cells 0 SEEN Urine Bacteria 3+ Urine Mucus 0 SEEN Radiography Diagnostic Testing: Clinical Impression(s) from Imaging Studies Chest X-Ray 04/07/25 09:53 IMPRESSION: No acute cardiopulmonary process. Reading Location: [facility] Rhythm Strip Rhythm Strip: Sinus Rhythm Rate: 80 Ectopy: None EKG Initial EKG: Attestation: I personally reviewed and interpreted this EKG as follows: Interpretation: Sinus Rhythm, No Acute Injury Pattern, RBBB and LAFB Prior EKG tracings: available for review Prior: Unchanged Management Discussion w/another healthcare provider: Hospitalist Discharge Plan Dx/Rx/DC Orders Clinical Impression: Acute cystitis, Debility, Vertigo, peripheral, Viral URI with cough, Acute dyspnea, Generalized weakness Disposition Disposition: Acute Care Hospital [facility]
--- NOTE | 2025-04-07 09:53 | RAD_ITS ---
PROCEDURE: CHEST 1 VIEW (PORTABLE) 04/07/2025 REASON FOR EXAM: COUGH, WEAKNESS TECHNIQUE: Frontal view of the chest. COMPARISON: 04/27/2024 FINDINGS: Hardware: Dual lead pacemaker through a right subclavian approach Heart: Mild cardiomegaly. Status post median sternotomy. Lungs: The lungs are clear. Bones: Multilevel disc disease and spondylosis. RAD/Chest 1 View (Portable) IMPRESSION: No acute cardiopulmonary process. Reading Location: [id number]
[2025-04-07 09:59] LABS: Hematocrit 41.7 % (40-54); Hemoglobin 13.9 g/dL (13.0-16.5); Immature Granulocytes Count 0.060 X10^3/uL (0.0-0.0); Mean Corp Hgb Conc 33.3 g/dL (32-36); Mean Corpuscular Volume 94.3 fL (80-94); Mean Platelet Vol. 9.4 fl (6.2-12.0); NRBC Flagged by Analyzer 0 % (0-5); Platelet Count 209 K/mm3 (150-450); RBC Distribution Width CV 12.8 % (11.6-14.6); RBC Distribution Width SD 44.3 fl (35.1-43.9); Red Blood Count 4.42 M/mm3 (4.6-6.2); White Blood Count 13.2 K/mm3 (4.4-11.0)
[2025-04-07 10:33] LABS: AST(SGOT) 22 U/L (<=37); Alanine Aminotransfer ALT/SGPT 18 U/L (<=46); Albumin, Serum 3.7 g/dL (3.4-4.8); Alkaline Phosphatase 45 U/L (40-129); Anion Gap 11 (5-15); BUN 20 mg/dL (4-19); BUN/Creat Ratio 16.6 RATIO (10-20); Calcium,Total 9.0 mg/dL (7.6-11.0); Carbon Dioxide 22.2 mmol/L (21.0-32.0); Chloride 102 mmol/L (98-108); Estimated Creatinine Clearance 52.28 ml/min (50-250); Globulin 3.3 g/dL (2.2-4.2); Glucose 149 mg/dL (70-99); Potassium 4.0 mmol/L (3.3-5.1); Troponin T High Sensitivity 43 ng/L (<=22)
[2025-04-07 12:06] LABS: Mucous, Urine 0 SEEN /hpf (<or=2+); Red Blood Cells-Urine 0 SEEN /hpf (0-5); Squamous Epithelial Cells - UA 0 SEEN /hpf (0-5)
[2025-04-07 12:10] LABS: Color, Urine Yellow (Yellow); Glucose, Dipstick Normal (Normal); Ketone-Dipstick 5 mg/dl (Negative); Leukocyte Esterase-Dipstick 500 /ul (Negative); Nitrite-Dipstick Positive (Negative); Occult Blood-Urine 150 /ul (Negative); Protein-Dipstick 30 mg/dl (Negative); Specific Gravity, Urine 1.015 (1.002-1.030); Urine Bilirubin Dipstick Negative (Negative)
[2025-04-07 12:35] LABS: Troponin T High Sens 2 HR 41 ng/L (<=22)
[2025-04-07] MEDS: Ceftriaxone 2 GM in 0.9% Normal Saline (50mL MB+) 50 ML IV (12:36)
[2025-04-07] MEDS: 0.9% Normal Saline (1000mL) 1,000 ML 100 ML IV (14:05)
[2025-04-07 14:57] LABS: Troponin T High Sens 4 HR 42 ng/L (<=22)
--- NOTE | 2025-04-07 17:50 | PCM.HP.STD ---
HPI - General General Date of Admission: 04/07/25 Date of Service: 04/07/25 Chief Complaint: Cough , and dizziness, generalized weakness HPI Narrative ISIDRO ROSE, is a 79 M who presents to the emergency room at [facility] with complaints of dizziness and generalized weakness times several days. This was initially associated with mild cough. Vital signs in the emergency room showed the patient to have a 99.2 temperature, patient's room air pulse ox was 90%, CBC showed an elevated white blood cell count of 13.2, hemoglobin was 13.9, chemistry profile showed a BUN of 20, creatinine was 1.19, glucose was 149. Patient's troponin was elevated at 43, second troponin 2 hours later was 41. Urinalysis showed 10-25 white blood cells 500 leukocyte esterases nitrite positive and +3 urine bacteria. Chest x-ray showed no acute cardiopulmonary process. Patient will be admitted to [facility] for acute cystitis and generalized weakness, he will be seen by PT and OT and receive IV antibiotics. Urine culture is pending. [facility] Medical History Abnormal echocardiogram History of ESBL E. coli infection Prostate nodule Skin cancer Adverse drug reaction Hemorrhagic proctitis Bright red blood per rectum Lower GI bleed Acidosis, lactic Acute urinary retention Acute calculous cholecystitis Presence of permanent cardiac pacemaker (~2005) Pure hypercholesterolemia GERD (gastroesophageal reflux disease) Asthma Presence of stent in coronary artery (~01/2007) Carotid arterial disease Sick sinus syndrome Atherosclerotic heart disease of [place] coronary artery without angina pectoris Home Medications ?Medication ?Instructions ?Recorded ?Last Taken ?Type aspirin 81 mg tablet,delayed 81 mg PO QDAY [facility] 05/13/17 04/07/25 History release (Adult Low Dose Aspirin) levothyroxine 25 mcg tablet 25 mcg PO DAILY thyroid 02/15/18 04/07/25 History acetaminophen 325 mg tablet 650 mg (2 x 325 mg) PO Q4H PRN PRN 10/27/23 Unknown Rx Fever, pain 1-02/03 #0 tabs albuterol sulfate 90 mcg/actuation 1 - 2 puff inhalation Q8H PRN 08/02/24 Unknown History aerosol inhaler wheezing nitroglycerin 0.4 mg sublingual 0.4 mg sublingual Q5M PRN Chest 08/02/24 Unknown Rx tablet Pain #25 tabs tamsulosin 0.4 mg capsule 0.8 mg PO DAILY@2200 PROSTATE 08/02/24 04/06/25 History metoprolol tartrate 25 mg tablet 25 mg PO BID for blood pressure 10/04/24 04/06/25 Rx #180 TABLETS Allergy/AdvReac Type Severity Reaction Status Date / Time codeine Allergy Unknown Verified 04/07/25 09:23 diphenhydramine HCl (From Allergy headache, Verified 04/07/25 09:23 Benadryl) eye irritation Penicillins Allergy Rash Verified 04/07/25 09:23 Sulfa (Sulfonamide Allergy Rash Verified 04/07/25 09:23 Antibiotics) ezetimibe (From Zetia) AdvReac Unknown Unknown Verified 04/07/25 09:23 Family History Father , age 96 CAD (coronary artery disease) Heart disease Hypertension Myocardial infarction Sister Arrhythmia Heart disease Mother No problems noted. Surgical History History of surgery of head History of laparoscopic cholecystectomy (~02/06/20) Presence of coronary angioplasty implant and graft (~01/2007) History of coronary artery bypass surgery (~2005) S/P carotid endarterectomy Hx of CABG Social History household members: spouse Smoking Status: Never smoker alcohol intake: never substance use type: does not use caffeine: No what type of physical activity do you participate in: walking and bicycling frequency: 5-6 times per week duration: 15-30 minutes/day seatbelt use: always do you feel safe at home: Yes ROS Constitutional Constitutional: Reports fatigue, malaise and weakness; Denies anorexia, change in weight, fever(s) or night sweats Eyes Eyes: Denies blurry vision, change in vision, discharge from eye(s) or eye pain Cardiovascular Cardiovascular: Reports lightheadedness; Denies chest pain, claudication, dyspnea on exertion, edema or palpitations Respiratory/Chest Respiratory/Chest: Reports cough; Denies dyspnea, hemoptysis, productive cough, shortness of breath at rest or shortness of breath with exertion Gastrointestinal Gastrointestinal: Denies abdominal pain, constipation, diarrhea, hematemesis, hematochezia, melena, nausea or vomiting Genitourinary Genitourinary: Denies dysuria, hematuria, urinary frequency, urinary hesitancy, urinary incontinence or urinary urgency Musculoskeletal Musculoskeletal: Denies back pain, joint pain, joint stiffness, joint swelling, myalgias or neck pain Neurologic Neurologic: Denies abnormal gait, abnormal speech, dizziness, focal weakness, headache(s), loss of vision, numbness, other visual disturbances, paresthesias, syncope or tingling Psychiatric Psychiatric: Denies anxiety, cognitive impairment, depression, irritability, mood swings or suicidal ideation Endocrine Endocrinology: Denies change in body appearance, cold intolerance, excessive sweating, heat intolerance, polydipsia or polyuria Hematologic/Lymphatic Hematologic/Lymphatic: Denies none, anemia, easy bleeding, easy bruising or lymphadenopathy Allergic/Immunologic Allergic/Immunologic: Denies rhinitis, urticaria, eczemia or asthma Vital Signs Vital Signs Vital Signs: 04/07/25 09:19 04/07/25 09:37 04/07/25 10:12 Temperature 99.2 F H Temperature Source Oral Pulse Rate 64 Respiratory Rate 18 Respiratory Effort Normal Non-Labored Respiratory Depth Respiratory Pattern Normal Blood Pressure 116/52 L Blood Pressure Mean 73 Blood Pressure Source Blood Pressure Position Blood Pressure Location Pulse Ox 90 Oxygen Delivery Method Room Air Room Air 04/07/25 11:18 04/07/25 12:45 04/07/25 12:46 Temperature 97.9 F 97.9 F Temperature Source Oral Pulse Rate 81 68 77 Respiratory Rate 25 H 30 H 27 H Respiratory Effort Respiratory Depth Respiratory Pattern Blood Pressure 117/71 115/74 112/58 L Blood Pressure Mean 86 87 76 Blood Pressure Source Blood Pressure Position Blood Pressure Location Pulse Ox 97 97 93 Oxygen Delivery Method Room Air Room Air 04/07/25 12:53 04/07/25 13:57 04/07/25 14:31 Temperature 99.4 F H Temperature Source Oral Pulse Rate 77 71 Respiratory Rate 16 Respiratory Effort Normal Non-Labored Respiratory Depth Normal Respiratory Pattern Normal Blood Pressure 125/65 H Blood Pressure Mean 85 Blood Pressure Source Monitor Blood Pressure Position Semi-Fowlers Blood Pressure Location Right Arm Pulse Ox 93 94 Oxygen Delivery Method Room Air Room Air Room Air 04/07/25 16:34 Temperature 98.6 F Temperature Source Oral Pulse Rate 62 Respiratory Rate 16 Respiratory Effort Respiratory Depth Respiratory Pattern Blood Pressure 106/45 L Blood Pressure Mean 65 Blood Pressure Source Blood Pressure Position Blood Pressure Location Pulse Ox 94 Oxygen Delivery Method Room Air Weight Weight: 89.8 kg Body Mass Index (BMI) 29.2 Physical Exam Const alert, oriented x3 and no apparent distress General Appearance: cooperative, well kempt and well developed Orientation / Consciousness: awake, oriented to person, oriented to place and oriented to time HEENT normocephalic, head/scalp atraumatic, hearing grossly normal bilaterally and moist oral mucous membranes Eyes PERRL, EOMs intact bilaterally and conjunctivae normal Neck supple, no JVD, thyroid normal and no carotid bruits General: trachea midline Resp normal respiratory effort, no retractions, no use of accessory muscles and clear to auscultation bilaterally Auscultation: Negative for rales, rhonchi or wheezes Cardio regular rate, regular rhythm, S1 normal heart sound, S2 normal heart sound, no murmurs, no rub and no gallops GI normal to inspection, nondistended, normoactive bowel sounds, soft to palpation, non-tender and non-distended Extremity no clubbing, cyanosis or edema Skin no rashes or lesions noted General Skin Exam: no breakdown Neuro oriented x3, CN's II-XII intact bilaterally, moves all extremities, no focal motor deficits and no sensory deficits noted Sensorium / Orientation: awake and alert Speech: speech normal Psych affect normal Results Lab / Micro Data 04/07/25 09:45 04/07/25 09:45 Labs: Laboratory Results - last 24 hr 04/07/25 09:45: WBC 13.2 H, RBC 4.42 L, Hgb 13.9, Hct 41.7, MCV 94.3 H, MCH 31.4, MCHC 33.3, RDW Std Deviation 44.3 H, RDW Coeff of Abner 12.8, Plt Count 209, MPV 9.4, Immature Gran % (Auto) 0.500, Neut % (Auto) 88.2 H, Lymph % (Auto) 4.6 L, Dane % (Auto) 6.3, Eos % (Auto) 0.0, Baso % (Auto) 0.4, Absolute Neuts (auto) 11.7 H, Absolute Lymphs (auto) 0.61 L, Nucleated RBC % 0, Sodium 134, Potassium 4.0, Chloride 102, Carbon Dioxide 22.2, Anion Gap 11, BUN 20 H, Creatinine 1.19, Estim Creat Clear Calc 52.28, Est GFR (MDRD) Non-Af 61, BUN/Creatinine Ratio 16.6, Glucose 149 H, Lactic Acid 1.3, Calcium 9.0, Total Bilirubin 1.10, AST 22, ALT 18, Alkaline Phosphatase 45, Troponin T High Sens 43 H, Total Protein 7.0, Albumin 3.7, Globulin 3.3, Albumin/Globulin Ratio 1.1 04/07/25 11:50: Troponin T Hi Sens 2 Hr 41 H 04/07/25 12:00: Urine Color Yellow, Urine Clarity Sl. Cloudy, Urine pH 6.0, Ur Specific [place] 1.015, Urine Protein 30 H, Urine Glucose (UA) Normal, Urine Ketones 5 H, Urine Occult Blood 150 H, Urine Nitrite Positive H, Urine Bilirubin Negative, Urine Urobilinogen Normal, Ur Leukocyte Esterase 500 H, Urine RBC 0 SEEN, Urine WBC 10-25 SEEN, Ur Squamous Epith Cells 0 SEEN, Urine Bacteria 3+, Urine Mucus 0 SEEN 04/07/25 14:34: Troponin T Hi Sens 4Hr 42 H Micro: Microbiology 04/07/25 10:10 Mucosa - Nose SARS-CoV-2, Influenza & RSV (PCR) - Final Rhythm Strip Rhythm Strip: Sinus Rhythm Rate: 80 Ectopy: None Imaging Radiology Impression Chest X-Ray 04/07/25 09:53 IMPRESSION: No acute cardiopulmonary process. Reading Location: [facility] Assessment & Plan Assessment/Plan (1) Generalized weakness: PLAN: Plan 1. Acute cystitis-patient will be admitted to [facility], he will be placed on IV Rocephin, urine cultures pending, labs will be monitored #2 generalized weakness secondary to #1-patient will be seen by PT and OT #3 hypothyroidism-patient will remain on Synthroid #4 BPH-patient is on Flomax #5 coronary artery disease-this appears to be stable at this time, patient remains on aspirin and metoprolol Total clinical time spent by myself addressing the patient's medical issues, reviewing all of his data, and collaborating with patient's care team: 55 minutes Charges/Coding Visit Charges Inpatient E&M: 16542 Init Hosp L2
[2025-04-07] MEDS: Heparin Injection (Vial) 5,000 UNIT/ML VIAL 5000 UNIT SC (22:21)
[2025-04-08] VITALS (15 sets, daily range): BP systolic 100–136; BP diastolic 52–66; PULSE 66–95; RESP 16–24; TEMP 36.6–37.3; O2SAT 95–100
[2025-04-08] MEDS: 0.9% Normal Saline (1000mL) 1,000 ML 100 ML IV ×2 (01:12→09:46)
[2025-04-08 06:16] LABS: Hematocrit 40.6 % (40-54); Hemoglobin 13.2 g/dL (13.0-16.5); Immature Granulocytes Count 0.030 X10^3/uL (0.0-0.0); Mean Corp Hgb Conc 32.5 g/dL (32-36); Mean Corpuscular Volume 96.4 fL (80-94); Mean Platelet Vol. 9.6 fl (6.2-12.0); NRBC Flagged by Analyzer 0 % (0-5); Platelet Count 175 K/mm3 (150-450); RBC Distribution Width CV 13.1 % (11.6-14.6); RBC Distribution Width SD 46.6 fl (35.1-43.9); Red Blood Count 4.21 M/mm3 (4.6-6.2); White Blood Count 7.1 K/mm3 (4.4-11.0)
[2025-04-08 06:40] LABS: Anion Gap 13 (5-15); BUN 18 mg/dL (4-19); BUN/Creat Ratio 16.1 RATIO (10-20); Calcium,Total 8.2 mg/dL (7.6-11.0); Carbon Dioxide 18.3 mmol/L (21.0-32.0); Chloride 106 mmol/L (98-108); Estimated Creatinine Clearance 56.81 ml/min (50-250); Glucose 130 mg/dL (70-99); Potassium 3.8 mmol/L (3.3-5.1)
[2025-04-08] MEDS: Aspirin E.C. 81 MG Tablet PO (09:43)
[2025-04-08] MEDS: Heparin Injection (Vial) 5,000 UNIT/ML VIAL 5000 UNIT SC ×2 (09:43→20:51)
[2025-04-08] MEDS: Meropenem 1 GM in 0.9% Normal Saline (100mL MB+) 100 ML IV ×3 (09:44→20:53)
--- NOTE | 2025-04-08 13:40 | RAD_ITS ---
PROCEDURE: CHEST 1 VIEW (PORTABLE) 04/08/2025 REASON FOR EXAM: DYSPNEA/HYPOXIA TECHNIQUE: Frontal view of the chest. COMPARISON: April 07, 2025 FINDINGS: Hardware: Dual lead pacemaker is in place with its lead tips overlying the right atrium and right ventricular apex. Heart: Heart is mildly enlarged status post median sternotomy CABG Lungs: The lungs are clear. Bones: Degenerative changes are identified within the thoracic spine.
--- NOTE | 2025-04-08 13:43 | CASEMGMT ---
HANNAH RIVERS Assessment Face to Face with patient for initial transition planning/care coordination assessment. HANNAH RIVERS introduced self and role at [facility] [place], pt voices understanding. Pt is A&Ox4 and is resting comfortably in bed and is calm. Pt's and daughter at the bedside. Care providers, pharmacy, and demographics verified. Admitting dx:Vertigo LACE Strata: 2 PCP: Christina Sandy Specialists: [facility], Urology through [facility] Preferred Pharmacy: [facility] Insurance: [employer] Prescription Benefit: Yes LNOK: Madhuri (W), Peggy (Dtr) Living Arrangements: Pt lives with his in a ranch style home with one step to enter ADLs/IADLs: Reports indep at baseline but reports feeling weak and dizzy currently Transportation: Self, DME: Shower chair, grab bars, FWW, Canw, W/Cx2. Pt is currently requiring additional oxygen (10L HFNC) and may qualify for home oxygen use. A verbal list of local in-network DME companies were provided to the pt at this time. Pt prefers [facility] HHC/SNF: Hx at [facility] Pt?s goal: TBD Plan: TBD. At this time, the pt states that it is too early to tell what he will need or want at the time of DC. Anticipate SNF vs home with HHC. Current 6-Click score is 15 and PT is pending. Pt and pt's family deny further questions or concerns at this time. CM to f/u on Thursday for DC planning. Jossue Love RN, CM
[2025-04-08 14:27] LABS: Allen Test Positive; Base Excess -3 mmol/L (-2 to +2); FI02 6.0; PO2 76 mmHG (75-100); SITE R Radial; SO2 96 % (94-98)
--- NOTE | 2025-04-08 14:29 | CT_ITS ---
PROCEDURE: CTA CHEST W/WO CONTRAST 04/08/2025 REASON FOR EXAM: HYPOXIA Shortness of breath. TECHNIQUE: Procedure Code: [id number] Modality: CT Procedure: CTA CHEST W/WO CONTRAST Multiplanar Sagittal and Coronal images were obtained. Two-dimensional three- dimensional reconstruction MIP images were obtained. CONTRAST: Isovue 370 VOLUME: 96 mL One or more dose reduction techniques were used (e.g., Automated exposure control, adjustment of the mA and/or kV according to patient size, use of iterative reconstruction technique). RADIATION DOSE SUMMARY: CTDlvol: 28 mGy DLP: 517.4 mGycm COMPARISON: No prior chest CT. # of known CTs in the past 12 months: 0 # of known Cardiac Nuclear Medicine Studies in the past 12 months: 0 FINDINGS: Thyroid gland: Negative. Lungs: Mild dependent atelectasis. No pulmonary nodules or masses. Pleura: Negative for pleural effusion or pneumothorax. Airways: Imaged bronchi and trachea negative. Mediastinum: Negative for mediastinal mass. Lymph nodes: Negative for axillary, mediastinal or hilar adenopathy. Heart and Vasculature: Pulmonary arteries adequately opacify with contrast. Negative for intraluminal thrombus. Heart normal size. Mild vascular calcifications of the thoracic aorta. Coronary Artery Calcifications: Severe vascular calcifications of the coronary arteries Upper Abdomen: Gallbladder contracted. Hardware: None. Bones: Sternotomy wires in place. Age-appropriate degenerative changes of the thoracic spine. CT/CTA Chest W/WO Contrast IMPRESSION: Negative for acute cardiopulmonary disease Negative for pulmonary embolus. Reading Location: [id number]
--- NOTE | 2025-04-08 16:13 | NURSING ---
cxr (-)/ abg (-)-family aware
--- NOTE | 2025-04-08 18:23 | NURSING ---
CALLED DAUGHTER SKYE TO LET HER KNOW HER DAD IS GOING FOR CT OF CHEST WE SPEAK. DR DUMONT DOES NOT FEEL A CT OF HEAD IS NECESSARY AT THIS TIME. SKYE VOICES HER CONCERN THAT HER DADS BREATHING SOUNDS HORRIBLE AND HE CAN BARELY CARRY ON A CONVERSATION, AND SHE APPRECIATES THE PHONE CALL.
--- NOTE | 2025-04-08 18:31 | PN.HOSP_ITS ---
Reason for Visit Chief Complaint: Cough , and dizziness, generalized weakness Subjective Subjective Patient was seen and examined today, his urine grew out lactose fermenting gram- negative joanne, he has had a past history of ESBL E. coli and so I made the decision to place him on meropenem and stopped his Rocephin. This afternoon patient became short of breath and required 6 L of oxygen initially to maintain his pulse ox above 90%. At the time of this dictation patient is now on 3 L, he is receiving aerosol treatments. Objective Data Objective Data Vital Signs: Vital Signs Temp Pulse Resp BP Pulse Ox O2 Del Method O2 Flow Rate 98.7 F 67 17 116/52 L 95 High Flow 2 04/08/25 16:26 04/08/25 16:26 04/08/25 16:26 04/08/25 16:26 04/08/25 16:26 04/08/25 16:26 04/08/25 16:26 FiO2 96 04/08/25 14:30 Oxygen Flow Rate (L/min) 2 Oxygen Delivery Method High Flow Weight: 89.8 kg Body Mass Index (BMI) 29.2 Intake & Output: Intake and Output for Last 24 Hours 04/06/25 04/07/25 04/08/25 23:59 23:59 23:59 Intake Total 1126.67 / 1376.67 3415.01 / 3415.01 Output Total 495 / 495 Balance 1126.67 / 1376.67 2920.01 / 2920.01 Lab / Micro Data 04/08/25 05:29 04/08/25 05:29 Labs: Laboratory Results - last 24 hr 04/08/25 05:29: WBC 7.1, RBC 4.21 L, Hgb 13.2, Hct 40.6, MCV 96.4 H, MCH 31.4, MCHC 32.5, RDW Std Deviation 46.6 H, RDW Coeff of Abner 13.1, Plt Count 175, MPV 9.6, Immature Gran % (Auto) 0.400, Neut % (Auto) 82.6 H, Lymph % (Auto) 9.4 L, [place] % (Auto) 7.3, Eos % (Auto) 0.0, Baso % (Auto) 0.3, Absolute Neuts (auto) 5.9, Absolute Lymphs (auto) 0.67 L, Nucleated RBC % 0, Sodium 138, Potassium 3.8, Chloride 106, Carbon Dioxide 18.3 L, Anion Gap 13, BUN 18, Creatinine 1.13, Estim Creat Clear Calc 56.81, Est GFR (MDRD) Non-Af 65, BUN/Creatinine Ratio 16.1, Glucose 130 H, Calcium 8.2 Micro: Microbiology 04/07/25 12:00 Urine, Clean Catch Urine Culture - Preliminary GNR 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 Otherwise unremarkable. Reading Location: [facility] Rhythm Strip Rhythm Strip: Sinus Rhythm Rate: 80 Ectopy: None Physical Exam Const alert, oriented x3 and no apparent distress General Appearance: cooperative, well kempt and well developed Orientation / Consciousness: awake, oriented to person, oriented to place and oriented to time HEENT normocephalic, head/scalp atraumatic and moist oral mucous membranes Eyes PERRL, EOMs intact bilaterally and conjunctivae normal Neck supple, no JVD, thyroid normal and no carotid bruits General: trachea midline Resp normal respiratory effort, no retractions, no use of accessory muscles and clear to auscultation bilaterally Auscultation: Negative for rales, rhonchi or wheezes Cardio regular rate, regular rhythm, S1 normal heart sound, S2 normal heart sound, no murmurs, no rub and no gallops GI normal to inspection, nondistended, normoactive bowel sounds, soft to palpation, non-tender and non-distended Extremity no clubbing, cyanosis or edema Skin no rashes or lesions noted General Skin Exam: no breakdown Neuro oriented x3, CN's II-XII intact bilaterally, no focal motor deficits and no sensory deficits noted Sensorium / Orientation: awake and alert Speech: speech normal Psych affect normal Assessment & Plan Assessment/Plan (1) Acute cystitis: (2) Generalized weakness: PLAN: Plan 1. 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 I do not believe the patient is in heart failure-he may have bronchospasm from an unknown source, patient's respiratory panel was negative however Total clinical time spent by myself addressing the patient's medical issues, reviewing all of his data, and collaborating with patient's care team: 35 minutes Charges/Coding Visit Charges Inpatient E&M: 54489 Subs Hosp L2
[2025-04-08] MEDS: 0.9% Saline Lock 10 ML Syringe IV (18:50)
--- NOTE | 2025-04-08 18:51 | NURSING ---
PT BACK FROM CTA OF CHEST. FLUIDS DECREASED TO 75MLS/HR, CONT POX TO EAR, POX 96 ON 2L. SOB W/ACTIVITY. DENIES NEEDS AT THIS TIME
[2025-04-08] MEDS: 0.9% Normal Saline (1000mL) 1,000 ML 75 ML IV (20:48)
[2025-04-09] VITALS (10 sets, daily range): BP systolic 122–128; BP diastolic 55–73; PULSE 61–71; RESP 16–24; TEMP 36.5–36.8; O2SAT 94–98
[2025-04-09] MEDS: Albuterol 2.5 MG/3 ML VIAL.NEB. INHALATION (05:20)
[2025-04-09] MEDS: Meropenem 1 GM in 0.9% Normal Saline (100mL MB+) 100 ML IV ×2 (05:57→13:44)
[2025-04-09] MEDS: Aspirin E.C. 81 MG Tablet PO (08:39)
[2025-04-09] MEDS: Heparin Injection (Vial) 5,000 UNIT/ML VIAL 5000 UNIT SC ×2 (08:39→21:11)
[2025-04-09] MEDS: 0.9% Normal Saline (1000mL) 1,000 ML 75 ML IV ×2 (10:39→23:58)
[2025-04-10] VITALS (10 sets, daily range): BP systolic 114–121; BP diastolic 42–71; PULSE 62–72; RESP 17–28; TEMP 35.8–36.9; O2SAT 94–98
[2025-04-10 05:46] LABS: Hematocrit 35.5 % (40-54); Hemoglobin 12.0 g/dL (13.0-16.5); Immature Granulocytes Count 0.040 X10^3/uL (0.0-0.0); Mean Corp Hgb Conc 33.8 g/dL (32-36); Mean Corpuscular Volume 92.7 fL (80-94); Mean Platelet Vol. 9.9 fl (6.2-12.0); NRBC Flagged by Analyzer 0 % (0-5); Platelet Count 168 K/mm3 (150-450); RBC Distribution Width CV 13.1 % (11.6-14.6); RBC Distribution Width SD 44.4 fl (35.1-43.9); Red Blood Count 3.83 M/mm3 (4.6-6.2); White Blood Count 9.4 K/mm3 (4.4-11.0)
[2025-04-10] MEDS: Heparin Injection (Vial) 5,000 UNIT/ML VIAL 5000 UNIT SC ×2 (09:18→22:51)
[2025-04-10] MEDS: Aspirin E.C. 81 MG Tablet PO (09:18)
--- NOTE | 2025-04-10 11:26 | PN_ITS ---
Subjective Subjective Patient seen and examined with his nurse by his bedside. HE had no active complaints. He denied any fever, chills, cough, chest pain, palpitations, dizziness, nausea, vomiting or any other symptoms. Review of systems is otherwise negative. He has remained hemodynamically stable. Objective Data Objective Data Vital Signs: Vital Signs Temp Pulse Resp BP Pulse Ox O2 Del Method O2 Flow Rate 98.5 F 66 17 120/56 L 95 Nasal Cannula 2 04/10/25 09:00 04/10/25 09:17 04/10/25 09:00 04/10/25 09:00 04/10/25 09:00 04/10/25 09:00 04/10/25 09:00 FiO2 96 04/08/25 14:30 Oxygen Flow Rate (L/min) 2 Oxygen Delivery Method Nasal Cannula Weight: 197 lb 15.602 oz Body Mass Index (BMI) 29.2 Intake & Output: Intake and Output for Last 24 Hours 04/08/25 04/09/25 04/10/25 23:59 23:59 23:59 Intake Total 3663.34 / 3903.34 2638.75 / 2838.75 300 / 300 Output Total 495 / 845 700 / 1500 1300 / 1300 Balance 3168.34 / 3058.34 1938.75 / 1338.75 -1000 / -1000 Lab / Micro Data 04/10/25 05:26 04/08/25 05:29 Labs: Laboratory Results - last 24 hr 04/10/25 05:26: WBC 9.4, RBC 3.83 L, Hgb 12.0 L, Hct 35.5 L, MCV 92.7, MCH 31.3, MCHC 33.8, RDW Std Deviation 44.4 H, RDW Coeff of Abner 13.1, Plt Count 168, MPV 9.9, Immature Gran % (Auto) 0.400, Neut % (Auto) 79.3 H, Lymph % (Auto) 8.2 L, M radha % (Auto) 11.7 H, Eos % (Auto) 0.1, Baso % (Auto) 0.3, Absolute Neuts (auto) 7.5, Absolute Lymphs (auto) 0.77 L, Nucleated RBC % 0 Micro: Microbiology 04/09/25 05:10 Sputum, Expectorated/Coughed Gram Stain - Final 04/07/25 12:00 Urine, Clean Catch Urine Culture - Final ESBL Escherichia coli 04/07/25 20:20 Mucosa - Nasopharyngeal Respiratory Panel (PCR) - Final 04/07/25 10:10 Mucosa - Nose SARS-CoV-2, Influenza & RSV (PCR) - Final Rhythm Strip Rhythm Strip: Sinus Rhythm Rate: 80 Ectopy: None Physical Exam Const alert, oriented x3 and no apparent distress General Appearance: cooperative HEENT normocephalic, head/scalp atraumatic, moist oral mucous membranes and oropharynx normal Eyes EOMs intact bilaterally Neck supple and no JVD Lymph Lymphatic: no lymphedema noted Resp Resp Narrative: Mildly diminished breath sounds bibasilarly. No wheezes or crackles. On 2 L of oxygen by nasal cannula. Cardio regular rate, regular rhythm, S1 normal heart sound, S2 normal heart sound and no murmurs GI normal to inspection, nondistended, normoactive bowel sounds, soft to palpation and non-tender Extremity normal capillary refill, no clubbing, cyanosis or edema and no calf tenderness General Extremity: no tenderness to palpation of joints or extremities Skin General Skin Exam: no breakdown Neuro no focal motor deficits Motor Exam: general weakness Psych thought process normal and cooperative Appearance: appropriate Assessment & Plan Assessment/Plan (1) Generalized weakness: (2) Viral URI with cough: (3) Acute cystitis: PLAN: Plan #UTI * Urinalysis showed evidence of UTI and urine cultures grew ESBL E. coli * Currently on nitrofurantoin. * #Hypoxia * On 2 L of oxygen. Chest x-ray showed median sternotomy and Is present no acute cardiopulmonary pathology. * Says he does not wear any oxygen at home. * His last echo from August 2024 showed normal left ventricular size and mild concentric left ventricular hypertrophy and EF of 55% with akinesis of the inferior basal and mid inferior holder. * wean oxygen as tolerated and titrate oxygen to maintain sats >90% * breathing treatment with bronchodilators. * #Hypothyroidism: on synthroid #BPH: on flomax #Hypertension: on metoprolol #DVT prophylaxis: heparin Charges/Coding Visit Charges Inpatient E&M: 25927 Subs Hosp L2
[2025-04-10] MEDS: 0.9% Normal Saline (1000mL) 1,000 ML 75 ML IV (13:34)
[2025-04-11] VITALS (15 sets, daily range): BP systolic 123–140; BP diastolic 55–69; PULSE 60–68; RESP 15–20; TEMP 36.2–37; O2SAT 93–97
[2025-04-11] MEDS: BENZOCAINE/MENTHOL 1 LOZENGE 2 LOZENGE MUCOUS MEM (01:56)
[2025-04-11] MEDS: 0.9% Normal Saline (1000mL) 1,000 ML 75 ML IV ×2 (01:57→15:57)
[2025-04-11 07:32] LABS: Hematocrit 38.7 % (40-54); Hemoglobin 12.6 g/dL (13.0-16.5); Immature Granulocytes Count 0.040 X10^3/uL (0.0-0.0); Mean Corp Hgb Conc 32.6 g/dL (32-36); Mean Corpuscular Volume 94.9 fL (80-94); Mean Platelet Vol. 10.0 fl (6.2-12.0); NRBC Flagged by Analyzer 0 % (0-5); Platelet Count 196 K/mm3 (150-450); RBC Distribution Width CV 13.0 % (11.6-14.6); RBC Distribution Width SD 45.3 fl (35.1-43.9); Red Blood Count 4.08 M/mm3 (4.6-6.2); White Blood Count 8.5 K/mm3 (4.4-11.0)
[2025-04-11 07:58] LABS: Anion Gap 9 (5-15); BUN 9 mg/dL (4-19); BUN/Creat Ratio 12.5 RATIO (10-20); Calcium,Total 8.3 mg/dL (7.6-11.0); Carbon Dioxide 22.8 mmol/L (21.0-32.0); Chloride 105 mmol/L (98-108); Estimated Creatinine Clearance 80.24 ml/min (50-250); Glucose 160 mg/dL (70-99); Potassium 3.9 mmol/L (3.3-5.1)
[2025-04-11] MEDS: Aspirin E.C. 81 MG Tablet PO (08:31)
[2025-04-11] MEDS: Heparin Injection (Vial) 5,000 UNIT/ML VIAL 5000 UNIT SC ×2 (08:31→21:27)
--- NOTE | 2025-04-11 11:28 | PN_ITS ---
Subjective Subjective Patient seen and examined. He had no active complaints today. Admitted to the neurofloor for oxygen but his oxygen saturations dropped to the mid 80s whilst he was using the incentive spirometry. He denies any cough or chest pain, palpitations or dizziness, nausea or vomiting. Review of systems otherwise negative.His was by his bedside and also updated. Objective Data Objective Data Vital Signs: Vital Signs Temp Pulse Resp BP Pulse Ox O2 Del Method O2 Flow Rate 97.2 F L 63 20 H 138/69 H 95 Room Air 2 04/11/25 05:00 04/11/25 08:31 04/11/25 06:58 04/11/25 05:00 04/11/25 08:39 04/11/25 08:39 04/11/25 08:05 FiO2 96 04/08/25 14:30 Oxygen Flow Rate (L/min) 2 Oxygen Delivery Method Room Air Weight: 197 lb 15.602 oz Body Mass Index (BMI) 29.2 Intake & Output: Intake and Output for Last 24 Hours 04/09/25 04/10/25 04/11/25 23:59 23:59 23:59 Intake Total 2638.75 / 2838.75 1900 / 1900 928.75 / 928.75 Output Total 700 / 1500 1800 / 2400 1025 / 1025 Balance 1938.75 / 1338.75 100 / -500 -96.25 / -96.25 Lab / Micro Data 04/11/25 07:14 04/11/25 07:14 Labs: Laboratory Results - last 24 hr 04/11/25 07:14: WBC 8.5, RBC 4.08 L, Hgb 12.6 L, Hct 38.7 L, MCV 94.9 H, MCH 30.9, MCHC 32.6, RDW Std Deviation 45.3 H, RDW Coeff of Abner 13.0, Plt Count 196, MPV 10.0, Immature Gran % (Auto) 0.500, Neut % (Auto) 77.4 H, Lymph % (Auto) 10.2 L, [place] % (Auto) 8.7, Eos % (Auto) 2.7, Baso % (Auto) 0.5, Absolute Neuts (auto) 6.6, Absolute Lymphs (auto) 0.86, Nucleated RBC % 0, Sodium 137, Potassium 3.9, Chloride 105, Carbon Dioxide 22.8, Anion Gap 9, BUN 9, Creatinine 0.71, Estim Creat Clear Calc 80.24, Est GFR (MDRD) Non-Af 92, BUN/Creatinine Ratio 12.5, Glucose 160 H, Calcium 8.3 Micro: Microbiology 04/09/25 05:10 Sputum, Expectorated/Coughed Gram Stain - Final 04/09/25 05:10 Sputum, Expectorated/Coughed Respiratory Culture - Final Presumptive C albicans 04/07/25 12:00 Urine, Clean Catch Urine Culture - Final ESBL Escherichia coli 04/07/25 20:20 Mucosa - Nasopharyngeal Respiratory Panel (PCR) - Final 04/07/25 10:10 Mucosa - Nose SARS-CoV-2, Influenza & RSV (PCR) - Final Rhythm Strip Rhythm Strip: Sinus Rhythm Rate: 80 Ectopy: None Physical Exam Const alert, oriented x3 and no apparent distress General Appearance: cooperative Orientation / Consciousness: awake and oriented to person HEENT normocephalic, head/scalp atraumatic, hearing grossly normal bilaterally, moist oral mucous membranes and oropharynx normal Eyes PERRL, EOMs intact bilaterally and conjunctivae normal Neck supple, no JVD and thyroid normal General: trachea midline Lymph Lymphatic: no lymphedema noted Resp Resp Narrative: Mildly diminished breath sounds bibasilarly. No wheezes or crackles. On room air today. Cardio regular rate, regular rhythm, S1 normal heart sound, S2 normal heart sound and no murmurs GI normal to inspection, nondistended, normoactive bowel sounds, soft to palpation, non-tender and non-distended Extremity normal capillary refill, no clubbing, cyanosis or edema and no calf tenderness General Extremity: no tenderness to palpation of joints or extremities Skin no rashes or lesions noted General Skin Exam: no breakdown Neuro oriented x3, moves all extremities, no focal motor deficits and no sensory deficits noted Sensorium / Orientation: awake and alert Speech: speech normal Motor Exam: general weakness Psych thought process normal, cooperative and affect normal Appearance: appropriate Assessment & Plan Assessment/Plan (1) Generalized weakness: (2) Viral URI with cough: (3) Acute cystitis: PLAN: Plan #UTI * Urinalysis showed evidence of UTI and urine cultures grew ESBL E. coli * Currently on nitrofurantoin. * #Hypoxia * On 2 L of oxygen. Chest x-ray showed median sternotomy and Is present no acute cardiopulmonary pathology. * Says he does not wear any oxygen at home. * His last echo from August 2024 showed normal left ventricular size and mild concentric left ventricular hypertrophy and EF of 55% with akinesis of the inferior basal and mid inferior holder. * wean oxygen as tolerated and titrate oxygen to maintain sats >90% * breathing treatment with bronchodilators. * Sputum culture showing 2+ Ac[place]. Will place on p.o. fluconazole for 5 days. * Incentive spirometry. Was weaned down to room air today though he intermittently went down to mid 80s when using the incentive spirometer. Encourage continued incentive spirometer use. * #Hypothyroidism: on synthroid #BPH: on flomax #Hypertension: on metoprolol #DVT prophylaxis: heparin Disposition: anticipate dc tomorrow if he remains hemodynamically stable. Charges/Coding Visit Charges Inpatient E&M: 00945 Subs Hosp L2
[2025-04-12 05:10] VITALS: BP 148/57; PULSE 66; RESP 18; TEMP 36.6; O2SAT 94
[2025-04-12] MEDS: 0.9% Normal Saline (1000mL) 1,000 ML 75 ML IV (05:18)
[2025-04-12 05:54] LABS: Hematocrit 37.1 % (40-54); Hemoglobin 12.1 g/dL (13.0-16.5); Immature Granulocytes Count 0.040 X10^3/uL (0.0-0.0); Mean Corp Hgb Conc 32.6 g/dL (32-36); Mean Corpuscular Volume 94.2 fL (80-94); Mean Platelet Vol. 10.1 fl (6.2-12.0); NRBC Flagged by Analyzer 0 % (0-5); Platelet Count 233 K/mm3 (150-450); RBC Distribution Width CV 12.7 % (11.6-14.6); RBC Distribution Width SD 44.0 fl (35.1-43.9); Red Blood Count 3.94 M/mm3 (4.6-6.2); White Blood Count 8.1 K/mm3 (4.4-11.0)
[2025-04-12 06:37] VITALS: PULSE 65; RESP 20; O2SAT 96
[2025-04-12 06:50] LABS: Anion Gap 10 (5-15); BUN 8 mg/dL (4-19); BUN/Creat Ratio 10.0 RATIO (10-20); Calcium,Total 8.2 mg/dL (7.6-11.0); Carbon Dioxide 23.6 mmol/L (21.0-32.0); Chloride 104 mmol/L (98-108); Estimated Creatinine Clearance 80.24 ml/min (50-250); Glucose 141 mg/dL (70-99); Potassium 3.8 mmol/L (3.3-5.1)
[2025-04-12 09:52] VITALS: PULSE 65
[2025-04-12] MEDS: Aspirin E.C. 81 MG Tablet PO (09:52)
[2025-04-12] MEDS: Heparin Injection (Vial) 5,000 UNIT/ML VIAL 5000 UNIT SC (09:52)
[2025-04-12] MEDS: BENZOCAINE/MENTHOL 1 LOZENGE 2 LOZENGE MUCOUS MEM (10:02)
--- NOTE | 2025-04-12 10:13 | PN_ITS ---
Subjective Subjective Patient seen and examined with his nurse by his bedside. His was also by his bedside. He complained of a nocturnal cough and admits to a postnasal drip. Review of systems is otherwise negative. He is on room air. He was able to ambulate with therapy but was a 2 person assist. is concerned about him going home and would want him to be evaluated for rehab. Review of systems is otherwise negative. Objective Data Objective Data Vital Signs: Vital Signs Temp Pulse Resp BP Pulse Ox O2 Del Method O2 Flow Rate 97.8 F 65 20 H 148/57 H 96 Room Air 2 04/12/25 05:10 04/12/25 09:52 04/12/25 06:37 04/12/25 05:10 04/12/25 06:37 04/12/25 06:37 04/11/25 08:05 FiO2 96 04/08/25 14:30 Oxygen Flow Rate (L/min) 2 Oxygen Delivery Method Room Air Weight: 197 lb 15.602 oz Body Mass Index (BMI) 29.2 Intake & Output: Intake and Output for Last 24 Hours 04/10/25 04/11/25 04/12/25 23:59 23:59 23:59 Intake Total 1900 / 1900 2768.75 / 3268.75 1750 / 1750 Output Total 1800 / 2400 1825 / 2575 1425 / 1425 Balance 100 / -500 943.75 / 693.75 325 / 325 Lab / Micro Data 04/12/25 05:32 04/12/25 05:32 Labs: Laboratory Results - last 24 hr 04/12/25 05:32: WBC 8.1, RBC 3.94 L, Hgb 12.1 L, Hct 37.1 L, MCV 94.2 H, MCH 30.7, MCHC 32.6, RDW Std Deviation 44.0 H, RDW Coeff of Abner 12.7, Plt Count 233, MPV 10.1, Immature Gran % (Auto) 0.500, Neut % (Auto) 70.7 H, Lymph % (Auto) 11.7 L, [place] % (Auto) 11.6 H, Eos % (Auto) 4.8, Baso % (Auto) 0.7, Absolute Neuts (auto) 5.7, Absolute Lymphs (auto) 0.95, Nucleated RBC % 0, Sodium 137, Potassium 3.8, Chloride 104, Carbon Dioxide 23.6, Anion Gap 10, BUN 8, Creatinine 0.76, Estim Creat Clear Calc 80.24, Est GFR (MDRD) Non-Af 90, BUN/Creatinine Ratio 10.0, Glucose 141 H, Calcium 8.2 Micro: Microbiology 04/09/25 05:10 Sputum, Expectorated/Coughed Gram Stain - Final 04/09/25 05:10 Sputum, Expectorated/Coughed Respiratory Culture - Final Presumptive C albicans 04/07/25 12:00 Urine, Clean Catch Urine Culture - Final ESBL Escherichia coli 04/07/25 20:20 Mucosa - Nasopharyngeal Respiratory Panel (PCR) - Final 04/07/25 10:10 Mucosa - Nose SARS-CoV-2, Influenza & RSV (PCR) - Final Rhythm Strip Rhythm Strip: Sinus Rhythm Rate: 80 Ectopy: None Physical Exam Const alert, oriented x3 and no apparent distress General Appearance: cooperative Orientation / Consciousness: awake HEENT normocephalic, head/scalp atraumatic, hearing grossly normal bilaterally, moist oral mucous membranes and oropharynx normal Eyes EOMs intact bilaterally and conjunctivae normal Neck supple, no JVD, thyroid normal and no carotid bruits General: trachea midline Lymph Lymphatic: no lymphedema noted Resp normal respiratory effort, no retractions, no use of accessory muscles and clear to auscultation bilaterally Resp Narrative: Mildly diminished breath sounds bibasilarly. No wheezes or crackles. Remains on room air today. Cardio regular rate, regular rhythm, S1 normal heart sound, S2 normal heart sound and no murmurs GI normal to inspection, nondistended, normoactive bowel sounds, soft to palpation, non-tender and non-distended Extremity normal capillary refill, no clubbing, cyanosis or edema and no calf tenderness General Extremity: no tenderness to palpation of joints or extremities Skin no rashes or lesions noted General Skin Exam: no breakdown Neuro oriented x3, CN's II-XII intact bilaterally, moves all extremities, no focal motor deficits and no sensory deficits noted Sensorium / Orientation: awake and alert Speech: speech normal Motor Exam: general weakness Psych thought process normal, cooperative and affect normal Appearance: appropriate Assessment & Plan Assessment/Plan (1) Generalized weakness: (2) Viral URI with cough: (3) Acute cystitis: PLAN: Plan #UTI * Urinalysis showed evidence of UTI and urine cultures grew ESBL E. coli * Currently on nitrofurantoin. Complete a 5 day course. * #Hypoxia * On room air today. Chest x-ray showed median sternotomy and Is present no acute cardiopulmonary pathology. * Says he does not wear any oxygen at home. * His last echo from August 2024 showed normal left ventricular size and mild concentric left ventricular hypertrophy and EF of 55% with akinesis of the inferior basal and mid inferior holder. * wean oxygen as tolerated and titrate oxygen to maintain sats >90% * breathing treatment with bronchodilators. * Sputum culture showing 2+ [place]. On p.o. fluconazole for 5 days. * Incentive spirometry. * titrate oxygen as needed to maintain sats >90% * place on PO famotidine for suspected postnasal drip * #Hypothyroidism: on synthroid #BPH: on flomax #Hypertension: on metoprolol #DVT prophylaxis: heparin Disposition: not ok with patient being at home as he is a 2 person assist and she cannot care for him by herself. Wants him evaluated for rehab. Case management on board.. Charges/Coding Visit Charges Inpatient E&M: 43259 Subs Hosp L2
--- NOTE | 2025-04-12 10:45 | CASEMGMT ---
Addendum entered by Michelle Castellanos 04/12/25 14:32: HANNAH RIVERS sent referral to [facility] for nebulizer, [facility] has one available for family to come and pickup for at discharge. [facility] is able to accept with planned start of care for Thursday. HANNAH RIVERS in to patient room to update regarding HHC, private duty list provided. Patient and family had no further questions or concerns. Addendum entered by Michelle Castellanos 04/12/25 13:44: HANNAH RIVERS in to discuss preferences for HHC with patient, , and daughter. Family prefers [facility]. Daughter inquired about nebulizer, medications, and tessalon perles and would prefer [facility] for DME. HANNAH RIVERS updated daughter that RN TITA will inform hospitalist of request. Patient and family had no further questions or concerns. HANNAH RIVERS updated hospitalist regarding nebulizer and medication request, script received for nebulizer. HANNAH RIVERS made referral to [facility], awaiting response. Original Note: HANNAH RIVERS updated by hospitalist that would like patient to go to SNF at discharge. 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 HANNAH RIVERS in to discuss discharge planning. HANNAH RIVERS updated that patient is ambulating household distances and that his insurance would not approve SNF at discharge and that therapy is recommending HHC. Patient and agreeable to HHC at discharge. Patient and had no further questions or concerns. HANNAH RIVERS updated [facility] Supervisor to make HHC list for patient.
--- NOTE | 2025-04-12 11:05 | DCINST_ITS ---
Discharge Instructions DC O2, CPAP, BIPAP needs Home O2 Discharge instructions: Yes Type of respiratory needs?: Oxygen Oxygen frequency: With Ambulation Oxygen liters per minute during Ambulation: 2 Dressing / Incision Discharge Activity: Return to Normal Activity Weight Bearing Status: Weight bearing as tolerated Dressing / Incision Call your doctor if you observe: Fever of 101 or Higher, Shortness of breath, Dizziness, Swelling in the ankles and Chest pain Follow Up Care Test Results: Test results from this visit will be discussed in further detail at your follow- up appointment, if applicable. Discharge Plan Admission Admit Date/Time: 04/07/25 12:50 Primary Reason for Your Visit: UTI, hypoxia, pneuonia Attending Provider: Izzy Montano Primary Care Provider: Christina Sandy Consulting Providers: Quincy Warner Instructions Patient Instructions: ED Urinary Tract Infections in Men Discharge Orders/Prescriptions Prescriptions: New fluconazole 100 mg Tablet 100 mg PO DAILY Qty: 3 0RF nitrofurantoin monohyd/m-cryst 100 mg Capsule 100 mg PO BID Qty: 8 0RF ipratropium-albuterol 0.5 mg-3 mg(2.5 mg base)/3 mL solution for nebulization 3 ml inhalation Q6H PRN (Reason: shortness of breath or wheezing) Qty: 180 1RF benzonatate 100 mg capsule 100 mg PO BID PRN (Reason: cough) Qty: 30 1RF albuterol sulfate [Ventolin HFA] 90 mcg/actuation HFA aerosol inhaler 1 inh inhalation Q6H PRN (Reason: shortness of breath or wheezing) Qty: 8.5 1RF Continued aspirin [Adult Low Dose Aspirin] 81 mg tablet,delayed release (DR/EC) 81 mg PO QDAY levothyroxine 25 mcg tablet 25 mcg PO DAILY nitroglycerin 0.4 mg tablet, sublingual 0.4 mg SUBLINGUAL Q5M PRN (Reason: Chest Pain) Qty: 25 3RF tamsulosin 0.4 mg capsule 0.8 mg PO DAILY@2200 acetaminophen 325 mg Tablet 650 mg PO Q4H PRN PRN (Reason: Fever, pain 1-10) Qty: 0 0RF metoprolol tartrate 25 mg tablet 25 mg PO BID Qty: 180 3RF Discontinued albuterol sulfate 90 mcg/actuation HFA aerosol inhaler 1 - 2 puff INHALATION Q8H PRN (Reason: wheezing) Referrals / Follow Up: Christina Sandy DO [Primary Care Provider, Internal Medicine] - Within 1 Week Disposition Disposition (needs filled in before D/C Order can be placed): Home Health Service
[2025-04-12 11:07] VITALS: BP 136/74; PULSE 65; RESP 18; TEMP 36.2; O2SAT 98
--- NOTE | 2025-04-12 11:40 | CASEMGMT ---
Discharge Planning A list of HH providers including quality and resource use data and consistent with the patient's preferred geographic region, medical needs, and insurance network was created in [employer].? This list was provided to the RN TITA. Nisa Strong, Discharge Planning Asst
[2025-04-12 11:49] VITALS: O2SAT 93; O2SAT 96
[2025-04-12 13:30] VITALS: PULSE 62; RESP 20
--- NOTE | 2025-04-12 14:17 | PCM.DC.SUM ---
Providers Date of Admission: 04/07/25 Date of Discharge: 04/12/25 Primary Care Physician: Dr. Christina Sandy DO Reason For Visit: VERTIGO Diagnosis Discharge Diagnosis (1) Generalized weakness: Status: Acute Code(s): R53.1 - Weakness (2) Viral URI with cough: Status: Acute Code(s): J06.9 - Acute upper respiratory infection, unspecified (3) Acute cystitis: Status: Acute Code(s): N30.00 - Acute cystitis without hematuria Plan #UTI Urinalysis showed evidence of UTI and urine cultures grew ESBL E. coli Currently on nitrofurantoin. Complete a 5 day course. #Hypoxia On room air today. Chest x-ray showed median sternotomy and Is present no acute cardiopulmonary pathology. Says he does not wear any oxygen at home. His last echo from August 2024 showed normal left ventricular size and mild concentric left ventricular hypertrophy and EF of 55% with akinesis of the inferior basal and mid inferior holder. wean oxygen as tolerated and titrate oxygen to maintain sats >90% breathing treatment with bronchodilators. Sputum culture showing 2+ Acacia. On p.o. fluconazole for 5 days. Incentive spirometry. 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 Wants him evaluated for rehab. Case management on board.. Medications at Discharge Home Medications aspirin 81 mg tablet,delayed release (Adult Low Dose Aspirin) 81 mg PO QDAY [facility] 05/13/17 levothyroxine 25 mcg tablet 25 mcg PO DAILY thyroid 02/15/18 acetaminophen 325 mg tablet 650 mg (2 x 325 mg) PO Q4H PRN PRN Fever, pain 1-02/03 #0 tabs 10/27/23 nitroglycerin 0.4 mg sublingual tablet 0.4 mg sublingual Q5M PRN Chest Pain #25 tabs 08/02/24 tamsulosin 0.4 mg capsule 0.8 mg PO DAILY@2200 PROSTATE 08/02/24 metoprolol tartrate 25 mg tablet 25 mg PO BID for blood pressure #180 TABLETS 10/04/24 albuterol sulfate 90 mcg/actuation aerosol inhaler (Ventolin HFA) 1 inh inhalation Q6H PRN shortness of breath or wheezing #8.5 grams 04/12/25 benzonatate 100 mg capsule 100 mg PO BID PRN cough #30 caps 04/12/25 fluconazole 100 mg tablet 100 mg PO DAILY #3 tabs 04/12/25 ipratropium 0.5 mg-albuterol 3 mg (2.5 mg base)/3 mL nebulization soln 3 ml inhalation Q6H PRN shortness of breath or wheezing #180 mL 04/12/25 nitrofurantoin monohydrate/macrocrystals 100 mg capsule 100 mg PO BID #8 caps 04/12/25 Hospital Course Operations None Procedures None and 2-D Echocardiogram Summary of Care Provided Minutes Spent on Discharge: 45 Hospital Course: Patient is an 79-year-old male with past medical history as outlined was admitted to the ED on 04/07/2025 with complaint of cough and dizziness as well as generalized weakness. These have been going on for several days. He had a mild fever of 99.2 Fahrenheit and he was saturating at 90% on room air. CBC showed elevated WBC of 13.2 and chemistry was largely unremarkable. Initial troponin was 43 and delta troponin was 41. Urinalysis showed evidence of UTI with 3+ bacteria and chest x-ray showed no acute cardiopulmonary pathology. He was admitted to be managed for debility and weakness due to UTI as well as hypoxia of unclear etiology. He was initially started on IV ceftriaxone. Urine cultures grew ESBL E. coli sensitive to nitrofurantoin so he was switched to oral nitrofurantoin. Patient did have some hypoxia during this admission but he was eventually weaned off of oxygen. His last echo from August 2024 showed normal ventricular size and mild concentric left ventricular hypertrophy with EF of 45% and akinesis of the inferior basal and mid inferior holder. Sputum cultures were done which grew 2+ Acacia so he was placed on fluconazole for 5-day course. He worked with physical therapy and was deemed as needing home health care. His initially said he was not comfortable taking him home as she felt she could not take care of him on her own. However they were informed that due to his work with physical therapy and him ambulating at approximately 200 feet, insurance would likely not pay for the rehab facility as he would not qualify. He would also qualify for SNF. Patient and with therefore agreeable to taking him home with home health care. He was discharged on 04/12/2025 and is to follow-up with his primary care doctor within 1 to 2 weeks. He was also discharged on a course of nitrofurantoin to complete a 7-day course. Patient seen and examined prior to discharge. He had no active complaints and had an uneventful night. Review of systems otherwise negative. Labs and vitals reviewed. Home medication reviewed and reconciled. Physical Exam Const alert, oriented x3 and no apparent distress General Appearance: cooperative, comfortable and well kempt Orientation / Consciousness: awake HEENT normocephalic, head/scalp atraumatic, hearing grossly normal bilaterally, moist oral mucous membranes and oropharynx normal Eyes PERRL, EOMs intact bilaterally and conjunctivae normal Neck supple, no JVD, thyroid normal and no carotid bruits General: trachea midline Lymph Lymphatic: no lymphedema noted Resp Resp Narrative: Mildly diminished breath sounds bibasilarly. No wheezes or crackles. on room air Auscultation: Negative for rales, rhonchi or wheezes Cardio regular rate, regular rhythm, S1 normal heart sound, S2 normal heart sound, no murmurs, no rub and no gallops GI normal to inspection, nondistended, normoactive bowel sounds, soft to palpation, non-tender and non-distended Extremity normal capillary refill, no clubbing, cyanosis or edema and no calf tenderness General Extremity: no tenderness to palpation of joints or extremities Skin no rashes or lesions noted General Skin Exam: no breakdown Neuro oriented x3, CN's II-XII intact bilaterally, moves all extremities, no focal motor deficits and no sensory deficits noted Sensorium / Orientation: awake and alert Speech: speech normal Motor Exam: general weakness Psych thought process normal, cooperative and affect normal Appearance: appropriate Weight / BMI Weight Weight: 197 lb 15.602 oz Body Mass Index (BMI) 29.2 ABG / Lab / Microbiology Data 04/12/25 05:32 04/12/25 05:32 Laboratory: Laboratory Results - last 24 hr 04/12/25 05:32: WBC 8.1, RBC 3.94 L, Hgb 12.1 L, Hct 37.1 L, MCV 94.2 H, MCH 30.7, MCHC 32.6, RDW Std Deviation 44.0 H, RDW Coeff of Abner 12.7, Plt Count 233, MPV 10.1, Immature Gran % (Auto) 0.500, Neut % (Auto) 70.7 H, Lymph % (Auto) 11.7 L, Toole % (Auto) 11.6 H, Eos % (Auto) 4.8, Baso % (Auto) 0.7, Absolute Neuts (auto) 5.7, Absolute Lymphs (auto) 0.95, Nucleated RBC % 0, Sodium 137, Potassium 3.8, Chloride 104, Carbon Dioxide 23.6, Anion Gap 10, BUN 8, Creatinine 0.76, Estim Creat Clear Calc 80.24, Est GFR (MDRD) Non-Af 90, BUN/Creatinine Ratio 10.0, Glucose 141 H, Calcium 8.2 Microbiology: Microbiology 04/09/25 05:10 Sputum, Expectorated/Coughed Gram Stain - Final 04/09/25 05:10 Sputum, Expectorated/Coughed Respiratory Culture - Final Presumptive C albicans 04/07/25 12:00 Urine, Clean Catch Urine Culture - Final ESBL Escherichia coli 04/07/25 20:20 Mucosa - Nasopharyngeal Respiratory Panel (PCR) - Final 04/07/25 10:10 Mucosa - Nose SARS-CoV-2, Influenza & RSV (PCR) - Final D/C Instructions Discharge Activity: Return to Normal Activity Weight Bearing Status: Weight bearing as tolerated Call your doctor if you observe: Fever of 101 or Higher, Shortness of breath, Dizziness, Swelling in the ankles and Chest pain DC O2, CPAP, BIPAP Needs Home O2 Discharge instructions: Yes Type of respiratory needs?: Oxygen Oxygen frequency: With Ambulation Oxygen liters per minute during Ambulation: 2 DC home with Oxygen: Yes Home O2 MD Review: I have reviewed the oxygen testing, and the patient qualifies for home oxygen equipment and portability. The patient is mobile in the home and the community. Meaningful Use Info Meaningful Use Meaningful Use Diagnoses (Choose all that apply): None applicable Discharge Plan Admission Admit Date/Time: 04/07/25 12:50 Primary Reason for Your Visit: UTI, hypoxia, pneuonia Attending Provider: Izzy Montano Primary Care Provider: Christina Sandy Consulting Providers: Quincy Warner Instructions Patient Instructions: ED Urinary Tract Infections in Men Discharge Orders/Prescriptions Prescriptions: New fluconazole 100 mg Tablet 100 mg PO DAILY Qty: 3 0RF nitrofurantoin monohyd/m-cryst 100 mg Capsule 100 mg PO BID Qty: 8 0RF ipratropium-albuterol 0.5 mg-3 mg(2.5 mg base)/3 mL solution for nebulization 3 ml inhalation Q6H PRN (Reason: shortness of breath or wheezing) Qty: 180 1RF benzonatate 100 mg capsule 100 mg PO BID PRN (Reason: cough) Qty: 30 1RF albuterol sulfate [Ventolin HFA] 90 mcg/actuation HFA aerosol inhaler 1 inh inhalation Q6H PRN (Reason: shortness of breath or wheezing) Qty: 8.5 1RF Continued aspirin [Adult Low Dose Aspirin] 81 mg tablet,delayed release (DR/EC) 81 mg PO QDAY levothyroxine 25 mcg tablet 25 mcg PO DAILY nitroglycerin 0.4 mg tablet, sublingual 0.4 mg SUBLINGUAL Q5M PRN (Reason: Chest Pain) Qty: 25 3RF tamsulosin 0.4 mg capsule 0.8 mg PO DAILY@2200 acetaminophen 325 mg Tablet 650 mg PO Q4H PRN PRN (Reason: Fever, pain 1-02/03) Qty: 0 0RF metoprolol tartrate 25 mg tablet 25 mg PO BID Qty: 180 3RF Discontinued albuterol sulfate 90 mcg/actuation HFA aerosol inhaler 1 - 2 puff INHALATION Q8H PRN (Reason: wheezing) Referrals / Follow Up: Christina Sandy DO [Primary Care Provider, Internal Medicine] - Within 1 Week Disposition Disposition (needs filled in before D/C Order can be placed): Home Health Service Charges/Coding Visit Charges Inpatient E&M: 24687 Disch Hosp >30min
== END 2025-04-12 15:12 | disposition home health service (06) | DRG 690 ==
LOC: ED 12:21 → PCU 14:44
PROVIDERS: Admitting Provider Internal Medicine; Emergency Provider Emergency Medicine; PCP Internal Medicine; Visit Provider Student in an Organized Health Care Education/Training Program
DX: N39.0 Urinary tract infection, site not specified (principal); B96.20 Unspecified Escherichia coli [E. coli] as the cause of diseases classified elsewhere; E03.9 Hypothyroidism, unspecified; I10 Essential (primary) hypertension; J06.9 Acute upper respiratory infection, unspecified; I25.10 Atherosclerotic heart disease of native coronary artery without angina pectoris; N40.0 Benign prostatic hyperplasia without lower urinary tract symptoms; Z79.82 Long term (current) use of aspirin; Z95.5 Presence of coronary angioplasty implant and graft; Z92.3 Personal history of irradiation; Z79.899 Other long term (current) drug therapy; Z95.0 Presence of cardiac pacemaker
CPT/HCPCS: 36415; 36600; 71045; 71275; 80048; 80053; 81001; 82803; 83605; 84484; 85025; 87070; 87077; 87086; 87088; 87186; 87205; 87631; 87633; 93005; 94640; 94762; 97162; 97165; 97530; 97535; 99285; J2185; P9612; Q9967; A4216; J0696

== ENCOUNTER → 2025-04-17 | Outpatient (CLI) | payer MEDICARE, SELFPAY ==
[2025-04-17 15:56] LABS: Anion Gap 17 (7-18); BUN 9 mg/dL (4-19); BUN/Creat Ratio 9.2 RATIO (10-20); Calcium,Total 9.2 mg/dL (7.6-11.0); Carbon Dioxide 17.4 mmol/L (20.0-29.0); Chloride 104 mmol/L (96-106); Glucose 111 mg/dL (70-99); Potassium 4.7 mmol/L (3.5-5.1)
== END | disposition home or self-care (01) ==
LOC: HHLAB 11:24
PROVIDERS: PCP Internal Medicine; Visit Provider Internal Medicine
DX: N30.00 Acute cystitis without hematuria (principal)
CPT/HCPCS: 80048